=== PATIENT | female | born 1990 | race Caucasian/White ===

== ENCOUNTER 2017-07-16 18:28 | Emergency (ER) | payer MEDICAID, SELFPAY ==
[2017-07-16 18:29] VITALS: BP 131/109; PULSE 114; RESP 16; TEMP 36.4; O2SAT 100; BMI 24.5
[2017-07-16 18:30] VITALS: BP 131/109; PULSE 108; RESP 16; TEMP 37.1; O2SAT 100; BMI 24.5
--- NOTE | 2017-07-16 18:48 | ED.VISSUMM ---
- ER Visit Summary Date of Service: 07/16/17 Chief Complaint: Left flank pain History of Present Illness: The patient is a 26 F history of kidney stone presents with 2 days of intermittent left flank pain. She states it feels similar to stones she has had in the past. It waxes and wanes. She has noted some hematuria. She is also had some urinary frequency. She has been mildly nauseated without vomiting. She has never required lithotripsy or stenting. She denies any fevers or chills. She denies any other systemic symptoms. The patient has had multiple CTs this year demonstrating stones, and is hoping to avoid them. Physical Examination: Vital signs reviewed General: Well-nourished, well-developed Head: Normocephalic, atraumatic Eyes: Pupils equal and reactive, extraocular muscles intact Neck, supple, no lymphadenopathy Heart: Regular rate and rhythm Respiratory: No distress, clear bilaterally Abdomen: Soft, nontender, nondistended, no peritoneal signs Back: Mild left CVA tenderness Extremities: Nontender, no edema, no cords Skin: Normal color no rash Neuro: Alert and oriented, no focal or lateralizing deficits Test Results: Urine does show hematuria, but no infection. Screening labs are unremarkable. Emergency Department Course and Treatment: The patient has signs and symptoms consistent with kidney stone. I did review her most recent CT. She did have a few small stones, but nothing larger than 2 mm. Her pain was addressed with mild improvement. She was redosed with analgesics and was more comfortable. Her urine does not show evidence of infection. She has a benign abdomen. At this time, I do feel that she is safe for outpatient therapy. I will prescribe the patient short course of analgesics and antiemetics. She will be discharged home and will follow up with her urologist in [place]. Treatment Plan: [] Disposition: Discharge Impression:. Urolithiasis This note was generated with [employer] dictation software. It may contain incorrect words, spelling, and punctuation that were not noted in review of the chart prior to signing ED Disposition - Plan for ED Patient: Chief Complaint: Flank Pain Instructions: ED Stone Renal W Colic Prescriptions: Oxycodone HCl/Acetaminophen [Percocet 5/325] 1 tab PO Q6H PRN PRN 3 Days #12 tab PRN Reason: Pain Ondansetron [Zofran Odt] 4 mg PO Q8H PRN PRN #10 tab PRN Reason: Nausea Referrals: Jaydon Decker DO [Primary Care Provider] -
[2017-07-16 18:59] LABS: Bacteria 0 SEEN /hpf (None Seen); Mucous, Urine 0 SEEN /hpf (<or=2+)
[2017-07-16 19:02] LABS: Color, Urine Yellow (Yellow); Glucose, Dipstick Normal (Normal); Ketone-Dipstick Negative (Negative); Leukocyte Esterase-Dipstick 100 /ul (Negative); Nitrite-Dipstick Negative (Negative); Occult Blood-Urine 250 /ul (Negative); Protein-Dipstick Negative (Negative); Urine Bilirubin Dipstick Negative (Negative); Urine Clarity Sl. Cloudy (Clear); Urine Urobilinogen Normal (Normal)
[2017-07-16] MEDS: Morphine 4 MG/ML Syringe IV (19:05)
[2017-07-16] MEDS: Ketorolac 30 MG/ML Syringe IV (19:05)
[2017-07-16] MEDS: 0.9% Normal Saline 1,000 ML 250 ML IV (19:05)
[2017-07-16] MEDS: Ondansetron 4 MG/2 ML Vial IV (19:06)
[2017-07-16 19:07] LABS: Absolute Neutrophil Count 2.6 X10^3/uL (2.0-7.7); Basophil# 0.02 X10^3/uL; Basophil% 0.4 % (0-1); Eosinophil# 0.06 X10^3/uL; Eosinophils% 1.1 % (0-5); Hemoglobin 12.5 g/dl (12.0-15.0); Lymphocyte % 44.8 % (19-41); Mean Corp Hgb Conc 32.9 g/gl (32-36); Mean Corpuscular Volume 97.2 fL (81-99); Mean Platelet Vol. 9.4 fl (6.2-12.0); Monocyte# 0.44 X10^3/uL; Monocyte% 7.9 % (0-10); Neutrophil # 2.56 X10^3/uL (2.7-7.7); Neutrophil % 45.8 % (47-70); POSITIVE COUNT NO; POSITIVE DIFFERENTIAL NO; POSITIVE MORPHOLOGY NO; Platelet Count 295 K/mm3 (150-450); RBC Distribution Width SD 41.9 fl (35.1-43.9); Red Blood Count 3.91 M/mm3 (4.2-5.4); White Blood Count 5.6 K/mm3 (4.4-11.0)
[2017-07-16 19:09] LABS: Red Blood Cells-Urine 50-100 SEEN /hpf (0-5); Squamous Epithelial Cells - UA 0-5 SEEN /hpf (5-10); White Blood Cells 5-10 SEEN /hpf (0-5)
[2017-07-16 19:10] LABS: Amorphous Sediment 1+ PHOS
[2017-07-16 19:18] LABS: Anion Gap 9 (5-15); BUN 15 mg/dL (7-18); Calcium,Total 8.7 mg/dL (8.5-10.1); Chloride 109 mmol/L (98-107); Creatinine, Serum 0.79 mg/dL (0.55-1.02); EST Glomerular Filtration Rate 93 mL/min (>60); Est Glom Filt Rate - Afr Amer 113 mL/min (>60); Estimated Creatinine Clearance 81.43 ml/min; Glucose 86 mg/dL (74-106); Potassium 3.3 mmol/L (3.5-5.1); Sodium Level 143 mmol/L (136-145)
[2017-07-16 19:24] LABS: Pregnancy, Serum, hCG Quali. NEGATIVE Negative (0-9 Nonpreg)
[2017-07-16] MEDS: HYDROmorphone 1 MG/ML Syringe 0.5 MG IV (19:43)
[2017-07-16] MEDS: Calcium Carbonate 500 MG Tablet PO (19:50)
[2017-07-16 20:01] VITALS: BP 125/80; PULSE 95; RESP 14; O2SAT 99
== END 2017-07-16 20:01 | disposition home or self-care (01) ==
LOC: ED 19:26
PROVIDERS: Emergency Provider Emergency Medicine; Family Provider Student in an Organized Health Care Education/Training Program; PCP Student in an Organized Health Care Education/Training Program
DX: N20.9 Urinary calculus, unspecified (principal); R31.9 Hematuria, unspecified; Z79.899 Other long term (current) drug therapy; Z87.442 Personal history of urinary calculi
CPT/HCPCS: 80048; 81001; 84703; 85025; 96361; 96374; 96375; 99285; J7030; A4216; J2405

== ENCOUNTER 2017-08-05 19:44 | Emergency (ER) | payer MEDICAID, SELFPAY ==
[2017-08-05 19:45] VITALS: BP 124/77; PULSE 101; RESP 18; TEMP 36.7; O2SAT 100; BMI 25.4
[2017-08-05 20:19] LABS: Mucous, Urine 0 SEEN /hpf (<or=2+)
[2017-08-05 20:38] LABS: Color, Urine Yellow (Yellow); Glucose, Dipstick Normal (Normal); Ketone-Dipstick Negative (Negative); Leukocyte Esterase-Dipstick 100 /ul (Negative); Nitrite-Dipstick Negative (Negative); Occult Blood-Urine 250 /ul (Negative); Protein-Dipstick 30 mg/dl (Negative); Specific Gravity, Urine 1.015 (1.002-1.030); Urine Bilirubin Dipstick Negative (Negative); Urine Clarity Sl. Cloudy (Clear); Urine Urobilinogen Normal (Normal)
[2017-08-05 20:51] LABS: Bacteria 1+ /hpf (None Seen); Red Blood Cells-Urine > 100 SEEN /hpf (0-5); Squamous Epithelial Cells - UA 5-10 SEEN /hpf (5-10); White Blood Cells 0-5 SEEN /hpf (0-5)
--- NOTE | 2017-08-05 21:10 | ED.VISSUMM ---
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 She reports she has right flank pain began yesterday. The stabbing pain Zeta 10 worst and 6 out of 10 currently. Is worsened by nothing. It is unrelieved by Celebrex and Norflex. She reports she has had nausea without vomiting. Her last bowel was today. She has had no diarrhea, melena, or hematochezia. Reports she has hematuria that began yesterday and frequent urination today. States this is similar to when she has had kidney stones in the past. Physical Examination: Vitals: Stable. Afebrile. General: Well-nourished and well-developed. Head: Normocephalic atraumatic. Neck: Supple, no lymphadenopathy. No JVD. Nontender. Cardiovascular: Regular rate and rhythm. No murmurs. Respiratory: No respiratory distress. Clear to auscultation bilaterally. Abdominal: Soft, nontender, nondistended, normal bowel sounds. No guarding, rebound, or peritoneal signs. Back: Mild right CVA tenderness. Extremities: Nontender, no edema. Skin: Normal color, no rash. Neurologic: Alert and oriented ?3. Cranial nerves II through XII are intact. Normal strength and sensation. Psych: Normal affect. Test Results: UA has greater than 100 red blood cells and no white cells. Emergency Department Course and Treatment: Reviewed the patient's recent visits the emergency department. She had a CT flank in April that showed a 2 mm stone in her right kidney. I do not think it is in her best interest to repeat this scan. Is given dose of Dilaudid and Zofran IV here. Treatment Plan: Patient will be discharged prescription for Zofran, Percocet, and Flomax. Instructed to follow-up with urologist in 1 week if not improving. Return to the emergency department for any worsening symptoms. Disposition: To home in improved and stable condition. Impression: 1. Right flank pain, acute. 2. Hematuria. 3. History of kidney stones. This note was generated with [employer] dictation software. It may contain incorrect words, spelling, and punctuation that were not noted in review of the chart prior to signing ED Disposition - Plan for ED Patient: Disposition: Home or Assisted Living Chief Complaint: Flank Pain Instructions: ED Stone Renal W Colic Prescriptions: Oxycodone HCl/Acetaminophen [Percocet 5/325] 1 tablet PO Q6H PRN PRN 3 Days #12 tablet PRN Reason: Pain Ondansetron [Zofran Odt] 4 mg PO Q8H PRN PRN #10 tablet PRN Reason: Nausea Tamsulosin HCl [Flomax] 0.4 mg PO DAILY 14 Days capsule Additional Instructions: Follow-up with your urologist in 1 week if not improving.
[2017-08-05] MEDS: Ondansetron 4 MG/2 ML Vial IV (21:17)
[2017-08-05] MEDS: HYDROmorphone 1 MG/ML Syringe IV (21:17)
[2017-08-05 21:48] VITALS: BP 122/87; PULSE 86; RESP 16; O2SAT 98
== END 2017-08-05 21:49 | disposition home or self-care (01) ==
LOC: ED 21:45
PROVIDERS: Emergency Provider Emergency Medicine; Family Provider Student in an Organized Health Care Education/Training Program; PCP Student in an Organized Health Care Education/Training Program
DX: R10.9 Unspecified abdominal pain (principal); R31.9 Hematuria, unspecified; R35.0 Frequency of micturition; R11.0 Nausea; Z79.899 Other long term (current) drug therapy; Z87.442 Personal history of urinary calculi
CPT/HCPCS: 81001; 96374; 96375; 99283; A4216; J2405

== ENCOUNTER 2017-08-18 18:55 | Emergency (ER) | payer MEDICAID, SELFPAY ==
[2017-08-18 18:58] VITALS: BP 115/77; PULSE 110; PULSE 111; RESP 18; RESP 20; TEMP 37.1; O2SAT 100; O2SAT 98; BMI 25.8
--- NOTE | 2017-08-18 19:22 | RAD_ITS ---
STUDY: X-RAY CHEST REASON FOR EXAM: Female, 26 years old. Pleurisy TECHNIQUE: Single frontal view COMPARISON: March 27, 2016 FINDINGS: The lungs are clear and expanded. There is no demonstrated pleural abnormality. Normal size heart. Normal mediastinum and zuleima. Normal visualized pulmonary arteries. Normal visualized aortic arch and descending thoracic aorta. Normal visualized thoracic spine. Normal visualized ribs, clavicles, and shoulders. There is no demonstrated abnormality of the visualized soft tissue structures of the upper abdomen. RAD/Chest 1 View (Portable) IMPRESSION: Normal x-ray examination of the chest. Electronically Signed: Skyler Sidhu DO at 19:53 EDT Tel [phone], Service support ,
--- NOTE | 2017-08-18 19:23 | EKG12_ITS ---
Test Reason : Blood Pressure : / mmHG Vent. Rate : 090 BPM Atrial Rate : 090 BPM P-R Int : 118 ms QRS Dur : 074 ms QT Int : 340 ms P-R-T Axes : 005 023 021 degrees QTc Int : 415 ms Normal sinus rhythm Normal ECG Confirmed by ЕЛЕНА SEGURA MD ([id number]), editorial specialist CHINA GIORDANO ([id number]) on 08/21/2017 12:52:35 PM Referred By: ARACELI Confirmed By:ЕЛЕНА SEGURA MD
[2017-08-18] MEDS: Ondansetron ODT 4 MG Tablet PO (19:44)
[2017-08-18] MEDS: HYDROmorphone 1 MG/ML Syringe 0.5 MG IV ×2 (19:44→21:28)
[2017-08-18 19:55] LABS: Absolute Lymphocyte Count 2.76 X10^3/ul (0.83-4.51); Absolute Neutrophil Count 3.4 X10^3/uL (2.0-7.7); Basophil# 0.03 X10^3/uL; Basophil% 0.4 % (0-1); Eosinophil# 0.07 X10^3/uL; Hematocrit 38.9 % (37-47); Hemoglobin 12.6 g/dl (12.0-15.0); Lymphocyte # 2.76 X10^3/ul (4.0); Mean Corp Hgb Conc 32.4 g/gl (32-36); Mean Corpuscular Hgb 31.1 pg (27.0-32.0); Mean Platelet Vol. 9.2 fl (6.2-12.0); Monocyte# 0.43 X10^3/uL; Monocyte% 6.4 % (0-10); Neutrophil # 3.43 X10^3/uL (2.7-7.7); Neutrophil % 51.1 % (47-70); POSITIVE COUNT NO; POSITIVE DIFFERENTIAL NO; POSITIVE MORPHOLOGY NO; Platelet Count 295 K/mm3 (150-450); RBC Distribution Width CV 11.8 % (11.6-14.6); RBC Distribution Width SD 41.4 fl (35.1-43.9); Red Blood Count 4.05 M/mm3 (4.2-5.4); White Blood Count 6.7 K/mm3 (4.4-11.0)
[2017-08-18 20:01] LABS: D-Dimer Quantitative (DVT/PE) 0.28 FEU/ug/m (0.27-0.49)
[2017-08-18 20:03] LABS: Erythrocyte Sedimentation Rate 14 mm/hr (0-20)
[2017-08-18] MEDS: MethylPREDNISolone 125 MG/2 ML Vial IV (20:08)
[2017-08-18 20:55] LABS: Pregnancy, Serum, hCG Quali. NEGATIVE Negative (0-9 Nonpreg)
[2017-08-18 20:56] LABS: Anion Gap 8 (5-15); BUN 10 mg/dL (7-18); BUN/Creat Ratio 12.9 RATIO (10-20); CRP < 2.90 mg/L (0.0-3.0); Calcium,Total 8.9 mg/dL (8.5-10.1); Chloride 108 mmol/L (98-107); Creatinine, Serum 0.78 mg/dL (0.55-1.02); EST Glomerular Filtration Rate 95 mL/min (>60); Est Glom Filt Rate - Afr Amer 115 mL/min (>60); Estimated Creatinine Clearance 82.48 ml/min; Glucose 81 mg/dL (74-106); Potassium 3.6 mmol/L (3.5-5.1); Sodium Level 140 mmol/L (136-145)
[2017-08-18 21:08] VITALS: PULSE 101; RESP 18
--- NOTE | 2017-08-18 21:22 | ED.DCSUM_ITS ---
- ER Visit Summary Date of Service: 08/18/17 Chief Complaint: Pleurisy History of Present Illness: The patient is a 26 F with sudden onset of left upper chest pain at work this morning. [facility] was [facility] and workup was reportedly negative. She was told she had pleurisy and discharged with Ultram. Patient reports her pain is not controlled. She denies recent URI or cough. She denies DVT risk factors. Past history significant for ADHD and anxiety. She has had pancreatitis, kidney stones, fibromyalgia, pericarditis, myocarditis, chronic migraines. Patient does have an allergy to NSAIDs stating it causes GI bleeding. Physical Examination: Vital signs are significant for heart rate of 110, otherwise unremarkable. Head neck examination is normal. Heart is slightly tachycardic and regular. Lung sounds are clear. She does have left anterior upper chest wall tenderness. There is no crepitus. Abdomen is soft nontender. Lower extremity examination was no calf tenderness or edema. Test Results: EKG is sinus at 90 with no sign of acute ischemia. Portable chest x-ray is unremarkable. CBC and chemistry studies are unremarkable. Troponin is less than 0.02. D-dimer is 0.28. CRP is less than 2.9. Sed rate is 14. Emergency Department Course and Treatment: Patient received a small dose of Dilaudid, Zofran, and Solu-Medrol. On repeat evaluation she is resting more comfortably. Heart rate remains elevated at 109. Oxygen saturations have maintained at 100% throughout her stay. She received 1 additional dose of pain medication and then discharged with a course of prednisone. She will continue her Ultram at home. Treatment Plan: [] Disposition: Discharge Impression: Atypical chest pain This note was generated with [employer] dictation software. It may contain incorrect words, spelling, and punctuation that were not noted in review of the chart prior to signing ED Disposition - Plan for ED Patient: Chief Complaint: Chest Other Referrals: Jaydon Decker DO [Primary Care Provider] -
--- NOTE | 2017-08-18 21:22 | ED.DEP ---
ED Disposition - Plan for ED Patient: Disposition: Home or Assisted Living Chief Complaint: Chest Other Instructions: ED Chest Pain Atypical Unkn Cause Prescriptions: Prednisone 10 mg PO UD #33 tablet Referrals: Jaydon Decker DO [Primary Care Provider] - 1 Week
[2017-08-18 21:34] VITALS: BP 103/67; PULSE 101; RESP 16; O2SAT 99
== END 2017-08-18 21:35 | disposition home or self-care (01) ==
PROVIDERS: Emergency Provider Emergency Medicine; Family Provider Student in an Organized Health Care Education/Training Program; PCP Student in an Organized Health Care Education/Training Program
DX: R07.89 Other chest pain (principal); M79.7 Fibromyalgia; F41.9 Anxiety disorder, unspecified; Z87.442 Personal history of urinary calculi; Z87.19 Personal history of other diseases of the digestive system; Z79.899 Other long term (current) drug therapy
CPT/HCPCS: 71045; 80048; 84484; 84703; 85025; 85379; 85652; 86140; 93005; 96374; 96375; 96376; 99284; A4216

== ENCOUNTER 2017-08-21 11:10 | Emergency (ER) | payer MEDICAID, SELFPAY ==
[2017-08-21 11:10] VITALS: BP 128/82; PULSE 109; RESP 12; TEMP 36.7; O2SAT 100; BMI 25.0
--- NOTE | 2017-08-21 11:54 | ED.VISSUMM ---
- ER Visit Summary Date of Service: 08/21/17 Chief Complaint: [Chest pain] History of Present Illness: The patient is a 26 F [presents to the emergency department with chest pain that started 3 days ago. Patient apparently was taken to [facility] 3 days ago where she had a significant workup at that time which did not yield anything significant and patient was diagnosed with pleurisy. Patient apparently developed more pain the following day and was seen in our emergency department 2 days ago where she had repeat workup once again including EKG as well as labs including d-dimer and troponin all of which were unremarkable. Patient currently taking tramadol for pain. Patient continues to have pain today. Patient states that she took tramadol which she has at home for headaches, that did not help her pain.] Patient has history of prior pericarditis, myocarditis, migraines, kidney stones, and cholecystectomy. Physical Examination: [HEENT-PERRLA, EOMI. Cranial nerves II through XII grossly intact. TMs clear. Mucous membranes moist. No adenopathy. Cardiovascular-regular rate and rhythm without murmur or ectopy Lungs-clear to auscultation, chest wall stable without crepitus or subcu emphysema Abdomen-normoactive bowel sounds, soft, nontender, no rebound or rigidity, no peritoneal signs. Extremities-intact ?4, normal range of motion, normal pulses, atraumatic] Test Results: [None indicated] Emergency Department Course and Treatment: [I did perform an oars report on the patient which did show a concerning amount of narcotic prescriptions over the last year. Patient has had prescriptions from multiple physicians. Patient states that these are typically for her kidney stones. At this point she has had significant workups ?2 this week to evaluate her chest pain. I do not feel any further workup is indicated. Patient understands I will not be prescribing any narcotic pain medication for unverifiable pain. I did give patient 1 dose of Dilaudid and Zofran in the emergency department and advised that she follow-up with her primary care physician within next 3-5 days.] Treatment Plan: [Patient to follow-up with her primary care physician to continue with her tramadol.] Disposition: [Discharged home in stable condition] Impression: [Chest pain-etiology uncertain] This note was generated with [employer] software. It may contain incorrect words, spelling, and punctuation that were not noted in review of the chart prior to signing ED Disposition - Plan for ED Patient: Chief Complaint: Chest Other Referrals: Jaydon Decker DO [Primary Care Provider] -
--- NOTE | 2017-08-21 11:57 | ED.DCSUM_ITS ---
- ER Visit Summary Date of Service: 08/21/17 Chief Complaint: [Chest pain] History of Present Illness: The patient is a 26 F [presents to the emergency department with chest pain that started 3 days ago. Patient apparently was taken to [facility] 3 days ago where she had a significant workup at that time which did not yield anything significant and patient was diagnosed with pleurisy. Patient apparently developed more pain the following day and was seen in our emergency department 2 days ago where she had repeat workup once again including EKG as well as labs including d-dimer and troponin all of which were unremarkable. Patient currently taking tramadol for pain. Patient continues to have pain today. Patient states that she took tramadol which she has at home for headaches, that did not help her pain.] Patient has history of prior pericarditis, myocarditis, migraines, kidney stones, and cholecystectomy. Physical Examination: [HEENT-PERRLA, EOMI. Cranial nerves II through XII grossly intact. TMs clear. Mucous membranes moist. No adenopathy. Cardiovascular-regular rate and rhythm without murmur or ectopy Lungs-clear to auscultation, chest wall stable without crepitus or subcu emphysema Abdomen-normoactive bowel sounds, soft, nontender, no rebound or rigidity, no peritoneal signs. Extremities-intact ?4, normal range of motion, normal pulses, atraumatic] Test Results: [None indicated] Emergency Department Course and Treatment: [I did perform an oars report on the patient which did show a concerning amount of narcotic prescriptions over the last year. Patient has had prescriptions from multiple physicians. Patient states that these are typically for her kidney stones. At this point she has had significant workups ?2 this week to evaluate her chest pain. I do not feel any further workup is indicated. Patient understands I will not be prescribing any narcotic pain medication for unverifiable pain. I did give patient 1 dose of Dilaudid and Zofran in the emergency department and advised that she follow- up with her primary care physician within next 3-5 days.] Treatment Plan: [Patient to follow-up with her primary care physician to continue with her tramadol.] Disposition: [Discharged home in stable condition] Impression: [Chest pain-etiology uncertain] This note was generated with [employer] software. It may contain incorrect words, spelling, and punctuation that were not noted in review of the chart prior to signing ED Disposition - Plan for ED Patient: Chief Complaint: Chest Other Referrals: Jaydon Decker DO [Primary Care Provider] -
--- NOTE | 2017-08-21 11:57 | ED.DEP ---
ED Disposition - Plan for ED Patient: Chief Complaint: Chest Other Instructions: ED Chest Pain Atypical Unkn Cause Referrals: Jaydon Decker DO [Primary Care Provider] - 3-5 Days
[2017-08-21] MEDS: HYDROmorphone 1 MG/ML Syringe IM (12:16)
[2017-08-21] MEDS: Ondansetron 4 MG/2 ML Vial IM (12:16)
[2017-08-21 12:37] VITALS: BP 105/67; PULSE 70; RESP 16; O2SAT 98
== END 2017-08-21 12:38 | disposition home or self-care (01) ==
LOC: ED 12:00
PROVIDERS: Emergency Provider Emergency Medicine; Family Provider Student in an Organized Health Care Education/Training Program; PCP Student in an Organized Health Care Education/Training Program
DX: R07.9 Chest pain, unspecified (principal); Z79.899 Other long term (current) drug therapy; Z87.442 Personal history of urinary calculi; Z90.49 Acquired absence of other specified parts of digestive tract
CPT/HCPCS: 96372; 99282

== ENCOUNTER 2017-08-31 14:55 | Emergency (ER) | payer MEDICAID, SELFPAY ==
[2017-08-31 14:56] VITALS: BP 123/86; PULSE 128; RESP 16; TEMP 37.2; O2SAT 98; BMI 25.4
--- NOTE | 2017-08-31 15:11 | CT_ITS ---
STUDY: CT ABDOMEN AND PELVIS WITHOUT CONTRAST REASON FOR EXAM: Female, 26 years old. Bilateral flank pain RADIATION DOSAGE (If Supplied By Facility): CTDIvol = ( 7.11 ) mGy, DLP = ( 328.52 ) mGycm TECHNIQUE: Transaxial images were obtained from the dome of the diaphragm to the symphysis pubis without oral contrast, and without intravenous contrast. Sagittal and coronal images were reconstructed. Individualized dose optimization techniques were used for this CT. COMPARISON: May 20, 2017 FINDINGS: The visualized lung bases are unremarkable. The visualized portions of the heart are within normal limits. Normal liver. Gallbladder not visualized consistent with cholecystectomy. Normal spleen. Normal pancreas. Normal bilateral adrenal glands. There are 2 tiny nonobstructing calculi in the right kidney.. There is no evidence for hydronephrosis or hydroureter. There are 2 tiny nonobstructing calculi in left kidney. No evidence for renal obstruction or ureteral calculus. No renal mass given limited unenhanced nature of the study. Normal visualized stomach. Normal small intestine. Normal colon. There is a tiny calcification in the right lower quadrant which appears to be within the appendiceal lumen however there is no evidence for acute appendicitis. Normal abdominal aorta. Normal inferior vena cava. Normal retroperitoneum. Incompletely distended diffusely thick-walled bladder likely of no significance. Normal abdominal wall. Normal osseous structures. CT/Abdomen/Pelvis without Cont IMPRESSION: Bilateral nephrolithiasis. No evidence for hydronephrosis or ureteral calculus at this time Status post cholecystectomy. Electronically Signed: Todd Olmstead MD at 17:14 EDT , Service support ,
--- NOTE | 2017-08-31 15:14 | ED.DCSUM_ITS ---
- ER Visit Summary Date of Service: 08/31/17 Chief Complaint: Left flank pain History of Present Illness: The patient is a 26 F who states that last night in the evening she developed pain in the flank. She states that she is seeing some pink tinge in the urine. States she has a history of kidney stones. Today at work she had to leave because the pain was so intense. She states that she has painful urination meaning that it hurts her kidney to urinate. Patient states she wants a CAT scan this time in the emergency department. She has had evaluation several times for this complaint. Physical Examination: Afebrile vital signs are stable Gen: Well-nourished well-developed Head: Normocephalic atraumatic Eyes: Perrl EOMI ENT: TMs clear no rhinorrhea moist mucous membranes Neck: Supple no lymphadenopathy no JVD nontender CVS: Heart rate is 93 on my examination regular rate rhythm no murmurs normal S1 -S2 Respiratory: No distress clear to auscultation bilaterally chest nontender Abdomen: Soft nontender nondistended normal bowel sounds no masses Back: Nontender Extremity: Left CVA tenderness no rash Skin: Normal color no rash Neuro: alert orientated ?3 CN II-XII normal gait Test Results: Analysis negative nitrates. 0-5 white cells 0-5 red cells 10-25 epithelial cells 3+ bacteria. Exit test was negative. CT of the abdomen pelvis demonstrated nephrolithiasis but no obvious ureterolithiasis or inflammatory changes around the kidneys or the ureter. Emergency Department Course and Treatment: She received a Cofield and Zofran. Urinalysis is contaminated. I do not see evidence of overt infection. Patient will be discharged home to follow-up with her doctors. Impression: 1. Left flank pain 2. Nephrolithiasis This note was generated with [employer] dictation software. It may contain incorrect words, spelling, and punctuation that were not noted in review of the chart prior to signing ED Disposition - Plan for ED Patient: Disposition: Home or Assisted Living Chief Complaint: Flank Pain Instructions: ED Flank Pain Uncertain Cause Referrals: Jaydon Decker DO [Primary Care Provider] - 3-5 Days if not improving
[2017-08-31 15:41] LABS: Mucous, Urine 0 SEEN /hpf (<or=2+)
[2017-08-31] MEDS: HYDROcodone Bitartrate/Apap 5/325 Tablet PO (15:42)
[2017-08-31] MEDS: Ondansetron ODT 4 MG Tablet PO (15:42)
[2017-08-31 15:45] LABS: Color, Urine Yellow (Yellow); Glucose, Dipstick Normal (Normal); Ketone-Dipstick Negative (Negative); Leukocyte Esterase-Dipstick 25 /ul (Negative); Nitrite-Dipstick Negative (Negative); Occult Blood-Urine 25 /ul (Negative); Protein-Dipstick Negative (Negative); Urine Bilirubin Dipstick Negative (Negative); Urine Clarity Sl. Cloudy (Clear); Urine Urobilinogen Normal (Normal); Urine pH 6.5 (5.0 - 8.0)
[2017-08-31 16:05] LABS: Internal QC Validated? YES +Cl - CLEAR BKGD; Pregnancy, Urine Negative Negative
[2017-08-31 16:07] LABS: Bacteria 3+ /hpf (None Seen); Red Blood Cells-Urine 0-5 SEEN /hpf (0-5); Squamous Epithelial Cells - UA 10-25 SEEN /hpf (5-10); Transitional Epithelial - Ur 0-5 SEEN /hpf (0-5); White Blood Cells 0-5 SEEN /hpf (0-5)
[2017-08-31 17:44] VITALS: BP 118/72; PULSE 68; RESP 16; O2SAT 98
== END 2017-08-31 17:46 | disposition home or self-care (01) ==
PROVIDERS: Emergency Provider Emergency Medicine; Family Provider Student in an Organized Health Care Education/Training Program; PCP Student in an Organized Health Care Education/Training Program
DX: R10.9 Unspecified abdominal pain (principal); N20.0 Calculus of kidney; R31.9 Hematuria, unspecified; R30.0 Dysuria; Z79.899 Other long term (current) drug therapy; Z87.442 Personal history of urinary calculi
CPT/HCPCS: 74176; 81001; 81025; 99283

== ENCOUNTER 2017-10-03 16:24 | Emergency (ER) | payer MEDICAID, SELFPAY ==
--- NOTE | 2017-10-03 16:24 | DT_ITS ---
This patient was seen during an EMR downtime September 28, 2017 - October 05, 2017. This patient may have a combination of paper and electronic documentation or all paper documentation. All documentation is viewable within the e-chart portion of [facility] for each patient visit.
[2017-10-06 06:38] LABS: Bacteria 0 SEEN /hpf (None Seen); Mucous, Urine 0 SEEN /hpf (<or=2+)
[2017-10-06 07:00] LABS: Color, Urine Yellow (Yellow); Glucose, Dipstick NEGATIVE (Normal); Ketone-Dipstick Negative (Negative); Urine Bilirubin Dipstick Negative (Negative); Urine Clarity Clear (Clear)
[2017-10-06 07:01] LABS: Leukocyte Esterase-Dipstick Negative /ul (Negative); Nitrite-Dipstick Negative (Negative); Occult Blood-Urine 150 /ul (Negative); Protein-Dipstick Negative (Negative); Red Blood Cells-Urine 10-25 SEEN /hpf (0-5); Squamous Epithelial Cells - UA 0-5 SEEN /hpf (5-10); Urine Urobilinogen Normal (Normal); White Blood Cells 0-5 SEEN /hpf (0-5)
[2017-10-06 20:34] LABS: AST(SGOT) 14 U/L (15-37); Alanine Aminotransfer ALT/SGPT 27 U/L (13-56); Albumin, Serum 4.3 g/dL (3.2-5.0); Alkaline Phosphatase 66 U/L (45-117); BUN 9 mg/dL (7-18); BUN/Creat Ratio 9.4 RATIO (10-20); Creatinine, Serum 0.96 mg/dL (0.55-1.02); EST Glomerular Filtration Rate 74 mL/min (>60); Est Glom Filt Rate - Afr Amer 90 mL/min (>60); Globulin 4.5 g/dL (2.2-4.2); Glucose 95 mg/dL (74-106); Lipase 254 U/L (73-393); Protein, Total 8.8 g/dL (6.4-8.2)
[2017-10-06 20:35] LABS: Anion Gap 9 (5-15); Bilirubin, Direct 0.06 mg/dL (0.00-0.30); Chloride 109 mmol/L (98-107); Potassium 3.6 mmol/L (3.5-5.1); Sodium Level 142 mmol/L (136-145)
[2017-10-06 20:36] LABS: Pregnancy, Serum, hCG Quali. NEGATIVE Negative (0-9 Nonpreg)
[2017-10-06 21:01] LABS: Hemoglobin 13.7 g/dl (12.0-15.0); Red Blood Count 4.28 M/mm3 (4.2-5.4); White Blood Count 9.7 K/mm3 (4.4-11.0)
[2017-10-06 21:02] LABS: Basophil% 0.2 % (0-1); Eosinophils% 0.2 % (0-5); Hematocrit 41.2 % (37-47); Lymphocyte % 21.4 % (19-41); Mean Corp Hgb Conc 33.3 g/gl (32-36); Mean Corpuscular Volume 96.3 fL (81-99); Mean Platelet Vol. 10.1 fl (6.2-12.0); Monocyte% 7.2 % (0-10); Neutrophil % 70.9 % (47-70); POSITIVE COUNT NO; POSITIVE DIFFERENTIAL NO; POSITIVE MORPHOLOGY NO; Platelet Count 329 K/mm3 (150-450); RBC Distribution Width CV 12.3 % (11.6-14.6); RBC Distribution Width SD 42.2 fl (35.1-43.9)
[2017-10-06 21:03] LABS: Absolute Lymphocyte Count 2.08 X10^3/ul (0.83-4.51); Absolute Neutrophil Count 6.9 X10^3/uL (2.0-7.7); Basophil# 0.02 X10^3/uL; Eosinophil# 0.02 X10^3/uL; Lymphocyte # 2.08 X10^3/ul (4.0); Neutrophil # 6.88 X10^3/uL (2.7-7.7)
== END 2017-10-03 19:15 | disposition home or self-care (01) ==
LOC: ED 10-04 14:28
PROVIDERS: Emergency Provider Emergency Medicine; Family Provider Student in an Organized Health Care Education/Training Program; PCP Student in an Organized Health Care Education/Training Program
DX: R10.13 Epigastric pain (principal); G89.29 Other chronic pain; M79.7 Fibromyalgia; Z87.442 Personal history of urinary calculi; Z79.899 Other long term (current) drug therapy
CPT/HCPCS: 80048; 80076; 81001; 83690; 84703; 85025; 96361; 96374; 96375; 99284; A4216; J2405

== ENCOUNTER 2017-10-11 09:34 | Emergency (ER) | payer MEDICAID, SELFPAY ==
[2017-10-11 09:35] VITALS: BP 109/60; PULSE 121; RESP 15; TEMP 36.6; O2SAT 100; BMI 26.0
--- NOTE | 2017-10-11 09:51 | US_ITS ---
STUDY: RENAL ULTRASOUND - COMPLETE REASON FOR EXAM: Female, 27 years old. Flank pain TECHNIQUE: Ultrasound evaluation of the kidneys was performed with real-time and static draper-scale imaging. COMPARISON: August 31, 2017 CT scan abdomen and pelvis FINDINGS: RIGHT KIDNEY: Normal location of the right kidney, which is normal in size. The right kidney measures 10.1 x 4.6 x 3.8 cm. There is a normal cortex of the right kidney. The renal cortex measures 1.3 cm. There is no right renal mass or cyst. There punctate echogenicities in the right kidney image #7 suggesting tiny renal stones. There is no visualized hydronephrosis. There is no right hydronephrosis. DISTAL RIGHT URETER: There is non-visualization of the distal right ureter. There is no demonstrated right ureterovesical junction calculus. There is a visualized right ureteral jet. LEFT KIDNEY: Normal location of the left kidney, which is normal in size. The left kidney measures 10.8 x 4.6 x 5.5 cm. There is a normal cortex of the left kidney. The renal cortex measures 1.5 cm. There is no left renal mass or cyst. There punctate echogenicities within the left kidney suggesting punctate stones. There is trace left pelviectasis image #61. There is no left hydronephrosis. DISTAL LEFT URETER: There is non-visualization of the distal left ureter. There is no demonstrated left ureterovesical junction calculus. There is a visualized left ureteral jet. BLADDER: The prevoid urinary bladder has a volume of 31.9 ml. There is a normal wall thickness of the distended urinary bladder. There is no demonstrated mass within the urinary bladder. There are no demonstrated bladder calculi. US/Kidney and Bladder IMPRESSION: Bilateral punctate renal stones similar to prior study. Mild left pelviectasis. Electronically Signed: Ruth Israel MD at 11:29 EDT Tel , Service support ,
[2017-10-11] MEDS: fentaNYL 100 MCG/2 ML Ampul 50 MCG IV (10:08)
--- NOTE | 2017-10-11 10:13 | ED.DCSUM_ITS ---
- ER Visit Summary Date of Service: 10/11/17 Chief Complaint: Flank pain History of Present Illness: The patient is a 27 F who continues to have right flank pain. She has had this for which she says is 3 days. However, she has been seen many times for this. She was at [facility] on and diagnosed with a kidney infection. She was started on Keflex. She has a history of kidney stones. She had a CAT scan less than a month ago which showed renal stones but none in the ureter. She was given Percocet at [facility] but has since ran out. She tried Tylenol without any relief. She denies fevers. She is slightly nauseous. Physical Examination: Vital signs reviewed. HEENT exam unremarkable. Heart is cardiac in regular rhythm without murmurs. Lungs are clear to auscultation. Abdomen is soft and nontender. Does have right CVA tenderness to palpation. Extremities reveal no edema. Skin exam normal. Neurologic exam normal. Test Results: Urinalysis reveals blood. Renal ultrasound reveals renal stones with mild left pelviectasis Emergency Department Course and Treatment: She was given fentanyl. She continued to have pain so I did give her 1 dose of Dilaudid. I reviewed her [facility] report. It does show many prescriptions from a lot of different providers. However, she states that she is allergic to NSAIDs. I will give her 4 Percocet tablets that she can take at home. She does have urology follow- up scheduled. I do not feel she requires a different antibiotic as there are no white blood cells in her urine. She needs to keep this appointment Treatment Plan: [] Disposition: Discharge Impression: Hematuria, renal stones, flank pain This note was generated with [employer] dictation software. It may contain incorrect words, spelling, and punctuation that were not noted in review of the chart prior to signing ED Disposition - Plan for ED Patient: Chief Complaint: Complaint Referrals: Jaydon Decker DO [Primary Care Provider] -
[2017-10-11 10:14] LABS: Bacteria 0 SEEN /hpf (None Seen); Mucous, Urine 0 SEEN /hpf (<or=2+); White Blood Cells 0 SEEN /hpf (0-5)
[2017-10-11 10:16] LABS: Color, Urine Yellow (Yellow); Glucose, Dipstick Normal (Normal); Ketone-Dipstick Negative (Negative); Leukocyte Esterase-Dipstick 100 /ul (Negative); Nitrite-Dipstick Negative (Negative); Occult Blood-Urine 250 /ul (Negative); Protein-Dipstick 15 mg/dl (Negative); Urine Bilirubin Dipstick Negative (Negative); Urine Clarity Sl. Cloudy (Clear); Urine Urobilinogen Normal (Normal)
[2017-10-11 10:22] LABS: Red Blood Cells-Urine > 100 SEEN /hpf (0-5); Squamous Epithelial Cells - UA 5-10 SEEN /hpf (5-10)
--- NOTE | 2017-10-11 11:35 | ED.DEP ---
ED Disposition - Plan for ED Patient: Disposition: Home or Assisted Living Chief Complaint: Complaint Instructions: ED Flank Pain Uncertain Cause Prescriptions: Oxycodone HCl/Acetaminophen [Percocet 5/325] 1 tab PO Q6H PRN PRN 2 Days #4 tab PRN Reason: Pain Referrals: Jaydon Decker DO [Primary Care Provider] -
[2017-10-11] MEDS: HYDROmorphone 1 MG/ML Syringe IV (12:03)
[2017-10-11 12:06] VITALS: BP 105/72; PULSE 94; RESP 16; TEMP 36.3; O2SAT 98
== END 2017-10-11 12:08 | disposition home or self-care (01) ==
PROVIDERS: Emergency Provider Emergency Medicine; Family Provider Student in an Organized Health Care Education/Training Program; PCP Student in an Organized Health Care Education/Training Program
DX: R31.9 Hematuria, unspecified (principal); R10.9 Unspecified abdominal pain; N20.0 Calculus of kidney; M79.7 Fibromyalgia; Z88.6 Allergy status to analgesic agent; Z87.442 Personal history of urinary calculi
CPT/HCPCS: 76770; 81001; 96374; 96375; 99283; A4216

== ENCOUNTER 2017-10-14 18:29 | Emergency (ER) | payer MEDICAID, SELFPAY ==
[2017-10-14 18:30] VITALS: BP 119/74; PULSE 116; RESP 16; TEMP 36.6; O2SAT 98; BMI 26.9
--- NOTE | 2017-10-14 18:54 | EKG12_ITS ---
Test Reason : Blood Pressure : / mmHG Vent. Rate : 092 BPM Atrial Rate : 092 BPM P-R Int : 138 ms QRS Dur : 076 ms QT Int : 336 ms P-R-T Axes : 039 038 030 degrees QTc Int : 415 ms Normal sinus rhythm Normal ECG Confirmed by MAXWELL STEPHENSON ([id number]), pictures editor MAX BLEDSOE ([id number]) on 10/19/2017 10:13:24 AM Referred By: Todd Zuleta Confirmed By:MAXWELL STEPHENSON
--- NOTE | 2017-10-14 18:54 | RAD_ITS ---
STUDY: X-RAY CHEST REASON FOR EXAM: Female, 27 years old. Chest pain TECHNIQUE: Frontal and lateral views of the chest. COMPARISON: 08/18/2017. FINDINGS: The lungs are clear and expanded. There is no demonstrated pleural abnormality. Normal size heart. Normal mediastinum and zuleima. Normal visualized pulmonary arteries. Normal visualized aortic arch and descending thoracic aorta. Normal visualized thoracic spine. Normal visualized ribs, clavicles, and shoulders. There is no demonstrated abnormality of the visualized soft tissue structures of the upper abdomen. RAD/Chest PA and Lateral IMPRESSION: No acute cardiopulmonary disease. Electronically Signed: Keny Velásquez DO at 19:44 EDT , Service support ,
--- NOTE | 2017-10-14 18:56 | ED.VISSUMM ---
- ER Visit Summary Date of Service: 10/14/17 Chief Complaint: Chest pain History of Present Illness: The patient is a 27 F recently diagnosed with jokw-hmih-yir-mouth disease. Complaining of chest discomfort. Has never had a DVT or PE. No recent travel, surgery, mobilization. No hemoptysis. No leg pain or swelling. Says it hurts to move. Denies any fever. States she has had prior pericarditis. Also has a history of fibromyalgia. She reportedly is allergic to NSAIDs and currently on Percocet and Magic mouthwash for tpfa-wihu-txv-mouth pain. She denies any shortness of breath. Physical Examination: Well-appearing young female. Vital signs are stable and afebrile. Her pulse ox 90% on room air no signs of hypoxia. H EENT exam lesions of her mouth consistent with aiob-crcp-ggr-mouth. Moist wheeze membranes. Posterior pharynx unremarkable. Neck nontender no lymphadenopathy. Lungs clear to auscultation bilaterally. Heart regular rhythm rate about 95 no murmur. Chest wall is reproducibly tender. Over the anterior chest. There is no ecchymosis or bruising. No subcu air or crepitance. Abdomen is soft and nontender. Normal bowel sounds no peritoneal signs. She is moving all 4 extremities. Calves are nontender without edema or cords. Normal range of motion all 4 extremities. Back exam nontender. Neurologically she is awake alert with no focal motor deficits. Test Results: Sinus rhythm rate 92 normality. No ischemia in absolutely no signs of pericarditis. Chest x-ray normal cardiac silhouette and mediastinum also appears normal read both by myself the radiologist. Emergency Department Course and Treatment: Patient's exam is consistent with chest wall pain. I am obtain EKG and chest x-ray. Requested something for pain and reportedly is allergic to NSAIDs should be given 1 Percocet. She did not want to use her own pain meds while here. Treatment Plan: Weekly, historically and exam this is consistent with chest wall pain. She has pain medications at home which she can use. Disposition: Discharge Impression: Acute chest wall pain This note was generated with THYME dictation software. It may contain incorrect words, spelling, and punctuation that were not noted in review of the chart prior to signing ED Disposition - Plan for ED Patient: Chief Complaint: Chest Other Referrals: Jaydon Decker DO [NON CLINICAL AFFILIATE] -
--- NOTE | 2017-10-14 18:59 | ED.DCSUM_ITS ---
- ER Visit Summary Date of Service: 10/14/17 Chief Complaint: Chest pain History of Present Illness: The patient is a 27 F recently diagnosed with hand- jufs-nxa-npfta disease. Complaining of chest discomfort. Has never had a DVT or PE. No recent travel, surgery, mobilization. No hemoptysis. No leg pain or swelling. Says it hurts to move. Denies any fever. States she has had prior pericarditis. Also has a history of fibromyalgia. She reportedly is allergic to NSAIDs and currently on Percocet and Magic mouthwash for hand-foot- and-mouth pain. She denies any shortness of breath. Physical Examination: Well-appearing young female. Vital signs are stable and afebrile. Her pulse ox 90% on room air no signs of hypoxia. H EENT exam lesions of her mouth consistent with qcma-bwlx-bbv-mouth. Moist wheeze membranes. Posterior pharynx unremarkable. Neck nontender no lymphadenopathy. Lungs clear to auscultation bilaterally. Heart regular rhythm rate about 95 no murmur. Chest wall is reproducibly tender. Over the anterior chest. There is no ecchymosis or bruising. No subcu air or crepitance. Abdomen is soft and nontender. Normal bowel sounds no peritoneal signs. She is moving all 4 extremities. Calves are nontender without edema or cords. Normal range of motion all 4 extremities. Back exam nontender. Neurologically she is awake alert with no focal motor deficits. Test Results: Sinus rhythm rate 92 normality. No ischemia in absolutely no signs of pericarditis. Chest x-ray normal cardiac silhouette and mediastinum also appears normal read both by myself the radiologist. Emergency Department Course and Treatment: Patient's exam is consistent with chest wall pain. I am obtain EKG and chest x-ray. Requested something for pain and reportedly is allergic to NSAIDs should be given 1 Percocet. She did not want to use her own pain meds while here. Treatment Plan: Weekly, historically and exam this is consistent with chest wall pain. She has pain medications at home which she can use. Disposition: Discharge Impression: Acute chest wall pain This note was generated with [employer] dictation software. It may contain incorrect words, spelling, and punctuation that were not noted in review of the chart prior to signing ED Disposition - Plan for ED Patient: Chief Complaint: Chest Other Referrals: Jaydon Decker DO [NON CLINICAL AFFILIATE] -
[2017-10-14] MEDS: oxyCODONE 5 MG Tablet 10 MG PO (19:33)
[2017-10-14 19:34] VITALS: BP 118/84; PULSE 107; RESP 18; O2SAT 98
--- NOTE | 2017-10-14 20:15 | ED.DEP ---
ED Disposition - Plan for ED Patient: Disposition: Home or Assisted Living Chief Complaint: Chest Other Instructions: ED Chest Pain Costochondritis Additional Instructions: Usual pain meds at home for the chest wall pain. Your chest x-ray and EKG were both unremarkable. Follow-up your primary care physician if not improving.
[2017-10-14 20:26] VITALS: BP 122/58; PULSE 94; RESP 18; O2SAT 97
== END 2017-10-14 20:27 | disposition home or self-care (01) ==
PROVIDERS: Emergency Provider Emergency Medicine
DX: R07.89 Other chest pain (principal); M79.7 Fibromyalgia; Z88.6 Allergy status to analgesic agent; Z79.899 Other long term (current) drug therapy; Z87.442 Personal history of urinary calculi
CPT/HCPCS: 71046; 93005; 99283

== ENCOUNTER 2017-10-29 18:45 | Emergency (ER) | payer MEDICAID, SELFPAY ==
[2017-10-29 18:46] VITALS: BP 103/66; PULSE 102; PULSE 116; RESP 14; RESP 18; TEMP 36.1; TEMP 36.4; O2SAT 100; BMI 25.7
[2017-10-29 19:10] LABS: Mucous, Urine 0 SEEN /hpf (<or=2+); White Blood Cells 0 SEEN /hpf (0-5)
[2017-10-29 19:14] LABS: Color, Urine Yellow (Yellow); Glucose, Dipstick Normal (Normal); Ketone-Dipstick Negative (Negative); Leukocyte Esterase-Dipstick 25 /ul (Negative); Nitrite-Dipstick Negative (Negative); Occult Blood-Urine 250 /ul (Negative); Protein-Dipstick 15 mg/dl (Negative); Specific Gravity, Urine 1.015 (1.002-1.030); Urine Bilirubin Dipstick Negative (Negative); Urine Clarity Cloudy (Clear); Urine Urobilinogen Normal (Normal); Urine pH 6.5 (5.0 - 8.0)
[2017-10-29 19:48] LABS: Bacteria RARE /hpf (None Seen); Red Blood Cells-Urine > 100 SEEN /hpf (0-5); Squamous Epithelial Cells - UA 0-5 SEEN /hpf (5-10)
--- NOTE | 2017-10-29 20:02 | CT_ITS ---
STUDY: CT ABDOMEN AND PELVIS WITHOUT CONTRAST REASON FOR EXAM: Female, 27 years old. Right lower quadrant pain RADIATION DOSAGE (If Supplied By Facility): CTDIvol = ( 9.93 ) mGy, DLP = ( 476.45 ) mGycm TECHNIQUE: Transaxial images were obtained from the dome of the diaphragm to the symphysis pubis without oral contrast, and without intravenous contrast. Sagittal and coronal images were reconstructed. Individualized dose optimization techniques were used for this CT. COMPARISON: August 31, 2017 FINDINGS: The visualized lung bases are unremarkable. The visualized portions of the heart are within normal limits. Normal liver. Status postcholecystectomy.. Normal spleen. Normal pancreas. Normal bilateral adrenal glands. Tiny nonobstructing right renal calculus. Tiny nonobstructing left renal calculus No evidence for hydronephrosis or ureteral calculus. No renal mass.. Normal visualized stomach. Normal small intestine. Nonspecific diffuse fecal retention within the colon. No evidence for acute appendicitis Normal abdominal aorta. Normal inferior vena cava. Normal retroperitoneum. Normal urinary bladder. Normal abdominal wall. Normal osseous structures. CT/Abdomen/Pelvis without Cont IMPRESSION: Bilateral nephrolithiasis. No evidence for hydronephrosis or ureteral calculus No evidence for acute appendicitis Status postcholecystectomy Electronically Signed: Todd Olmstead MD at 21:53 EDT , Service support ,
[2017-10-29 20:39] LABS: Absolute Lymphocyte Count 2.12 X10^3/ul (0.83-4.51); Absolute Neutrophil Count 3.7 X10^3/uL (2.0-7.7); Basophil# 0.02 X10^3/uL; Basophil% 0.3 % (0-1); Eosinophil# 0.07 X10^3/uL; Eosinophils% 1.1 % (0-5); Hematocrit 36.8 % (37-47); Hemoglobin 11.8 g/dl (12.0-15.0); Lymphocyte # 2.12 X10^3/ul (4.0); Lymphocyte % 33.2 % (19-41); Mean Corp Hgb Conc 32.1 g/gl (32-36); Mean Corpuscular Hgb 30.7 pg (27.0-32.0); Mean Corpuscular Volume 95.8 fL (81-99); Mean Platelet Vol. 9.3 fl (6.2-12.0); Monocyte# 0.51 X10^3/uL; Neutrophil # 3.66 X10^3/uL (2.7-7.7); Neutrophil % 57.4 % (47-70); Platelet Count 334 K/mm3 (150-450); RBC Distribution Width CV 12.5 % (11.6-14.6); RBC Distribution Width SD 43.6 fl (35.1-43.9); Red Blood Count 3.84 M/mm3 (4.2-5.4); White Blood Count 6.4 K/mm3 (4.4-11.0)
[2017-10-29] MEDS: 0.9% Normal Saline 1,000 ML 1000 ML IV (20:39)
[2017-10-29] MEDS: Ondansetron 4 MG/2 ML Vial IV (20:39)
[2017-10-29] MEDS: HYDROmorphone 1 MG/ML Syringe IV (20:39)
[2017-10-29 20:47] LABS: POSITIVE COUNT NO; POSITIVE DIFFERENTIAL NO; POSITIVE MORPHOLOGY NO
[2017-10-29 20:51] LABS: Anion Gap 8 (5-15); BUN 7 mg/dL (7-18); BUN/Creat Ratio 9.1 RATIO (10-20); Calcium,Total 8.6 mg/dL (8.5-10.1); Chloride 109 mmol/L (98-107); Creatinine, Serum 0.77 mg/dL (0.55-1.02); EST Glomerular Filtration Rate 95 mL/min (>60); Est Glom Filt Rate - Afr Amer 115 mL/min (>60); Estimated Creatinine Clearance 82.81 ml/min; Glucose 93 mg/dL (74-106); Potassium 4.3 mmol/L (3.5-5.1); Sodium Level 140 mmol/L (136-145)
[2017-10-29 21:25] LABS: Pregnancy, Serum, hCG Quali. NEGATIVE Negative (0-9 Nonpreg)
--- NOTE | 2017-10-29 22:12 | ED.VISSUMM ---
- ER Visit Summary Date of Service: 10/29/17 Chief Complaint: Abdominal pain History of Present Illness: The patient is a [address] Acuña, Dr. Hutson, and Dr. marte. She reports that she has lower right abdominal pain began 3 days ago. Is gradually gotten worse. It is a constant aching pain with stabbing episodes. She reports Zeta 10 hours and 5-10 currently. Is worsened by walking or urinating. She is taken Bentyl and Tylenol without relief. She has had nausea without vomiting. She reports that she has chronic diarrhea twice a day usually and has had this 4 times a day. No blood in her stools or black tarry stools. No dysuria or frequency. Physical Examination: Vitals: Stable. Afebrile. General: Well-nourished and well-developed. Head: Normocephalic atraumatic. Neck: Supple, no lymphadenopathy. No JVD. Nontender. Cardiovascular: Regular rate and rhythm. No murmurs. Respiratory: No respiratory distress. Clear to auscultation bilaterally. Abdominal: Soft, moderate right lower quadrant tenderness to palpation, nondistended, normal bowel sounds. No guarding, rebound, or peritoneal signs. Back: Nontender. Extremities: Nontender, no edema. Skin: Normal color, no rash. Neurologic: Alert and oriented ?3. Cranial nerves II through XII are intact. Normal strength and sensation. Psych: Normal affect. Test Results: CBC is remarkable for an H&H 11 point and 36.8. Chem-7 is more for chloride 109. UA is marked for greater than 100 red blood cells and rare bacteria. test is negative. CT flank shows bilateral nephrolithiasis without any ureterolithiasis. No evidence for acute appendicitis. No hydronephrosis or hydroureter. Emergency Department Course and Treatment: Patient was treated the dose of Dilaudid and Zofran IV. She is resting comfortably. Treatment Plan: This is the patient's 12th visit to the emergency department in 2018. I do not think that giving her further opiate medications is in her best interest. She will be discharged with symptomatic care. Use Tylenol for pain. Follow-up with her primary care physician 1-2 days if not improving. Disposition: To home in improved and stable condition. Impression: 1. Abdominal pain, uncertain cause. This note was generated with [employer] Internationalation software. It may contain incorrect words, spelling, and punctuation that were not noted in review of the chart prior to signing ED Disposition - Plan for ED Patient: Disposition: Home or Assisted Living Chief Complaint: Abd Pain Instructions: ED Abdominal Pain Unkn Cause Referrals: Doctor,Your [STAFF PHYSICIAN] - 1-2 Days if not improving
[2017-10-29 23:05] VITALS: BP 110/73; PULSE 73; RESP 18; O2SAT 100
== END 2017-10-29 23:05 | disposition home or self-care (01) ==
LOC: ED 20:41
PROVIDERS: Emergency Provider Emergency Medicine
DX: R10.9 Unspecified abdominal pain (principal); K52.9 Noninfective gastroenteritis and colitis, unspecified; N20.0 Calculus of kidney; R31.9 Hematuria, unspecified; R51 Headache; M79.7 Fibromyalgia; Z79.899 Other long term (current) drug therapy; Z87.442 Personal history of urinary calculi
CPT/HCPCS: 74176; 80048; 81001; 84703; 85025; 96361; 96374; 96375; 99284; J7030; A4216; J2405

== ENCOUNTER 2017-11-11 13:45 | Emergency (ER) | payer MEDICAID, SELFPAY ==
[2017-11-11 13:46] VITALS: BP 111/83; PULSE 114; RESP 12; TEMP 36.8; O2SAT 99; BMI 25.5
[2017-11-11 14:03] LABS: Color, Urine Yellow (Yellow); Glucose, Dipstick Normal (Normal); Ketone-Dipstick Negative (Negative); Urine Bilirubin Dipstick Negative (Negative); Urine Clarity Sl. Cloudy (Clear)
[2017-11-11 14:04] LABS: Leukocyte Esterase-Dipstick 500 /ul (Negative); Nitrite-Dipstick Negative (Negative); Occult Blood-Urine 250 /ul (Negative); Protein-Dipstick 30 mg/dl (Negative); Urine Urobilinogen Normal (Normal)
[2017-11-11 14:10] LABS: Red Blood Cells-Urine 25-50 SEEN /hpf (0-5); White Blood Cells >100 SEEN /hpf (0-5)
[2017-11-11 14:11] LABS: Bacteria RARE /hpf (None Seen); Mucous, Urine 1+ /hpf (<or=2+); Squamous Epithelial Cells - UA 5-10 SEEN /hpf (5-10)
--- NOTE | 2017-11-11 14:48 | ED.VISSUMM ---
- ER Visit Summary Date of Service: 11/11/17 Chief Complaint: Left flank pain History of Present Illness: The patient is a 27 F states that yesterday she began to have some blood in her urine. She states she developed urinary frequency pressure in her bladder and pain in the left flank. States she has a history of kidney stones. She states that she has not yet established with a new urologist yet but called their office open to get in with the recommended she come to the emergency room. The patient states she normally gets an antibiotic and Flomax. I seen the patient several times before. She has had approximately 8 CTs at this institution alone in the past 5 years of the abdomen and renal area. The patient has also been known to be seen in other emergency rooms where she has had several similar workups (i.e. CAT scans urinalysis). The patient informs me she likes to come here because she gets better service. Physical Examination: Afebrile vital signs are stable Patient is sitting comfortably in the bed. She is not writhing. Reports left CVA tenderness. No pain upon palpation of the bladder left lower quadrant. Test Results: Urinalysis demonstrates greater than 100 white blood cells, 25-50 red blood cells rare bacteria. Emergency Department Course and Treatment: Out of the patient's interest for increasing amounts of radiation I do not feel strongly she needs a CT scan today. To my knowledge have not found a CT scan that demonstrates a ureteral stone resulting in hydronephroureter. I will asked for urine culture. I will put her on Flomax at her request and give her an antibiotic. The patient asked to speak with me because she was not getting any narcotics. The patient states that she has bottles of Flomax at home and antibiotics. The patient has several red flags that do not allow me to feel comfortable writing her narcotics here today. She is allergic to all anti-inflammatories. She has been taking Tylenol since last night. She has had 8 prior visits at this institution with no obstructing ureterolithiasis. She has been to numerous other facilities including [facility] and [facility]. The red flag of complementing the practitioner at the start of the visit. The patient's oars report was reviewed and she has had numerous opioid prescriptions from numerous prescribers this year alone. Combining these red flags with specifically being upset that she is not getting the narcotic certainly will result in me not prescribing any narcotics for the patient. Impression: 1. UTI This note was generated with [employer] dictation software. It may contain incorrect words, spelling, and punctuation that were not noted in review of the chart prior to signing <Augustine Leyva - Last Filed: 11/11/17 15:32> - ER Visit Summary Date of Service: 11/11/17 The patient was seen by Dr. Leyva. This note was generated with [employer] dictation software. It may contain incorrect words, spelling, and punctuation that were not noted in review of the chart prior to signing <Justice Gonzalez - Last Filed: 11/12/17 16:26> ED Disposition <Augustine Leyva - Last Filed: 11/11/17 15:32> <Justice Gonzalez - Last Filed: 11/12/17 16:26> - Plan for ED Patient: Disposition: Home or Assisted Living Chief Complaint: Flank Pain Instructions: ED UTI Cystitis Female Prescriptions: Tamsulosin HCl [Flomax] 0.4 mg PO DAILY #5 cap Cephalexin [Keflex] 500 mg PO BID #14 cap Referrals: [facility] Doctor,Out of [NON-STAFF] - Additional Instructions: Follow-up with your doctors
--- NOTE | 2017-11-11 15:50 | ED.RN ---
UPON ARRIVAL TO THE ROOM TO D/C THE PATIENT HOME SHE ASKED ABOUT PAIN MEDICATION. AFTER BEING TO THAT THERE WERE NO HOME PAIN MEDICATIONS PERSCRIBED SHE ASKED TO SPEAK WITH THE DR. PHYSICIAN WAS NOTIFIED AND SPOKE WITH THAT HER. SHE THEN LEFT THE DEPARTMENT WITH OUT HER D/C INSTRUCTIONS AND ANTIBIOTIC SCRIPTS. Hemanth ÁLVAREZ RN
== END 2017-11-11 15:53 | disposition home or self-care (01) ==
LOC: ED 15:22
PROVIDERS: Emergency Provider Emergency Medicine
DX: N39.0 Urinary tract infection, site not specified (principal); R31.9 Hematuria, unspecified; Z87.442 Personal history of urinary calculi; Z90.49 Acquired absence of other specified parts of digestive tract; Z79.899 Other long term (current) drug therapy
CPT/HCPCS: 81001; 99282

== ENCOUNTER 2017-12-12 18:42 | Emergency (ER) | payer MEDICAID, SELFPAY ==
[2017-12-12 18:44] VITALS: BP 117/75; PULSE 140; RESP 18; TEMP 37.1; O2SAT 99; BMI 26.6
--- NOTE | 2017-12-12 20:14 | ED.VISSUMM ---
- ER Visit Summary Date of Service: 12/12/17 Chief Complaint: Chest pain and sore throat History of Present Illness: The patient is a 27 F presenting with chest pain. She reports a history of chronic recurrent chest pain and follows with a speech pathology assistant. She states that at one point several years ago she was diagnosed with myocarditis and it resolved with a prolonged treatment of anti-inflammatories. She now states that she can no longer take anti-inflammatories because they make her stomach bleed. She was seen at [facility] earlier today and her workup was unremarkable. She was treated with Nubain and told to follow-up with her speech pathology assistant on Thursday for an outpatient echocardiogram. The case was discussed with her speech pathology assistant at that time. Her pain improved transiently but has recurred. It is not exertional nor is it pleuritic. She denies recent travel or mobilization. Denies history of DVT or PE. Denies family history of pulmonary embolism. This feels similar to her chronic recurrent pain. She also has a slight sore throat but can still swallow without difficulty. No fever or chills. Physical Examination: Vitals are within normal limits except for mild tachycardia. Blood pressure is normal. No fever. Neck is supple. Heart tones are regular and without murmur. Lungs are clear bilaterally. There is no chest wall tenderness. Throat looks normal. Tonsils not enlarged. No exudates. Voice is normal. Submandibular and anterior neck structures are soft. She has no tenderness along the lower extremity venous system, palpable cords, or other evidence of DVT. Strong pulses in all extremities. Mental status exam is normal. Test Results: Her EKG here is unremarkable. She has no clinical evidence of DVT. Emergency Department Course and Treatment: EKG unremarkable here. No evidence of DVT. With her permission, I did review her chart from [facility] and she also showed me her results using her phone and the my chart. I reviewed the note from the emergency physician at [facility]. She discussed the case with her speech pathology assistant and they recommended treatment with colchicine and follow-up on Thursday. Her sed rate was 35 there but all of her other labs were normal including normal cardiac enzymes and she has had symptoms for several days. No evidence to suggest acute coronary syndrome. Her sed rate is apparently chronically elevated between 15 and 35 so difficult how to interpret this. She has no evidence of DVT in her pain is not pleuritic. She is slightly tachycardic but there is no recent travel or other risk factors and she tells me that she is tachycardic quite often and it is usually from pain. She states that she is essentially here for pain control because they would not give her prescriptions at [facility]. I also reviewed a note from their facility and it appears that she drove herself home there after telling staff that her boyfriend was picking her up and receiving opiate pain medication. I asked her about this and she states that it is not true and that her boyfriend drove her home. She also told me that her boyfriend will drive her home from here tonight. She states that morphine makes her sick and that the only medication that works for her is Dilaudid. She also told me that she has been texting with her friend who is a physician and that physician recommends Dilaudid be given. I talked with her about the new [facility] opiate regulations and that I would have to review her opiate prescription report. 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 I asked her when the last time she received an opiate prescription was and she told me that it has been 2-3 months. I reviewed her report and her overdose risk score is 550 and she did receive a prescription almost exactly 1 month ago. I discussed this with her and told her that I feel it is in her best interest and for her own safety that she receive all of her opiates from a single provider and that I feel it could be dangerous for her if I prescribe her an opiate. She states that she is able to take the colchicine which I do feel would be an appropriate treatment if she does have pericarditis. I will treat her with 1 dose of oral Percocet here and she will keep her appointment on Thursday. She will return to emergency department if she is worse. She promised me that her boyfriend will be picking her up tonight. Treatment Plan: Pain control Disposition: Home in stable condition Impression: Neck and emergency department encounter for chest pain of uncertain etiology This note was generated with Nexio dictation software. It may contain incorrect words, spelling, and punctuation that were not noted in review of the chart prior to signing ED Disposition - Plan for ED Patient: Chief Complaint: Chest Pain Instructions: ED Chest Pain Noncardiac Ch Referrals: [facility] Doctor,Out of [Primary Care Provider] - Additional Instructions: See your speech pathology assistant on Thursday
[2017-12-12] MEDS: oxyCODONE 5 MG Tablet PO ×2 (20:46→20:47)
[2017-12-12] MEDS: proMETHazine 25 MG Tablet PO (20:47)
[2017-12-12 20:48] VITALS: PULSE 99; RESP 15; TEMP 37.2
--- NOTE | 2017-12-12 20:53 | ED.RN ---
PT VERY RUDE TO DR BARBER AND NURSING. DEMANDING AND STATED SHE WOULD NOT LEAVE UNTIL SHE GOT DILAUDID FOR HER CHEST DISCOMFORT. DR BARBER DENIED DILAUDID AND DID GIVE OXYIR 10 MG. PT REQUESTED TO SPEAK WITH DR BARBER [address] BARBER OBLIGED AND SPOKE WITH PATIENT EACH TIME. PT HAD BEEN SEEN EARLIER AT [facility] TODAY WHERE A FULL WORK UP HAD BEEN DONE.
== END 2017-12-12 20:59 | disposition home or self-care (01) ==
PROVIDERS: Emergency Provider Emergency Medicine
DX: R07.9 Chest pain, unspecified (principal); M54.2 Cervicalgia; G89.29 Other chronic pain; J02.9 Acute pharyngitis, unspecified; R06.00 Dyspnea, unspecified; Z79.899 Other long term (current) drug therapy
CPT/HCPCS: 93005; 99282

== ENCOUNTER 2018-04-08 21:19 | Emergency (ER) | payer MEDICAID, SELFPAY ==
[2018-04-08 21:20] VITALS: BP 121/73; PULSE 106; RESP 18; TEMP 36.6; O2SAT 100; BMI 26.3
--- NOTE | 2018-04-08 21:41 | CT_ITS ---
STUDY: CT ABDOMEN AND PELVIS WITHOUT CONTRAST REASON FOR EXAM: Female, 27 years old. Right flank pain. RADIATION DOSAGE (If Supplied By Facility): CTDIvol = ( 6.64 ) mGy, DLP = ( 303.78 ) mGycm TECHNIQUE: Transaxial images were obtained from the dome of the diaphragm to the symphysis pubis without oral contrast, and without intravenous contrast. Sagittal and coronal images were reconstructed. Individualized dose optimization techniques were used for this CT. COMPARISON: None. FINDINGS: The visualized lung bases are unremarkable. The visualized portions of the heart are within normal limits. Normal liver. Normal gallbladder and extrahepatic biliary system. Normal spleen. Normal pancreas. Normal bilateral adrenal glands. Bilateral punctate nephroliths with no evidence of hydronephrosis or present. No evidence of distal ureteral stone or dependent layering bladder stone. Normal left kidney. Normal visualized stomach. Normal small intestine. Normal colon. There is non-visualization of the appendix. Normal abdominal aorta. Normal inferior vena cava. Normal retroperitoneum. Normal urinary bladder. Normal abdominal wall. Normal osseous structures. CT/Abdomen/Pelvis without Cont IMPRESSION: The lower nonobstructive punctate nephroliths with no evidence of hydronephrosis or definitive ureteral stone. Electronically Signed: Rashel Mahmood DO at 22:29 EST , Service support ,
[2018-04-08] MEDS: Ondansetron 4 MG/2 ML Vial IV (21:57)
[2018-04-08] MEDS: 0.9% Normal Saline 1,000 ML 125 ML IV (21:57)
[2018-04-08] MEDS: Morphine 4 MG/ML Syringe IV (21:57)
[2018-04-08 21:58] VITALS: BP 107/73; PULSE 99; RESP 16; TEMP 36.6; O2SAT 99
[2018-04-08 22:12] LABS: Mucous, Urine 0 SEEN /hpf (<or=2+)
[2018-04-08 22:19] LABS: Absolute Lymphocyte Count 1.95 X10^3/ul (0.83-4.51); Absolute Neutrophil Count 2.8 X10^3/uL (2.0-7.7); Basophil# 0.03 X10^3/uL; Basophil% 0.5 % (0-1); Color, Urine Yellow (Yellow); Eosinophils% 1.8 % (0-5); Glucose, Dipstick Normal (Normal); Hematocrit 37.9 % (37-47); Hemoglobin 12.1 g/dl (12.0-15.0); Ketone-Dipstick Negative (Negative); Leukocyte Esterase-Dipstick 500 /ul (Negative); Lymphocyte # 1.95 X10^3/ul (4.0); Lymphocyte % 35.6 % (19-41); Mean Corp Hgb Conc 31.9 g/gl (32-36); Mean Corpuscular Hgb 30.8 pg (27.0-32.0); Mean Corpuscular Volume 96.4 fL (81-99); Mean Platelet Vol. 9.4 fl (6.2-12.0); Monocyte# 0.57 X10^3/uL; Monocyte% 10.4 % (0-10); Neutrophil # 2.83 X10^3/uL (2.7-7.7); Neutrophil % 51.7 % (47-70); Nitrite-Dipstick Negative (Negative); Occult Blood-Urine 250 /ul (Negative); Platelet Count 303 K/mm3 (150-450); Protein-Dipstick Negative (Negative); RBC Distribution Width CV 13.1 % (11.6-14.6); RBC Distribution Width SD 46.1 fl (35.1-43.9); Red Blood Count 3.93 M/mm3 (4.2-5.4); Specific Gravity, Urine 1.015 (1.002-1.030); Urine Bilirubin Dipstick Negative (Negative); Urine Clarity Cloudy (Clear); Urine Urobilinogen Normal (Normal); White Blood Count 5.5 K/mm3 (4.4-11.0)
[2018-04-08 22:21] LABS: POSITIVE COUNT NO; POSITIVE DIFFERENTIAL NO; POSITIVE MORPHOLOGY NO
[2018-04-08 22:30] LABS: Red Blood Cells-Urine 50-100 SEEN /hpf (0-5); White Blood Cells 10-25 SEEN /hpf (0-5)
[2018-04-08 22:31] LABS: Anion Gap 8 (5-15); BUN 10 mg/dL (7-18); BUN/Creat Ratio 12.9 RATIO (10-20); Bacteria RARE /hpf (None Seen); Calcium,Total 8.5 mg/dL (8.5-10.1); Chloride 108 mmol/L (98-107); Creatinine, Serum 0.77 mg/dL (0.55-1.02); EST Glomerular Filtration Rate 95 mL/min (>60); Est Glom Filt Rate - Afr Amer 115 mL/min (>60); Estimated Creatinine Clearance 82.81 ml/min; Glucose 79 mg/dL (74-106); Potassium 3.9 mmol/L (3.5-5.1); Sodium Level 142 mmol/L (136-145); Squamous Epithelial Cells - UA 10-25 SEEN /hpf (5-10)
[2018-04-08] MEDS: Mag Hydrox/Al Hydrox/Simeth 30 ML UDC PO (23:06)
[2018-04-08 23:07] VITALS: BP 109/63; PULSE 95; RESP 16; TEMP 36.6
--- NOTE | 2018-04-08 23:12 | ED.VISSUMM ---
- ER Visit Summary Date of Service: 04/08/18 Chief Complaint: [Right flank pain] History of Present Illness: The patient is a 27 F [presents the emergency department complaint of pain in the right flank that started earlier today. Patient rates her pain as a 7 out of 10. Patient states that she has had prior kidney stones and it feels like that. Patient also describes some hematuria today and some dysuria as well. Patient states that she had some lesions removed from her cervix by her [employer] yesterday but she has had no vaginal bleeding. Patient denies any fevers. She denies any nausea or vomiting.] Physical Examination: [HEENT-PERRLA, EOMI. Cranial nerves II through XII grossly intact. TMs clear. Mucous membranes moist. No adenopathy. Cardiovascular-regular rate and rhythm without murmur or ectopy Lungs-clear to auscultation, chest wall stable without crepitus or subcu emphysema Abdomen-normoactive bowel sounds, soft. Patient does have some tenderness over right lower quadrant. There is no rebound, rigidity, or perineal signs. 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 Extremities-intact ?4, normal range of motion, normal pulses, atraumatic] Test Results: [CBC with differential shows a white count of 5.5, hemoglobin 12, hematocrit 38, platelets 303. Chemistries unremarkable. Urinalysis was positive for 500 leukocyte esterase, 10-25 WBCs, 50-[address] scan of the abdomen pelvis without contrast obtained showed bilateral punctate nephrolithiasis but no ureteral stones.] Emergency Department Course and Treatment: [Patient was medicated with morphine and Zofran on presentation. Patient received Bactrim and Pyridium.] Treatment Plan: [Patient will be given a prescription for Bactrim and Pyridium.] Disposition: [Discharged home in stable condition. Patient advised to return if worsening pain, fever, vomiting, or condition should worsen anyway] Impression: [UTI] This note was generated with [employer] dictation software. It may contain incorrect words, spelling, and punctuation that were not noted in review of the chart prior to signing ED Disposition - Plan for ED Patient: Chief Complaint: Flank Pain Referrals: [facility] Doctor,Out of [Primary Care Provider] -
--- NOTE | 2018-04-08 23:15 | ED.DCSUM_ITS ---
- ER Visit Summary Date of Service: 04/08/18 Chief Complaint: [Right flank pain] History of Present Illness: The patient is a 27 F [presents the emergency department complaint of pain in the right flank that started earlier today. Patient rates her pain as a 7 out of 10. Patient states that she has had prior kidney stones and it feels like that. Patient also describes some hematuria today and some dysuria as well. Patient states that she had some lesions removed from her cervix by her [employer] yesterday but she has had no vaginal bleeding. Patient denies any fevers. She denies any nausea or vomiting.] Physical Examination: [HEENT-PERRLA, EOMI. Cranial nerves II through XII grossly intact. TMs clear. Mucous membranes moist. No adenopathy. Cardiovascular-regular rate and rhythm without murmur or ectopy Lungs-clear to auscultation, chest wall stable without crepitus or subcu emphysema Abdomen-normoactive bowel sounds, soft. Patient does have some tenderness over right lower quadrant. There is no rebound, rigidity, or perineal signs. 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 Extremities-intact ?4, normal range of motion, normal pulses, atraumatic] Test Results: [CBC with differential shows a white count of 5.5, hemoglobin 12, hematocrit 38, platelets 303. Chemistries unremarkable. Urinalysis was positive for 500 leukocyte esterase, 10-25 WBCs, 50-[address] scan of the abdomen pelvis without contrast obtained showed bilateral punctate nephrolithiasis but no ureteral stones.] Emergency Department Course and Treatment: [Patient was medicated with morphine and Zofran on presentation. Patient received Bactrim and Pyridium.] Treatment Plan: [Patient will be given a prescription for Bactrim and Pyridium.] Disposition: [Discharged home in stable condition. Patient advised to return if worsening pain, fever, vomiting, or condition should worsen anyway] Impression: [UTI] This note was generated with [employer] dictation software. It may contain incorrect words, spelling, and punctuation that were not noted in review of the chart prior to signing ED Disposition - Plan for ED Patient: Chief Complaint: Flank Pain Referrals: [facility] Doctor,Out of [Primary Care Provider] -
--- NOTE | 2018-04-08 23:15 | ED.DEP ---
ED Disposition - Plan for ED Patient: Chief Complaint: Flank Pain Instructions: ED Kidney Infec Female Prescriptions: Smz/Tmp Ds [Bactrim Ds] 1 tab PO BID #14 tab Phenazopyridine [Pyridium] 200 mg PO TID #9 tab Referrals: [facility] Doctor,Out of [Primary Care Provider] - 3-5 Days
[2018-04-08] MEDS: Smz/Tmp Ds Tablet 1 TABLET PO (23:36)
[2018-04-08] MEDS: Phenazopyridine 95 MG Tablet 190 MG PO (23:36)
[2018-04-08] MEDS: HYDROcodone Bitartrate/Apap 5/325 Tablet PO (23:37)
[2018-04-08 23:38] VITALS: BP 110/80; PULSE 92; RESP 16; O2SAT 95
--- OUTSIDE RECORDS SUMMARY | 2018-05-25 15:44 | XMS RPT_ITS ---
:1990 Author Organization OHIP Support Name Relationship Address Phone MIKI GUADALUPE Unavailable [address] + [place] [address] [employer] Unavailable [facility]/ [place] [address] Brown, Guadalupe Unavailable Unavailable + Brown, Guadalupe Unavailable Unavailable + Brown, Guadalupe Unavailable Unavailable + BROWN, GUADALUPE Unavailable [address] + [place] [address] [employer] Unavailable [facility]/ [place] [address] Brown, Ugadalupe Unavailable Unavailable + Brown, Guadalupe Unavailable Unavailable + BROWN, GUADALUPE Unavailable [address] + [place] [address] [employer] Unavailable [facility]/ [place] [address] BROWN, GUADALUPE Unavailable [address] + [place] [address] [employer] Unavailable [facility]/ [place] [address] MIKI, GUADALUPE Unavailable [address] + [place] [address] [facility] Unavailable [address] + [place] [address] BROWN, GUADALUPE Unavailable [address] + [place] [address] [facility] Unavailable [address] + [place] [address] BROWN, GUADALUPE Unavailable Unavailable + BROWN, GUADALUPE Unavailable Unavailable + BROWN, GUADALUPE Unavailable Unavailable + Brown, Guadalupe Unavailable Unavailable + BROWN, GUADALUPE Unavailable [address] + [place] [address] [facility] Unavailable [address] + [place] [address] BROWN, GUADALUPE Unavailable Unavailable + BROWN, GUADALUPE Unavailable Unavailable + BROWN, GUADALUPE Unavailable Unavailable + BROWN, GUADALUPE Unavailable Unavailable + BROWN, GUADALUPE Unavailable Unavailable + BROWN, GUADALUPE Unavailable Unavailable + BROWN, GUADALUPE Unavailable Unavailable + BROWN, GUADALUPE Unavailable Unavailable + BROWN, GUADALUPE Unavailable Unavailable + BROWN, GUADALUPE Unavailable [address] + [place] [address] [facility] Unavailable [address] + [place] [address] BROWN, GUADALUPE Unavailable [address] + [place] [address] [facility] Unavailable [address] + [place] [address] BROWN, GUADALUPE Unavailable [address] + [place] [address] [facility] Unavailable [address] +/ [place] [address] Brown, Guadalupe Unavailable Unavailable + BROWN, GUADALUPE Unavailable [address] + [place] [address] [facility] Unavailable [address] +/ [place] [address] Brown, Guadalupe Unavailable Unavailable + BROWN, GUADALUPE Unavailable [address] + [place] [address] [facility] Unavailable [address] +/ [place] [address] BROWN, GUADALUPE Unavailable Unavailable + BROWN, GUADALUPE Unavailable Unavailable + BROWN, GUADALUPE Unavailable Unavailable + BROWN, GUADALUPE Unavailable [address] + [place] [address] S Unavailable Unavailable Unavailable BROWN, GUADALUPE Unavailable [address] + [place] [address] S Unavailable Unavailable Unavailable Brown, Guadaulpe Unavailable Unavailable + Care Team Providers Name Role Phone Decker, Jaydon Primary Care Unavailable Ungur, Remus Attending Unavailable Decker, Jaydon Primary Care Unavailable Lisa, Justice Attending Unavailable Decker, Jaydon Primary Care Unavailable Boris Akins Attending Unavailable Decker, Jaydon Primary Care Unavailable LisaJustice Attending Unavailable Decker, Jaydon Primary Care Unavailable Shanita Baez Attending Unavailable Decker, Jaydon Primary Care Unavailable Ungur, Lashayus Attending Unavailable Decker, Jaydon Primary Care Unavailable Augustine Leyva Attending Unavailable LisaJustice Attending Unavailable Decker, Jaydon Primary Care Unavailable Decker, Jaydon Primary Care Unavailable Jerrell Trevizo Attending Unavailable Todd Zuleta Attending Unavailable Todd Zuleta Referring Unavailable RONY ESTRELLA Primary Care Unavailable RONY ESTRELLA Primary Care Unavailable Justice Gonzalez Attending Unavailable Augustine Leyva Attending Unavailable Primay Care Physicia, No Primary Care Unavailable Primay Care Physicia, No Primary Care Unavailable GenseCharles mann Attending Unavailable Gensejohnathan Christopher Referring Unavailable Primay Care Physicia, No Primary Care Unavailable IleneurLashayus Attending Unavailable TORI ZIMMERMAN MD Attending Unavailable DECKER DO, JAYDON Primary Care Unavailable Leisa Sy MD Attending Unavailable DECKER DO, JAYDON Primary Care Unavailable HARISH WHEATLEY DO Attending Unavailable DECKER DO, JAYDON Primary Care Unavailable DR. PEDRO LINDSEY DO Attending Unavailable DECKER DO, JAYDON Primary Care Unavailable JANNET HYDE DO Attending Unavailable DECKER DO, JAYDON Primary Care Unavailable PROVIDER, UNKNOWN Referring Unavailable PROVIDER, UNKNOWN Primary Care Unavailable PROVIDER, UNKNOWN Attending Unavailable PROVIDER, UNKNOWN Referring Unavailable PROVIDER, UNKNOWN Primary Care Unavailable UNKNOWN, PROVIDER Attending Unavailable PROVIDER, UNKNOWN Attending Unavailable PROVIDER, UNKNOWN Referring Unavailable Decker, Jaydon Primary Care Unavailable PROVIDER, UNKNOWN Referring Unavailable PROVIDER, UNKNOWN Primary Care Unavailable Glen Dixon Attending Unavailable Braxton Holt Referring Unavailable Braxton Holt Primary Care Unavailable Glen Escalante Attending Unavailable Diane Hussein Attending Unavailable Braxton Holt Referring Unavailable Braxton Holt Primary Care Unavailable PROVIDER, UNKNOWN Attending Unavailable Yanet, Braxton Referring Unavailable Yanet, Braxton Primary Care Unavailable Yanet, Braxton Referring Unavailable Yanet, Braxton Primary Care Unavailable TRELL WILDER Attending Unavailable Braxton Holt Referring Unavailable Braxton Holt Primary Care Unavailable PROVIDER, UNKNOWN Attending Unavailable LULU ZAMORANO Attending Unavailable YEMI CROSS Attending Unavailable JAYDON DECKER Referring Unavailable YEMI CROSS Admitting Unavailable DESTINY, YEMI Goetz Attending Unavailable JAYDON DECKER Referring Unavailable JAUN, LULU Attending Unavailable JAUN, LULU Attending Unavailable JAUN, LULU Referring Unavailable CORWIN, SARA Bartlett Attending Unavailable CORWIN, SARA Bartlett Attending Unavailable EUNICEK, SARA Bartlett Attending Unavailable JAUN, LULU Attending Unavailable LULU ZAMORANO Referring Unavailable JAYDON DECKER Primary Care Unavailable RAISSA NARANJO Attending Unavailable BRAXTON HOLT Primary Care Unavailable AMADEO RATLIFF Attending Unavailable JAZZ SHANNON Attending Unavailable BRAXTON HOLT Primary Care Unavailable RAISSA NARANJO Attending Unavailable AMADEO RATLIFF Attending Unavailable JOSEF PRO Attending Unavailable PROBLEMS PROBLEMS DATE TYPE CONDITION / CODE ATTENDING STATUS SOURCE 01/11/2018 Admitting Fibromyalgia / Unknown Active [facility] Diagnosis M79.7(ICD-10) System Repository 01/11/2018 Admitting Unspecified Unknown Active [facility] Diagnosis osteoarthritis, System unspecified site / Repository M19.90(ICD-10) 01/11/2018 Admitting Allergy status to Unknown Active [facility] Diagnosis oth drug/meds/biol System subst status / Repository Z88.8(ICD-10) 01/11/2018 Admitting Acquired absence of Unknown Active [facility] Diagnosis other specified System parts of digestive Repository tract / Z90.49(ICD-10) 01/11/2018 Admitting Chest pain, Unknown Active [facility] Diagnosis unspecified / System R07.9(ICD-10) Repository 01/11/2018 Admitting Anxiety disorder, Unknown Active [facility] Diagnosis unspecified / System F41.9(ICD-10) Repository 01/11/2018 Admitting Major depressive Unknown Active [facility] Diagnosis disorder, single System episode, Repository unspecified / F32.9(ICD-10) 01/11/2018 Admitting Interstitial Unknown Active [facility] Diagnosis emphysema / System J98.2(ICD-10) Repository 01/11/2018 Admitting Shortness of breath Unknown Active [facility] Diagnosis / R06.02(ICD-10) System Repository 01/11/2018 Admitting Carpal tunnel Unknown Active [facility] Diagnosis syndrome, System unspecified upper Repository limb / G56.00(ICD-10) 01/11/2018 Active Unknown / NA Active [facility](Unknown[facility] Clinic Other [facility] Repository 01/05/2018 Admitting Migraine, unsp, not GEUBE, Active [facility] Diagnosis intractable, TRELL System without status Repository migrainosus / G43.909(ICD-10) 01/05/2018 Admitting Traumatic GEUBE, Active [facility] Diagnosis subcutaneous TRELL System emphysema, initial Repository encounter / T79.7XXA(ICD-10) 01/05/2018 Admitting Poisoning by oth GEUBE, Active [facility] Diagnosis synthetic TRELL System narcotics, Repository accidental, init / T40.4X1A(ICD-10) 01/05/2018 Admitting Traumatic GEUBE, Active [facility] Diagnosis pneumothorax, TRELL System initial encounter / Repository S27.0XXA(ICD-10) 01/05/2018 Admitting Gastro-esophageal GEUBE, Active [facility] Diagnosis reflux disease TRE[facility] System without esophagitis Repository / K21.9(ICD-10) 01/05/2018 Admitting Polyneuropathy, GEUBE, Active [facility] Diagnosis unspecified / TRELL System G62.9(ICD-10) Repository 01/05/2018 Admitting Cannabis abuse, GEUBE, Active [facility] Diagnosis uncomplicated / TRELL System F12.10(ICD-10) Repository 01/05/2018 Admitting Calculus of kidney GEUBE, Active [facility] Diagnosis / N20.0(ICD-10) TRELL System Repository 01/05/2018 Admitting Elevated white GEUBE, Active [facility] Diagnosis blood cell count, TRE[facility] System unspecified / Repository D72.829(ICD-10) 01/05/2018 Admitting Coma scale, eyes GEUBE, Active [facility] Diagnosis open, spontaneous, TRELL System at hospital Repository admission / R40.2143(ICD-10) 01/05/2018 Admitting Coma scale, best GEUBE, Active [facility] Diagnosis verbal response, TRELL System oriented, admit / Repository R40.2253(ICD-10) 01/05/2018 Admitting Coma scale, best GEUBE, Active [facility] Diagnosis motor response, TRELL System obeys commands, Repository admit / R40.2363(ICD-10) 01/05/2018 Admitting Unspecified fall, GEUBE, Active [facility] Diagnosis initial encounter / TRELL System W19.XXXA(ICD-10) Repository 12/12/2017 Admitting Personal history of Diane Hussein Active [facility] Diagnosis urinary calculi / System Z87.442(ICD-10) Repository 12/12/2017 Admitting Acute pharyngitis, Diane Hussein Active [facility] Diagnosis unspecified / System J02.9(ICD-10) Repository 11/11/2017 Admitting Unspecified Glen Escalante Active [facility] Diagnosis abdominal pain / System R10.9(ICD-10) Repository 11/01/2017 Active Right lower JOSEF PRO Active [facility] / [facility] Clinic Other R10.31(ICD-10) [facility] Repository 11/01/2017 Active Vomiting, JOSEF PRO Active [facility] unspecified / S Clinic Other R11.10(ICD-10) [facility] Repository 11/01/2017 Active Diarrhea, JOSEF PRO Active [facility] unspecified / S Clinic Other R19.7(ICD-10) [facility] Repository 10/08/2017 Active Unspecified GAUDENCIOGERMAINAMADEO Active [facility] abdominal pain / Clinic Other R10.9(ICD-10) [facility] Repository 10/08/2017 Active Hematuria, GAUDENCIO, AMADEO Active [facility] unspecified / Clinic Other R31.9(ICD-10) [facility] Repository 10/05/2017 Admitting Epigastric pain / Glen Dixon Active [facility] Diagnosis R10.13(ICD-10) System Repository 10/05/2017 Admitting Nausea with Glen Dixon Active [facility] Diagnosis vomiting, System unspecified / Repository R11.2(ICD-10) 10/05/2017 Admitting Diarrhea, Glen Dixon Active [facility] Diagnosis unspecified / System R19.7(ICD-10) Repository 10/23/2017 Unknown R10.9 - Unspecified Justice Gonzalez Active [facility] abdominal pain / Community R10.9(ICD-10) Hospital Repository 09/25/2017 Active Epigastric pain / DESTINY, Active [facility] R10.13(ICD-10) [facility] Repository 08/20/2017 Active Urinary tract NARANJO, Active [facility] infection, site not [facility] Other specified / [facility] N39.0(ICD-10) Repository 08/20/2017 Active Hypokalemia / NARANJO, Active [facility] E87.6(ICD-10) [facility] Other [facility] Repository 08/20/2017 Admitting Unknown / NARANJO, Active [facility] diagnosis UNK(Unknown) [facility] Repository 08/18/2017 Admitting Pleurisy / Unknown Active [facility] Diagnosis R09.1(ICD-10) System Repository 08/18/2017 Admitting Palpitations / Unknown Active [facility] Diagnosis R00.2(ICD-10) System Repository 08/18/2017 Admitting Obesity, Unknown Active [facility] Diagnosis unspecified / System E66.9(ICD-10) Repository 08/06/2017 Unknown N20.0 - Calculus of Justice Gonzalez Active [facility] / Community N20.0(ICD-10) Hospital Repository 08/01/2017 Admitting Strain of muscle, Unknown Active [facility] Diagnosis fascia and tendon System of lower back, init Repository / S39.012A(ICD-10) 08/01/2017 Admitting Malingerer Unknown Active [facility] Diagnosis [conscious System simulation] / Repository Z76.5(ICD-10) 08/01/2017 Admitting Overexertion from Unknown Active [facility] Diagnosis strenuous movement System or load, init / Repository X50.0XXA(ICD-10) 08/01/2017 Admitting Low back pain / Unknown Active [facility] Diagnosis M54.5(ICD-10) System Repository 05/20/2017 Unknown N12 - Ungur, Remus Active [facility] Tubulo-inter[facility] Community nephritis, not Hospital specified as acute Repository or chronic / N12(ICD-10) 05/19/2017 Admitting Acute cystitis Unknown Active [facility] Diagnosis without hematuria / System N30.00(ICD-10) Repository 05/19/2017 Admitting Dysuria / Unknown Active [facility] Diagnosis R30.0(ICD-10) System Repository PROCEDURES PROCEDURES No Procedure Records FoundRESULTS RESULTS PROGRESS Observed: 05/12/2018 Status: COMPLETED Source: [place] 10:25 AM [facility] REPOSITORY HNO ID: [id number] Author: Lulu Zamorano Service: (none) Author Type: Physician Type: Progress Notes Filed: 05/12/2018 11:33 AM Note Text: Neurology Follow-up Visit ASSESSMENT: 27 year old female with history significant for depression, anxiety, with chronic intractable migraine. Migraines are under great control. Prior to starting Botox she was having daily migraines with daily Excedrin use. This has all essentially resolved since starting Botox and is still effective with minimal to no migraines. Repeat Botox today. Continue gabapentin for migraines and fibromyalgia. ? Acute therapy for her migraines has been problematic. She has not tolerated multiple triptans including Amerge. Now cannot take NSAIDs due to gastritis and ulcer. Continue Tylenol. Rare tramadol. ? Continue Cymbalta for anxiety and migraines. Very occasional Xanax for breakthrough anxiety. Discussed is not a long-term solution and have recommended she see psychiatry multiple times. Again encouraged her to see psychiatry at [facility] for the first time soon. ? PLAN: --->?Botox today. Rare tramadol. ? --->?gabapentin ? --->?Continue Cymbalta. ?? ? --->?Follow-up: 3 months Interval Hx: Headache today. Before the past couple of days her migraines have been well controlled. Takes tramadol for migraines which is effective with no side effects. Still with anxiety. Has not seen psychiatry yet. She does not take Xanax routinely and feels no side effects off it. Current Outpatient Prescriptions: terconazole (TERAZOL 7) 0.4 % vaginal cream Use 1 Applicator vaginally daily at bedtime for 7 days. estradiol (ESTRACE) 0.01 % (0.1 mg/gram) vaginal cream Use 0.5 g vaginally twice daily. [START ON 05/25/2018] gabapentin (NEURONTIN) 300 mg capsule Take 4 capsules by mouth daily at bedtime for 180 days. medroxyPROGESTERone (DEPO-PROVERA) 150 mg/mL syrg Inject 1 mL intramuscularly every 12 weeks. promethazine (PHENERGAN) 25 mg tablet take 1 tablet by mouth every 6 hours if needed Omeprazole (PRILOSEC) 40 mg capsule Take 1 capsule by mouth twice daily. acetaminophen (TYLENOL) 500 mg tablet Take 500 mg by mouth every 8 hours as needed. DULoxetine (CYMBALTA) 60 mg capsule Take 1 capsule by mouth once daily. dicyclomine (BENTYL) 20 mg tablet Take 1 tablet by mouth every 6 hours. acidophilus-pectin, citrus (ACIDOPHILUS PROBIOTIC) 100 million- 10 cell-mg cap Take by mouth. ondansetron orally disintegrating (ZOFRAN ODT) 4 mg disintegrating tablet Take 1 tablet by mouth every 6 hours as needed. (Patient not taking: Reported on 05/12/2018 ) Current Facility-Administered Medications: onabotulinum toxin type A 200 Units injection (BOTOX) 200 Units INTRAMUSCULAR q 3 MONTHS Exam: BP 107/71 (BP Site: Left Arm, BP Position: Sitting, BP Cuff Size: Regular Adult) Pulse 107 Ht 154.9 cm (5' 1) Wt 68.5 kg (151 lb) SpO2 97% BMI 28.53 kg/m? GEN: Alert. NAD. Normal affect. Cooperative. HEENT: No rhinorrhea, lacrimation or conjunctival injection. Normal mucosa. NECK/BACK: Supple EXT: No cyanosis. No edema. No erythema. ?? NEUROLOGICAL: MENTAL STATUS: A+O x 3. Attentive. Thought process and content unremarkable. Follows commands appropriately. Speech fluent. ?? CN: II: Pupils equal III, IV, : EOMI. No ptosis present. VII: Face symmetric. VIII: No nystagmus. XI: Symmetric shoulder shrug. ? CEREBELLAR: No ataxia or nystagmus. ?? GAIT: Stable primary gait. [facility] Disorders Neurotoxin Visit Date: May 12, 2018 Name: Lakesha Del Cid Historical/ Initial Dose ? Diagnosis: chronic intractable migraine Date of Diagnosis:09/29/2011 Date of 1st Treatment: 01/05/2013 Type of Neurotoxin: Botox: J0585 Total amount injected: 155?units What other treatments have been tried and failed: Medications Effexor, Neurontin, amitriptyline. Currently taking Cymbalta. Cannot take Topamax due to nephrolithiasis. Estimated Duration of treatment: Will reassess after 1year Frequency of treatment: 90days ? Last Injection Notes Date of last Injection:02/04/2018 Type of Neurotoxin: Botox: J0585 Total amount injected: 155 units Dilution: NS 2:1 Administered with EMG guidance: No ? ? Assessment Special features: previous chronic migraine with 15 or more KRUEGER days per month Functional limitations (current): 1(mild) Pain (current): No Effectiveness of last injection:99% Latency: Wearing off since last treatment: few days Side effects related to last injection: None Time Out: INFORMED CONSENT Lakesha Del Cid Medical Record: [id number] Procedure: Botulinum toxin injection The risks, benefits and anticipated outcomes of the procedure, the risks and benefits of the alternatives to the procedure and the roles and tasks of the personnel to be involved were discussed with the patient and the patient consents to the procedure and agrees to proceed. I verify that I personally obtained Lakesha Del Cid's consent. Lulu Zamorano MD May 12, 2018 10:25 AM Dept of NEUROLOGY UNIVERSAL PROTOCOL / SAFETY CHECKLIST Sign in Communication: Completed Time Out: Team Confirms the Correct Patient, Correct Procedure, Correct Site and Site Marking, Correct Position (if applicable), Prep and Dry Time (if applicable). Time: 1040 Affirmation of Time Out: YES Sign Out Discussion: Completed Lulu Zamorano MD Current Injection Note Type of Neurotoxin: Botox: J0585 Total Amount drawn up: 200 units Total amount injected: 155 units Total amount wasted: 45 units Dilution: NS 2:1 Administered with EMG guidance: No Injection Site: Muscle Right Left # of Injection Sites Per Side Total Units Chief Accountant 5 5 1 10 Procerus ? 1 midline (5u) 5 Frontalis 10 10 2 20 Temporalis 20 20 4 40 Occipitalis/Sub 15 15 3 30 Cervical PSPs 10 10 2 20 Trapezius 15 15 3 30 Lot#: [id number] Exp Date10/15 Future plan of care: Follow up: 3 months Neurotoxin Change: No Dose Change: No Lulu Zamorano M.D. [facility] [place] Department of [facility] cc: Lulu Zamorano MD [address] [address] Braxton Holt MD [address] [address] CNOV Observed: 05/12/2018 Status: COMPLETED Source: [place] 10:00 AM [facility] REPOSITORY Office Visit (NEURMM) LAKESHA DEL CID ([id number]) 1990 F DAVE Date Time Provider Department 05/12/18 10:00 AM LULU ZAMROANO During your visit today, we recorded the following information about you: Pulse Blood pressure Weight Height 107/minute 107/71 68.5 kg 1.549 m Lulu Zamorano MD 05/12/2018 11:33 AM Signed Neurology Follow-up Visit ASSESSMENT: 27 year old female with history significant for depression, anxiety, with chronic intractable migraine. Migraines are under great control. Prior to starting Botox she was having daily migraines with daily Excedrin use. This has all essentially resolved since starting Botox and is still effective with minimal to no migraines. Repeat Botox today. Continue gabapentin for migraines and fibromyalgia. ? Acute therapy for her migraines has been problematic. She has not tolerated multiple triptans including Amerge. Now cannot take NSAIDs due to gastritis and ulcer. Continue Tylenol. Rare tramadol. ? Continue Cymbalta for anxiety and migraines. Very occasional Xanax for breakthrough anxiety. Discussed is not a long-term solution and have recommended she see psychiatry multiple times. Again encouraged her to see psychiatry at [facility] for the first time soon. ? PLAN: --->?Botox today. Rare tramadol. ? --->?gabapentin ? --->?Continue Cymbalta. ?? ? --->?Follow-up: 3 months Interval Hx: Headache today. Before the past couple of days her migraines have been well controlled. Takes tramadol for migraines which is effective with no side effects. Still with anxiety. Has not seen psychiatry yet. She does not take Xanax routinely and feels no side effects off it. Current Outpatient Prescriptions: terconazole (TERAZOL 7) 0.4 % vaginal cream Use 1 Applicator vaginally daily at bedtime for 7 days. estradiol (ESTRACE) 0.01 % (0.1 mg/gram) vaginal cream Use 0.5 g vaginally twice daily. [START ON 05/25/2018] gabapentin (NEURONTIN) 300 mg capsule Take 4 capsules by mouth daily at bedtime for 180 days. medroxyPROGESTERone (DEPO-PROVERA) 150 mg/mL syrg Inject 1 mL intramuscularly every 12 weeks. promethazine (PHENERGAN) 25 mg tablet take 1 tablet by mouth every 6 hours if needed Omeprazole (PRILOSEC) 40 mg capsule Take 1 capsule by mouth twice daily. acetaminophen (TYLENOL) 500 mg tablet Take 500 mg by mouth every 8 hours as needed. DULoxetine (CYMBALTA) 60 mg capsule Take 1 capsule by mouth once daily. dicyclomine (BENTYL) 20 mg tablet Take 1 tablet by mouth every 6 hours. acidophilus-pectin, citrus (ACIDOPHILUS PROBIOTIC) 100 million- 10 cell-mg cap Take by mouth. ondansetron orally disintegrating (ZOFRAN ODT) 4 mg disintegrating tablet Take 1 tablet by mouth every 6 hours as needed. (Patient not taking: Reported on 05/12/2018 ) Current Facility-Administered Medications: onabotulinum toxin type A 200 Units injection (BOTOX) 200 Units INTRAMUSCULAR q 3 MONTHS Exam: BP 107/71 (BP Site: Left Arm, BP Position: Sitting, BP Cuff Size: Regular Adult) Pulse 107 Ht 154.9 cm (5' 1) Wt 68.5 kg (151 lb) SpO2 97% BMI 28.53 kg/m? GEN: Alert. NAD. Normal affect. Cooperative. HEENT: No rhinorrhea, lacrimation or conjunctival injection. Normal mucosa. NECK/BACK: Supple EXT: No cyanosis. No edema. No erythema. ?? NEUROLOGICAL: MENTAL STATUS: A+O x 3. Attentive. Thought process and content unremarkable. Follows commands appropriately. Speech fluent. ?? CN: II: Pupils equal III, IV, : EOMI. No ptosis present. VII: Face symmetric. VIII: No nystagmus. XI: Symmetric shoulder shrug. ? CEREBELLAR: No ataxia or nystagmus. ?? GAIT: Stable primary gait. [facility] Disorders Neurotoxin Visit Date: May 12, 2018 Name: Lakesha Del Cid Historical/ Initial Dose ? Diagnosis: chronic intractable migraine Date of Diagnosis:09/29/2011 Date of 1st Treatment: 01/05/2013 Type of Neurotoxin: Botox: J0585 Total amount injected: 155?units What other treatments have been tried and failed: Medications Effexor, Neurontin, amitriptyline. Currently taking Cymbalta. Cannot take Topamax due to nephrolithiasis. Estimated Duration of treatment: Will reassess after 1year Frequency of treatment: 90days ? Last Injection Notes Date of last Injection:02/04/2018 Type of Neurotoxin: Botox: J0585 Total amount injected: 155 units Dilution: NS 2:1 Administered with EMG guidance: No ? ? Assessment Special features: previous chronic migraine with 15 or more KRUEGER days per month Functional limitations (current): 1(mild) Pain (current): No Effectiveness of last injection:99% Latency: Wearing off since last treatment: few days Side effects related to last injection: None Time Out: INFORMED CONSENT Lakesha Del Cid Medical Record: [id number] Procedure: Botulinum toxin injection The risks, benefits and anticipated outcomes of the procedure, the risks and benefits of the alternatives to the procedure and the roles and tasks of the personnel to be involved were discussed with the patient and the patient consents to the procedure and agrees to proceed. I verify that I personally obtained Lakesha Del Cid's consent. Lulu Zamorano MD May 12, 2018 10:25 AM Dept of NEUROLOGY UNIVERSAL PROTOCOL / SAFETY CHECKLIST Sign in Communication: Completed Time Out: Team Confirms the Correct Patient, Correct Procedure, Correct Site and Site Marking, Correct Position (if applicable), Prep and Dry Time (if applicable). Time: 1040 Affirmation of Time Out: YES Sign Out Discussion: Completed Lulu Zamorano MD Current Injection Note Type of Neurotoxin: Botox: J0585 Total Amount drawn up: 200 units Total amount injected: 155 units Total amount wasted: 45 units Dilution: NS 2:1 Administered with EMG guidance: No Injection Site: Muscle Right Left # of Injection Sites Per Side Total Units Chief Accountant 5 5 1 10 Procerus ? 1 midline (5u) 5 Frontalis 10 10 2 20 Temporalis 20 20 4 40 Occipitalis/Sub 15 15 3 30 Cervical PSPs 10 10 2 20 Trapezius 15 15 3 30 Lot#: [id number] Exp Date10/15 Future plan of care: Follow up: 3 months Neurotoxin Change: No Dose Change: No Lulu Zamorano M.D. [facility] [place] Department of Neu[facility] cc: Lulu Zamorano MD [address] [address] Braxton Holt MD [address] [address] Referring Provider: LULU ZAMORANO [[id number]] Allergies As of Date: 05/12/2018 Noted Allergy Reaction BENADRYL (DIPHENHYDRAMINE HCL) 01/15/2015 14 - Other: See Comments KIWI 11/30/2006 METHOCARBAMOL 09/05/2016 14 - Other: See Comments Comments: Causes blisters in the mouth NORCO (HYDROCODONE-ACETAMINOPHEN) 01/20/2017 5 - Intolerance Comments: Worsens migraines NSAIDS (NON-STEROIDAL ANTI-INFLAM*09/24/2017 14 - Other: See Comments Comments: GI bleed/ stomach pain rat [Other] 08/20/2009 REGLAN (METOCLOPRAMIDE HCL) 01/09/2017 1 - Mental Status Change Comments: climbing the morocho SULFAMETHOXAZOLE-TRIMETHOPRIM 04/30/2018 16 - Unknown Comments: Blisters in mouth Date Reviewed: 05/12/2018 Reviewed by: Lulu Zamorano - Fully Assessed Reason for Visit: Follow Up [171] Cmt: BOTOX Primary Visit Diagnosis:Intractable chronic migraine without aura and without status migrainosus [G43.719] Other Visit Diagnosis:Anxiety [F41.9] Order(s):traMADol (ULTRAM) 50 mg tabletTake 1 tablet by mouth every 8 hours as needed for Pain (short term treatment for pain) for up to 3 days.Disp: 10 tabletRfl: 0 Prescriptions as of 05/12/2018 Sig: TERCONAZOLE 0.4 % VAGINAL CRE* Use 1 Applicator vaginally da* ESTRADIOL 0.01% (0.1 MG/GRAM)* Use 0.5 g vaginally twice darcy* GABAPENTIN 300 MG CAPSULE Take 4 capsules by mouth jesu* MEDROXYPROGESTERONE 150 MG/ML* Inject 1 mL intramuscularly e* PROMETHAZINE 25 MG TABLET take 1 tablet by mouth every * OMEPRAZOLE 40 MG CAPSULE,MATEO* Take 1 capsule by mouth twice* ACETAMINOPHEN 500 MG TABLET Take 500 mg by mouth every 8 * DULOXETINE 60 MG CAPSULE,MATEO* Take 1 capsule by mouth once * DICYCLOMINE 20 MG TABLET Take 1 tablet by mouth every * ACIDOPHILUS 100 MILLION CELL-* Take by mouth. TRAMADOL 50 MG TABLET Take 1 tablet by mouth every * Problem List As Of Date 05/12/2018 Noted Resolved Attention deficit disorder [F98.8] INVALID FOR* Foreign body (FB) in soft tissue [M79.5] INVALID FOR*01/09/2017 Viral pericarditis [B33.23] INVALID FOR*01/09/2017 Other chest pain [R07.89] INVALID FOR* Controlled substance agreement signed [Z79.899] INVALID FOR* Fibromyalgia [M79.7] Intractable chronic migraine without aura and w*INVALID FOR* Anxiety [F41.9] INVALID FOR* Right sided abdominal pain [R10.9] INVALID FOR*08/21/2017 Elevated amylase and lipase [R74.8] INVALID FOR* Nephrolithiasis [N20.0] INVALID FOR*08/21/2017 Vaginal spotting [N93.9] INVALID FOR*08/21/2017 Altered bowel habits [R19.4] INVALID FOR*08/21/2017 More... Right upper quadrant pain [R10.11] INVALID FOR*08/21/2017 More... Drug-seeking behavior [Z76.5] INVALID FOR* Pap smear abnormality of cervix with LGSIL [R87*INVALID FOR* Prescriptions ordered this encounter Disp Refills Start End TRAMADOL 50 MG TABLET 10 t* 0 05/12/2018 05/15/2018 Class: Print RX Route: ORAL Sig: Take 1 tablet by mouth every 8 hours as needed for Pain (short term treatment for pain) for up to 3 days. Medications Discontinued During This Encounter Amoxicillin 500 mg tablet 21 t* 0 05/05/2018 05/12/2018 Route: ORAL Sig: Take 1 tablet by mouth three times daily. Patient not taking: Reported on 05/12/2018 Disc: Course of therapy completed colchicine 0.6 mg tablet 14 t* 0 12/12/2017 05/12/2018 Class: Print RX Route: ORAL Sig: Take 1 tablet by mouth twice daily. Patient not taking: Reported on 05/12/2018 Disc: Reason for discontinue is not on file. ondansetron orally disintegrating (Z* 10 t* 0 10/30/2017 05/12/2018 Class: Print RX Route: ORAL Sig: Take 1 tablet by mouth every 6 hours as needed. Patient not taking: Reported on 05/12/2018 Disc: Reason for discontinue is not on file. traMADol (ULTRAM) 50 mg tablet 10 t* 0 04/13/2018 05/12/2018 Class: Call Rx Route: ORAL Sig: Take 1 tablet by mouth every 8 hours as needed for Pain (short term treatment for pain secondary to colposcopy) for up to 3 days. Disc: Reason for discontinue is not on file. Disposition: Return in about 3 months (around 08/10/2018). Follow-up and Disposition History Recorded Encounter Status:Closed by LULU ZAMORANO MD on 05/12/18 OBSOLETE Observed: 05/11/2018 Status: COMPLETED Source: [place] 12:00 AM [facility] REPOSITORY Refill (OBEM) LAKESHA DEL CID ([id number]) 1990 F [place] Date Time Provider Department 05/11/18 SARA FIELDS During your visit today, we recorded the following information about you: Allergies As of Date: 05/11/2018 Noted Allergy Reaction BENADRYL (DIPHENHYDRAMINE HCL) 01/15/2015 14 - Other: See Comments KIWI 11/30/2006 METHOCARBAMOL 09/05/2016 14 - Other: See Comments Comments: Causes blisters in the mouth NORCO (HYDROCODONE-ACETAMINOPHEN) 01/20/2017 5 - Intolerance Comments: Worsens migraines NSAIDS (NON-STEROIDAL ANTI-INFLAM*09/24/2017 14 - Other: See Comments Comments: GI bleed/ stomach pain rat [Other] 08/20/2009 REGLAN (METOCLOPRAMIDE HCL) 01/09/2017 1 - Mental Status Change Comments: climbing the morocho SULFAMETHOXAZOLE-TRIMETHOPRIM 04/30/2018 16 - Unknown Comments: Blisters in mouth Date Reviewed: 04/22/2018 Reviewed by: Austyn Griffiths ([facility]) Pako - Fully Assessed Order(s):terconazole (TERAZOL 7) 0.4 % vaginal creamUse 1 Applicator vaginally daily at bedtime for 7 days.Disp: 45 gRfl: 0 Prescriptions as of 05/11/2018 Sig: TERCONAZOLE 0.4 % VAGINAL CRE* Use 1 Applicator vaginally da* AMOXICILLIN 500 MG TABLET Take 1 tablet by mouth three * ESTRADIOL 0.01% (0.1 MG/GRAM)* Use 0.5 g vaginally twice darcy* GABAPENTIN 300 MG CAPSULE Take 4 capsules by mouth jesu* MEDROXYPROGESTERONE 150 MG/ML* Inject 1 mL intramuscularly e* COLCHICINE 0.6 MG TABLET Take 1 tablet by mouth twice * Patient not taking: Reported on 03/17/2018 ONDANSETRON 4 MG DISINTEGRATI* Take 1 tablet by mouth every * PROMETHAZINE 25 MG TABLET take 1 tablet by mouth every * OMEPRAZOLE 40 MG CAPSULE,MATEO* Take 1 capsule by mouth twice* ACETAMINOPHEN 500 MG TABLET Take 500 mg by mouth every 8 * DULOXETINE 60 MG CAPSULE,MATEO* Take 1 capsule by mouth once * DICYCLOMINE 20 MG TABLET Take 1 tablet by mouth every * ACIDOPHILUS 100 MILLION CELL-* Take by mouth. Medication notes this encounter TERCONAZOLE 0.8 % VAGINAL CREAM >> Carmela Doe, RN, RN 05/11/2018 2:23 PM Wrong dosage ordered, Pharmacy called, correct to 0.4% Problem List As Of Date 05/11/2018 Noted Resolved Attention deficit disorder [F98.8] INVALID FOR* Foreign body (FB) in soft tissue [M79.5] INVALID FOR*01/09/2017 Viral pericarditis [B33.23] INVALID FOR*01/09/2017 Other chest pain [R07.89] INVALID FOR* Controlled substance agreement signed [Z79.899] INVALID FOR* Fibromyalgia [M79.7] Intractable chronic migraine without aura and w*INVALID FOR* Anxiety [F41.9] INVALID FOR* Right sided abdominal pain [R10.9] INVALID FOR*08/21/2017 Elevated amylase and lipase [R74.8] INVALID FOR* Nephrolithiasis [N20.0] INVALID FOR*08/21/2017 Vaginal spotting [N93.9] INVALID FOR*08/21/2017 Altered bowel habits [R19.4] INVALID FOR*08/21/2017 More... Right upper quadrant pain [R10.11] INVALID FOR*08/21/2017 More... Drug-seeking behavior [Z76.5] INVALID FOR* Pap smear abnormality of cervix with LGSIL [R87*INVALID FOR* Prescriptions ordered this encounter Disp Refills Start End TERCONAZOLE 0.4 % VAGINAL CREAM 45 g 0 05/11/2018 05/18/2018 Class: Call Rx Route: VAGINAL Sig: Use 1 Applicator vaginally daily at bedtime for 7 days. Medications Discontinued During This Encounter terconazole vaginal cream (TERAZOL) * 20 g 0 05/11/2018 05/11/2018 Class: Call Rx Cmt: Please include applicator for use. Sig: Use one applicator full once daily at Bedtime for 7 days Disc: Other Encounter Status:Closed by SARA FIELDS MD on 05/11/18 HSV1,2/VZV AMPLIF Collected: 04/30/2018 Status: F Source: [place] 1:53 PM [facility] RE[facility] TYPE CODE TESTS RESULT OUT OF REFERENCE UNITS RANGE [facility] Result Comment: [facility] HRPSV1 HSV Negative for Type 1, HDA Herpes Simplex virus Type 1 by Molecular Detection. LAB HRPSV2 HSV Negative for Type 2, HDA Herpes Simplex virus Type 2 by Molecular Detection. LAB VZOSV V Negative for Zoster Virus, Varicella Zoster HDA virus by Molecular Detection. Performed By: #### HSVVZV #### [facility] [employer] [address], [place] [address] WOUND Observed: 04/30/2018 Status: F Source: [place] CULTURE/STAIN 1:52 PM [facility] REPOSITORY Sp. Request/Comment: - Swab Smear Result - BACTERIAL VAGINOSIS RESULT: Stain results consistent with normal vaginal justo. Corrected report: --> ABNORMAL ALERT Rare --> ABNORMAL ALERT Yeast --> ABNORMAL ALERT Previous rep ort: No Yeast observed (NOTE) Corrected Gram stain result called to Laurie Doe at Dr. Fields's office 05/03/18 1420, AClarita Cancholaa Culture Result - Rare Streptococcus pyogenes (Group A streptococcus) --> ABNORMAL ALERT Susceptibility testing not performed on beta hemolytic streptococci due to predictable susceptibility to penici llin and other beta lactams. For testing, call Microbiology within 72 hours. --> ABNORMAL ALERT Rare --> ABNORMAL ALERT Streptococcus agalactiae (Group B streptococcus) --> ABNORMAL ALERT Susce ptibility testing not performed on beta hemolytic streptococci due to predictable susceptibility to penicillin and other beta lactams. For testing, call Microbiology within 72 hours. --> ABNORMAL JOSE RT Few --> ABNORMAL ALERT Yeast --> ABNORMAL ALERT No further workup --> ABNORMAL ALERT Moderate Normal urogenital justo No Staphylococcus aureus isolated. No Neisseria gonorrhoeae isolated. Fo r optimal sensitivity, testing for Neisseria gonorrhoeae should be performed by molecular methods. Performed By: #### WCUL #### [facility] [employer] [address], [place] [address] PROGRESS Observed: 04/30/2018 Status: COMPLETED Source: [place] 10:19 AM [facility] REPOSITORY HNO ID: [id number] Author: Sara Fields Service: (none) Author Type: Physician Type: Progress Notes Filed: 04/30/2018 10:22 AM Note Text: 27 year old White female presents today with a complaint of vaginal pain and a possible vaginal lump. She states that this has been present for 3 or 4 days and may have slightly increased in size. She states that this is tender to the touch. EGBUS: There are noted to be 2 pustule-type lesions near the right posterior fourchette. There is also noted to be swollen hymenal tissue on the patient's right lower side. Just anterior to the swollen hymenal tissue is a rent in the mucosa in a triangular fashion. HSV and vaginal cultures obtained. Impression: Acute vaginitis. Plan: The patient is given a prescription for Estrace vaginal cream to aid with healing of the area. Await culture results. Follow- up as needed. Sara Fields MD CNOV Observed: 04/30/2018 Status: COMPLETED Source: [place] 10:00 AM [facility] REPOSITORY Office Visit (OBGMEM) LAKESHA DEL CID ([id number]) 1990 [facility] Date Time Provider Department 04/30/18 10:00 AM SARA FIELDS During your visit today, we recorded the following information about you: Blood pressure Weight 110/64 65.8 kg Sara Fields MD 04/30/2018 10:22 AM Signed 27 year old White female presents today with a complaint of vaginal pain and a possible vaginal lump. She states that this has been present for 3 or 4 days and may have slightly increased in size. She states that this is tender to the touch. EGBUS: There are noted to be 2 pustule-type lesions near the right posterior fourchette. There is also noted to be swollen hymenal tissue on the patient's right lower side. Just anterior to the swollen hymenal tissue is a rent in the mucosa in a triangular fashion. HSV and vaginal cultures obtained. Impression: Acute vaginitis. Plan: The patient is given a prescription for Estrace vaginal cream to aid with healing of the area. Await culture results. Follow-up as needed. Sara Fields MD Referring Provider: SELF [[id number]] Allergies As of Date: 04/30/2018 Noted Allergy Reaction BENADRYL (DIPHENHYDRAMINE HCL) 01/15/2015 14 - Other: See Comments NICOLASA 11/30/2006 METHOCARBAMOL 09/05/2016 14 - Other: See Comments Comments: Causes blisters in the mouth NORCO (HYDROCODONE-ACETAMINOPHEN) 01/20/2017 5 - Intolerance Comments: Worsens migraines NSAIDS (NON-STEROIDAL ANTI-INFLAM*09/24/2017 14 - Other: See Comments Comments: GI bleed/ stomach pain rat [Other] 08/20/2009 REGLAN (METOCLOPRAMIDE HCL) 01/09/2017 1 - Mental Status Change Comments: climbing the morocho SULFAMETHOXAZOLE-TRIMETHOPRIM 04/30/2018 16 - Unknown Comments: Blisters in mouth Date Reviewed: 04/22/2018 Reviewed by: Austyn Griffiths ([facility]) Pako - Fully Assessed Reason for Visit: Follow Up [171] Cmt: Vaginal pain possinle cyst Primary Visit Diagnosis:Acute vaginitis [N76.0] Order(s):estradiol (ESTRACE) 0.01 % (0.1 mg/gram) vaginal creamUse 0.5 g vaginally twice daily.Disp: 1 TubeRfl: 0 WOUND CULTURE AND GRAM STAIN [SQWCUL] Order #: [id number] HSV 1,2/VZV AMP MOLECULAR DETECT [SQHSVVZV] Order #: [id number] FUTURE Prescriptions as of 04/30/2018 Sig: GABAPENTIN 300 MG CAPSULE Take 4 capsules by mouth jesu* ALPRAZOLAM 0.5 MG TABLET take 1/2 to 1 tablet by mouth* MEDROXYPROGESTERONE 150 MG/ML* Inject 1 mL intramuscularly e* ONDANSETRON 4 MG DISINTEGRATI* Take 1 tablet by mouth every * PROMETHAZINE 25 MG TABLET take 1 tablet by mouth every * ACETAMINOPHEN 500 MG TABLET Take 500 mg by mouth every 8 * DULOXETINE 60 MG CAPSULE,MATEO* Take 1 capsule by mouth once * DICYCLOMINE 20 MG TABLET Take 1 tablet by mouth every * ACIDOPHILUS 100 MILLION CELL-* Take by mouth. ESTRADIOL 0.01% (0.1 MG/GRAM)* Use 0.5 g vaginally twice darcy* COLCHICINE 0.6 MG TABLET Take 1 tablet by mouth twice * Patient not taking: Reported on 03/17/2018 OMEPRAZOLE 40 MG CAPSULE,MATEO* Take 1 capsule by mouth twice* Problem List As Of Date 04/30/2018 Noted Resolved Attention deficit disorder [F98.8] INVALID FOR* Foreign body (FB) in soft tissue [M79.5] INVALID FOR*01/09/2017 Viral pericarditis [B33.23] INVALID FOR*01/09/2017 Other chest pain [R07.89] INVALID FOR* Controlled substance agreement signed [Z79.899] INVALID FOR* Fibromyalgia [M79.7] Intractable chronic migraine without aura and w*INVALID FOR* Anxiety [F41.9] INVALID FOR* Right sided abdominal pain [R10.9] INVALID FOR*08/21/2017 Elevated amylase and lipase [R74.8] INVALID FOR* Nephrolithiasis [N20.0] INVALID FOR*08/21/2017 Vaginal spotting [N93.9] INVALID FOR*08/21/2017 Altered bowel habits [R19.4] INVALID FOR*08/21/2017 More... Right upper quadrant pain [R10.11] INVALID FOR*08/21/2017 More... Drug-seeking behavior [Z76.5] INVALID FOR* Pap smear abnormality of cervix with LGSIL [R87*INVALID FOR* Prescriptions ordered this encounter Disp Refills Start End ESTRADIOL 0.01% (0.1 MG/GRAM) VAGINA* 1 Tu* 0 04/30/2018 Route: VAGINAL Sig: Use 0.5 g vaginally twice daily. Annotated image of GENITALIA, EXTERNAL FEMALE last updated by Sara Fields on 04/30/2018 10:19 AM Encounter Status:Closed by SARA FIELDS MD on 04/30/18 CNCO Observed: 04/25/2018 Status: COMPLETED Source: [place] 12:00 AM [facility] REPOSITORY Letter Text Baylee Valentine PA-C [address], [place] [address] Lakesha Del Cid April 25, 2018 RE: Matthewblair Clau As we were unable to reach you by phone, we are sending you this letter to notify you of your lab results from your recent visit to the [facility]. Please be aware that your labs did NOT show a UTI. As a result you do not need antibiotics for a UTI. Also, please be aware that the swab of your mouth sores did not show herpes. As a result, please follow up with your primary care physician for any persisting, new, or worsening symptoms. Sincerely, Baylee Valentine PA-C (Electronically signed to expedite processing) PROGRESS Observed: 04/22/2018 Status: COMPLETED Source: [place] 12:45 PM [facility] REPOSITORY HNO ID: [id number] Author: Austyn Griffiths (Concession Worker) Goucher Service: (none) Author Type: Nurse Practitioner Type: Progress Notes Filed: 04/22/2018 1:02 PM Note Text: Subjective HPI HPI Lakesha Del Cid is a 27 year old female who presents today for CC of sores in her mouth that are painful This started 3-4 days ago. She is also felling run down. She reports that she has tried swishing with peroxide and salt water. She states she has never had a cold sore. She also reports that she is currently taking Bactrim for a UTI. She went to [facility] and they did not send out urine for culture. She still reports painful urination. ACTIVE PROBLEM LIST Attention Deficit Disorder Other Chest Pain Controlled Substance Agreement Signed Fibromyalgia Intractable Chronic Migraine Without Aura and Without Status Migrainosus Anxiety Elevated Amylase and Lipase Drug-Seeking Behavior Pap Smear Abnormality of Cervix With Lgsil BP 125/96 Pulse (!) 124 Temp 37.4 ?C (99.3 ?F) (Oral) Wt 65.3 kg (144 lb) SpO2 100% BMI 27.21 kg/m? ALLERGIES Allergen Reactions - Benadryl [Diphenhyd* Other: See Comments - [place]wi - Methocarbamol Other: See Comments Causes blisters in the mouth - [place] [Hydrocodone-* Intolerance Worsens migraines - Nsaids (Non-Steroid* Other: See Comments GI bleed/ stomach pain - Rat [Other] - Reglan [Metoclopram* Mental Status Change climbing the morocho Current Outpatient Prescriptions: acetaminophen (TYLENOL) 500 mg tablet Take 500 mg by mouth every 8 hours as needed. Disp: Rfl: acidophilus-pectin, citrus (ACIDOPHILUS PROBIOTIC) 100 million- 10 cell-mg cap Take by mouth. Disp: Rfl: 0 ALPRAZolam (XANAX) 0.5 mg tablet take 1/2 to 1 tablet by mouth three times a day if needed anxiety Disp: 30 tablet Rfl: 0 dicyclomine (BENTYL) 20 mg tablet Take 1 tablet by mouth every 6 hours. Disp: 20 tablet Rfl: 0 DULoxetine (CYMBALTA) 60 mg capsule Take 1 capsule by mouth once daily. Disp: 90 capsule Rfl: 3 gabapentin (NEURONTIN) 300 mg capsule Take 4 capsules by mouth daily at bedtime for 180 days. Disp: 120 capsule Rfl: 5 medroxyPROGESTERone (DEPO-PROVERA) 150 mg/mL syrg Inject 1 mL intramuscularly every 12 weeks. Disp: 1 Syringe Rfl: 4 Omeprazole (PRILOSEC) 40 mg capsule Take 1 capsule by mouth twice daily. Disp: 60 capsule Rfl: 3 ondansetron orally disintegrating (ZOFRAN ODT) 4 mg disintegrating tablet Take 1 tablet by mouth every 6 hours as needed. Disp: 10 tablet Rfl: 0 promethazine (PHENERGAN) 25 mg tablet take 1 tablet by mouth every 6 hours if needed Disp: 30 tablet Rfl: 11 colchicine 0.6 mg tablet Take 1 tablet by mouth twice daily. (Patient not taking: Reported on 03/17/2018 ) Disp: 14 tablet Rfl: 0 qtarfhjfwiGGQUX-ztvrna-hhwkphbqy (BMX 1:1:1) 1:1:1 liqd Take 5 mL by mouth every 4 hours as needed for up to 5 days. Disp: 180 mL Rfl: 0 Current Facility-Administered Medications: onabotulinum toxin type A 200 Units injection (BOTOX) 200 Units INTRAMUSCULAR q 3 MONTHS Lulu Zamorano 155 Units at 02/04/18 0942 Review of Systems Constitutional: Positive for malaise/fatigue. Negative for chills, fever and weight loss. HENT: Negative for sore throat. Gastrointestinal: Negative for abdominal pain. Genitourinary: Positive for dysuria. Negative for frequency, hematuria and urgency. Skin: Negative for itching and rash. Neurological: Negative for headaches. Objective Physical Exam Constitutional: She is oriented to person, place, and time and well-developed, well-nourished, and in no distress. HENT: Head: Normocephalic and atraumatic. Mouth/Throat: Uvula is midline. Several oral lesion noted, appears like a burn, two in the upper palate, one on the inside of the lower lip. Eyes: Pupils are equal, round, and reactive to light. Conjunctivae and EOM are normal. Neck: Normal range of motion. Neck supple. Cardiovascular: Normal rate, regular rhythm and normal heart sounds. Pulmonary/Chest: Effort normal and breath sounds normal. No respiratory distress. Abdominal: Soft. Normal appearance and bowel sounds are normal. There is no CVA tenderness. Neurological: She is alert and oriented to person, place, and time. Gait normal. Skin: Skin is warm and dry. Psychiatric: Affect normal. Nursing note and vitals reviewed. ASSESSMENT/PLAN: 1. Mouth lesion - ICD9: 528.9, ICD10: K13.70 (primary diagnosis) - HSV 1,2/VZV AMP MOLECULAR DETECT - HIENMJAHODSVXHH-[id number]-BLVGFZWEY ([facility]) - stop bactrim, possibly having allergic reaction 2. Painful urination - ICD9: 788.1, ICD10: R30.9 - URINE CULTURE, we will call you with results and if we need to start another antibiotic JACLYN Brambila Observed: 04/22/2018 Status: COMPLETED Source: [place] 12:30 PM [facility] REPOSITORY Office Visit (WALKWA) MATTHEW DEL CIDBLAIR ([id number]) 1990 [facility] Date Time Provider Department 04/22/18 12:30 PM AUSTYN MIN) WALKLEISA During your visit today, we recorded the following information about you: Temperature Pulse Blood pressure Weight 99.3 degrees 124/minute 125/96 65.3 kg Austyn Min APRN.CNP 04/22/2018 1:02 PM Signed Subjective HPI HPI Lakesha Del Cid is a 27 year old female who presents today for CC of sores in her mouth that are painful This started 3-4 days ago. She is also felling run down. She reports that she has tried swishing with peroxide and salt water. She states she has never had a cold sore. She also reports that she is currently taking Bactrim for a UTI. She went to [facility] and they did not send out urine for culture. She still reports painful urination. ACTIVE PROBLEM LIST Attention Deficit Disorder Other Chest Pain Controlled Substance Agreement Signed Fibromyalgia Intractable Chronic Migraine Without Aura and Without Status Migrainosus Anxiety Elevated Amylase and Lipase Drug-Seeking Behavior Pap Smear Abnormality of Cervix With Lgsil BP 125/96 Pulse (!) 124 Temp 37.4 ?C (99.3 ?F) (Oral) Wt 65.3 kg (144 lb) SpO2 100% BMI 27.21 kg/m? ALLERGIES Allergen Reactions - Benadryl [Diphenhyd* Other: See Comments - Kiwi - Methocarbamol Other: See Comments Causes blisters in the mouth - [place] [Hydrocodone-* Intolerance Worsens migraines - Nsaids (Non-Steroid* Other: See Comments GI bleed/ stomach pain - Rat [Other] - Reglan [Metoclopram* Mental Status Change climbing the morocho Current Outpatient Prescriptions: acetaminophen (TYLENOL) 500 mg tablet Take 500 mg by mouth every 8 hours as needed. Disp: Rfl: acidophilus-pectin, citrus (ACIDOPHILUS PROBIOTIC) 100 million- 10 cell-mg cap Take by mouth. Disp: Rfl: 0 ALPRAZolam (XANAX) 0.5 mg tablet take 1/2 to 1 tablet by mouth three times a day if needed anxiety Disp: 30 tablet Rfl: 0 dicyclomine (BENTYL) 20 mg tablet Take 1 tablet by mouth every 6 hours. Disp: 20 tablet Rfl: 0 DULoxetine (CYMBALTA) 60 mg capsule Take 1 capsule by mouth once daily. Disp: 90 capsule Rfl: 3 gabapentin (NEURONTIN) 300 mg capsule Take 4 capsules by mouth daily at bedtime for 180 days. Disp: 120 capsule Rfl: 5 medroxyPROGESTERone (DEPO-PROVERA) 150 mg/mL syrg Inject 1 mL intramuscularly every 12 weeks. Disp: 1 Syringe Rfl: 4 Omeprazole (PRILOSEC) 40 mg capsule Take 1 capsule by mouth twice daily. Disp: 60 capsule Rfl: 3 ondansetron orally disintegrating (ZOFRAN ODT) 4 mg disintegrating tablet Take 1 tablet by mouth every 6 hours as needed. Disp: 10 tablet Rfl: 0 promethazine (PHENERGAN) 25 mg tablet take 1 tablet by mouth every 6 hours if needed Disp: 30 tablet Rfl: 11 colchicine 0.6 mg tablet Take 1 tablet by mouth twice daily. (Patient not taking: Reported on 03/17/2018 ) Disp: 14 tablet Rfl: 0 xuwvfzsdioWYBYK-plphmv-yhfjtmghr (BMX 1:1:1) 1:1:1 liqd Take 5 mL by mouth every 4 hours as needed for up to 5 days. Disp: 180 mL Rfl: 0 Current Facility-Administered Medications: onabotulinum toxin type A 200 Units injection (BOTOX) 200 Units INTRAMUSCULAR q 3 MONTHS Lulu Zamorano 155 Units at 02/04/18 0942 Review of Systems Constitutional: Positive for malaise/fatigue. Negative for chills, fever and weight loss. HENT: Negative for sore throat. Gastrointestinal: Negative for abdominal pain. Genitourinary: Positive for dysuria. Negative for frequency, hematuria and urgency. Skin: Negative for itching and rash. Neurological: Negative for headaches. Objective Physical Exam Constitutional: She is oriented to person, place, and time and well-developed, well-nourished, and in no distress. HENT: Head: Normocephalic and atraumatic. Mouth/Throat: Uvula is midline. Several oral lesion noted, appears like a burn, two in the upper palate, one on the inside of the lower lip. Eyes: Pupils are equal, round, and reactive to light. Conjunctivae and EOM are normal. Neck: Normal range of motion. Neck supple. Cardiovascular: Normal rate, regular rhythm and normal heart sounds. Pulmonary/Chest: Effort normal and breath sounds normal. No respiratory distress. Abdominal: Soft. Normal appearance and bowel sounds are normal. There is no CVA tenderness. Neurological: She is alert and oriented to person, place, and time. Gait normal. Skin: Skin is warm and dry. Psychiatric: Affect normal. Nursing note and vitals reviewed. ASSESSMENT/PLAN: 1. Mouth lesion - ICD9: 528.9, ICD10: K13.70 (primary diagnosis) - HSV 1,2/VZV AMP MOLECULAR DETECT - TMNDHAXGFPHONPL-MTQIUXV-RPXBCFEVK ([facility]) - stop bactrim, possibly having allergic reaction 2. Painful urination - ICD9: 788.1, ICD10: R30.9 - URINE CULTURE, we will call you with results and if we need to start another antibiotic JACLYN Brambila APRN.CNP 04/22/2018 12:47 PM Signed ASSESSMENT/PLAN: 1. Mouth lesion - ICD9: 528.9, ICD10: K13.70 (primary diagnosis) - HSV 1,2/VZV AMP MOLECULAR DETECT - SRYCWMTTNQZQMIW-QPVTNLQ-RATCEZNHO ([facility]) - stop bactrim, possibly having allergic reaction 2. Painful urination - ICD9: 788.1, ICD10: R30.9 - URINE CULTURE, we will call you with results and if we need to start another antibiotic Referring Provider: SELF [200] Allergies As of Date: 04/22/2018 Noted Allergy Reaction BENADRYL (DIPHENHYDRAMINE HCL) 01/15/2015 14 - Other: See Comments KIWI 11/30/2006 METHOCARBAMOL 09/05/2016 14 - Other: See Comments Comments: Causes blisters in the mouth NORCO (HYDROCODONE-ACETAMINOPHEN) 01/20/2017 5 - Intolerance Comments: Worsens migraines NSAIDS (NON-STEROIDAL ANTI-INFLAM*09/24/2017 14 - Other: See Comments Comments: GI bleed/ stomach pain rat [Other] 08/20/2009 REGLAN (METOCLOPRAMIDE HCL) 01/09/2017 1 - Mental Status Change Comments: climbing the morocho Date Reviewed: 04/22/2018 Reviewed by: Austyn Griffiths ([facility]) Pako - Fully Assessed Reason for Visit: Mouth Sores [839] Cmt: 1 years Primary Visit Diagnosis:Mouth lesion [K13.70] Other Visit Diagnosis:Painful urination [R30.9] Order(s):URINE CULTURE [SQURCUL] Order #: [id number] HSV 1,2/VZV AMP MOLECULAR DETECT [SQHSVVZV] Order #: [id number] FUTURE cxnuxwswcyXWIGT-fjgddq-ebbmtpmdk (BMX 1:1:1) 1:1:1 liqdTake 5 mL by mouth every 4 hours as needed for up to 5 days.Disp: 180 mLRfl: 0 Prescriptions as of 04/22/2018 Sig: ACETAMINOPHEN 500 MG TABLET Take 500 mg by mouth every 8 * ACIDOPHILUS 100 MILLION CELL-* Take by mouth. ALPRAZOLAM 0.5 MG TABLET take 1/2 to 1 tablet by mouth* DICYCLOMINE 20 MG TABLET Take 1 tablet by mouth every * DULOXETINE 60 MG CAPSULE,MATEO* Take 1 capsule by mouth once * GABAPENTIN 300 MG CAPSULE Take 4 capsules by mouth jesu* MEDROXYPROGESTERONE 150 MG/ML* Inject 1 mL intramuscularly e* OMEPRAZOLE 40 MG CAPSULE,MATEO* Take 1 capsule by mouth twice* ONDANSETRON 4 MG DISINTEGRATI* Take 1 tablet by mouth every * PROMETHAZINE 25 MG TABLET take 1 tablet by mouth every * COLCHICINE 0.6 MG TABLET Take 1 tablet by mouth twice * Patient not taking: Reported on 03/17/2018 LKTWPDMEGCSVICJ-NILYEGK-GHFDZ* Take 5 mL by mouth every 4 ho* Problem List As Of Date 04/22/2018 Noted Resolved Attention deficit disorder [F98.8] INVALID FOR* Foreign body (FB) in soft tissue [M79.5] INVALID FOR*01/09/2017 Viral pericarditis [B33.23] INVALID FOR*01/09/2017 Other chest pain [R07.89] INVALID FOR* Controlled substance agreement signed [Z79.899] INVALID FOR* Fibromyalgia [M79.7] Intractable chronic migraine without aura and w*INVALID FOR* Anxiety [F41.9] INVALID FOR* Right sided abdominal pain [R10.9] INVALID FOR*08/21/2017 Elevated amylase and lipase [R74.8] INVALID FOR* Nephrolithiasis [N20.0] INVALID FOR*08/21/2017 Vaginal spotting [N93.9] INVALID FOR*08/21/2017 Altered bowel habits [R19.4] INVALID FOR*08/21/2017 More... Right upper quadrant pain [R10.11] INVALID FOR*08/21/2017 More... Drug-seeking behavior [Z76.5] INVALID FOR* Pap smear abnormality of cervix with LGSIL [R87*INVALID FOR* Other instructions from your clinician: ASSESSMENT/PLAN: 1. Mouth lesion - ICD9: 528.9, ICD10: K13.70 (primary diagnosis) - HSV 1,2/VZV AMP MOLECULAR DETECT - UHZMZOMOISXWWJX-OFKISQI-NZOPJEFFI ([facility]) - stop bactrim, possibly having allergic reaction 2. Painful urination - ICD9: 788.1, ICD10: R30.9 - URINE CULTURE, we will call you with results and if we need to start another antibiotic Prescriptions ordered this encounter Disp Refills Start End ZWQUCZLTDFNVTNM-IJCIDCC-VUHIDDEZD (C* 180 * 0 04/22/2018 04/27/2018 Route: ORAL Sig: Take 5 mL by mouth every 4 hours as needed for up to 5 days. Encounter Status:Closed by AUSTYN MIN on 04/22/18 Observed: 04/22/2018 Status: F Source: [place] URINE CULTURE 2:43 AM [facility] REPOSITORY Sp. Request/Comment: - Specimen received in preservative Culture Result - 50,000 - <100,000 CFU/ml Normal urogenital justo Performed By: #### URCUL #### [facility] [employer] [address] [id number] HSV1,2/VZV AMPLIF Collected: 04/22/2018 Status: F Source: [place] 12:38 AM [facility] REPOSITORY TYPE CODE TESTS RESULT OUT OF REFERENCE UNITS RANGE LAB HVZSRC Specimen Lesion Source LAB HRPSV1 HSV Type 1, Negative for HDA Herpes Simplex virus Type 1 by [facility]. LAB HRPSV2 HSV Type 2, Negative for HDA Herpes Simplex virus Type 2 by [facility]. LAB VZOSV V Zoster Virus, Negative for HDA Varicella Zoster virus by [facility]. Performed By: #### HSVVZV #### [facility] [employer] [address] [place], [place] [address] DISCHARGE INSTRUCTION Observed: 04/08/2018 Status: F Source: [place] 11:16 PM [facility] REPOSITORY [facility] Medical Records Department [address] [place] [address] Discharge Instruction 04/08/18 2315 MR#: [id number] Acct: [id number] Name: MATTHEW DEL CIDBLAIR Hope Rep #: [id number] : 1990 27 From: Cass Mcclure DO PCP: OUT OF TOWN DOCTOR Status: REG ER ED Disposition - Plan for ED Patient: Chief Complaint: Flank Pain Instructions: ED Kidney Infec Female Prescriptions: Smz/Tmp Ds [Bactrim Ds] 1 tab PO BID #14 tab Phenazopyridine [Pyridium] 200 mg PO TID #9 tab Referrals: [facility] Doctor,Out of [Primary Care Provider] - 3-5 Days What to do if you have Problems For any increased pain, shortness of breath, bleeding, nausea or vomiting, chest pain, or any unexpected problems, contact your Primary Care Provider. Call [facility] ([phone]) or report to the closest Emergency Room. Call 911 if necessary. 04/08/18 2316 <Electronically signed by Cass Mcclure DO> Date Cass Mcclure DO Cosigner Signature (If Indicated): Date CC: OUT OF TOWN DOCTOR EMERGENCY DEPARTMENT Observed: 04/08/2018 Status: F Source: [place] SUMMARY 11:15 PM [facility] REPOSITORY [facility] Medical Records Department [address] [address] Emergency Department Summary 04/08/18 2312 MR#: [id number] Acct: [id number] Name: LAKESHA DEL CID Rep #: [id number] : 1990 27 From: Cass Mcclure DO PCP: OUT OF TOWN DOCTOR Status: REG ER - ER Visit Summary Date of Service: 04/08/18 Chief Complaint: [Right flank pain] History of Present Illness: The patient is a 27 F [presents the emergency department complaint of pain in the right flank that started earlier today. Patient rates her pain as a 7 out of 10. Patient states that she has had prior kidney stones and it feels like that. Patient also describes some hematuria today and some dysuria as well. Patient states that she had some lesions removed from her cervix by her INDUSTRIAL SERVICE TECHNICIAN yesterday but she has had no vaginal bleeding. Patient denies any fevers. She denies any nausea or vomiting.] Physical Examination: [HEENT-PERRLA, EOMI. Cranial nerves II through XII grossly intact. TMs clear. Mucous membranes moist. No adenopathy. Cardiovascular-regular rate and rhythm without murmur or ectopy Lungs-clear to auscultation, chest wall stable without crepitus or subcu emphysema Abdomen-normoactive bowel sounds, soft. Patient does have some tenderness over right lower quadrant. There is no rebound, rigidity, or perineal signs. 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 Extremities-intact 4, normal range of motion, normal pulses, atraumatic] Test Results: [CBC with differential shows a white count of 5.5, hemoglobin 12, hematocrit 38, platelets 303. Chemistries unremarkable. Urinalysis was positive for 500 leukocyte esterase, 10-25 WBCs, 50-[address] scan of the abdomen pelvis without contrast obtained showed bilateral punctate nephrolithiasis but no ureteral stones.] Emergency Department Course and Treatment: [Patient was medicated with morphine and Zofran on presentation. Patient received Bactrim and Pyridium.] Treatment Plan: [Patient will be given a prescription for Bactrim and Pyridium.] Disposition: [Discharged home in stable condition. Patient advised to return if worsening pain, fever, vomiting, or condition should worsen anyway] Impression: [UTI] This note was generated with Vidaao dictation software. It may contain incorrect words, spelling, and punctuation that were not noted in review of the chart prior to signing ED Disposition - Plan for ED Patient: Chief Complaint: Flank Pain Referrals: [facility] Doctor,Out of [Primary Care Provider] - What to do if you have Problems For any increased pain, shortness of breath, bleeding, nausea or vomiting, chest pain, or any unexpected problems, contact your Primary Care Provider. Call [facility] ([phone]) or report to the closest Emergency Room. Call 911 if necessary. 04/08/18 9639 <Electronically signed by Cass Mcclure DO> Date Cass Mcclure DO Cosigner Signature (If Indicated): Date CC: OUT OF TOWN DOCTOR CBC W/DIFF, AUTOMATED Collected: 04/08/2018 Status: F Source: [place] 10:00 PM [facility] REPOSITORY TYPE CODE TESTS RESULT OUT OF RANGE REFERENCE UNITS LAB L100.1000 4.4-11.0 K/mm3 Normal WBC 5.5 LAB L100.1200 4.2-5.4 M/mm3 Low RBC 3.93 LAB L100.1300 12.0-15.0 g/dl Normal HGB 12.1 LAB L100.1400 37-47 % Normal HCT 37.9 LAB L100.1500 81-99 fL Normal MCV 96.4 LAB L100.1600 27.0-32.0 pg Normal MCH 30.8 LAB L100.1700 32-36 g/gl Low MCHC 31.9 LAB L100.1810 11.6-14.6 % Normal RDW CV 13.1 LAB L100.1820 35.1-43.9 fl High RDW SD 46.1 LAB L100.1900 150-450 K/mm3 Normal PLT 303 LAB L100.2000 6.2-12.0 fl Normal MPV 9.4 LAB L100.2100 47-70 % Normal NEUT% 51.7 LAB L100.2200 19-41 % Normal LY% 35.6 LAB L100.2300 0-10 % High MONO% 10.4 LAB L100.2400 0-5 % Normal EO% 1.8 LAB L100.2500 0-1 % Normal BASO% 0.5 LAB L100.2550 0.0-0.9 % Normal IM GRAN % 0.000 Result Comment: IG% - Immature Granulocytes (promyelocytes, myelocytes and metamyelocytes) > 1% indicates that a LEFT SHIFT is Present. LAB L100.2620 2.0-7.7 X10 3/uL Normal Absolute Neut 2.8 LAB L100.2720 0.83-4.51 X10 3/ul Normal Absolute Lymph 1.95 Performed By: #### L100.0100 #### [facility] [place], [address] URINALYSIS, COMPLETE Collected: 04/08/2018 Status: F Source: [place] 10:00 PM [facility] REPOSITORY Order Comment: Order Date: 04/08/18 How was Urine Obtained? CLEAN CATCH TYPE CODE TESTS RESULT OUT OF RANGE REFERENCE UNITS LAB L400.3000 Yellow COLOR Normal Yellow LAB L400.3050 Clear Normal CLARITY Cloudy LAB L400.3200 Normal mg/dl Normal GLUCOSE, UR Normal LAB L400.3300 Negative mg/dL Normal BILIRUBIN URINE Negative LAB L400.3400 Negative mg/dl Normal KETONE UR Negative LAB L400.3465 1.002-1.030 Normal SP.GR. DIPSTX 1.015 LAB L400.3550 5.0 - 8.0 pH UR Normal 6.0 LAB L400.3600 Negative mg/dl PROT Normal DIPSTX Negative LAB L400.3700 Normal mg/dl Normal UROBILI Normal LAB L400.3750 Negative Normal NITRITE UR Negative LAB L400.3780 Negative /ul High OCCULT BLOOD-UR 250 LAB L400.3800 Negative /ul High LEUK ESTERASE 500 LAB L400.4050 0-5 /hpf WBC Normal 10-25 SEEN LAB L400.4100 0-5 /hpf Normal RBC-UA 50-100 SEEN LAB L400.4150 5-10 /hpf SQUAM Normal EPI 10-25 SEEN LAB L400.4300 None Seen /hpf Normal BACTERIA RARE LAB L400.4350 <or=2+ /hpf 0 Normal MUCUS, URINE SEEN Performed By: #### L400.0001 #### [facility] [address] [place], [place], [address] BASIC METABOLIC Collected: 04/08/2018 Status: F Source: [place] PROFILE (BMP) 10:00 PM [facility] REPOSITORY TYPE CODE TESTS RESULT OUT OF RANGE REFERENCE UNITS LAB L501.0100 74-106 mg/dL Normal GLU 79 Result Comment: Please note revised GLUCOSE reference range effective 2017. LAB L501.1000 7-18 mg/dL Normal BUN 10 LAB L501.1100 0.55-1.02 mg/dL Normal CREAT,SERUM 0.77 Result Comment: The validity of the calculated GFR AND GFRAA in patients over 70 years has not been determined. Clinical correlation is essential. LAB L501.1110 >60 mL/min Normal EST GFR 95 Result Comment: Non- GFR Calc LAB L501.1115 >60 mL/min Normal EST GFR - AA 115 Result Comment: GFR Calc LAB L501.1255 ml/min Normal Estimated CRCL 82.81 LAB L501.1300 10-20 RATIO Normal BUN/CRE 12.9 LAB L501.2200 8.5-10 mg/dL Normal .1 CA 8.5 LAB L501.5300 136-14 mmol/L Normal 5 NA 142 LAB L501.5600 3.5-5. mmol/L Normal 1 K 3.9 LAB L501.5900 98-107 mmol/L High CL 108 LAB L501.6100 21.0-3 mmol/L Normal 2.0 CO2 26.0 LAB L501.6200 5-15 Normal GAP 8 Performed By: #### L500.2500 #### [facility] [address] [facility] [place], [address] ABDOMEN/PELVIS WITHOUT Observed: 04/08/2018 Status: F Source: [place] CONT 9:42 PM [facility] REPOSITORY [facility] Imaging Services [address] [place] [address] Abdomen/Pelvis without Cont MR#: [id number] Acct: [id number] Name: LAKESHA DEL CID Rep #: [id number] : 1990 F 27 From: Rashel Mahmood DO PCP: Care Physician, No Primary Status: REG ER Study: Abdomen/Pelvis without Cont Date of Exam: 04/08/18 Exam# [id number] Ordering Dr: Cass Mcclure DO STUDY: CT ABDOMEN AND PELVIS WITHOUT CONTRAST REASON FOR EXAM: Female, 27 years old. Right flank pain. RADIATION DOSAGE (If Supplied By Facility): CTDIvol = ( 6.64 ) mGy, DLP = ( 303.78 ) mGycm TECHNIQUE: Transaxial images were obtained from the dome of the diaphragm to the symphysis pubis without oral contrast, and without intravenous contrast. Sagittal and coronal images were reconstructed. Individualized dose optimization techniques were used for this CT. COMPARISON: None. FINDINGS: The visualized lung bases are unremarkable. The visualized portions of the heart are within normal limits. Normal liver. Normal gallbladder and extrahepatic biliary system. Normal spleen. Normal pancreas. Normal bilateral adrenal glands. Bilateral punctate nephroliths with no evidence of hydronephrosis or present. No evidence of distal ureteral stone or dependent layering bladder stone. Normal left kidney. Normal visualized stomach. Normal small intestine. Normal colon. There is non-visualization of the appendix. Normal abdominal aorta. Normal inferior vena cava. Normal retroperitoneum. Normal urinary bladder. Normal abdominal wall. Normal osseous structures. CT/Abdomen/Pelvis without Cont IMPRESSION: The lower nonobstructive punctate nephroliths with no evidence of hydronephrosis or definitive ureteral stone. Electronically Signed: Rashel Mahmood DO at 22:29 EST , Service support , CC: No Primary Care Physician; Cass Mcclure DO Auger Supervisor: Signed CYTOLOGY Observed: 04/07/2018 Status: F Source: [place] 10:26 AM [facility] REPOSITORY Specimen originated from [facility] Specimen #: [id number] Submitting Physician: SARA FIELDS MD SPECIMEN SUBMITTED A: ENDOCERVIX, BRUSHING (THINPREP AND CELL BLOCK) FINAL DIAGNOSIS A. ENDOCERVIX, BRUSHING (THINPREP AND CELL BLOCK) Negative for intraepithelial lesion or malignancy. Jane Dwyer MD (Electronic Signature) CLINICAL DATA LGSIL GROSS DESCRIPTION 20cc clear, colorless PreservCyt with scant particles STAINS A: ENDOCERVIX, BRUSHING (THINPREP AND CELL BLOCK) THIN PREP Non-Secretary Office Clerk, CELL BLOCK, H&E, Initial Date of Report: 04/08/2018 Date of Procedure: 04/07/2018 Date of Receipt: 04/07/2018 Submitted by: SARA FIELDS MD Location: [facility] Diagnostic interpretation performed at [facility], [address] [place] [id number]. PROCEDURE Observed: 04/07/2018 Status: COMPLETED Source: [place] 10:21 AM [facility] REPOSITORY HNO ID: [id number] Author: Sara Fields Service: (none) Author Type: Physician Type: Procedures Filed: 04/07/2018 10:27 AM Note Text: COLPOSCOPY PROCEDURE Date/Time: 04/07/2018 10:22 AM Performed by: SARA FIELDS Authorized by: SARA FIELDS Informed Consent / [place] Protocol: Written Consent Obtained: yes Sign In Communication: completed Indication: LSIL Diagnosis: (R87.612) Pap smear abnormality of cervix with LGSIL (primary encounter diagnosis)(Z32.00) Unconfirmed No LMP recorded (lmp unknown). Patient has had an injection. Procedure Details: Procedure: Colposcopy of Cervix including upper/adjacent vagina with biopsy of cervix and ECC Strum speculum was placed in the vagina. Acetic acid placed on cervix. Under colposcopic examination the transition zone was seen in entirety. Biopsy done. Location: 12 o'clock Specimen sent to pathology. Post-Procedure Details: Impression: Low grade cervical dysplasia Patient tolerated the procedure well with no immediate complications. Comments: Endocervical brushing performed. Patient is asked to follow-up in 3 months for repeat Pap. Sara Fields MD CNOV Observed: 04/07/2018 Status: COMPLETED Source: [place] 10:00 AM [facility] REPOSITORY Office Visit (OBGMEM) LAKESHA DEL CID ([id number]) 1990 F DAVE Date Time Provider Department 04/07/18 10:00 AM SARA FIELDS OBGMEM During your visit today, we recorded the following information about you: Blood pressure Weight 96/62 62.5 kg Sara Fields MD 04/07/2018 10:21 AM Signed YOUR RECOVERY It may take a few weeks for your cervix to heal. While your cervix heals, you may have: - Vaginal bleeding (less than a normal menstrual period) - Mild cramping - A brown-black vaginal discharge (similar to coffee grounds) which is a result of the paste used to help stop bleeding from the procedure Do NOT put anything in the vagina for 1 week after your colposcopy if your doctor does a biopsy of your cervix. This includes sex, tampons, and douches. If you have any discomfort, you may take an over the counter pain medication (motrin, advil, ibuprofen, tylenol, etc). If this does not relieve your discomfort, contact your doctor's office for a prescription strength pain medication. It is okay to wear a sanitary pad until the discharge and spotting stops. RISKS Although problems seldom occur with colposcopy, there can be some complications. You may feel faint during and shortly after the procedure as well as have some bleeding and vaginal discharge after the procedure. There is also a risk of infection after the procedure. These complications are rare and can be easily treated. You should contact you doctor is you have any of the following: - Heavy bleeding (more than your normal period) - Bleeding with clots - Severe abdominal pain - Fever (more than 100.4F) - Foul smelling vaginal discharge RESULTS If a biopsy was taken, we will have the results of your biopsy in 1-2 weeks. If you do not hear the results of your biopsy after 2 weeks, please contact your physicians office for the results. Depending on the biopsy results, your doctor will determine your follow up plan which may include further testing or treatments. STAYING HEALTHY After the procedure, you will need to see your doctor for follow up visits during the year. At these visits your doctor will check the health of your cervix with a pap smear. After three normal pap smears, your doctor will allow you to return to having exams once a year. If you have another abnormal pap smear, you may need closer follow up for longer or you may need additional treatment. By making a few lifestyle changes after the procedure, you can help protect the health of your cervix: - Have regular pelvic exams and pap smears as ordered by your doctor. - Stop smoking as smoking increases your risk of developing a cancer of the cervix - If you have more than one sexual partner, limit your number of partners and use condoms to reduce your risks of STDs. If you have any additional questions, please contact your doctor's office. Sara Fields MD 04/07/2018 10:27 AM Signed COLPOSCOPY PROCEDURE Date/Time: 04/07/2018 10:22 AM Performed by: SARA FIELDS Authorized by: SARA FIELDS Informed Consent / [place] Protocol: Written Consent Obtained: yes Sign In Communication: completed Indication: LSIL Diagnosis: (R87.612) Pap smear abnormality of cervix with LGSIL (primary encounter diagnosis)(Z32.00) Unconfirmed No LMP recorded (lmp unknown). Patient has had an injection. Procedure Details: Procedure: Colposcopy of Cervix including upper/adjacent vagina with biopsy of cervix and ECC Strum speculum was placed in the vagina. Acetic acid placed on cervix. Under colposcopic examination the transition zone was seen in entirety. Biopsy done. Location: 12 o'clock Specimen sent to pathology. Post-Procedure Details: Impression: Low grade cervical dysplasia Patient tolerated the procedure well with no immediate complications. Comments: Endocervical brushing performed. Patient is asked to follow-up in 3 months for repeat Pap. Sara Fields MD Referring Provider: SELF [200] Allergies As of Date: 04/07/2018 Noted Allergy Reaction BENADRYL (DIPHENHYDRAMINE HCL) 01/15/2015 14 - Other: See Comments KIWI 11/30/2006 METHOCARBAMOL 09/05/2016 14 - Other: See Comments Comments: Causes blisters in the mouth NORCO (HYDROCODONE-ACETAMINOPHEN) 01/20/2017 5 - Intolerance Comments: Worsens migraines NSAIDS (NON-STEROIDAL ANTI-INFLAM*09/24/2017 14 - Other: See Comments Comments: GI bleed/ stomach pain rat [Other] 08/20/2009 REGLAN (METOCLOPRAMIDE HCL) 01/09/2017 1 - Mental Status Change Comments: climbing the morocho Date Reviewed: 04/07/2018 Reviewed by: Rashmi Allan Ma - Fully Assessed Reason for Visit: Established Patient [175] Cmt: Colposcopy Primary Visit Diagnosis:Pap smear abnormality of cervix with LGSIL [R87.612] Other Visit Diagnosis:Unconfirmed [Z32.00] Order(s):HCG QUAL UR B/O [[id number]] Order #: [id number] COLPOSCOPY PROCEDURE (W NOTE) [PRO96] Order #: [id number] SURGICAL PATHOLOGY [[id number]] Order #: [id number] ENDOCERVICAL BRUSHING [7786974] Order #: [id number] Prescriptions as of 04/07/2018 Sig: ACETAMINOPHEN 500 MG TABLET Take 500 mg by mouth every 8 * ACIDOPHILUS 100 MILLION CELL-* Take by mouth. DICYCLOMINE 20 MG TABLET Take 1 tablet by mouth every * DULOXETINE 60 MG CAPSULE,MATEO* Take 1 capsule by mouth once * GABAPENTIN 300 MG CAPSULE Take 4 capsules by mouth jesu* MEDROXYPROGESTERONE 150 MG/ML* Inject 1 mL intramuscularly e* OMEPRAZOLE 40 MG CAPSULE,MATEO* Take 1 capsule by mouth twice* ONDANSETRON 4 MG DISINTEGRATI* Take 1 tablet by mouth every * PROMETHAZINE 25 MG TABLET take 1 tablet by mouth every * COLCHICINE 0.6 MG TABLET Take 1 tablet by mouth twice * Patient not taking: Reported on 03/17/2018 Problem List As Of Date 04/07/2018 Noted Resolved Attention deficit disorder [F98.8] INVALID FOR* Foreign body (FB) in soft tissue [M79.5] INVALID FOR*01/09/2017 Viral pericarditis [B33.23] INVALID FOR*01/09/2017 Other chest pain [R07.89] INVALID FOR* Controlled substance agreement signed [Z79.899] INVALID FOR* Fibromyalgia [M79.7] Intractable chronic migraine without aura and w*INVALID FOR* Anxiety [F41.9] INVALID FOR* Right sided abdominal pain [R10.9] INVALID FOR*08/21/2017 Elevated amylase and lipase [R74.8] INVALID FOR* Nephrolithiasis [N20.0] INVALID FOR*08/21/2017 Vaginal spotting [N93.9] INVALID FOR*08/21/2017 Altered bowel habits [R19.4] INVALID FOR*08/21/2017 More... Right upper quadrant pain [R10.11] INVALID FOR*08/21/2017 More...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 tachycardic with a rate of 110 but no acute distress. Other vital signs within normal limits. Physical exam unremarkable. Workup obtained. No leukocytosis. No anemia. BMP shows chloride 108 and CO2 21 otherwise unremarkable. Troponin within normal limits. D-dimer also obtained which was within normal limits. HCG negative. Lakesha and myself have engaged in Shared Decision Making to ensure adequate and appropriate information was provided to Lakesha to assist them in choosing a course of treatment based on their own preferences and concerns. Urinalysis shows trace of leukocytes, negative nitrites, negative occult blood, 6-10 white blood cells, 11-25 epithelial cells and loaded bacteria. This is likely contaminated. Patient is not having any urinary symptoms at this time. Chest x-ray shows small amount of pneumomediastinum. This is resolving compared to a computed tomography scan result on 01/05/2018. Electrocardiogram shows sinus rhythm with a rate of [address] segment elevations or depressions. On reevaluation, she was resting in the bed in no acute distress. Vital signs have normalized. She is in no pain at this time. Patient also evaluated by my attending physician, Dr. Nina. At this time, patient will be discharged from the ER. She is in no acute distress this time. Vital signs unremarkable. Workup obtained today was unremarkable. Patient was encouraged to follow up with her primary care physician in the couple days. She was encouraged to return back to emergency department for evaluation. Patient was agreeable to this plan. I estimate there is LOW risk for (including but not limited to) ACUTE CORONARY SYNDROME, PULMONARY EMBOLISM, PNEUMOTHORAX, RUPTURED ESOPHAGUS OR THORACIC AORTIC DISSECTION, thus I consider the discharge disposition reasonable. Lakesha Del Cid (or their surrogate) and I have discussed the diagnosis and risks, and we agree with discharging home with close follow- up. We also discussed returning to the Emergency Department immediately if new or worsening symptoms occur. We have discussed the symptoms which are most concerning that necessitate immediate return. ED Medication Orders None Final Impression 1. Pneumomediastinum (HCC) DISPOSITION Decision To Discharge 01/11/2018 09:18:28 PM (Please note that portions of this note may have been completed with a voice recognition program. Efforts were made to edit the dictations but occasionally words aremis-transcribed.) Hermann Solis PA-C [facility] Hermann Solis PA-C 03/13/18 0842 EKG (AK,AV,EU,FV,HL,TANYA,MM,SP) Observed: Status: F Source: [place] 01/11/2018 4:29 PM [facility] OTHER [facility] REPOSITORY NAME : LAKESHA DEL CID PID : [id number] : 1990 Gender : Female Race : ORD : [id number] Procedure Date : Jan 11 2018 16:29 Edit Date : Jan 12 2018 18:32 Diagnosis:SINUS TACHYCARDIA OTHERWISE NORMAL ECG WHEN COMPARED WITH ECG OF 12-DEC-2017 11:42, NO SIGNIFICANT CHANGE WAS FOUND Confirmed by Preston Liu ([id number]) on 01/12/2018 6:32:43 PM Ventricular Rate : 102 BPM Atrial Rate : 102 BPM P-R Interval : 122 ms QRS Duration : 76 ms Q-T Interval : 322 ms QTC Calculation(Bezet) : 419 ms P [place] : 31 degrees R [place] : 31 degrees T [place] : 33 degrees Test Reason : Chest Pain Location : 4 : AKED JAYLAN Overread By : Preston Liu Editted By : Preston Liu Referred By : GISSELLE RODRÍGUEZ Acquired by : Elisa Glover ED TRIAGE NOTE Observed: 01/11/2018 Status: COMPLETED Source: [place] 4:25 PM CLINIC OTHER CAMPUS REPOSITORY HNO ID: [id number] Author: Gisselle Horowitz) LAURIE Rodríguez Service: (none) Author Type: Physician Sports Physiologist Type: ED Triage Notes Filed: 01/11/2018 4:29 PM Note Text: ED INTAKE NOTE Patient Name: Lakesha Del Cid Service Date: 9/17/18 BRIEF HPI: 27-year-old female with past medical history of viral pericarditis, drug-seeking behavior, fibromyalgia, migraines, and nephrolithiasis presents to the ED with chief complaint of chest pain and shortness of breath. Patient was recently admitted to [facility] from 01/05-01/07. Patient initially was found down status post accidental fentanyl overdose on 01/05. Pneumomediastinum was found on imaging. She was ultimately admitted to the ICU after complaining of chest pain within an elevated troponin and atrial fibrillation. Patient reports return of chest pain yesterday, initially intermittent and now constant in nature. Pain is localized to the left chest, radiating up the left side of the neck. Pain is described as a dull stabbing pain. Reports associated shortness of breath, nausea, and lightheadedness. BRIEF EXAM: Awake and Alert RRR CTAB Abd soft/NT/ND; no rebound/guarding CHRIS INTAKE WORKUP: Bloodwork: CBC CMP Mag Troponin EKG Imaging: XR: CXR SIGNATURE: JOE Barr Observed: 01/11/2018 Status: COMPLETED Source: [place] 12:00 AM [facility] REPOSITORY Telephone (CARDBD) LAKESHA DEL CID ([id number]) 1990 [facility] Date Time Provider Department 01/11/18 JERAMY NORRIS CARDDAVID During your visit today, we recorded the following information about you: Gayle Rodriguez Psr 01/11/2018 1:45 PM Signed Patient was seen and admitted at [facility]/[place] on 01/05. She was discharged on 01/07. She was told to follow up with Dr. Norris. She was last seen by him in 2015 and is scheduled to see him next Thursday on 01/18/2018. Patient states that she is experiencing chest pain. She states that it comes and goes. Its worse when she lays on her left side. She also states that it hurts to breath. Advised her that she should go back to the ER but wanted to know what Dr Norris wants her to do. Please advise Patient can be reached at [phone] Cayla Molina, RN, RN 01/11/2018 2:12 PM Signed Attempted to contact patient. No answer. Message left for patient to call the office back when available. Will route message to Dr. Norris as well. JORY Nieto RN, RN 01/11/2018 3:16 PM Addendum Patient returned call, she states she was in the hospital. She had several EKG's and chest x-ray, barium swallow, CT scan, and MRI. States that the CP has started again yesterday intermittently but occurring more frequently. Laying is worse on the left side is the worse, but comes and goes. Does notice it with exertion. She states that she only gets the SOB with the chest pain. It huts to breath so she takes only small breaths. She states they jazmyn at the hospital told her that her heart is off beat. Request records from [facility]. Will forward message to Dr. Norris for review. Explained to patient that if her CP changes, gets worse or does not go away she needs to go back to the hospital. If her SOB gets to the point where she feels she cannot get enough breath, then she needs to go to the hospital. Patient states understanding and would like Dr. Norris's opinion. JORY Nieto Psr 01/11/2018 4:06 PM Signed Request for records Faxed to [phone] Jeramy Norris MD 01/11/2018 4:37 PM Signed I reviewed some of her hospital records (care everywhere) - she was admitted after fentanyl overdose and had pneumomediastinum and afib with RVR, which converted to NSR prior to discharge Her chest pain was reportedly controlled at the time of discharge. If her chest pain is worsening she should go back to the ER. Otherwise I can see her as scheduled next week on Thursday Can we have her do an echo when she comes to see me as well - order filed thanks MYA Norris MD 01/11/2018 4:37 PM Signed Addended by: JERAMY NORRIS MD on: 01/11/2018 04:37 PM Modules accepted: Orders Cayla Molina RN, RN 01/12/2018 9:12 AM Signed No echo appointment available for Thursday. Left message with below information. Left office number to call with further questions. Patient can be seen prior and scheduled for echo follow up. Cayla Molina RN Allergies As of Date: 01/11/2018 Noted Allergy Reaction BENADRYL (DIPHENHYDRAMINE HCL) 01/15/2015 14 - Other: See Comments KIWI 11/30/2006 METHOCARBAMOL 09/05/2016 14 - Other: See Comments Comments: Causes blisters in the mouth NORCO (HYDROCODONE-ACETAMINOPHEN) 01/20/2017 5 - Intolerance Comments: Worsens migraines NSAIDS (NON-STEROIDAL ANTI-INFLAM*09/24/2017 14 - Other: See Comments Comments: GI bleed/ stomach pain rat [Other] 08/20/2009 REGLAN (METOCLOPRAMIDE HCL) 01/09/2017 1 - Mental Status Change Comments: climbing the morocho Date Reviewed: 01/11/2018 Reviewed by: Elisa CabaRn) JORY Glover - Fully Assessed Reason for Visit: Patient Update [1234] Primary Visit Diagnosis:Other chest pain [R07.89] Order(s):ECHO [362320] Order #: [id number]: 1 FUTURE Prescriptions as of 01/11/2018 Sig: ALPRAZOLAM 0.5 MG TABLET take 1/2 to 1 tablet by mouth* GABAPENTIN 300 MG CAPSULE Take 4 capsules by mouth jesu* COLCHICINE 0.6 MG TABLET Take 1 tablet by mouth twice * ONDANSETRON 4 MG DISINTEGRATI* Take 1 tablet by mouth every * PROMETHAZINE 25 MG TABLET take 1 tablet by mouth every * OMEPRAZOLE 40 MG CAPSULE,MATEO* Take 1 capsule by mouth twice* ACETAMINOPHEN 500 MG TABLET Take 500 mg by mouth every 8 * DULOXETINE 60 MG CAPSULE,MATEO* Take 1 capsule by mouth once * MEDROXYPROGESTERONE 150 MG/ML* Inject 1 mL intramuscularly e* DICYCLOMINE 20 MG TABLET Take 1 tablet by mouth every * ACIDOPHILUS 100 MILLION CELL-* Take by mouth. Problem List As Of Date 01/11/2018 Noted Resolved Attention deficit disorder [F98.8] INVALID FOR* Foreign body (FB) in soft tissue [M79.5] INVALID FOR*01/09/2017 Viral pericarditis [B33.23] INVALID FOR*01/09/2017 Other chest pain [R07.89] INVALID FOR* Controlled substance agreement signed [Z79.899] INVALID FOR* Fibromyalgia [M79.7] Priority: E Intractable chronic migraine without aura and w*INVALID FOR* Anxiety [F41.9] INVALID FOR* Priority: D Right sided abdominal pain [R10.9] INVALID FOR*08/21/2017 Priority: A Elevated amylase and lipase [R74.8] INVALID FOR* Priority: B Nephrolithiasis [N20.0] INVALID FOR*08/21/2017 Priority: C Vaginal spotting [N93.9] INVALID FOR*08/21/2017 Altered bowel habits [R19.4] INVALID FOR*08/21/2017 More... Right upper quadrant pain [R10.11] INVALID FOR*08/21/2017 More... Drug-seeking behavior [Z76.5] INVALID FOR* Encounter Status:Closed by CAYLA MOLINA RN on 01/11/18 CNCO Observed: 01/11/2018 Status: COMPLETED Source: [place] 12:00 AM [facility] REPOSITORY Letter Text Lakesha Del Cid Authorization for the Release of Medical Information From Other Healthcare Facilities Patient's Name: Lakesha Del Cid #: [id number] [facility] #: [id number] Date of : 1990 (home) Current Address of Physician: Name: [facility] Street: City: State: Zip: Physician's Telephone #:___[phone]__Mct- [phone] Reason for Disclosure: CONTINUED CARE (Reason for disclosure must be completed prior to processing) Past Dates of Treatment: __01/05/2018- 01/07/2018 Release Medical Information to: SEND TO: [place] [address] I hereby authorize ___[facility]____to release the health information indicated below that is contained in my patient records to [facility]. I understand and acknowledge that this may include treatment for physical and mental illness, alcohol/drug abuse, and/or HIV/AIDS test results or diagnoses. This authorization does not include permission to release outpatient Psychotherapy Notes (*) as defined below. The release of Psychotherapy Notes requires a separate authorization. *Psychotherapy Notes are defined as notes that document private, joint, group, or family counseling sessions that are from the rest of a patient?s medical record. __X__Emergency Department Reports Pathology Reports __X__Discharge Summary __X__Laboratory Reports History AND Physical EMG Reports __X__EKGs Operative Reports Physical/Occupations Therapy Report __X__Other (Specify) (all Cardiology) This consent is subject to revocation at any time except to the extent the action has been taken thereon. This authorization and consent will one year from the date of authorization written below. I understand that the Recipient of my health information may be charged for the service of releasing medical information. Your health care (or payment for care) will not be affected by whether or not you sign this authorization. Once your health care information is released, re-disclosure of your health care information by the Recipient may no longer be protected by law. Signature of Patient/Legal Guardian:___Olga Del Cid__(Verbal authorization Provided) Printed Name: Olga Del Cid Date:__01/11/2018 Relationship if other than Patient: *If other than patient's signature, a copy of legal papers (i.e.. Power of Hard Candy Spinner or Certificate) MUST accompany the authorization when presented. Exception: patient is under age 18. HEMOGRAM W/ AUTODIFF Collected: 01/07/2018 Status: F Source: [employer] 12:26 AM SYSTEM REPOSITORY TYPE CODE TESTS RESULT OUT OF REFERENCE UNITS RANGE LAB IWBC 3.6-10.7 10*3/uL WBC Normal 6.2 LAB RBC 3.80-5.20 10*6/uL Low RBC 3.37 LAB HGB 11.7-16.0 g/dL Low Hemoglobin 10.9 LAB HCT 35.0-47.0 % Low Hematocrit 31.9 LAB MCV 79.0-98.0 fL MCV Normal 94.7 LAB MCH 26.0-34.0 pg MCH Normal 32.4 LAB MCHC 32.0-36.0 % MCHC Normal 34.2 LAB RDW 11.5-14.5 % RDW Normal 12.6 LAB PLT 140-440 10*3/uL Platelet Normal 217 LAB MPV 7.4-10.4 fL MPV Normal 8.5 LAB GRAN% 40.0-80.0 % Granulocytes Normal 57.8 LAB LYMP% 20.0-40.0 % Lymphocytes Normal 33.4 LAB MONO% 2.0-10.0 % Monocytes Normal 6.5 LAB EOS% 1.0-6.0 % Eosinophils Normal 1.7 LAB BAS% 0.0-2.0 % Basophils Normal 0.6 LAB ANC 1.8-7.0 10*3/uL Abs Normal Neutrophile Cnt 3.6 LAB ALC 1.0-4.3 10*3/uL Abs Lymph Cnt Normal 2.1 LAB AMC 0.0-0.8 10*3/uL Abs Monocyte Normal Cnt 0.4 LAB AEC 0.0-0.5 10*3/uL Abs Eosin Cnt Normal 0.1 LAB ABC 0.0-0.2 10*3/uL Abs Baso Cnt Normal 0.0 Performed By: #### KARINA, BMP3 #### [facility] [address] [address] [place] [address] BASIC METABOLIC PANEL Collected: 01/07/2018 Status: F Source: [employer] 12:26 AM SYSTEM REPOSITORY TYPE CODE TESTS RESULT OUT OF RANGE REFERENCE UNITS LAB NA3 137-145 mmol/L Sodium Normal 138 LAB K3 3.5-5.1 mmol/L Low Potassium 3.4 LAB CL3 98-107 mmol/L High Chloride 111 LAB CO23 22-30 mmol/L Carbon Normal Dioxide 22 LAB ANIN3 NA Anion Gap 5 LAB GLUC3 70-100 mg/dL Glucose Normal 100 LAB BUN3 7-20 mg/dL Urea Normal Nitrogen 7 LAB CRET3 0.52-1.25 mg/dL Normal Creatinine 0.59 LAB GF3BR >60 mL/min eGFR > 60.0 LAB GF3WR >60 mL/min eGFR OTHER > 60.0 Result Comment: Source- MDRD equation with creatinine calibration to IDMS(NKDEP) eGFR not recommended for drug dose adjustment LAB CA3 8.4-10.4 mg/dL Normal Calcium 8.6 Performed By: #### KARINA BMP3 #### [facility] [address] [place] [address] CR CHEST 1 VIEW Observed: 01/06/2018 Status: F Source: [employer] [facility] 4:10 AM SYSTEM REPOSITORY Patient Name: LAKESHA DEL CID Diagnostic Radiology Exam Date/Time 01/06/2018 04:05:34 EDT Exam CR Chest 1 View Frontal Ordering Physician MD PARMAR NICHOLAS Accession Number [id number] CPT4 Codes 50876 () Reason For Exam ptx f/u Report PORTABLE CHEST CLINICAL INDICATION: Follow-up for pneumothorax TECHNIQUE: Portable AP COMPARISON: CT from 10 hours ago FINDINGS: Exam quality: EKG leads overlie the chest obscuring small portions of the lungs. Heart is normal size. There is extensive pneumomediastinum. No pneumothorax is noted. The lungs are clear. The costophrenic angles are sharp. The osseous structures are unremarkable. Subcutaneous emphysema is noted. IMPRESSION: Pneumomediastinum again noted. There is no identifiable pneumothorax Report Dictated on Workstation: [id number] Final Dictated: 01/06/2018 4:10 am Dictating Physician: MD VELEZ JEFFREY Signed Date and Time: 01/06/2018 4:12 am Signed by: MD VELEZ JEFFREY Transcribed Date and Time: 01/06/2018 4:10 HEMOGRAM W/ AUTODIFF Collected: 01/06/2018 Status: F Source: [employer] 3:07 AM SYSTEM REPOSITORY TYPE CODE TESTS RESULT OUT OF REFERENCE UNITS RANGE LAB IWBC 3.6-10.7 10*3/uL WBC Normal 8.8 LAB RBC 3.80-5.20 10*6/uL Low RBC 3.44 LAB HGB 11.7-16.0 g/dL Low Hemoglobin 10.8 LAB HCT 35.0-47.0 % Low Hematocrit 32.5 LAB MCV 79.0-98.0 fL MCV Normal 94.7 LAB MCH 26.0-34.0 pg MCH Normal 31.6 LAB MCHC 32.0-36.0 % MCHC Normal 33.3 LAB RDW 11.5-14.5 % RDW Normal 12.8 LAB PLT 140-440 10*3/uL Platelet Normal 221 LAB MPV 7.4-10.4 fL MPV Normal 8.4 LAB GRAN% 40.0-80.0 % Granulocytes Normal 73.2 LAB LYMP% 20.0-40.0 % Low Lymphocytes 18.5 LAB MONO% 2.0-10.0 % Monocytes Normal 7.7 LAB EOS% 1.0-6.0 % Low Eosinophils 0.4 LAB BAS% 0.0-2.0 % Basophils Normal 0.2 LAB ANC 1.8-7.0 10*3/uL Abs Normal Neutrophile Cnt 6.5 LAB ALC 1.0-4.3 10*3/uL Abs Lymph Cnt Normal 1.6 LAB AMC 0.0-0.8 10*3/uL Abs Monocyte Normal Cnt 0.7 LAB AEC 0.0-0.5 10*3/uL Abs Eosin Cnt Normal 0.0 LAB ABC 0.0-0.2 10*3/uL Abs Baso Cnt Normal 0.0 Performed By: #### HEMDF, BMP3, MG3, PHOS3, TROPN #### [facility] [address] [place] [id number] BASIC METABOLIC PANEL Collected: 01/06/2018 Status: F Source: [employer] 3:07 AM SYSTEM REPOSITORY TYPE CODE TESTS RESULT OUT OF RANGE REFERENCE UNITS LAB NA3 137-145 mmol/L Sodium Normal 142 LAB K3 3.5-5.1 mmol/L Normal Potassium 3.6 LAB CL3 98-107 mmol/L High Chloride 113 LAB CO23 22-30 mmol/L Carbon Normal Dioxide 23 LAB ANIN3 NA Anion Gap 6 LAB GLUC3 70-100 mg/dL Glucose Normal 91 LAB BUN3 7-20 mg/dL Low Urea Nitrogen 6 LAB CRET3 0.52-1.25 mg/dL Normal Creatinine 0.57 LAB GF3BR >60 mL/min eGFR > 60.0 LAB GF3WR >60 mL/min eGFR OTHER > 60.0 Result Comment: Source- MDRD equation with creatinine calibration to IDMS(NKDEP) eGFR not recommended for drug dose adjustment LAB CA3 8.4-10.4 mg/dL Normal Calcium 8.4 Performed By: #### HEMDF, BMP3, MG3, PHOS3, TROPN #### [facility] [address] [place] [phone] MAGNESIUM Collected: 01/06/2018 Status: F Source: [employer] 3:07 AM SYSTEM REPOSITORY TYPE CODE TESTS RESULT OUT OF RANGE REFERENCE UNITS LAB MG3 1.6-2.3 mg/dL Normal Magnesium 1.8 Performed By: #### HEMDF, BMP3, MG3, PHOS3, TROPN #### [email or web address] [facility] [address] [place] [phone] PHOSPHORUS Collected: 01/06/2018 Status: F Source: [employer] 3:07 AM SYSTEM REPOSITORY TYPE CODE TESTS RESULT OUT OF RANGE REFERENCE UNITS LAB PHOS3 2.5-4.5 mg/dL Normal Phosphorus 3.3 Performed By: #### HEMDF, BMP3, MG3, PHOS3, TROPN #### [facility] [address] [place] [address] TROPONIN I Collected: 01/06/2018 Status: F Source: [employer] 3:07 AM SYSTEM REPOSITORY TYPE CODE TESTS RESULT OUT OF REFERENCE UNITS RANGE LAB TROP4 0.000-0.034 ng/mL High Troponin I 0.119 Result Comment: 0.046 - 0.400 = Indeterminate > 0.400 = Consider Myocardial Injury Performed By: #### HEMDF, BMP3, MG3, PHOS3, TROPN #### [address] [address] URINALYSIS,MACRO Collected: 01/05/2018 Status: F Source: [employer] 11:11 PM SYSTEM REPOSITORY TYPE CODE TESTS RESULT OUT OF REFERENCE UNITS RANGE LAB APPUR Clear NA Appearance Sl. Cloudy LAB COLUR Lt. Yellow NA Color Yellow LAB USG 1.005-1.030 NA Specific Normal [place],Urine 1.010 LAB UPH 5.0-8.0 NA pH,Urine Normal 5.0 LAB ULUK Negative NA Leukocytes 1 + LAB UNIT Negative NA Nitrites NEG LAB UPRO Negative mg/dL Total Protein,Urine NEG LAB UGLU Negative mg/dL Glucose,Urine NORM LAB UKET Negative mg/dL Ketone,Urine 1 + LAB UURO 0-1 mg/dL Urobilinogen NORM LAB UBIL Negative NA Bilirubin,Ur NEG LAB UBLD Negative {RBC}/uL Occult Blood,Ur 25 Performed By: #### HEMOG, PT/AP, BMP3, ETOH4, TROPN, UAMAC, DRGA4, UAMIC #### [address] [phone] DRUGS OF ABUSE Collected: 01/05/2018 Status: F Source: [employer] 11:11 PM SYSTEM REPOSITORY TYPE CODE TESTS RESULT OUT OF REFERENCE UNITS RANGE LAB AMP3 NA Amphetamines, Ur Negative LAB BARB3 NA Barbiturates, Ur Negative LAB BENZ3 NA Benzodiazepines, Negative Ur LAB COC3 NA Cocaine, Ur Negative LAB METH3 NA Methadone, Ur Negative LAB OPI3 NA Opiates, Ur Positive LAB OXY3 NA Oxycodone/Oxymorph Positive ine,Ur LAB PCP3 NA Phencyclidine (PCP), Ur Negative Result Comment: The expected value for all of the drugs listed above is Negative. The following drugs or drug groups have been screened for by Immunoassay at the following thresholds: Amphetamine class (1000 ng/mL), Barbiturates (200 ng/mL), Benzodiazepines (200 ng/mL), Cocaine (300 ng/mL), Methadone (300 ng/mL), Opiates (300 ng/mL), Oxycodone (100 ng/mL), and PCP (25 ng/mL). NOTE: These results are for medical treatment only. Analysis performed using non-forensic procedures. Performed By: #### HEMOG, PT/AP, BMP3, ETOH4, TROPN, UAMAC, DRGA4, UAMIC #### [facility] [employer] [address] [address] URINALYSIS,MICROSCOPIC Collected: Status: F Source: [facility] 01/05/2018 11:11 PM HEALTH SYSTEM REPOSITORY TYPE CODE TESTS RESULT OUT OF REFERENCE UNITS RANGE LAB WBCU 0-5 /[HPF] 6 WBC,Urine - 10 LAB RBCU 0-2 /[HPF] 0 RBC,Urine - 2 LAB EPIU 3-5 /[HPF] 11 Epithelial Cells - 25 LAB JINA Negative NA Bacteria Moderate (6-50) Performed By: #### HEMOG, PT/AP, BMP3, ETOH4, TROPN, UAMAC, DRGA4, UAMIC #### [facility] [employer] [address] [address] TROPONIN I Collected: 01/05/2018 Status: F Source: [facility] 10:54 PM SYSTEM REPOSITORY TYPE CODE TESTS RESULT OUT OF REFERENCE UNITS RANGE LAB TROP4 0.000-0.034 ng/mL High Troponin I 0.193 Result Comment: 0.046 - 0.400 = Indeterminate > 0.400 = Consider Myocardial Injury Performed By: #### TROPN #### [address] [address] RF ESOPHAGUS Observed: 01/05/2018 Status: F Source: [facility] 8:29 PM SYSTEM REPOSITORY Patient Name: LAKESHA DEL CID Fluoroscopy Exam Date/Time 01/05/2018 20:47:50 EDT Exam RF Esophagus Ordering Physician Gabriel VÁSQUEZ SARAH Accession Number [id number] CTP4 Codes 71295 () Reason For Exam Pneumomediastinum Report ESOPHAGOGRAM SINGLE CONTRAST (GASTROGRAFIN): INDICATION: Pneumomediastinum COMPARISON: None FLUOROSCOPY TIME: Less than two minutes. 66 images number 8 cine runs. Several fluoroscopic needle bar molder images were obtained prior to the administration of contrast. FINDINGS: The swallowing mechanism is grossly unremarkable. There is no Zenker's diverticulum The esophagus exhibits a normal calibre and contour. No ulcer, stricture or neoplastic lesion is seen. There is no hiatal hernia. No gastroesophageal reflux occurred during the performance of the examination. There is no evidence of extravasation of contrast into the mediastinal soft tissues. IMPRESSION: Unremarkable Gastrografin esophagus. No extravasation of contrast is identified. Report Dictated on Final Dictated: 01/05/2018 8:29 pm Dictating Physician: DO CALVERT ALFRED Signed Date and Time: 01/05/2018 8:32 pm Signed by: DO CALVERT ALFRED Transcribed Date and Time: 01/05/2018 8:29 CR CHEST 1 VIEW Observed: 01/05/2018 Status: F Source: [facility] 6:37 PM SYSTEM REPOSITORY Patient Name: LAKESHA DEL CID Diagnostic Radiology Exam Date/Time 01/05/2018 17:39:13 EDT Exam CR Chest 1 View Frontal Ordering Physician MD ROCKY, LINUS Hope. Accession Number [id number] CPT4 Codes 31063 () Reason For Exam surgical team Report PORTABLE CHEST: INDICATION: Shortness of breath, trauma COMPARISON: No previous studies are available for comparison. Obtained at 1709 hours. A single portable AP radiograph of the chest was obtained. The heart is normal in size. The mediastinal silhouette is normal. Extensive subcutaneous emphysema is noted as well as mediastinal and pericardial air and air tracking within the retroperitoneal soft tissues of the visualized upper abdomen. There are no effusions or infiltrates. There is no pleural thickening. The osseous structures are unremarkable. IMPRESSION: Extensive subcutaneous, mediastinal and retroperitoneal air is present. No infiltrates are seen. Report Dictated on Final Dictated: 01/05/2018 6:37 pm Dictating Physician: DO CALVERT ALFRED Signed Date and Time: 01/05/2018 6:38 pm Signed by: DO CALVERT ALFRED Transcribed Date and Time: 01/05/2018 6:37 CT CHEST/ABDOMEN/PELVIS (IV Observed: 01/05/2018 Status: F Source: [facility] ONLY) 6:31 PM HEALTH SYSTEM REPOSITORY Patient Name: LAKESHA DEL CID CT Exam Date/Time 01/05/2018 17:43:[address] Chest/Abdomen/Pelvis (IV Only) Ordering Physician MD ROCKY, LINUS Herrera Accession Number [id number] CPT4 Codes 45270 (CT Chest/Abdomen/Pelvis (IV Only)), 98481 (CT Chest w/ Contrast), Q9967 () Reason For Exam ABD TRAUMA BLUNT, PATIENT IS STABLE Report CT CHEST WITH CONTRAST: INDICATION: Blunt abdominal trauma. COMPARISON: None. CONTRAST: 75 cc of Isovue-370. TECHNIQUE: Transaxial sequence through the chest from lung apices through the bases with 1 mm reconstruction during dynamic infusion of intravenous contrast. The images are reviewed in the axial, sagittal and coronal planes. The thyroid is normal in appearance. The thoracic soft tissues demonstrate extensive sigmoid hands emphysema as well as air tracking down the mediastinum into the pericardial space and the retroperitoneum of the upper abdomen.. There is no axillary lymphadenopathy. The right and left lungs are clear, with no infiltrates or nodular densities. Small biapical pneumothoraces are noted The heart size is normal, and there are no pericardial effusions nor pericardial thickening. There are no congestive changes in the pulmonary vasculature. Evaluation of the mediastinum demonstrates no mass nor adenopathy. Mediastinal air is noted as mentioned above The pulmonary zuleima are unremarkable. CT ABDOMEN AND PELVIS WITH CONTRAST: TECHNIQUE: Transaxial sequence through the abdomen and pelvis dynamic intravenous infusion of contrast media (with a single injection for the chest, abdomen and pelvis) at 3 mm reconstruction interval. The images are reviewed in the axial, sagittal and coronal planes. Oral contrast was utilized for the examination. The liver is normal in size, shape and attenuation. There are no focal liver masses. The gallbladder is not visualized and is presumed surgically absent. The biliary tree is decompressed. The pancreas is unremarkable. The spleen is unremarkable. Evaluation of the upper GI tract demonstrates the stomach to be unremarkable. The duodenum is satisfactory in appearance. The small bowel is unremarkable. There is no mucosal thickening. No zone of transition is appreciated. There is a small sliver of air seen anterior to the left hepatic lobe and the stomach. The exact location of this air is uncertain and is felt to be extraperitoneal. Should the patient, however, begin to exhibit peritoneal signs a repeat CT may may be warranted to rule out pneumoperitoneum. Evaluation of the colon demonstrate no evidence of obstruction or mass lesion. No mucosal thickening of the colon is appreciated. The appendix is not clearly visualized. The right adrenal gland is normal. The left adrenal gland is normal. The right kidney is unremarkable. The left kidney is unremarkable. There are no mass lesions nor evidence of obstruction. No calculi are seen. Scans through the pelvis demonstrate the rectosigmoid to be unremarkable. The bladder is unremarkable. The remainder of the pelvic contents are unremarkable. There is no mass or adenopathy. There is a small amount of dependent free fluid. The osseous structures are intact. The retroperitoneum is unremarkable. There is no mass or adenopathy. The aorta, inferior vena cava and iliac vessels are satisfactory. IMPRESSION: There are small biapical pneumothoraces. Extensive air is noted within the lower cervical and thoracic soft tissues as well has the mediastinum and pericardium extending into the retroperitoneal soft tissues of the abdomen without an identifiable etiology. A small sliver of air is seen anterior to the left hepatic lobe and stomach, believed to be extraperitoneal. Should the patient exhibited peritoneal signs with repeat CT imaging of the abdomen and pelvis with the recommended to reevaluate for possible pneumoperitoneum Report Dictated on Final Dictated: 01/05/2018 6:31 pm Dictating Physician: DO CALVERT ALFRED Signed Date and Time: 01/05/2018 6:37 pm Signed by: DO CALVERT ALFRED Transcribed Date and Time: 01/05/2018 6:31 CT HEAD OR BRAIN W/O Observed: 01/05/2018 Status: F Source: [facility] CONTRAST 6:29 PM SYSTEM REPOSITORY Patient Name: LAKESHA DEL CID CT Exam Date/Time 01/05/2018 17:39:[address] Head or Brain w/o Contrast Ordering Physician MD ROCKY, LINUS Hope. Accession Number [id number] CPT4 Codes 56038 () Reason For Exam HEAD TRAUMA, CLOSED, MOD-SEVERE Report CT HEAD WITHOUT CONTRAST: INDICATION: Headache, trauma COMPARISON: None. Unenhanced CT images of the head from skull base to vertex were obtained. The images are reviewed in the axial, sagittal and coronal planes. The ventricles and sulci are within normal limits for the patient's age. There is no evidence of hemorrhage, mass or large acute infarct. There is no mass or significant shift of the midline structures. There are no extraaxial or posterior fossa masses or fluid collections. The hypothalamic and parasellar regions are unremarkable. The paranasal sinuses are clear. Extensive subcutaneous air is present. IMPRESSION: Negative CT examination of the brain. Report Dictated on Final Dictated: 01/05/2018 6:29 pm Dictating Physician: DO CALVERT ALFRED Signed Date and Time: 01/05/2018 6:30 pm Signed by: DO CALVERT ALFRED Transcribed Date and Time: 01/05/2018 6:29 CT SPINE CERVICAL W/O Observed: 01/05/2018 Status: F Source: [facility] CONTRAST 6:28 PM SYSTEM REPOSITORY Patient Name: LAKESHA DEL CID CT Exam Date/Time 01/05/2018 17:42:[address] Spine Cervical w/o Contrast Ordering Physician MD CARTER TRAVIS C. Accession Number [id number] CPT4 Codes 59247 () Reason For Exam C-SPINE TRAUMA, NEXUS/CCR NEGATIVE, LOW RISK Report CT CERVICAL SPINE WITHOUT CONTRAST: INDICATION: Neck pain after trauma COMPARISON: None. Axial scans of the cervical spine performed from the skull base to the thoracic inlet, with sagittal and coronal reconstructions. On the sagittal reconstruction images, the anatomic alignment of the vertebral bodies is normal. There is no evidence of fracture or subluxation in the cervical spine. Evaluation of the prevertebral soft tissues demonstrates extensive signal changes of emphysema. Small biapical pneumothoraces are present. The craniocervical junction and C1-2 junction appear normal. The odontoid is intact. IMPRESSION: No evidence of cervical spine fracture or dislocation. Extensive subcutaneous emphysema with small biapical pneumothoraces. Report Dictated on Final Dictated: 01/05/2018 6:28 pm Dictating Physician: DO CALVERT ALFRED Signed Date and Time: 01/05/2018 6:29 pm Signed by: DO CALVERT ALFRED Transcribed Date and Time: 01/05/2018 6:28 CR PELVIS 1 OR 2 Observed: 01/05/2018 Status: F Source: [employer] 6:27 PM SYSTEM REPOSITORY Patient Name: LAKESHA DEL CID Diagnostic Radiology Exam Date/Time 01/05/2018 17:39:13 EDT Exam CR Pelvis 1 or 2 Views Ordering Physician MD ROCKY, LINUS Hope. Accession Number [id number] CPT4 Codes 92434 () Reason For Exam surgical team Report PELVIS, PORTABLE: INDICATION: Surgical team, overdose, unresponsive COMPARISON: No previous studies are available for comparison. A portable frontal view of the pelvis was obtained in the emergency room at 1710 hours. The bone density appears normal. There are no fractures or dislocations. The joint spaces are within normal limits. There are no significant soft tissue abnormalities. IMPRESSION: Negative portable examination of the pelvis. Report Dictated on Final Dictated: 01/05/2018 6:27 pm Dictating Physician: DO CALVERT ALFRED Signed Date and Time: 01/05/2018 6:28 pm Signed by: DO CALVERT ALFRED Transcribed Date and Time: 01/05/2018 6:27 Observed: 01/05/2018 Status: F Source: [facility] TS GEL 5:18 PM SYSTEM REPOSITORY ABO Group: O Rh, Gel: POS Antibody Screen Gel: NEG Performed By: #### TSGL #### [facility] [employer] [address] [place] [address] HEMOGRAM Collected: 01/05/2018 Status: F Source: [facility] 5:15 PM SYSTEM REPOSITORY TYPE CODE TESTS RESULT OUT OF RANGE REFERENCE UNITS LAB IWBC 3.6-10.7 10*3/uL High WBC 12.6 LAB RBC 3.80-5.20 10*6/uL RBC Normal 3.93 LAB HGB 11.7-16.0 g/dL Normal Hemoglobin 12.5 LAB HCT 35.0-47.0 % Normal Hematocrit 37.1 LAB MCV 79.0-98.0 fL MCV Normal 94.4 LAB MCH 26.0-34.0 pg MCH Normal 31.7 LAB MCHC 32.0-36.0 % MCHC Normal 33.6 LAB RDW 11.5-14.5 % RDW Normal 12.9 LAB PLT 140-440 10*3/uL Platelet Normal 242 LAB MPV 7.4-10.4 fL MPV Normal 8.3 Performed By: #### HEMOG, PT/AP, BMP3, ETOH4, TROPN, UAMAC, DRGA4, UAMIC #### [facility] [address] [place] [address] PROTIME AND APTT Collected: 01/05/2018 Status: F Source: [facility] 5:15 PM SYSTEM REPOSITORY TYPE CODE TESTS RESULT OUT OF REFERENCE UNITS RANGE LAB PROTM 9.0-12.0 s Prothrombin Normal Time 10.8 Result Comment: . LAB INR 0.9-1.1 NA Normal INR 1.0 Result Comment: Recommended Anticoagulant Therapy: SEE BELOW ----- INR of 2.0 - 3.0 : - Prophylaxis of Venous Thrombosis (high-risk surgery) - Treatment of Venous Thrombosis - Treatment of Pulmonary Embolism (Includes tissue heart valves, Acute Myocardial Infarction to prevent systemic embolism, Valvular Heart Disease, and Atrial Fibrillation) ----- INR of 2.5 - 3.5 : - Mechanical Prosthetic Valves (high risk) - If oral anticoagulant therapy is used to prevent Myocardial Infarction LAB PTTA 20.0-30.5 s Normal APTT 27.0 Result Comment: NOTE: The therapeutic time for Heparin anticoagulation, based on Xa activity inhibition, is an APTT of 46-80 seconds. Performed By: #### HEMOG, PT/AP, BMP3, ETOH4, TROPN, UAMAC, DRGA4, UAMIC #### [facility] [address] [place] [address] BASIC METABOLIC PANEL Collected: 01/05/2018 Status: F Source: [facility] 5:15 PM SYSTEM REPOSITORY TYPE CODE TESTS RESULT OUT OF RANGE REFERENCE UNITS LAB NA3 137-145 mmol/L Sodium Normal 144 LAB K3 3.5-5.1 mmol/L Normal Potassium 3.8 LAB CL3 98-107 mmol/L High Chloride 114 LAB CO23 22-30 mmol/L Low Carbon Dioxide 21 LAB ANIN3 NA Anion Gap 8 LAB GLUC3 70-100 mg/dL Glucose Normal 98 LAB BUN3 7-20 mg/dL Urea Normal Nitrogen 9 LAB CRET3 0.52-1.25 mg/dL Normal Creatinine 0.68 LAB GF3BR >60 mL/min eGFR > 60.0 LAB GF3WR >60 mL/min eGFR OTHER > 60.0 Result Comment: Source- MDRD equation with creatinine calibration to IDMS(NKDEP) eGFR not recommended for drug dose adjustment LAB CA3 8.4-10.4 mg/dL Normal Calcium 8.5 Performed By: #### HEMOG, PT/AP, BMP3, ETOH4, TROPN, UAMAC, DRGA4, UAMIC #### [facility] [employer] [address] [place] [address] ETHANOL SERUM/PLASMA Collected: 01/05/2018 Status: F Source: [facility] 5:15 PM SYSTEM REPOSITORY TYPE CODE TESTS RESULT OUT OF RANGE REFERENCE UNITS LAB ETOH3 0.000-0.010 g/dL Normal < 0.010 Ethanol-Seru m/Plasma Result Comment: NOTE: This result is for medical treatment only. Analysis performed using non-forensic procedures. Performed By: #### HEMOG, PT/AP, BMP3, ETOH4, TROPN, UAMAC, DRGA4, UAMIC #### [email or web address] [address] [address] TROPONIN I Collected: 01/05/2018 Status: F Source: [facility] 5:15 PM SYSTEM REPOSITORY TYPE CODE TESTS RESULT OUT OF REFERENCE UNITS RANGE LAB TROP4 0.000-0.034 ng/mL High Troponin I 0.154 Result Comment: 0.046 - 0.400 = Indeterminate > 0.400 = Consider Myocardial Injury Performed By: #### HEMOG, PT/AP, BMP3, ETOH4, TROPN, UAMAC, DRGA4, UAMIC #### [facility] [employer] [address] [place] [phone] HEMOGRAM W/ AUTODIFF Collected: 01/05/2018 Status: F Source: [facility] 3:52 PM SYSTEM REPOSITORY TYPE CODE TESTS RESULT OUT OF REFERENCE UNITS RANGE LAB IWBC 3.6-10.7 10*3/uL WBC Normal 7.8 LAB RBC 3.80-5.20 10*6/uL Low RBC 3.68 LAB HGB 11.7-16.0 g/dL Low Hemoglobin 11.4 LAB HCT 35.0-47.0 % Hematocrit Normal 35.3 LAB MCV 79.0-98.0 fL MCV Normal 96.1 LAB MCH 26.0-34.0 pg MCH Normal 31.0 LAB MCHC 32.0-36.0 % MCHC Normal 32.2 LAB RDW 11.5-14.5 % RDW Normal 12.8 LAB PLT 140-440 10*3/uL Platelet Normal 237 LAB MPV 7.4-10.4 fL MPV Normal 8.2 LAB GRAN% 40.0-80.0 % Granulocytes Normal 58.5 LAB LYMP% 20.0-40.0 % Lymphocytes Normal 32.7 LAB MONO% 2.0-10.0 % Monocytes Normal 7.5 LAB EOS% 1.0-6.0 % Low Eosinophils 0.8 LAB BAS% 0.0-2.0 % Basophils Normal 0.5 LAB ANC 1.8-7.0 10*3/uL Abs Normal Neutrophile Cnt 4.6 LAB ALC 1.0-4.3 10*3/uL Abs Lymph Cnt Normal 2.6 LAB AMC 0.0-0.8 10*3/uL Abs Monocyte Normal Cnt 0.6 LAB AEC 0.0-0.5 10*3/uL Abs Eosin Cnt Normal 0.1 LAB ABC 0.0-0.2 10*3/uL Abs Baso Cnt Normal 0.0 Performed By: #### HEMDF, BMP3, QWAL #### [facility] [employer] [facility] [address] [place] [address] BASIC METABOLIC PANEL Collected: 01/05/2018 Status: F Source: [facility] 3:52 PM SYSTEM REPOSITORY TYPE CODE TESTS RESULT OUT OF RANGE REFERENCE UNITS LAB NA3 137-145 mmol/L Sodium Normal 143 LAB K3 3.5-5.1 mmol/L Normal Potassium 3.5 LAB CL3 98-107 mmol/L High Chloride 113 LAB CO23 22-30 mmol/L Low Carbon Dioxide 20 LAB ANIN3 NA Anion Gap 10 LAB GLUC3 70-100 mg/dL High Glucose 118 LAB BUN3 7-20 mg/dL Urea Normal Nitrogen 10 LAB CRET3 0.52-1.25 mg/dL Normal Creatinine 0.69 LAB GF3BR >60 mL/min eGFR > 60.0 LAB GF3WR >60 mL/min eGFR OTHER > 60.0 Result Comment: Source- MDRD equation with creatinine calibration to IDMS(NKDEP) eGFR not recommended for drug dose adjustment LAB CA3 8.4-10.4 mg/dL Low Calcium 8.1 Performed By: #### HEMDF BMP3, QWAL #### [facility] [address] [place] [place] [address] HCG QUAL PREG Collected: 01/05/2018 Status: F Source: [facility] 3:52 PM SYSTEM REPOSITORY TYPE CODE TESTS RESULT OUT OF RANGE REFERENCE UNITS LAB QWLC m[IU]/mL Normal hCG NEGATIVE Qual Preg Result Comment: REF RANGE: Negative .... < 3 Questionable Rpt 48-72 Hr Positive ..... > 10 Performed By: #### HEMCHAY, BMP3, QKENNETH #### [facility] [address] [place] [address] CR CHEST PORTABLE Observed: 01/05/2018 Status: F Source: [facility] [facility] 3:41 PM SYSTEM REPOSITORY Patient Name: LAKESHA DEL CID Diagnostic Radiology Exam Date/Time 01/05/2018 15:36:18 EDT Exam CR Chest Portable Ordering Physician MD ROCKY, LINUS Hope. Accession Number [id number] CPT4 Codes 58565 () Reason For Exam chest pain Report Examination: AP portable chest Clinical Indication: chest pain Comparison: 08/18/2017 Findings: There is a significant amount of subcutaneous emphysema seen along the neck. A small amount of pneumomediastinum is also suspected. There is no pneumothorax. Heart size is normal in appearance. No gross evidence of rib fracture or displacement. There is no focal consolidation or effusion. No osseous abnormality is seen. Impression: 1. Subcutaneous emphysema along the neck along with suggestion of pneumomediastinum. Findings concerning for tracheal or viscus perforation. Consider further evaluation with CT chest. 2. No acute cardiopulmonary process. Findings represent a critical test report and discussed with Dr. Linus Carter at 1540. Report Dictated on Final Dictating Physician: MD MACKENZIE ANTHONY J Signed Date and Time: 01/05/2018 3:43 pm Signed by: MD MACKENZIE ANTHONY J Transcribed Date and Time: 01/05/2018 3:44 12 LEAD ELECTROCARDIOGRAM Observed: 12/15/2017 Status: F Source: [facility] 2:54 PM [facility] REPOSITORY [facility] Cardiovascular Services [address] [place] [address] 12 Lead EKG 12/12/17 1849 MR#: [id number] Acct: [id number] Name: MATTHEW DEL CIDBLAIR Hope Rep #: [id number] : 1990 From: Kevin Ramírez MD Attending Dr: Status: DEP ER Ordering Dr: Scott Barron MD Date: 12/12/17 Location: ED Sex: F C Admitted: Test Reason : CP Blood Pressure : / mmHG Vent. Rate : 125 BPM Atrial Rate : 125 BPM P-R Int : 122 ms QRS Dur : 074 ms QT Int : 300 ms P-R-T Axes : 036 029 038 degrees QTc Int : 433 ms Sinus tachycardia Otherwise normal ECG Confirmed by KEVIN RAMÍREZ MD ([id number]), desk editor CHINA HYDE ([id number]) on 12/15/2017 2:53:38 PM Referred By: Nolan Perez Confirmed By:KEVIN RAMÍREZ MD 12/15/17 1453 Date Kevin Ramírez MD CC: No Primary Care Physician; Charles Perez MD; OUT OF TOWN DOCTOR; Scott Barron MD Signed EMERGENCY DEPARTMENT Observed: 12/12/2017 Status: F Source: [facility] SUMMARY 8:24 PM [facility] REPOSITORY [facility] Medical Records Department [address] [place] [address] Emergency Department Summary 12/12/172013 MR#: [id number] Acct: [id number] Name: LAKESHA DEL CID Rep #: [id number] : 1990 From: Allen Perez MD PCP: OUT OF TOWN DOCTOR Status: REG ER - ER Visit Summary Date of Service: 12/12/17 Chief Complaint: Chest pain and sore throat History of Present Illness: The patient is a 27 F presenting with chest pain. She reports a history of chronic recurrent chest pain and follows with a software release manager. She states that at one point several years ago she was diagnosed with myocarditis and it resolved with a prolonged treatment of anti-inflammatories. She now states that she can no longer take anti-inflammatories because they make her stomach bleed. She was seen at [facility] earlier today and her workup was unremarkable. She was treated with Nubain and told to follow-up with her software release manager on Thursday for an outpatient echocardiogram. The case was discussed with her software release manager at that time. Her pain improved transiently but has recurred. It is not exertional nor is it pleuritic. She denies recent travel or mobilization. Denies history of DVT or PE. Denies family history of pulmonary embolism. This feels similar to her chronic recurrent pain. She also has a slight sore throat but can still swallow without difficulty. No fever or chills. Physical Examination: Vitals are within normal limits except for mild tachycardia. Blood pressure is normal. No fever. Neck is supple. Heart tones are regular and without murmur. Lungs are clear bilaterally. There is no chest wall tenderness. Throat looks normal. Tonsils not enlarged. No exudates. Voice is normal. Submandibular and anterior neck structures are soft. She has no tenderness along the lower extremity venous system, palpable cords, or other evidence of DVT. Strong pulses in all extremities. Mental status exam is normal. Test Results: Her EKG here is unremarkable. She has no clinical evidence of DVT. Emergency Department Course and Treatment: EKG unremarkable here. No evidence of DVT. With her permission, I did review her chart from [facility] and she also showed me her results using her phone and the my chart. I reviewed the note from the emergency physician at [facility]. She discussed the case with her software release manager and they recommended treatment with colchicine and follow-up on Thursday. Her sed rate was 35 there but all of her other labs were normal including normal cardiac enzymes and she has had symptoms for several days. No evidence to suggest acute coronary syndrome. Her sed rate is apparently chronically elevated between 15 and 35 so difficult how to interpret this. She has no evidence of DVT in her pain is not pleuritic. She is slightly tachycardic but there is no recent travel or other risk factors and she tells me that she is tachycardic quite often and it is usually from pain. She states that she is essentially here for pain control because they would not give her prescriptions at [facility]. I also reviewed a note from their facility and it appears that she drove herself home there after telling staff that her boyfriend was picking her up and receiving opiate pain medication. I asked her about this and she states that it is not true and that her boyfriend drove her home. She also told me that her boyfriend will drive her home from here tonight. She states that morphine makes her sick and that the only medication that works for her is Dilaudid. She also told me that she has been texting with her friend who is a physician and that physician recommends Dilaudid be given. I talked with her about the new [facility] opiate regulations and that I would have to review her opiate prescription report. 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 I asked her when the last time she received an opiate prescription was and she told me that it has been 2- 3 months. I reviewed her report and her overdose risk score is 550 and she did receive a prescription almost exactly 1 month ago. I discussed this with her and told her that I feel it is in her best interest and for her own safety that she receive all of her opiates from a single provider and that I feel it could be dangerous for her if I prescribe her an opiate. She states that she is able to take the colchicine which I do feel would be an appropriate treatment if she does have pericarditis. I will treat her with 1 dose of oral Percocet here and she will keep her appointment on Thursday. She will return to emergency department if she is worse. She promised me that her boyfriend will be picking her up tonight. Treatment Plan: Pain control Disposition: Home in stable condition Impression: Neck and emergency department encounter for chest pain of uncertain etiology This note was generated with Vidaao dictation software. It may contain incorrect words, spelling, and punctuation that were not noted in review of the chart prior to signing ED Disposition - Plan for ED Patient: Chief Complaint: Chest Pain Instructions: ED Chest Pain Noncardiac Ch Referrals: [facility] Doctor,Out of [Primary Care Provider] - Additional Instructions: See your software release manager on Thursday What to do if you have Problems For any increased pain, shortness of breath, bleeding, nausea or vomiting, chest pain, or any unexpected problems, contact your Primary Care Provider. Call [facility] ([phone]) or report to the closest Emergency Room. Call 911 if necessary. 12/12/172023 <Electronically signed by Allen Perez MD> Date Allen Perez MD Cosigner Signature (If Indicated): Date CC: No Primary Care Physician; OUT OF [facility] DOCTOR ED NOTE Observed: 12/12/2017 Status: COMPLETED Source: [place] 2:23 PM [facility] REPOSITORY HNO ID: [id number] Author: Lulu CabaRn) Janice RN Service: Emergency Medicine Author Type: Registered Nurse Type: ED Notes Filed: 12/12/2017 2:24 PM Note Text: It was noted on video camera that although pt was told not to drive home after being medicated and her boyfriend arriving to drive her home, pt was seen driving out of the parking lot. ED NOTE Observed: 12/12/2017 Status: COMPLETED Source: [place] 2:15 PM [facility] REPOSITORY HNO ID: [id number] Author: Lulu Díaz) Janice RN Service: Emergency Medicine Author Type: Registered Nurse Type: ED Notes Filed: 12/12/2017 2:16 PM Note Text: Pt given discharge instructions, pt questions answered and pt denies any further questions at time of discharge. Pt ambulates out of dept with a steady gait. Pt given 1 rx and work note, pt's boyfriend arrives to van driver helper her home ED NOTE Observed: 12/12/2017 Status: COMPLETED Source: [place] 1:57 PM [facility] REPOSITORY HNO ID: [id number] Author: Lulu CabaRnStar Camacho RN Service: Emergency Medicine Author Type: Registered Nurse Type: ED Notes Filed: 12/12/2017 1:59 PM Note Text: Dr Garza speaking with pt regarding the conversation she had with the software release manager and the plan of care ED NOTE Observed: 12/12/2017 Status: COMPLETED Source: [place] 1:48 PM [facility] REPOSITORY HNO ID: [id number] Author: Lulu CabaRn) JORY Camacho Service: Emergency Medicine Author Type: Registered Nurse Type: ED Notes Filed: 12/12/2017 1:49 PM Note Text: Pt puts regional operations director light - no improvement with pain after Nubain. ED NOTE Observed: 12/12/2017 Status: COMPLETED Source: [place] 1:48 PM [facility] REPOSITORY HNO ID: [id number] Author: Lulu Camacho RN Service: Emergency Medicine Author Type: Registered Nurse Type: ED Notes Filed: 12/12/2017 1:48 PM Note Text: Dr Garza speaking with regional operations director physician ED NOTE Observed: 12/12/2017 Status: COMPLETED Source: [place] 1:41 PM [facility] REPOSITORY HNO ID: [id number] Author: Lulu Camacho RN Service: Emergency Medicine Author Type: Registered Nurse Type: ED Notes Filed: 12/12/2017 1:42 PM Note Text: manager lean physician from [facility] paged for consult ED NOTE Observed: 12/12/2017 Status: COMPLETED Source: [place] 1:30 PM [facility] REPOSITORY HNO ID: [id number] Author: Lulu CabaRn) JORY Camacho Service: Emergency Medicine Author Type: Registered Nurse Type: ED Notes Filed: 12/12/2017 1:30 PM Note Text: Dr Garza at bedside speaking with pt regarding last test result ED NOTE Observed: 12/12/2017 Status: COMPLETED Source: [place] 1:28 PM [facility] REPOSITORY HNO ID: [id number] Author: Lulu CabaRnStar Camacho RN Service: Emergency Medicine Author Type: Registered Nurse Type: ED Notes Filed: 12/12/2017 1:29 PM Note Text: Patient informed: the name of medication, why we are giving it, possible side effects, what they may expect to feel, and was offered a chance to ask questions, prior to the administration of zofran, nubain, potassium choloride. ED NOTE Observed: 12/12/2017 Status: COMPLETED Source: [place] 1:25 PM [facility] REPOSITORY HNO ID: [id number] Author: Lulu CabaRnStar Camacho RN Service: Emergency Medicine Author Type: Registered Nurse Type: ED Notes Filed: 12/12/2017 1:30 PM Note Text: Pt on the telephone speaking with her boyfriend to come and pick her up d/t medication being given ED NOTE Observed: 12/12/2017 Status: COMPLETED Source: [place] 1:25 PM [facility] REPOSITORY HNO ID: [id number] Author: Lulu CabaRn) JORY Camacho Service: Emergency Medicine Author Type: Registered Nurse Type: ED Notes Filed: 12/12/2017 1:32 PM Note Text: Pt questioning why we are giving her Nubain instead of just giving her dilaudid, explained to pt the reasoning for why we are giving her nubain. ED NOTE Observed: 12/12/2017 Status: COMPLETED Source: [place] 1:04 PM [facility] REPOSITORY HNO ID: [id number] Author: Lulu Díaz) JORY Camacho Service: Emergency Medicine Author Type: Registered Nurse Type: ED Notes Filed: 12/12/2017 1:05 PM Note Text: Dr Garza remains at bedside talking extensively with pt ED NOTE Observed: 12/12/2017 Status: COMPLETED Source: [place] 12:54 PM [facility] REPOSITORY HNO ID: [id number] Author: Lulu CabaRn) JORY Camacho Service: Emergency Medicine Author Type: Registered Nurse Type: ED Notes Filed: 12/12/2017 12:58 PM Note Text: Dr Garza at bedside explaining results of testing that have been resulted so far. Explaining again plan of care. ED NOTE Observed: 12/12/2017 Status: COMPLETED Source: [place] 12:52 PM [facility] REPOSITORY HNO ID: [id number] Author: Lulu CabaRnStar Camacho RN Service: Emergency Medicine Author Type: Registered Nurse Type: ED Notes Filed: 12/12/2017 12:53 PM Note Text: Pt calls and asking for results of testing, advised pt we are waiting on one test to result and the physician will be in to speak with her shortly. ED PROV NOTE Observed: 12/12/2017 Status: COMPLETED Source: [place] 12:35 PM [facility] O ID: [id number] Author: Giesla Garza MD Service: Emergency Medicine Author Type: Physician Type: ED Provider Notes Filed: 12/12/2017 2:48 PM Note Text: ED Provider Note Patient Name: Lakesha Del Cid SERVICE DATE: 12/12/17 History Patient presents with: Sore Throat Palpitations Patient presents with chief complaint of palpitations, sore throat and chest pain. States it feels like my perimyocaditis Which she has had in the past. Started with sore throat. No drooling or choking. Complains of chest pain when she inhales.Denies excessive use of caffeine or any stimulant use. Denies any history of thyroid disease. Denies rigors. States she is on depo and denies any possibility of . No shortness of breath, no hemoptysis, no pleuritic pain. Her pain with inspiration is described as burning. Drove herself to the ED. PAST MEDICAL HISTORY Diagnosis Date - Altered bowel habits 12/22/2016 Added automatically from request for surgery [id number] - Attention deficit disorder without mention of hyperactivity - Chest pain of pericarditis 10/19/2013 - Controlled substance agreement signed 03/08/2014 - Depression and anxiety - Drug-seeking behavior - Elevated amylase and lipase 06/03/2016 - Fibromyalgia - Intractable chronic migraine without aura and without status migrainosus 08/10/2015 - Kidney stones 16 renal stones - monitoring, Dr. Stoner - Migraines Dr. 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 - Right sided abdominal pain 06/01/2016 - Right sided abdominal pain 06/01/2016 - Right upper quadrant pain 01/20/2017 Added automatically from request for surgery [id number] - Vaginal spotting 06/04/2016 - Vaginal spotting 06/04/2016 - Viral pericarditis 10/19/2013 PAST SURGICAL HISTORY Procedure Laterality Date - BOTOX 07/08/2013 - CHOLECYSTECTOMY HX - COLONOSCOP W/ OR W/O BRSH SPEC 01/14/2017 Colonoscopy - LAPAROSCOPIC CHOLEYCYSTECTOMY 01/26/2017 Cholecystectomy, lap - ORAL SURGERY PROCEDURE 01/25/2010 [place] Teeth Extraction - PAST SURGICAL HISTORY OF 2012 piercings removed from abdomen - REMOVAL OF TONSILS,<12 Y/O 6yo Tonsillectomy FAMILY HISTORY Problem Relation Age of Onset - Hypertension Father - other (migraine [Other]) Father - other (kidney stones [Other]) Father - COPD Maternal Grandmother - other (kidney cancer [Other]) Paternal Grandfather Social History Social History Main Topics - Smoking status: Never Smoker - Smokeless tobacco: Never Used - Alcohol use Yes Comment: 2 drinks per week - Drug use: No - Sexual activity: Yes Partners: Male control/ protection: Injection Comment: Depo Provera ALLERGIES Allergen Reactions - Benadryl [Diphenhyd* Other: See Comments - [place]wi - Methocarbamol Other: See Comments Causes blisters in the mouth - [place] [Hydrocodone-* Intolerance Worsens migraines - Nsaids (Non-Steroid* Other: See Comments GI bleed/ stomach pain - Rat [Other] - Reglan [Metoclopram* Mental Status Change climbing the morocho Review of Systems Constitutional: Negative for activity change, appetite change, chills, diaphoresis, fatigue, fever and unexpected weight change. HENT: Positive for sore throat. Negative for congestion, dental problem, drooling, ear discharge, ear pain, facial swelling, hearing loss, mouth sores, nosebleeds, postnasal drip, rhinorrhea, sinus pain, sinus pressure, sneezing, tinnitus, trouble swallowing and voice change. Eyes: Negative. Respiratory: Negative for apnea, cough, choking, chest tightness, shortness of breath, wheezing and stridor. Cardiovascular: Positive for chest pain and palpitations. Negative for leg swelling. Gastrointestinal: Negative. Endocrine: Negative. Genitourinary: Negative. Musculoskeletal: Negative. Skin: Negative. Neurological: Negative for dizziness, tremors, seizures, syncope, weakness and light-headedness. Hematological: Negative for adenopathy. Does not bruise/bleed easily. All other systems reviewed and are negative. Physical Exam BP 128/58 Pulse 120 Temp (Src) 98 (Oral) Resp 18 Ht 5' 1 (1.55m) Wt 138 lb (62.6kg) SpO2 99% BMI 26.09 kg/(m2). Physical Exam Constitutional: She is oriented to person, place, and time. She appears well-developed and well-nourished. No distress. HENT: Head: Normocephalic and atraumatic. Nose: Nose normal. Mouth/Throat: No oropharyngeal exudate. Mild uvular erythema. No swelling noted.No petechiae on soft palate Eyes: Pupils are equal, round, and reactive to light. Conjunctivae and EOM are normal. Neck: Normal range of motion. Neck supple. No JVD present. No tracheal deviation present. No thyromegaly present. Cardiovascular: Regular rhythm, normal heart sounds and intact distal pulses. Exam reveals no gallop and no friction rub. No murmur heard. HR 128 on monitor Pulmonary/Chest: No stridor. Abdominal: Soft. Bowel sounds are normal. Musculoskeletal: Normal range of motion. She exhibits no edema. Lymphadenopathy: She has no cervical adenopathy. Neurological: She is alert and oriented to person, place, and time. Skin: Skin is warm and dry. Capillary refill takes less than 2 seconds. Nursing note and vitals reviewed. Diagnostic Testing ED Labs Ordered and Reviewed BASIC METABOLIC PANEL (AK,AV,EU,FV,HL,TANYA,MM,SP) TROPONIN I (AK) CBC + AUTO DIFF (AK,AV,EU,FV,HL,TANYA,MM,SP) HCG QUALITATIVE URINE (AK,AV,EU,FV,HL,TANYA,MM,SP) RAPID GRP A STREP RFLX CUL(AK,AV,EU,FV,HL,TANYA,MM,MS,SP) SED RATE ERYTHROCYTE (AK,AV,EU,FV,HL,TANYA,MM,SP) TSH BLOOD (AK,AV,EU,FV,HL,TANYA,MM,SP) MDRD GFR Procedures ED Course / Clinical Impression Clinical Impressions as of Dec 12 1408 Chest pain, unspecified type ESR raised MDM / Disposition / Plan Patient presents with sore throat, chest pain and positional chest pain which she states feels like her prior cruzito/myocarditis. EKG did not show any signs of pericarditis or STEMI. She had sinus tachycardia in the 120's-130's occasionally down below 110 after IVF. Patient requested pain medication for her chest pain. I offered her tylenol but she states she took tylenol 0900. I offered her IV toradol since her intolerance was GI distress but she declined. She states the dilaudid works the best-morphine and fentanyl make me feel funny per our discussion. Work up revealed mildly decreased TSH and K 3.2. Troponin was neg and CBC unremarkable. HCG neg. ESR was elevated at 33. Strep screen neg. Chart review from 2013-since shows ESR ranges from high 30's to 18. I could not obtain a stat CRP on this campus. I reviewed Dr Norris's notes from 2016 as well and compared her EKG's. To address the patient's discomfort for positional chest pain we maintained the patient in upright position and discussed Nubain as an option. Patient denied chronic opioid use to me and was warned about withdrawal symptoms with use of nubain if she was a chronic opioid user. She was given 2.5 and then 5mg IV with no ill effect and then a repeat 5mg as she said it did help. With her persistent tachycardia PE is on the differential but her [place] is 1.5 (HR only) which is very low score and d-dimer not indicated as I believe another diagnosis is more likely than PE. She does have chest wall p.o.p but with the positional pain, elevated ESR and her validation that his feels like prior pericarditis it may be pericarditis even without EKG findings. I spoke with Dr Norris's fellow for a consult weigh in on inpatient vs outpatient management of suspected pericarditis clinically. She requested an echo prior to discharge but we do not have that capability on this campus. She then recommended discharge if I felt the patient was responsible (I do) and would seek medical attention if sx worsened. Otherwise begin colchicine and call Dr Norris on Thursday for close outpatient follow-up. The plan was discussed with the patient and she requested narcotic pain meds for home. I declined. Initially she told me she had percocet for her kidney stones and then told me she was out. I recommended the colchicine would be helpful for pain if it was pericarditis, she should take scheduled tylenol, and if her pain was increasing she should be re-evaluated to be sure her troponin was not increasing. Patient called her boyfriend to drive her home and he came into the ED. Nurses then saw them driving two cars out of the parking lot although the patient had been instructed not to drive after the nubain. The patient was DISCHARGED: Counseled patient regarding lab results AND radiology results AND suspected diagnosis AND need for follow- up. Discharged home with verbal and written instructions. They were instructed to return as needed for persistent or worsening symptoms or any new concerns. Condition at time of disposition: stable SIGNATURE: MD Gisela Pollock MD 12/12/17 1448 ED NOTE Observed: 12/12/2017 Status: COMPLETED Source: [place] 12:13 PM [facility] REPOSITORY HNO ID: [id number] Author: Lulu CabaRn) JORY Camacho Service: Emergency Medicine Author Type: Registered Nurse Type: ED Notes Filed: 12/12/2017 12:16 PM Note Text: Pt asking to speak with the physician regarding pain medication, pt specifically asking for dilaudid for her chest pain. Dr Garza speaks with pt regarding medicating pt with tylenol and iv toradol, pt declines both medications and becomes argumentative with Dr Garza. Dr Garza explains her reasoning for pt's plan of care. ED NOTE Observed: 12/12/2017 Status: COMPLETED Source: [place] 12:05 PM [facility] REPOSITORY HNO ID: [id number] Author: Lulu Díaz) JORY Camacho Service: Emergency Medicine Author Type: Registered Nurse Type: ED Notes Filed: 12/12/2017 12:05 PM Note Text: Clean catch urine specimen obtained and sent. CHEST 1 VIEW Observed: 12/12/2017 Status: F Source: [facility] 12:04 PM HEALTH SYSTEM REPOSITORY Performed at [facility] APPROVED BY: Orville Child MD EXAM TITLE: CHEST 1 VIEW DATE: 12/12/2017 12:00 COMPARISON: 10/16/2015 CLINICAL INDICATION/HISTORY: Tachycardia, chest pain, sore throat TECHNIQUE: Upright frontal chest FINDINGS: The lungs are clear. Normal cardiac size. No acute bony abnormality. IMPRESSION: No acute process. ED NOTE Observed: 12/12/2017 Status: COMPLETED Source: [place] 12:01 PM [facility] REPOSITORY HNO ID: [id number] Author: Lulu Díaz) JORY Camacho Service: Emergency Medicine Author Type: Registered Nurse Type: ED Notes Filed: 12/12/2017 12:01 PM Note Text: Portable cxr completed ED NOTE Observed: 12/12/2017 Status: COMPLETED Source: [place] 11:55 AM [facility] REPOSITORY O ID: [id number] Author: Lulu (Rn) JORY Camacho Service: Emergency Medicine Author Type: Registered Nurse Type: ED Notes Filed: 12/12/2017 12:19 PM Note Text: At time of exam pt asking Dr Garza for pain medication-specifically dilaudid, Dr Garza explaining plan of care for pt and reasons why she is not ordering narcotic pain medication at this time. TROPONIN I Collected: 12/12/2017 Status: F Source: [facility] 11:55 HEALTH SYSTEM REPOSITORY TYPE CODE TESTS RESULT OUT OF REFERENCE UNITS RANGE LAB LTRP(LOINC) <=0.07 ng/mL Troponin I <0.03 Performed By: #### LTRP #### [place] [address] BASIC PANEL Collected: 12/12/2017 Status: F Source: [facility] 11:55 AM HEALTH SYSTEM REPOSITORY TYPE CODE TESTS RESULT OUT OF REFERENCE UNITS RANGE LAB LEAD BURNER APPRENTICE(LOINC) 136-145 mEq/L Sodium Blood 137 LAB LK(LOINC) 3.5-5.1 mEq/L Low Potassium Blood 3.2 LAB LCL(LOINC) 98-107 mEq/L Chloride Blood 105 LAB LCO2(LOINC 21-32 mEq/L ) CO2 Blood 21 LAB LGLU(LOINC 70-99 mg/dL ) Glucose High Blood 136 LAB LBUN(LOINC 7-25 mg/dL ) Low BUN Blood 6 LAB LCREA(LOIN 0.51-0.95 mg/dL C) Creatinine Blood 0.75 LAB LCA(LOINC) 8.5-10.1 mg/dL Calcium Blood 9.1 LAB LANGP(LOIN 8-20 C) Anion Gap 15 LAB LBNCR(LOIN 10-20 C) Low BUN/Creatinine 8 Ratio Performed By: #### LP8 #### [place] [address] TSH Collected: 12/12/2017 Status: F Source: [facility] 11:55 HEALTH SYSTEM REPOSITORY TYPE CODE TESTS RESULT OUT OF RANGE REFERENCE UNITS LAB LTSH(LOINC) 0.34-4.82 uIU/mL Low TSH 0.29 Performed By: #### LTSH #### [facility] [address] [place], [place] [address] MDRD EGFR Collected: 12/12/2017 Status: F Source: [facility] 11:[address] [place] [address] SYSTEM REPOSITORY TYPE CODE TESTS RESULT OUT OF RANGE REFERENCE UNITS LAB LGFRF(LOINC >60mL/min/1.73m ) 2 eGFR >60 Result Comment: If the patient is , multiply the result by 1.210. Performed By: #### LGFR #### [facility] [address] [place], [place] [address] HEMOGRAM/MANUAL DIFF Collected: 12/12/2017 Status: F Source: [facility] 11:55 [facility] REPOSITORY TYPE CODE TESTS RESULT OUT OF REFERENCE UNITS RANGE LAB LWBC(LOINC 4.8-10.8 thou/cmm ) WBC 10.5 LAB LRBC(LOINC 4.20-5.40 mil/cmm ) RBC 4.21 LAB LHGB(LOINC 12.0-16.0 g/dL ) Hgb 13.1 LAB LHCT(LOINC 37.0-47.0 % ) Hct 40.5 LAB LMCV(LOINC 81.0-99.0 fl ) MCV 96.2 LAB LMCH(LOINC 27.0-31.0 pg ) MCH High 31.1 LAB LMCHC(LOIN 32.0-36.0 % C) MCHC 32.3 LAB LRDW(LOINC 11.5-15.9 % ) RDW 11.7 LAB LPLT(LOINC 150-400 thou/cmm ) Platelet 309 LAB LMPV(LOINC 7.1-10.5 fl ) MPV 9.8 LAB LSEGT(LOIN % C) Seg Neutrophil 84.0 LAB LLYMP(LOIN % C) Lymphocyte 5.0 LAB LMNO(LOINC % ) Monocyte 1.0 LAB JAJA(LOINC % ) Eosinophil 0.0 LAB LBASO(LOIN % C) Basophil 0.0 LAB LSEGN(LOIN 3.00-5.67 thou/cmm C) Abs. High Neut (ANC) 9.86 LAB LLYMN(LOIN 1.50-3.65 thou/cmm C) Low Abs. Lymph 0.53 LAB LMONN(LOIN 0.20-1.00 thou/cmm C) Low Abs. Hardy 0.11 LAB LEOSN(LOIN 0.00-0.41 thou/cmm C) Abs. Eosin 0.00 LAB LBASN(LOIN 0.00-0.08 thou/cmm C) Abs. Baso 0.00 LAB LPLES(LOIN C) Platelet Estimate Normal LAB LRBCM(LOIN C) RBC Morphology Normal LAB LDTYP(LOIN C) Diff Type Manual Diff Performed By: #### LMCBD #### [place] [address] SED RATE Collected: 12/12/2017 Status: F Source: [facility] 11:55 AM HEALTH SYSTEM REPOSITORY TYPE CODE TESTS RESULT OUT OF RANGE REFERENCE UNITS LAB LESR(LOINC) 0-20 mm/hr High Sed Rate 33 Performed By: #### LESR #### [place] [address] URINE HCG, QUAL. Collected: 12/12/2017 Status: F Source: [facility] 11:45 AM HEALTH SYSTEM REPOSITORY TYPE CODE TESTS RESULT OUT OF REFERENCE UNITS RANGE LAB LUHCG(LOIN Negative C) HCG, Qual. Negative Urine LAB LSPGR(LOIN 1.005-1.030 C) Specific 1.010 [place], Ur Performed By: #### LHCG2 #### [place] [address] THROAT RAPID GRP A Collected: 12/12/2017 Status: F Source: [facility] STREP 11:45 AM HEALTH SYSTEM REPOSITORY TYPE CODE TESTS RESULT OUT OF REFERENCE UNITS RANGE LAB LRAPS(LOINC Negative ) Throat Rapid see below Grp A Strep Result Comment: Negative for group A Streptococcus antigen. Performed By: #### LRAPS #### [place] [address] Observed: 12/12/2017 Status: F Source: [facility] THROAT CULTURE 11:45 AM HEALTH SYSTEM REPOSITORY Test performed at [facility] No group A beta streptococci cultured. Performed By: #### CTHRT #### [place] [address] ED NOTE Observed: 12/12/2017 Status: COMPLETED Source: [place] 11:27 AM [facility] REPOSITORY O ID: [id number] Author: Clarence (Rn) JORY Connor Service: Emergency Medicine Author Type: Registered Nurse Type: ED Notes Filed: 12/12/2017 11:29 AM Note Text: C/o sore throat since yesterday. Also states she has pain when breathing, but denies any SOB. Pt states she felt her heart was racing, HR in 130's during triage. HX of pericarditis with similar sx. EMERGENCY DEPARTMENT Observed: 11/12/2017 Status: F Source: [place] SUMMARY 4:27 PM [facility] REPOSITORY [facility] Medical Records Department [address] [place] [address] Emergency Department Summary 11/11/17 1448 MR#: [id number] Acct: [id number] Name: LAKESHA DEL CID Rep #: [id number] : 1990 27 From: Augustine Leyva DO PCP: Care Physician, No Primary Status: DEP ER - ER Visit Summary Date of Service: 11/11/17 Chief Complaint: Left flank pain History of Present Illness: The patient is a 27 F states that yesterday she began to have some blood in her urine. She states she developed urinary frequency pressure in her bladder and pain in the left flank. States she has a history of kidney stones. She states that she has not yet established with a new urologist yet but called their office open to get in with the recommended she come to the emergency room. The patient states she normally gets an antibiotic and Flomax. I seen the patient several times before. She has had approximately 8 CTs at this institution alone in the past 5 years of the abdomen and renal area. The patient has also been known to be seen in other emergency rooms where she has had several similar workups (i.e. CAT scans urinalysis). The patient informs me she likes to come here because she gets better service. Physical Examination: Afebrile vital signs are stable Patient is sitting comfortably in the bed. She is not writhing. Reports left CVA tenderness. No pain upon palpation of the bladder left lower quadrant. Test Results: Urinalysis demonstrates greater than 100 white blood cells, 25-50 red blood cells rare bacteria. Emergency Department Course and Treatment: Out of the patient's interest for increasing amounts of radiation I do not feel strongly she needs a CT scan today. To my knowledge have not found a CT scan that demonstrates a ureteral stone resulting in hydronephroureter. I will asked for urine culture. I will put her on Flomax at her request and give her an antibiotic. The patient asked to speak with me because she was not getting any narcotics. The patient states that she has bottles of Flomax at home and antibiotics. The patient has several red flags that do not allow me to feel comfortable writing her narcotics here today. She is allergic to all anti-inflammatories. She has been taking Tylenol since last night. She has had 8 prior visits at this institution with no obstructing ureterolithiasis. She has been to numerous other facilities including [facility] and [facility]. The red flag of complementing the practitioner at the start of the visit. The patient's oars report was reviewed and she has had numerous opioid prescriptions from numerous prescribers this year alone. Combining these red flags with specifically being upset that she is not getting the narcotic certainly will result in me not prescribing any narcotics for the patient. Impression: 1. UTI This note was generated with Vidaao dictation software. It may contain incorrect words, spelling, and punctuation that were not noted in review of the chart prior to signing <Augustine Leyva - Last Filed: 11/11/17 15:32> - ER Visit Summary Date of Service: 11/11/17 The patient was seen by Dr. Leyva. This note was generated with Vidaao dictation software. It may contain incorrect words, spelling, and punctuation that were not noted in review of the chart prior to signing <Justice Gonzalez - Last Filed: 11/12/17 16:26> ED Disposition <Augustine Leyva - Last Filed: 11/11/17 15:32> <Justice Gonzalez - Last Filed: 11/12/17 16:26> - Plan for ED Patient: Disposition: Home or Assisted Living Chief Complaint: Flank Pain Instructions: ED UTI Cystitis Female Prescriptions: Tamsulosin HCl [Flomax] 0.4 mg PO DAILY #5 cap Cephalexin [Keflex] 500 mg PO BID #14 cap Referrals: [facility] Doctor,Out of [NON-STAFF] - Additional Instructions: Follow-up with your doctors What to do if you have Problems For any increased pain, shortness of breath, bleeding, nausea or vomiting, chest pain, or any unexpected problems, contact your Primary Care Provider. Call [facility] ([phone]) or report to the closest Emergency Room. Call 911 if necessary. 11/11/17 1655 <Electronically signed by Augustine Leyva DO> Date Augustine Leyva DO 11/12/17 1627<Electronically signed by Justice Gonzalez MD> Cosigner Signature (If Indicated): Date Justice Gonzalez MD CC: No Primary Care Physician HEMOGRAM W/ AUTODIFF Collected: 11/11/2017 Status: F Source: [employer] 7:19 PM SYSTEM REPOSITORY TYPE CODE TESTS RESULT OUT OF REFERENCE UNITS RANGE LAB IWBC 3.6-10.7 10*3/uL WBC Normal 7.2 LAB RBC 3.80-5.20 10*6/uL RBC Normal 3.93 LAB HGB 11.7-16.0 g/dL Hemoglobin Normal 12.4 LAB HCT 35.0-47.0 % Hematocrit Normal 36.7 LAB MCV 79.0-98.0 fL MCV Normal 93.4 LAB MCH 26.0-34.0 pg MCH Normal 31.5 LAB MCHC 32.0-36.0 % MCHC Normal 33.7 LAB RDW 11.5-14.5 % RDW Normal 12.5 LAB PLT 140-440 10*3/uL Platelet Normal 289 LAB MPV 7.4-10.4 fL MPV Normal 7.9 LAB GRAN% 40.0-80.0 % Granulocytes Normal 64.7 LAB LYMP% 20.0-40.0 % Lymphocytes Normal 25.6 LAB MONO% 2.0-10.0 % Monocytes Normal 8.1 LAB EOS% 1.0-6.0 % Eosinophils Normal 1.2 LAB BAS% 0.0-2.0 % Basophils Normal 0.4 LAB ANC 1.8-7.0 10*3/uL Abs Normal Neutrophile Cnt 4.6 LAB ALC 1.0-4.3 10*3/uL Abs Lymph Cnt Normal 1.8 LAB AMC 0.0-0.8 10*3/uL Abs Monocyte Normal Cnt 0.6 LAB AEC 0.0-0.5 10*3/uL Abs Eosin Cnt Normal 0.1 LAB ABC 0.0-0.2 10*3/uL Abs Baso Cnt Normal 0.0 Performed By: #### HEMDF, CMP3, LIPA4 #### [facility] [address] [place] [address] COMP METABOLIC PANEL Collected: 11/11/2017 Status: F Source: [employer] 7:19 PM SYSTEM REPOSITORY TYPE CODE TESTS RESULT OUT OF RANGE REFERENCE UNITS LAB NA3 137-145 mmol/L Sodium Normal 142 LAB K3 3.5-5.1 mmol/L Low Potassium 3.3 LAB CL3 98-107 mmol/L High Chloride 108 LAB CO23 22-30 mmol/L Carbon Normal Dioxide 23 LAB ANIN3 NA Anion Gap 11 LAB GLUC3 70-100 mg/dL Glucose Normal 91 LAB BUN3 7-20 mg/dL Urea Normal Nitrogen 9 LAB CRET3 0.52-1.25 mg/dL Normal Creatinine 0.88 LAB GF3BR >60 mL/min eGFR > 60.0 LAB GF3WR >60 mL/min eGFR OTHER > 60.0 Result Comment: Source- MDRD equation with creatinine calibration to IDMS(NKDEP) eGFR not recommended for drug dose adjustment LAB CA3 8.4-10.4 mg/dL Calcium Normal 8.9 LAB ALB3 3.5-5.0 g/dL Albumin, Serum Normal 4.2 LAB TP3 6.3-8.2 g/dL Total Protein Normal 7.6 LAB BILT3 0.2-1.3 mg/dL Normal Bilirubin,Total 0.2 LAB ALKP3 38-126 U/L Alkaline Normal Phosphatase 64 LAB ALT3 13-69 U/L ALT (SGPT) Normal 42 LAB AST3 15-46 U/L High AST (SGOT) 81 Performed By: #### HEMDF, CMP3, LIPA4 #### [facility] [address] [place] [address] LIPASE Collected: 11/11/2017 Status: F Source: [facility] 7:19 PM SYSTEM REPOSITORY TYPE CODE TESTS RESULT OUT OF RANGE REFERENCE UNITS LAB LIPA4 23-300 U/L Normal Lipase 121 Performed By: #### HEMDF, CMP3, LIPA4 #### [facility] [address] [place] [address] URINALYSIS,MACRO Collected: 11/11/2017 Status: F Source: [facility] 6:42 PM SYSTEM REPOSITORY TYPE CODE TESTS RESULT OUT OF RANGE REFERENCE UNITS LAB APPUR Clear NA Appearance CLEAR LAB COLUR Lt. Yellow NA Color YELLOW LAB USG 1.005-1.030 NA Specific Abnormal [place],Urine >= 1.030 Alert LAB UPH 5.0-8.0 NA Normal pH,Urine 5.5 LAB ULUK Negative NA Leukocytes TRACE LAB UNIT Negative NA Nitrites NEGATIVE LAB UPRO Negative mg/dL Total Protein,Urine TRACE LAB UGLU Negative mg/dL Glucose,Urine NEGATIVE LAB UKET Negative mg/dL Ketone,Urine TRACE LAB UURO 0-1 mg/dL Urobilinogen 0.2 LAB UBIL Negative NA Bilirubin,Ur 1 + LAB UBLD Negative {RBC}/uL Occult Blood,Ur 3 + Performed By: #### UAMAC, HCGUR, UAMIC #### [facility] [address] [place] [address] HCG,URINE QUAL Collected: 11/11/2017 Status: F Source: [facility] 6:42 PM SYSTEM REPOSITORY TYPE CODE TESTS RESULT OUT OF REFERENCE UNITS RANGE LAB HCGUR Negative NA Negative HCG,Urine Qual Result Comment: is the most common reason for HCG in urine, although choriocarcinoma, hydatidiform mole, and certain nontropho- blastic malignancies also result in detectable urinary HCG levels. Sensitivity = 20mIU/mL. Performed By: #### UAMAC, HCGUR, UAMIC #### [facility] [address] [place] [address] URINALYSIS,MICROSCOPIC Collected: Status: F Source: [facility] 11/11/2017 6:42 PM HEALTH SYSTEM REPOSITORY TYPE CODE TESTS RESULT OUT OF REFERENCE UNITS RANGE LAB VOLUR NA 12 Volume,Urine ml LAB WBCU 0-5 /[HPF] 11 WBC,Urine - 25 LAB RBCU 0-2 /[HPF] 51 RBC,Urine - 100 LAB EPIU 3-5 /[HPF] 51 Epithelial Cells - 100 LAB JINA Negative NA Bacteria Moderate (6-50) LAB MUC Negative NA Mucous Threads Moderate Performed By: #### UAMAC, HCGUR, UAMIC #### [facility] [employer] [facility] [address] [place] [address] Observed: 11/11/2017 Status: F Source: [facility] CULTURE URINE 6:42 PM SYSTEM REPOSITORY Order Comment: Specimen Source Comment:Urine, clean catch CULTURE URINE --> Status: F Normal urogenital justo present. 1 Organism Streptococcus agalactiae (Group B) 50,000-90,000 CFU/ml Susceptibility testing not routinely performed. Group B streptococcus is universally susceptible to beta-lactam antibiotics and vancomycin. If patient is beta-lactam allergic, please call [facility] Microbiology lab ([phone]) within 2 days to request susceptibility testing. If isolated from urine, Group B strep may indicate colonization or infection. Performed By: #### C/UR #### [facility] [employer] [facility] [address] [place] [address] URINALYSIS, COMPLETE Collected: 11/11/2017 Status: F Source: [facility] 1:57 PM [facility] REPOSITORY Order Comment: Order Date: 11/11/17 Has pt arrived? Y How was Urine Obtained? PET CARE ATTENDANT TO SPECIFY TYPE CODE TESTS RESULT OUT OF RANGE REFERENCE UNITS LAB L400.3000 Yellow COLOR Normal Yellow LAB L400.3050 Clear Normal CLARITY Sl. Cloudy LAB L400.3200 Normal mg/dl Normal GLUCOSE, UR Normal LAB L400.3300 Negative mg/dL Normal BILIRUBIN URINE Negative LAB L400.3400 Negative mg/dl Normal KETONE UR Negative LAB L400.3465 1.002-1.030 Normal SP.GR. DIPSTX 1.020 LAB L400.3550 5.0 - 8.0 pH UR Normal 6.0 LAB L400.3600 Negative mg/dl High PROT 30 DIPSTX LAB L400.3700 Normal mg/dl Normal UROBILI Normal LAB L400.3750 Negative Normal NITRITE UR Negative LAB L400.3780 Negative /ul High OCCULT BLOOD-UR 250 LAB L400.3800 Negative /ul High LEUK ESTERASE 500 LAB L400.4050 0-5 /hpf WBC Normal >100 SEEN LAB L400.4100 0-5 /hpf Normal RBC-UA 25-50 SEEN LAB L400.4150 5-10 /hpf SQUAM Normal EPI 5-10 SEEN LAB L400.4300 None Seen /hpf Normal BACTERIA RARE LAB L400.4350 <or=2+ /hpf 1+ Normal MUCUS, URINE Performed By: #### L400.0001 #### [facility] [address] [place], [address] PROGRESS Observed: 11/05/2017 Status: COMPLETED Source: [place] 1:09 PM [facility] REPOSITORY HNO ID: [id number] Author: Lulu Zamorano Service: (none) Author Type: Physician Type: Progress Notes Filed: 11/06/2017 4:12 PM Note Text: Neurology Follow-up Visit ASSESSMENT: 27 year old female with history significant for depression, anxiety, with chronic intractable migraine. Migraines are under great control. Prior to starting Botox she was having daily migraines with daily Excedrin use. This has all essentially resolved since starting Botox and is still effective with minimal to no migraines. Repeat Botox today. Acute therapy for her migraines has been problematic. She has not tolerated multiple triptans including Amerge. Now cannot take NSAIDs due to gastritis and ulcer. Continue Tylenol. Continue Cymbalta for anxiety and migraines. Very occasional Xanax for breakthrough anxiety. Discussed is not a long-term solution and have recommended she see psychiatry in the past. Advised Xanax is not to be used for insomnia. Gave 30 tablets and no more for 3 months. Did not tolerate trazodone for insomnia, melatonin not effective. On gabapentin in the past for migraines and made her tired. Will restart for migraines, fibromyalgia, and insomnia. Start 300 mg QHS and increase as needed and tolerated to max 900 mg QHS. Discussed improving her diet, cutting out the Monster drinks, living healthier lifestyle. Discussed how caffeine exacerbates her migraines and insomnia. Also episodic hematuria. Has punctate kidney stones chronically. Needs follow-up with urology, not seen since Dr. Johnson left. Advised the Monster drinks likely exacerbate this problem too. ?? PLAN: ---> Botox today ---> start gabapentin ---> minimal Xanax. Continue Cymbalta. ?? ? --->?Follow-up: 3 months Total time in minutes spent with patient: 25 (not including procedure) with more than 50% of the time spent in patient education/counselling/coordinating care with the patient and /or family. Labs: Component Latest Ref Rng AND Units 11/01/2017 WBC 3.70 - 11.00 k/uL 8.15 RBC 3.90 - 5.20 m/uL 4.19 Hemoglobin 11.5 - 15.5 g/dL 13.3 Hematocrit 36.0 - 46.0 % 40.1 MCV 80.0 - 100.0 fL 95.7 MCH 26.0 - 34.0 pG 31.7 MCHC 30.5 - 36.0 g/dL 33.2 RDW-CV 11.5 - 15.0 % 12.2 Platelet Count 150 - 400 k/uL 343 MPV 9.0 - 12.7 fL 9.9 Neut% % 57.6 Abs Neut (ANC) 1.45 - 7.50 k/uL 4.70 Lymph% % 33.3 Abs Lymph 1.00 - 4.00 k/uL 2.71 Hardy% % 7.1 Abs Hardy <0.87 k/uL 0.58 Eosin% % 1.6 Abs Eosin <0.46 k/uL 0.13 Baso% % 0.4 Abs Baso <0.11 k/uL 0.03 Protein, Total 6.3 - 8.0 g/dL 7.5 Albumin 3.9 - 4.9 g/dL 4.3 Calcium 8.5 - 10.2 mg/dL 9.3 Bilirubin, Total 0.2 - 1.3 mg/dL 0.1 (L) Alkaline Phosphatase 32 - 117 U/L 75 AST 13 - 35 U/L 19 Glucose 74 - 99 mg/dL 71 (L) BUN 7 - 21 mg/dL 8 Creatinine 0.58 - 0.96 mg/dL 0.84 Sodium 136 - 144 mmol/L 141 Potassium 3.7 - 5.1 mmol/L 3.7 Chloride 97 - 105 mmol/L 102 CO2 22 - 30 mmol/L 27 Anion Gap 9 - 18 mmol/L 12 ALT 7 - 38 U/L 17 eGFR- >60 eGFR-All Other Races . >60 Color Yellow Yellow Appearance (U) Clear Hazy (A) Glucose, Urine Negative mg/dL Negative Bilirubin, Urine Negative Negative Ketones, Urine Negative Negative Specific [place], Ur 1.001 - 1.029 1.015 Hemoglobin/Blood,Ur Negative Large (A) pH, Urine 5.0 - 8.0 7.0 Protein, Urine Negative mg/dL Negative Urobilinogen 0.2 - 1.0 0.2 Nitrites Negative Negative Leukest Negative Negative WBC, Urine 0 - 5 /HPF 0-5 RBC, Urine 0 - 3 /HPF 10-30 (A) Cast 0 /LPF SEE COMMENT Bacteria 0 /HPF Few (A) Epithelial Cells /HPF SEE COMMENT Lipase 16 - 61 U/L 37 Beta HCG, Quantitative For ED Use <5.0 mU/mL 0.1 Interval Hx: Botox delayed by work schedule. New job now. More headaches because she is late. Mild headaches daily. No bad migraines lately. Not sleeping well lately due to stress. Drinking multiple Monster drinks per day. Still getting anxiety. Not sleeping well. Tried taking trazodone prescribed years ago again and doesn't like it. Took gabapentin years ago for migraine prevention. Was stopped abruptly when she changed PCP. We didn't restart it because it made her tired. Reports diffuse aching pain worse after work. Has prior diagnosis of fibromyalgia. Abdominal pain last weekend. Seen in ED x2. Will see Dr. Holt later this month. Cannot take NSAIDs, EGD showed gastritis, ulcer. Taking only Tylenol. Still episodes of hematuria. No urologist since Dr. Johnson left. Current Outpatient Prescriptions: ondansetron orally disintegrating (ZOFRAN ODT) 4 mg disintegrating tablet Take 1 tablet by mouth every 6 hours as needed. ALPRAZolam (XANAX) 0.5 mg tablet take 1/2 to 1 tablet by mouth three times a day if needed anxiety promethazine (PHENERGAN) 25 mg tablet take 1 tablet by mouth every 6 hours if needed acetaminophen (TYLENOL) 500 mg tablet Take 500 mg by mouth every 8 hours as needed. DULoxetine (CYMBALTA) 60 mg capsule Take 1 capsule by mouth once daily. medroxyPROGESTERone (DEPO-PROVERA) 150 mg/mL syrg Inject 1 mL intramuscularly every 12 weeks. dicyclomine (BENTYL) 20 mg tablet Take 1 tablet by mouth every 6 hours. acidophilus-pectin, citrus (ACIDOPHILUS PROBIOTIC) 100 million- 10 cell-mg cap Take by mouth. Omeprazole (PRILOSEC) 40 mg capsule Take 1 capsule by mouth twice daily. Current Facility-Administered Medications: onabotulinum toxin type A 200 Units injection (BOTOX) 200 Units INTRAMUSCULAR q 3 MONTHS Exam: BP 112/98 (BP Site: Left Arm, BP Position: Sitting, BP Cuff Size: Regular Adult) Pulse 88 Resp 16 Ht 154.9 cm (5' 1) Wt 61.2 kg (135 lb) SpO2 100% BMI 25.51 kg/m? GEN: Alert. NAD. Normal affect. Cooperative. HEENT: No rhinorrhea, lacrimation or conjunctival injection. Normal mucosa. NECK/BACK: Supple EXT: No cyanosis. No edema. No erythema. ?? NEUROLOGICAL: MENTAL STATUS: A+O x 3. Attentive. Thought process and content unremarkable. Follows commands appropriately. Speech fluent. ?? CN: II: Pupils equal III, IV, : EOMI. No ptosis present. VII: Face symmetric. VIII: No nystagmus. XI: Symmetric shoulder shrug. ? CEREBELLAR: No ataxia or nystagmus. ?? GAIT: Stable primary gait. [facility] Neurotoxin Visit Date: November 05, 2017 Name: Lakesha Del Cid Historical/ Initial Dose agnosis: chronic intractable migraine Date of Diagnosis:09/29/2011 Date of 1st Treatment: 01/05/2013 Type of Neurotoxin: Botox: J0585 Total amount injected: 155?units What other treatments have been tried and failed: Medications Effexor, Neurontin, amitriptyline. Currently taking Cymbalta. Cannot take Topamax due to nephrolithiasis. Estimated Duration of treatment: Will reassess after 1year Frequency of treatment: 90days Last Injection Notes Date of last Injection:05/25/2017 Type of Neurotoxin: Botox: J0585 Total amount injected: 155 units Dilution: NS 2:1 Administered with EMG guidance: No Assessment Special features: previous chronic migraine with 15 or more KRUEGER days per month Functional limitations (current): 1(mild) Pain (current): No Effectiveness of last injection:99% Latency: Wearing off since last treatment: no Side effects related to last injection: None Time Out: INFORMED CONSENT Lakesha Del Cid Medical Record: [id number] Procedure: Botulinum toxin injection The risks, benefits and anticipated outcomes of the procedure, the risks and benefits of the alternatives to the procedure and the roles and tasks of the personnel to be involved were discussed with the patient and the patient consents to the procedure and agrees to proceed. I verify that I personally obtained Lakesha Del Cid's consent. Lulu Zamorano MD November 05, 2017 1:09 PM Dept of NEUROLOGY UNIVERSAL PROTOCOL / SAFETY CHECKLIST Sign in Communication: Completed Time Out: Team Confirms the Correct Patient, Correct Procedure, Correct Site and Site Marking, Correct Position (if applicable), Prep and Dry Time (if applicable). Time: 0710 Affirmation of Time Out: YES Sign Out Discussion: Completed Lulu Zamorano MD Current Injection Note Type of Neurotoxin: Botox: J0585 Total Amount drawn up: 200 units Total amount injected: 155 units Total amount wasted: 45 units Dilution: NS 2:1 Administered with EMG guidance: No Injection Site: Muscle Right Left # of Injection Sites Per Side Total Units Chief Accountant 5 5 1 10 Procerus ? 1 midline (5u) 5 Frontalis 10 10 2 20 Temporalis 20 20 4 40 Occipitalis/Sub 15 15 3 30 Cervical PSPs 10 10 2 20 Trapezius 15 15 3 30 Lot#: [id number] Exp Date02/2020 Lot#: [id number] Exp Date04/2020 Future plan of care: Follow up: 3 months Neurotoxin Change: No Dose Change: No Lulu Zamorano M.D. [facility] [place] Department [facility] cc: SELF Braxton Holt MD [address] [place] [address] CNOV Observed: 11/05/2017 Status: COMPLETED Source: [place] 12:40 PM [facility] REPOSITORY Office Visit (NEURMM) LAKESHA DEL CID ([id number]) 1990 DAVE Date Time Provider Department 11/05/17 12:40 PM LULU ZAMORANO During your visit today, we recorded the following information about you: Pulse Respiration Blood pressure Weight 88/minute 16/minute 112/98 61.2 kg Height 1.549 m Lulu Zamorano MD 11/06/2017 4:12 PM Signed Neurology Follow-up Visit ASSESSMENT: 27 year old female with history significant for depression, anxiety, with chronic intractable migraine. Migraines are under great control. Prior to starting Botox she was having daily migraines with daily Excedrin use. This has all essentially resolved since starting Botox and is still effective with minimal to no migraines. Repeat Botox today. Acute therapy for her migraines has been problematic. She has not tolerated multiple triptans including Amerge. Now cannot take NSAIDs due to gastritis and ulcer. Continue Tylenol. Continue Cymbalta for anxiety and migraines. Very occasional Xanax for breakthrough anxiety. Discussed is not a long-term solution and have recommended she see psychiatry in the past. Advised Xanax is not to be used for insomnia. Gave 30 tablets and no more for 3 months. Did not tolerate trazodone for insomnia, melatonin not effective. On gabapentin in the past for migraines and made her tired. Will restart for migraines, fibromyalgia, and insomnia. Start 300 mg QHS and increase as needed and tolerated to max 900 mg QHS. Discussed improving her diet, cutting out the Monster drinks, living healthier lifestyle. Discussed how caffeine exacerbates her migraines and insomnia. Also episodic hematuria. Has punctate kidney stones chronically. Needs follow-up with urology, not seen since Dr. Johnson left. Advised the Monster drinks likely exacerbate this problem too. ?? PLAN: ---> Botox today ---> start gabapentin ---> minimal Xanax. Continue Cymbalta. ?? ? --->?Follow-up: 3 months Total time in minutes spent with patient: 25 (not including procedure) with more than 50% of the time spent in patient education/counselling/coordinating care with the patient and /or family. Labs: Component Latest Ref Rng AND Units 11/01/2017 WBC 3.70 - 11.00 k/uL 8.15 RBC 3.90 - 5.20 m/uL 4.19 Hemoglobin 11.5 - 15.5 g/dL 13.3 Hematocrit 36.0 - 46.0 % 40.1 MCV 80.0 - 100.0 fL 95.7 MCH 26.0 - 34.0 pG 31.7 MCHC 30.5 - 36.0 g/dL 33.2 RDW-CV 11.5 - 15.0 % 12.2 Platelet Count 150 - 400 k/uL 343 MPV 9.0 - 12.7 fL 9.9 Neut% % 57.6 Abs Neut (ANC) 1.45 - 7.50 k/uL 4.70 Lymph% % 33.3 Abs Lymph 1.00 - 4.00 k/uL 2.71 Hardy% % 7.1 Abs Hardy <0.87 k/uL 0.58 Eosin% % 1.6 Abs Eosin <0.46 k/uL 0.13 Baso% % 0.4 Abs Baso <0.11 k/uL 0.03 Protein, Total 6.3 - 8.0 g/dL 7.5 Albumin 3.9 - 4.9 g/dL 4.3 Calcium 8.5 - 10.2 mg/dL 9.3 Bilirubin, Total 0.2 - 1.3 mg/dL 0.1 (L) Alkaline Phosphatase 32 - 117 U/L 75 AST 13 - 35 U/L 19 Glucose 74 - 99 mg/dL 71 (L) BUN 7 - 21 mg/dL 8 Creatinine 0.58 - 0.96 mg/dL 0.84 Sodium 136 - 144 mmol/L 141 Potassium 3.7 - 5.1 mmol/L 3.7 Chloride 97 - 105 mmol/L 102 CO2 22 - 30 mmol/L 27 Anion Gap 9 - 18 mmol/L 12 ALT 7 - 38 U/L 17 eGFR- >60 eGFR-All Other Races . >60 Color Yellow Yellow Appearance (U) Clear Hazy (A) Glucose, Urine Negative mg/dL Negative Bilirubin, Urine Negative Negative Ketones, Urine Negative Negative Specific [place], Ur 1.001 - 1.029 1.015 Hemoglobin/Blood,Ur Negative Large (A) pH, Urine 5.0 - 8.0 7.0 Protein, Urine Negative mg/dL Negative Urobilinogen 0.2 - 1.0 0.2 Nitrites Negative Negative Leukest Negative Negative WBC, Urine 0 - 5 /HPF 0-5 RBC, Urine 0 - 3 /HPF 10-30 (A) Cast 0 /LPF SEE COMMENT Bacteria 0 /HPF Few (A) Epithelial Cells /HPF SEE COMMENT Lipase 16 - 61 U/L 37 Beta HCG, Quantitative For ED Use <5.0 mU/mL 0.1 Interval Hx: Botox delayed by work schedule. New job now. More headaches because she is late. Mild headaches daily. No bad migraines lately. Not sleeping well lately due to stress. Drinking multiple Monster drinks per day. Still getting anxiety. Not sleeping well. Tried taking trazodone prescribed years ago again and doesn't like it. Took gabapentin years ago for migraine prevention. Was stopped abruptly when she changed PCP. We didn't restart it because it made her tired. Reports diffuse aching pain worse after work. Has prior diagnosis of fibromyalgia. Abdominal pain last weekend. Seen in ED x2. Will see Dr. Holt later this month. Cannot take NSAIDs, EGD showed gastritis, ulcer. Taking only Tylenol. Still episodes of hematuria. No urologist since Dr. Johnson left. Current Outpatient Prescriptions: ondansetron orally disintegrating (ZOFRAN ODT) 4 mg disintegrating tablet Take 1 tablet by mouth every 6 hours as needed. ALPRAZolam (XANAX) 0.5 mg tablet take 1/2 to 1 tablet by mouth three times a day if needed anxiety promethazine (PHENERGAN) 25 mg tablet take 1 tablet by mouth every 6 hours if needed acetaminophen (TYLENOL) 500 mg tablet Take 500 mg by mouth every 8 hours as needed. DULoxetine (CYMBALTA) 60 mg capsule Take 1 capsule by mouth once daily. medroxyPROGESTERone (DEPO-PROVERA) 150 mg/mL syrg Inject 1 mL intramuscularly every 12 weeks. dicyclomine (BENTYL) 20 mg tablet Take 1 tablet by mouth every 6 hours. acidophilus-pectin, citrus (ACIDOPHILUS PROBIOTIC) 100 million- 10 cell-mg cap Take by mouth. Omeprazole (PRILOSEC) 40 mg capsule Take 1 capsule by mouth twice daily. Current Facility-Administered Medications: onabotulinum toxin type A 200 Units injection (BOTOX) 200 Units INTRAMUSCULAR q 3 MONTHS Exam: BP 112/98 (BP Site: Left Arm, BP Position: Sitting, BP Cuff Size: Regular Adult) Pulse 88 Resp 16 Ht 154.9 cm (5' 1) Wt 61.2 kg (135 lb) SpO2 100% BMI 25.51 kg/m? GEN: Alert. NAD. Normal affect. Cooperative. HEENT: No rhinorrhea, lacrimation or conjunctival injection. Normal mucosa. NECK/BACK: Supple EXT: No cyanosis. No edema. No erythema. ?? NEUROLOGICAL: MENTAL STATUS: A+O x 3. Attentive. Thought process and content unremarkable. Follows commands appropriately. Speech fluent. ?? CN: II: Pupils equal III, IV, : EOMI. No ptosis present. VII: Face symmetric. VIII: No nystagmus. XI: Symmetric shoulder shrug. ? CEREBELLAR: No ataxia or nystagmus. ?? GAIT: Stable primary gait. [place] Disorders Neurotoxin Visit Date: November 05, 2017 Name: Lakesha Del Cid Historical/ Initial Dose agnosis: chronic intractable migraine Date of Diagnosis:09/29/2011 Date of 1st Treatment: 01/05/2013 Type of Neurotoxin: Botox: J0585 Total amount injected: 155?units What other treatments have been tried and failed: Medications Effexor, Neurontin, amitriptyline. Currently taking Cymbalta. Cannot take Topamax due to nephrolithiasis. Estimated Duration of treatment: Will reassess after 1year Frequency of treatment: 90days Last Injection Notes Date of last Injection:05/25/2017 Type of Neurotoxin: Botox: J0585 Total amount injected: 155 units Dilution: NS 2:1 Administered with EMG guidance: No Assessment Special features: previous chronic migraine with 15 or more KRUEGER days per month Functional limitations (current): 1(mild) Pain (current): No Effectiveness of last injection:99% Latency: Wearing off since last treatment: no Side effects related to last injection: None Time Out: INFORMED CONSENT Lakesha Del Cid Medical Record: [id number] Procedure: Botulinum toxin injection The risks, benefits and anticipated outcomes of the procedure, the risks and benefits of the alternatives to the procedure and the roles and tasks of the personnel to be involved were discussed with the patient and the patient consents to the procedure and agrees to proceed. I verify that I personally obtained Lakesha Del Cid's consent. Lulu Zamorano MD November 05, 2017 1:09 PM Dept of NEUROLOGY UNIVERSAL PROTOCOL / SAFETY CHECKLIST Sign in Communication: Completed Time Out: Team Confirms the Correct Patient, Correct Procedure, Correct Site and Site Marking, Correct Position (if applicable), Prep and Dry Time (if applicable). Time: 1545 Affirmation of Time Out: YES Sign Out Discussion: Completed Lulu Zamorano MD Current Injection Note Type of Neurotoxin: Botox: J0585 Total Amount drawn up: 200 units Total amount injected: 155 units Total amount wasted: 45 units Dilution: NS 2:1 Administered with EMG guidance: No Injection Site: Muscle Right Left # of Injection Sites Per Side Total Units Chief Accountant 5 5 1 10 Procerus ? 1 midline (5u) 5 Frontalis 10 10 2 20 Temporalis 20 20 4 40 Occipitalis/Sub 15 15 3 30 Cervical PSPs 10 10 2 20 Trapezius 15 15 3 30 Lot#: [id number] Exp Date02/2020 Lot#: [id number] Exp Date04/2020 Future plan of care: Follow up: 3 months Neurotoxin Change: No Dose Change: No Lulu Zamorano M.D. [facility] [place] Department of [facility] cc: SELF Braxton Holt MD [facility] [place] [address] Referring Provider: SELF [200] Allergies As of Date: 11/05/2017 Noted Allergy Reaction BENADRYL (DIPHENHYDRAMINE HCL) 01/15/2015 14 - Other: See Comments KIWI 11/30/2006 METHOCARBAMOL 09/05/2016 14 - Other: See Comments Comments: Causes blisters in the mouth NORCO (HYDROCODONE-ACETAMINOPHEN) 01/20/2017 5 - Intolerance Comments: Worsens migraines NSAIDS (NON-STEROIDAL ANTI-INFLAM*09/24/2017 14 - Other: See Comments Comments: GI bleed/ stomach pain rat [Other] 08/20/2009 REGLAN (METOCLOPRAMIDE HCL) 01/09/2017 1 - Mental Status Change Comments: climbing the morocho Date Reviewed: 11/05/2017 Reviewed by: Yaz García MA - Fully Assessed Reason for Visit: Established Patient [175] Botox Injection [373] Primary Visit Diagnosis:Intractable chronic migraine without aura and without status migrainosus [G43.719] Other Visit Diagnoses:Anxiety [F41.9] Fibromyalgia [M79.7] Psychophysiologic insomnia [F51.04] Kidney stone [N20.0] Order(s):onabotulinum toxin type A 200 Units injection (BOTOX)Disp: Rfl: gabapentin (NEURONTIN) 300 mg capsuleStart 300 mg QHS x5 days then increase to 600 mg QHS x5 days, then 900 mg QHS.Disp: 90 capsuleRfl: 5 ALPRAZolam (XANAX) 0.5 mg tablettake 1/2 to 1 tablet by mouth three times a day if needed anxietyDisp: 30 tabletRfl: 0 Prescriptions as of 11/05/2017 Sig: ALPRAZOLAM 0.5 MG TABLET take 1/2 to 1 tablet by mouth* ONDANSETRON 4 MG DISINTEGRATI* Take 1 tablet by mouth every * PROMETHAZINE 25 MG TABLET take 1 tablet by mouth every * ACETAMINOPHEN 500 MG TABLET Take 500 mg by mouth every 8 * DULOXETINE 60 MG CAPSULE,MATEO* Take 1 capsule by mouth once * MEDROXYPROGESTERONE 150 MG/ML* Inject 1 mL intramuscularly e* DICYCLOMINE 20 MG TABLET Take 1 tablet by mouth every * ACIDOPHILUS 100 MILLION CELL-* Take by mouth. GABAPENTIN 300 MG CAPSULE Start 300 mg QHS x5 days then* OMEPRAZOLE 40 MG CAPSULE,MATEO* Take 1 capsule by mouth twice* Problem List As Of Date 11/05/2017 Noted Resolved Attention deficit disorder [F98.8] INVALID FOR* Foreign body (FB) in soft tissue [M79.5] INVALID FOR*01/09/2017 Viral pericarditis [B33.23] INVALID FOR*01/09/2017 Chest pain of pericarditis [I31.9] INVALID FOR*06/17/2016 Controlled substance agreement signed [Z79.899] INVALID FOR* Fibromyalgia [M79.7] Priority: E Intractable chronic migraine without aura and w*INVALID FOR* Anxiety [F41.9] INVALID FOR* Priority: D Right sided abdominal pain [R10.9] INVALID FOR*08/21/2017 Priority: A Elevated amylase and lipase [R74.8] INVALID FOR* Priority: B Nephrolithiasis [N20.0] INVALID FOR*08/21/2017 Priority: C Vaginal spotting [N93.9] INVALID FOR*08/21/2017 Altered bowel habits [R19.4] INVALID FOR*08/21/2017 More... Right upper quadrant pain [R10.11] INVALID FOR*08/21/2017 More... Drug-seeking behavior [Z76.5] INVALID FOR* Prescriptions ordered this encounter Disp Refills Start End ONABOTULINUMTOXINA 100 UNIT SOLUTION* 11/05/2017 Route: INTRAMUSCULA GABAPENTIN 300 MG CAPSULE 90 c* 5 11/05/2017 02/05/2018 Sig: Start 300 mg QHS x5 days then increase to 600 mg QHS x5 days, then 900 mg QHS. ALPRAZOLAM 0.5 MG TABLET 30 t* 0 11/05/2017 12/06/2017 Class: Print RX Sig: take 1/2 to 1 tablet by mouth three times a day if needed anxiety Medications Discontinued During This Encounter famotidine (PEPCID) 20 mg tablet 20 t* 0 01/31/2017 11/05/2017 Class: Print RX Route: ORAL Sig: Take 1 tablet by mouth twice daily. Patient not taking: Reported on 10/30/2017 Disc: Reason for discontinue is not on file. ibuprofen (MOTRIN) 600 mg tablet 30 t* 1 01/14/2017 11/05/2017 Class: Print RX Route: ORAL Sig: Take 1 tablet by mouth every 6 hours as needed for Pain or Fever. Disc: Reason for discontinue is not on file. ONABOTULINUMTOXINA (BOTOX INJECTION) 11/05/2017 Class: Historical Med Route: INJECTION(UNSPECIFIED PARENTERAL ROUTES) Sig: by INJECTION(UNSPECIFIED PARENTERAL ROUTES) route. Disc: Reason for discontinue is not on file. promethazine (PHENERGAN) 25 mg tablet 15 t* 0 01/31/2017 11/05/2017 Class: Print RX Route: ORAL Sig: Take 1 tablet by mouth every 6 hours as needed. Disc: Reason for discontinue is not on file. ALPRAZolam (XANAX) 0.5 mg tablet 30 t* 0 10/06/2017 11/05/2017 Class: Call Rx Sig: take 1/2 to 1 tablet by mouth three times a day if needed anxiety Disc: Reason for discontinue is not on file. Disposition: Return in about 3 months (around 02/05/2018) for Botox . 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 TECHNIQUE: Sonography of the pelvis was performed by transvaginal and transabdominal (limited) techniques. Images were obtained and stored in a permanent archive. MQ: UFP_1 COMPARISON: 02/25/2016 RESULT: Uterus size: 6.6 x 2.2 x 3.5 cm -Orientation: Anteverted -Myometrium: Normal sonographic appearance. -Endometrial echo complex: 0.3 cm -Cervix: normal Right ovary: 3.6 x 2.0 x 2.0 cm Normal sonographic appearance. Left ovary: 3.2 x 2.1 x 1.6 cm Normal sonographic appearance. Pelvis free fluid: Small amount of free fluid in the posterior cul-de-sac is likely physiologic. Sonographic evidence for ovarian torsion. IMPRESSION: No acute findings. Unremarkable examination. No sonographic evidence for ovarian torsion. Small amount of free fluid in the posterior cul-de-sac is likely physiologic. 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 TECHNIQUE: Sonography of the pelvis was performed by transvaginal and transabdominal (limited) techniques. Images were obtained and stored in a permanent archive. MQ: UFP_1 COMPARISON: 02/25/2016 RESULT: Uterus size: 6.6 x 2.2 x 3.5 cm -Orientation: Anteverted -Myometrium: Normal sonographic appearance. -Endometrial echo complex: 0.3 cm -Cervix: normal Right ovary: 3.6 x 2.0 x 2.0 cm Normal sonographic appearance. Left ovary: 3.2 x 2.1 x 1.6 cm Normal sonographic appearance. Pelvis free fluid: Small amount of free fluid in the posterior cul-de-sac is likely physiologic. Sonographic evidence for ovarian torsion. IMPRESSION: No acute findings. Unremarkable examination. No sonographic evidence for ovarian torsion. Small amount of free fluid in the posterior cul-de-sac is likely physiologic. Auger Supervisor: [facility]Hung Transcribe Date/Time: Nov 01 2017 7:58A Dictated by : MIGUEL ROQUE MD This examination was interpreted and the report reviewed and electronically signed by: MIGUEL ROQUE MD on Nov 01 2017 8:00AM EST [id number] ED PROV NOTE Observed: 11/01/2017 Status: COMPLETED Source: [place] 7:35 AM [facility] OTHER CAMPUS REPOSITORY HNO ID: [id number] Author: Josef Pro MD Service: (none) Author Type: Physician Type: ED Provider Notes Filed: 11/01/2017 8:22 AM Note Text: ED Attending Continuation of Care Note November 01, 2017 7:35 AM Lakesha Del Cid was endorsed to me by Dr. Diony Pro. The patient initially presented to the ED for: RLQ abd pain x 5 d, vomiting/diarrhea; Ms. Del Cid unfortunately suffers from ongoing/chronic (mostly upper) abd pain, which she thinks is different, and has a care plan. She has had similar (to last 5 d) pain previously and it was ovarian cyst, but this is more intense than that. She is getting referred to chronic abd pain clinic (she states via Dr. Holt) and she has seen Dr. Fields for hr payroll coordinator pathology. Signout note reviewed Diagnostics were reviewed. Orellana findings: borderline tachycardia at times, HR 80s at times, BP and temp and O2sat and RR reassuring. La blood urine but no obstructing, some punctate K stone. No UTI. CMP reassuring. Lipase reassuring. WBC and ANC normal. H/H and Plt normal. Negative hcg. CT nothing acute, just the punctate nephrolithiasis. Mild CBD prominence on CT is typical after cholecystectomy and bili 0.1, not c/w choledocholithiasis (sx's aren't either). Awaiting US on sign out. New Physical Exam findings: no distress Clinical Course: awaiting US, will reassess and likely re- refer to abd pain clinic. Plan: US negative. Discussed w/ her at great length. Hopefully, she will f/u w/ abd pain clinic. MD Josef Marroquin MD 11/01/[address] ABD/PEL WO IVCON Observed: 11/01/2017 Status: F Source: [place] 4:21 AM CLINIC OTHER CAMPUS REPOSITORY * * *Final Report* * * DATE OF EXAM: Nov 01 2017 4:21AM [facility] - CT ABD/PEL WO IVCON / PROCEDURE REASON: Kidney stone * * * * Physician Interpretation * * * * EXAMINATION: CT ABDOMEN AND PELVIS WITHOUT IV CONTRAST CLINICAL HISTORY: Right lower quadrant pain. TECHNIQUE: Non-IV contrast imaging of the abdomen and pelvis was performed using standard technique, scanning from just above the dome of the diaphragm to the symphysis pubis. Unenhanced imaging is limited for the evaluation of some intra-abdominal and pelvic pathology. MQ: CTAPWO_3 Contrast: IV: None : ml of CT Radiation dose: Integrated Dose-length product (DLP) for this visit = 385.15 mGy*cm. CT Dose Reduction Employed: Automated exposure control(AEC) and iterative recon COMPARISON: Enhanced abdominopelvic CT, 12/26/2016. FINDINGS: Lower thorax: Unremarkable. Bones: No acute osseous abnormality identified. Body wall/soft tissues: No acute abnormality. Focal gas within the right gluteal subcutaneous tissues likely relates to recent medication injection. Liver: No focal hepatic lesions are identified. Spleen: No significant abnormality. Pancreas: No significant abnormality. Gallbladder: Surgically absent. Somewhat tubular or linear opacity is seen within the proximal gallbladder fossa which presumably relates to postsurgical change. This finding is adjacent to, but not within, the CBD. CBD is mildly prominent, measuring probably 7.5 mm on coronal image 34, typical for status post cholecystectomy, without visualized radiopaque choledocholithiasis or obstructing mass and no appreciable intrahepatic biliary ductal dilatation as imaged. Adrenal Glands: No significant abnormality. Kidneys: No obstructive uropathy or nonobstructing ureteral calculi. There is at least one punctate nonobstructing nephrolith within each kidney, probably several as seen on coronal imaging. Gastrointestinal: No acute specific small bowel abnormality. No acute specific colonic abnormality. The appendix is not unequivocally visualized, however, if present, there is no evidence of appendicitis. Retroperitoneum: No aortic aneurysm or acute retroperitoneal process. Peritoneal cavity: No free intraperitoneal air. Bladder: No significant abnormality. Reproductive: No significant abnormality. Lymphatic: No yeimy abdominopelvic lymphadenopathy. IMPRESSION: No acute specific abdominopelvic process is identified. No obstructive uropathy. Punctate nephrolithiasis bilaterally. Interval cholecystectomy with mild CBD prominence, as discussed. Auger Supervisor: COMPA Transcribe Date/Time: Nov 01 2017 4:52A Dictated by : CRISTY GARNER MD This examination was interpreted and the report reviewed and electronically signed by: CRISTY GARNER MD on Nov 01 2017 5:06AM EST [id number] ED PROV NOTE Observed: 11/01/2017 Status: COMPLETED Source: [place] 4:18 AM CLINIC OTHER CAMPUS REPOSITORY O ID: [id number] Author: Josef Pro MD Service: (none) Author Type: Physician Type: ED Provider Notes Filed: 11/01/2017 6:07 AM Note Text: ED Provider Note Patient Name: Lakesha Del Cid SERVICE DATE: 11/01/17 History Patient presents with: Abdominal Pain: RLQ Nausea AND Vomiting: for 5 days Patient complains of right flank pain, radiating into right lower quadrant for five days now, accompanied by nausea, vomiting, and diarrhea. She was seen at [facility] and had a urinalysis that showed RBCs in her urine and had a plain film that showed no calcifications. It was recommended at that time she have an US to rule out a torsion, but she had to go to work so she left without getting it. She states her pain is sharp and colicky in nature, starts in right flank and radiates to RLQ. She has a care plan and has a history of drug seeking behavior. Patient is on Depo and has not had a period in two years. PAST MEDICAL HISTORY Diagnosis Date - Altered bowel habits 12/22/2016 Added automatically from request for surgery [id number] - Attention deficit disorder without mention of hyperactivity - Chest pain of pericarditis 10/19/2013 - Controlled substance agreement signed 03/08/2014 - Depression and anxiety - Drug-seeking behavior - Elevated amylase and lipase 06/03/2016 - Fibromyalgia - Intractable chronic migraine without aura and without status migrainosus 08/10/2015 - Kidney stones 16 renal stones - monitoring, Dr. Stoner - Migraines Dr. 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 - Right sided abdominal pain 06/01/2016 - Right sided abdominal pain 06/01/2016 - Right upper quadrant pain 01/20/2017 Added automatically from request for surgery [id number] - Vaginal spotting 06/04/2016 - Vaginal spotting 06/04/2016 - Viral pericarditis 10/19/2013 PAST SURGICAL HISTORY Procedure Laterality Date - BOTOX 07/08/2013 - COLONOSCOP W/ OR W/O BRSH SPEC 01/14/2017 Colonoscopy - LAPAROSCOPIC CHOLEYCYSTECTOMY 01/26/2017 Cholecystectomy, lap - ORAL SURGERY PROCEDURE 01/25/2010 [place] Teeth Extraction - PAST SURGICAL HISTORY OF 2012 piercings removed from abdomen - REMOVAL OF TONSILS,<12 Y/O 6yo Tonsillectomy FAMILY HISTORY Problem Relation Age of Onset - Hypertension Father - migraine [Other] [OTHER] Father - kidney stones [Other] [OTHER] Father - COPD Maternal Grandmother - kidney cancer [Other] [OTHER] Paternal Grandfather Social History Social History Main Topics - Smoking status: Never Smoker - Smokeless tobacco: Never Used - Alcohol use Yes Comment: 2 drinks per week - Drug use: No - Sexual activity: Yes Partners: Male control/ protection: Injection Comment: Depo Provera ALLERGIES Allergen Reactions - Benadryl [Diphenhyd* Other: See Comments - [place] - Methocarbamol Other: See Comments Causes blisters in the mouth - [place] [Hydrocodone-* Intolerance Worsens migraines - Nsaids (Non-Steroid* Other: See Comments GI bleed/ stomach pain - Rat [Other] - Reglan [Metoclopram* Mental Status Change climbing the morocho Review of Systems Constitutional: Positive for appetite change. HENT: Negative. Eyes: Negative. Respiratory: Negative. Cardiovascular: Negative. Gastrointestinal: Positive for abdominal pain, diarrhea, nausea and vomiting. Endocrine: Negative. Genitourinary: Positive for flank pain. Skin: Negative. Allergic/Immunologic: Negative. Neurological: Negative. Hematological: Negative. Psychiatric/Behavioral: Negative. Physical Exam BP 109/68 Pulse 86 Temp (Src) 98 (Oral) Resp 16 Ht 5' 1 (1.55m) Wt 136 lb (61.7kg) SpO2 99% BMI 25.71 kg/(m2). Physical Exam Constitutional: She is oriented to person, place, and time. She appears well-developed and well-nourished. HENT: Head: Normocephalic and atraumatic. Right Ear: External ear normal. Left Ear: External ear normal. Nose: Nose normal. Mouth/Throat: Oropharynx is clear and moist. Eyes: Conjunctivae and EOM are normal. Neck: Normal range of motion. Neck supple. Cardiovascular: Normal rate, regular rhythm, normal heart sounds and intact distal pulses. Pulmonary/Chest: Effort normal and breath sounds normal. Abdominal: Soft. She exhibits no distension and no mass. There is tenderness. There is no guarding. Some mild RLQ tenderness Musculoskeletal: Normal range of motion. Neurological: She is alert and oriented to person, place, and time. Skin: Skin is warm and dry. Capillary refill takes less than 2 seconds. Psychiatric: She has a normal mood and affect. Her behavior is normal. Judgment and thought content normal. Nursing note and vitals reviewed. Diagnostic Testing ED Labs Ordered and Reviewed COMP METABOLIC PANEL - Abnormal; Notable for the following: Result Value Ref Range Bilirubin, Total 0.1 (*) 0.2 - 1.3 mg/dL Glucose 71 (*) 74 - 99 mg/dL All other components within normal limits URINALYSIS - Abnormal; Notable for the following: Appearance (U) Hazy (*) Clear Hemoglobin/Blood,Ur Large (*) Negative All other components within normal limits URINE MICROSCOPIC - Abnormal; Notable for the following: RBC, Urine 10-30 (*) 0 - 3 /HPF Bacteria Few (*) 0 /HPF All other components within normal limits LIPASE BLD CBC + DIFF BETA HCG, QUANTITATIVE FOR ED Procedures Medical Decision Making Urinalysis shows 10-30 RBCs, few bacteria,0-5 WBCs, doubt UTI;CT shows No acute specific abdominopelvic process is identified. No obstructive uropathy. Punctate nephrolithiasis bilaterally. Interval cholecystectomy with mild CBD prominence, as discussed. MDM patient reports colicky pain similar to stones she has had in past. She has no hydroureteronephrosis, so doubt pain is coming from this; she also has no evidence of appendicitis, doubt UTI also. Suspect this may be irritable bowel vs ovarian origin; will get US to rule out torsion as recommended by [facility] ED yesterday. If this is negative, would discharge home on Bentyl. ..ED Attending Signout Note Endorsed to Dr. Josef Pro The patient initially presented to the ED for: RLQ pain Pending items Imaging:Ultrasound ovaries to rule out torsion Plan and orellana issues: get US Current clinical impression includes: RLQ pain Josef Pro MD ED Course / Clinical Impression Clinical Impressions as of Nov 01 606 RLQ abdominal pain Plan SIGNATURE: MD Josef Trevino MD 11/01/17 0549 Josef Pro MD 11/01/17 0606 Josef Pro MD 11/01/17 0607 URINALYSIS Collected: 11/01/2017 Status: F Source: [place] 3:35 AM CLINIC OTHER CAMPUS REPOSITORY TYPE CODE TESTS RESULT OUT OF RANGE REFERENCE UNITS LAB UCOL Yellow Color Yellow LAB [facility] Clear Clarity Abnormal Hazy Alert LAB UGLUC Negative mg/dL Glucose, Urine Negative LAB UBIL Negative Bilirubin, Urine Negative LAB UKET Negative Ketones, Urine Negative LAB USPG 1.001-1.029 Specific [place], Ur 1.015 LAB UHGB Negative Abnormal Hemoglobin/Blood, Large Alert Ur LAB UPH 5.0-8.0 pH 7.0 LAB UPROT Negative mg/dL Protein, Urine Negative LAB UUROB 0.2-1.0 Urobilinogen 0.2 LAB UNITR Negative Nitrites Negative LAB ULKEST Negative Leukest Negative Performed By: #### UA, UAMIC #### [facility] [address] [place] [address] URINE MICROSCOPIC Collected: 11/01/2017 Status: F Source: [place] (FOR LAB USE ONLY) 3:35 AM CLINIC OTHER CAMPUS REPOSITORY TYPE CODE TESTS RESULT OUT OF RANGE REFERENCE UNITS LAB UWBC 0-5 /HPF WBC 0-5 LAB URBC 0-3 /HPF Abnormal Alert RBC 10-30 LAB UCAST 0 /LPF Cast SEE COMMENT Result Comment: 0 LAB UBACT 0 /HPF Abnormal Bacteria Alert Few LAB UEPI /HPF Epithelial Cells SEE COMMENT Result Comment: 0-5 Squamous Epithelial Cells Performed By: #### UA, UAMIC #### [facility] [address] [place] [address] CBC AND DIFFERENTIAL Collected: 11/01/2017 Status: F Source: [place] 3:01 AM CLINIC OTHER CAMPUS REPOSITORY TYPE CODE TESTS RESULT OUT OF REFERENCE UNITS RANGE LAB WBC 3.70-11.00 k/uL WBC 8.15 LAB RBC 3.90-5.20 m/uL RBC 4.19 LAB HGB 11.5-15.5 g/dL Hemoglobin 13.3 LAB HCT 36.0-46.0 % Hematocrit 40.1 LAB MCV 80.0-100.0 fL MCV 95.7 LAB MCH 26.0-34.0 pG MCH 31.7 LAB MCHC 30.5-36.0 g/dL MCHC 33.2 LAB RDWCV 11.5-15.0 % RDW-CV 12.2 LAB PLTCT 150-400 k/uL Platelet Count 343 LAB MPV 9.0-12.7 fL MPV 9.9 LAB ANEUT % Neut% 57.6 LAB AANEUT 1.45-7.50 k/uL Abs Neut 4.70 LAB ALYMP % Lymph% 33.3 LAB AALYMP 1.00-4.00 k/uL Abs Lymph 2.71 LAB AMONO % Hardy% 7.1 LAB AAMONO <0.87 k/uL Abs Hardy 0.58 LAB AEOS % Eosin% 1.6 LAB AAEOS <0.46 k/uL Abs Eosin 0.13 LAB ABASO % Baso% 0.4 LAB AABASO <0.11 k/uL Abs Baso 0.03 Performed By: #### CBCDIF, CMP, LIPA, HCGED #### [facility] [address] [facility] [phone] COMP METABOLIC PANEL Collected: 11/01/2017 Status: F Source: [place] 3:01 AM CLINIC OTHER CAMPUS REPOSITORY TYPE CODE TESTS RESULT OUT OF REFERENCE UNITS RANGE LAB TP 6.3-8.0 g/dL Protein, Total 7.5 LAB ALB 3.9-4.9 g/dL Albumin 4.3 LAB CA 8.5-10.2 mg/dL Calcium, Total 9.3 LAB TBIL 0.2-1.3 mg/dL Low Bilirubin, Total 0.1 LAB ALKP 32-117 U/L Alkaline Phosphatase 75 LAB AST 13-35 U/L AST 19 LAB GLU 74-99 mg/dL Low Glucose 71 Result Comment: The [place] [employer] (ADA) provides guidance for cutoff values for fasting glucose and random glucose. The ADA defines fasting as no caloric intake for at least 8 hours. Fas ting plasma glucose results between 100 to 125 mg/dL indicate increased risk for diabetes (prediabetes). Fasting plasma glucose results greater than or equal to 126 mg/dL meet the criteria for diagnosis of diabetes. In the absence of unequivocal hyperglycemia, results should be confirmed by repeat testing. In a patient with classic symptoms of hyperglycemia or hyperglycemic crisis, random plasma glucose results greater than or equal to 200 mg/dL meet the criteria for diagnosis of diabetes. Reference: Standards of Medical Care in Diabetes 2016, [place] [employer]. Diabetes Care. 2016.39(Suppl 1). LAB BUN 7-21 mg/dL BUN 8 LAB CRET 0.58-0.96 mg/dL Creatinine 0.84 LAB NA 136-144 mmol/L Sodium 141 LAB K 3.7-5.1 mmol/L Potassium 3.7 LAB CL 97-105 mmol/L Chloride 102 LAB CO2 22-30 mmol/L CO2 27 LAB AGAP 9-18 mmol/L Anion Gap 12 LAB ALT 7-38 U/L ALT 17 LAB GFRAA eGFR- Amer. >60 LAB GFRNAA . eGFR-All Other Races >60 Result Comment: eGFR (Estimated GFR) Units of measure: mL/min/1.73 meters squared eGFR is derived from the reexpressed MDRD Study equation using the following parameters: serum creatinine, age, gender and race. The creatinine assay has been calibrated to be traceable to IDMS. An eGFR <60 mL/min/1.73m2 for >3 months is consistent with chronic kidney disease. Refer to KDOQI guidelines for clinical interpretation. In patients with unstable renal function, e.g. those with acute kidney injury, the eGFR may not accurately reflect actual GFR. Performed By: #### CBCDIF, CMP, LIPA, HCGED #### [facility] [address] [place], [place] [id number] LIPASE Collected: 11/01/2017 Status: F Source: [place] 3:01 AM [facility] REPOSITORY TYPE CODE TESTS RESULT OUT OF REFERENCE UNITS RANGE LAB LIPA 16-61 U/L Lipase 37 Performed By: #### CBCDIF, CMP, LIPA, HCGED #### [facility] [address] [place], [place] [id number] BETA HCG QUANT, ED Collected: 11/01/2017 Status: F Source: [place] 3:01 AM [facility] [place] REPOSITORY TYPE CODE TESTS RESULT OUT OF REFERENCE UNITS RANGE LAB HCGEDR <5.0 mU/mL Beta HCG 0.1 Quant, ED Result Comment: NEGATIVE Performed By: #### CBCDIF, CMP, LIPA, HCGED #### [facility] [address] [place] [id number] ED NOTE Observed: 11/01/2017 Status: COMPLETED Source: [place] 2:40 AM [facility] OTHER CAMPUS REPOSITORY HNO ID: [id number] Author: Rafia (Rn) Shannan, JORY Service: (none) Author Type: Registered Nurse Type: ED Notes Filed: 11/01/2017 2:41 AM Note Text: Pt presents to the ED with CC of RLQ pain for the past 5 days and n/v. States she was seen at [facility] yesterday for the same thing, doctor wanted to send her here for an U/S but pt refused due to wanting to go to work,. States pain is back to being unbearable and had to return to ED ED PROV NOTE Observed: 10/30/2017 Status: COMPLETED Source: [place] 7:33 PM [facility] REPOSITORY HNO ID: [id number] Author: Sandra Ocampo DO Service: Emergency Medicine Author Type: Physician Type: ED Provider Notes Filed: 10/30/2017 11:39 PM Note Text: ED Provider Note Patient Name: Lakesha Del Cid SERVICE DATE: 10/30/17 History Patient presents with: Abdominal Pain Diarrhea Lakesha Del Cid is a 27 year old female with history of multiple chronic medical problems who presents with RLQ abdominal pain. Patient has taken OTC treatment with no relief of symptoms. - Symptom began 4 days prior to arrival. - Severity: moderate - Timing: constant - Quality: sharp - Pain is exacerbated by palpation. Pain does not radiate. - Pain is not exacerbated by eating. - Symptoms are associated with diarrhea. - Symptoms are not associated with bloody diarrhea, bloody vomiting, chills, constipation, fever, vaginal bleeding and vomiting. - Improved by nothing. - Not improved by OTC medications and time. Patient states she had gradual onset of RLQ pain 3-4 days ago. It has gradually worsened. She went to [facility] yesterday and they did labs and a CT scan and told her she was anemic and that she did not have appendicitis. She states she was going to go back there today, but she called and it was going to be a 2 hour wait, which it was yesterday, as well, so she came here. She notes she was also told she had blood in her urine yesterday. She has a history of kidney stones and states she passes them all the time. She can not tell me if this pain is similar or not, though. No vaginal bleeding or discharge. She notes she does get ovarian cysts and is wondering if that is what is causing her pain. PAST MEDICAL HISTORY Diagnosis Date - Altered bowel habits 12/22/2016 Added automatically from request for surgery [id number] - Attention deficit disorder without mention of hyperactivity - Chest pain of pericarditis 10/19/2013 - Controlled substance agreement signed 03/08/2014 - Depression and anxiety - Drug-seeking behavior - Elevated amylase and lipase 06/03/2016 - Fibromyalgia - Intractable chronic migraine without aura and without status migrainosus 08/10/2015 - Kidney stones 16 renal stones - monitoring, Dr. Stoner - Migraines Dr. 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 - Right sided abdominal pain 06/01/2016 - Right sided abdominal pain 06/01/2016 - Right upper quadrant pain 01/20/2017 Added automatically from request for surgery [id number] - Vaginal spotting 06/04/2016 - Vaginal spotting 06/04/2016 - Viral pericarditis 10/19/2013 PAST SURGICAL HISTORY Procedure Laterality Date - BOTOX 07/08/2013 - COLONOSCOP W/ OR W/O BRSH SPEC 01/14/2017 Colonoscopy - LAPAROSCOPIC CHOLEYCYSTECTOMY 01/26/2017 Cholecystectomy, lap - ORAL SURGERY PROCEDURE 01/25/2010 [place] Teeth Extraction - PAST SURGICAL HISTORY OF 2012 piercings removed from abdomen - REMOVAL OF TONSILS,<12 Y/O 6yo Tonsillectomy FAMILY HISTORY Problem Relation Age of Onset - Hypertension Father - migraine [Other] [OTHER] Father - kidney stones [Other] [OTHER] Father - COPD Maternal Grandmother - kidney cancer [Other] [OTHER] Paternal Grandfather Social History Social History Main Topics - Smoking status: Never Smoker - Smokeless tobacco: Never Used - Alcohol use Yes Comment: 2 drinks per week - Drug use: No - Sexual activity: Yes Partners: Male control/ protection: Injection Comment: Depo Provera ALLERGIES Allergen Reactions - Benadryl [Diphenhyd* Other: See Comments - Kiwi - Methocarbamol Other: See Comments Causes blisters in the mouth - [place] [Hydrocodone-* Intolerance Worsens migraines - Nsaids (Non-Steroid* Other: See Comments GI bleed/ stomach pain - Rat [Other] - Reglan [Metoclopram* Mental Status Change climbing the morocho Review of Systems Constitutional: Negative for chills and fever. HENT: Negative for sore throat and trouble swallowing. Respiratory: Negative for shortness of breath and stridor. Cardiovascular: Negative for chest pain and leg swelling. Gastrointestinal: Positive for abdominal pain and diarrhea. Negative for anal bleeding, blood in stool, constipation, nausea and vomiting. Genitourinary: Negative for dysuria, flank pain, hematuria, vaginal bleeding, vaginal discharge and vaginal pain. Musculoskeletal: Negative for arthralgias and back pain. Skin: Negative for rash and wound. Allergic/Immunologic: Negative for immunocompromised state. Neurological: Negative for weakness and numbness. Psychiatric/Behavioral: Negative for agitation and confusion. Physical Exam BP 115/74 Pulse 96 Temp (Src) 98.4 (Temporal Artery) Resp 18 Ht 5' 1 (1.55m) Wt 136 lb (61.7kg) SpO2 100% BMI 25.71 kg/(m2). Physical Exam Constitutional: She is oriented to person, place, and time. She appears well-developed and well-nourished. HENT: Head: Normocephalic and atraumatic. Eyes: Conjunctivae are normal. No scleral icterus. Neck: Normal range of motion. No JVD present. Cardiovascular: Normal rate, regular rhythm and intact distal pulses. Pulmonary/Chest: Effort normal and breath sounds normal. No stridor. No respiratory distress. Abdominal: Soft. Normal appearance and bowel sounds are normal. She exhibits no distension. There is tenderness in the right lower quadrant. There is rebound. There is no rigidity, no guarding, no CVA tenderness, no tenderness at McBurney's point and negative Rodriguez's sign. Musculoskeletal: She exhibits no edema. Neurological: She is alert and oriented to person, place, and time. Skin: Skin is warm and dry. Capillary refill takes less than 2 seconds. No rash noted. No erythema. Psychiatric: She has a normal mood and affect. Her behavior is normal. Nursing note and vitals reviewed. Diagnostic Testing ED Labs Ordered and Reviewed COMPREHENSIVE METABOLIC PANEL (AK,AV,EU,FV,HL,TANYA,MM,SP) - Abnormal; Notable for the following: Result Value Ref Range Chloride 109 (*) 98 - 107 mEq/L BUN 6 (*) 7 - 25 mg/dL AST 13 (*) 15 - 37 U/L BUN/CREATININE RATIO 7 (*) 10 - 20 All other components within normal limits CBC + AUTO DIFF (AK,AV,EU,FV,HL,TANYA,MM,SP) - Abnormal; Notable for the following: RBC 4.01 (*) 4.20 - 5.40 mil/cmm MCH 31.2 (*) 27.0 - 31.0 pg All other components within normal limits LACTIC ACID / LACTATE (AK,AV,EU,FV,HL,TANYA,MM,SP) - Abnormal; Notable for the following: Lactic Acid 2.1 (*) 0.4 - 2.0 mEq/L All other components within normal limits URINALYSIS WITH MICROSCOPIC (EU,FV,HL,TANYA,MM,SP) - Abnormal; Notable for the following: Hemoglobin, Urine 2+ (*) Negative RBC, Urine >50 (*) 0 - 3 /hpf EP Cells Urine 6-12 (*) 0 - 5 /hpf Bacteria Urine (Manual) FEW (*) None All other components within normal limits LIPASE BLOOD (AK,AV,EU,FV,HL,TANYA,MM,SP) HCG QUALITATIVE URINE (AK,AV,EU,FV,HL,TANYA,MM,SP) MDRD GFR LACTIC ACID / LACTATE (AK,AV,EU,FV,HL,TANYA,MM,SP) Procedures Medical Decision Making MDM Labs, KUB ordered. Patient medicated for pain. WBC normal, lactic mildly elevated, but normal after fluids. Her reported CT scan showed normal appendix yesterday, unable to see this as it is at a different facility, this is per patient's report. I discussed results. She is already aware of the hematuria. I discussed ruling out ovarian torsion. Pain has been constant for 3 days, she had a CT scan yesterday that showed normal appendix (per patient report) and her pain is not improving. She does have a history of ovarian cysts, as well. I discussed transferring her for an ultrasound to rule out torsion. 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 She understands she can get very sick if her ovary is torsed/necrotic. She states she will go to [facility] tomorrow to be checked. She is requesting pain medication and zofran for d/c for tonight. ED Course / Clinical Impression Clinical Impressions as of Oct 31 2327 Right lower quadrant abdominal pain Plan The patient was DISCHARGED: Counseled patient regarding lab results AND radiology results AND suspected diagnosis AND need for follow- up. Discharged home with verbal and written instructions. They were instructed to return as needed for persistent or worsening symptoms or any new concerns. Condition at time of disposition: stable SIGNATURE: Sandra Ocampo, DO Sandra Ocampo, 10/30/17 2339 LACTIC ACID Collected: 10/30/2017 Status: F Source: [facility] 7:32 PM HEALTH SYSTEM REPOSITORY TYPE CODE TESTS RESULT OUT OF REFERENCE UNITS RANGE LAB LLA(LOINC) 0.4-2.0 mEq/L Lactic acid 0.9 Performed By: #### LLA #### [facility] [address] [address] ED NOTE Observed: 10/30/2017 Status: COMPLETED Source: [place] 6:58 PM [facility] REPOSITORY HNO ID: [id number] Author: Lisa Díaz) JORY Pineda Service: Emergency Medicine Author Type: Registered Nurse Type: ED Notes Filed: 10/30/2017 7:03 PM Note Text: Patient informed: the name of medication, why we are giving it, possible side effects, what they may expect to feel, and was offered a chance to ask questions, prior to the administration of Dilaudid. ABDOMEN 1 VIEW Observed: 10/30/2017 Status: F Source: [facility] 6:37 PM HEALTH SYSTEM REPOSITORY Performed at [facility] APPROVED BY: Alfie Boateng MD EXAM TITLE: ABDOMEN 1 VIEW DATE: 10/30/2017 18:03 COMPARISON: 10/08/2017 CLINICAL INDICATION/HISTORY: Hematuria TECHNIQUE: A single view of the abdomen is presented. FINDINGS: No abnormality dilated bowel loops are noted. Large volume retained fecal material throughout the colon There is no abnormal calcifications. The bony structures appear intact. IMPRESSION: There is no evidence of stones or obstruction. ED NOTE Observed: 10/30/2017 Status: COMPLETED Source: [place] 6:28 PM [facility] REPOSITORY HNO ID: [id number] Author: Lisa Díaz) JORY Pineda Service: Emergency Medicine Author Type: Registered Nurse Type: ED Notes Filed: 10/30/2017 6:28 PM Note Text: Patient [facility] with Tech. ED NOTE Observed: 10/30/2017 Status: COMPLETED Source: [place] 6:21 PM [facility] REPOSITORY HNO ID: [id number] Author: Lisa Díaz) JORY Pineda Service: Emergency Medicine Author Type: Registered Nurse Type: ED Notes Filed: 10/30/2017 6:22 PM Note Text: Patient informed: the name of medication, why we are giving it, possible side effects, what they may expect to feel, and was offered a chance to ask questions, prior to the administration of Fentanyl, protonix, zofran. HEMOGRAM/DIFF Collected: 10/30/2017 Status: F Source: [facility] 5:59 PM HEALTH SYSTEM REPOSITORY TYPE CODE TESTS RESULT OUT OF REFERENCE UNITS RANGE LAB LWBC(LOINC 4.8-10.8 thou/cmm ) WBC 6.9 LAB LRBC(LOINC 4.20-5.40 mil/cmm ) Low RBC 4.01 LAB LHGB(LOINC 12.0-16.0 g/dL ) Hgb 12.5 LAB LHCT(LOINC 37.0-47.0 % ) Hct 38.8 LAB LMCV(LOINC 81.0-99.0 fl ) MCV 96.8 LAB LMCH(LOINC 27.0-31.0 pg ) MCH High 31.2 LAB LMCHC(LOIN 32.0-36.0 % C) MCHC 32.2 LAB LRDW(LOINC 11.5-15.9 % ) RDW 11.7 LAB LPLT(LOINC 150-400 thou/cmm ) Platelet 368 LAB LMPV(LOINC 7.1-10.5 fl ) MPV 9.9 LAB LSEGT(LOIN % C) Seg Neutrophil 55.7 LAB LLYMP(LOIN % C) Lymphocyte 35.3 LAB LMNO(LOINC % ) Monocyte 7.6 LAB JAJA(LOINC % ) Eosinophil 1.3 LAB LBASO(LOIN % C) Basophil 0.1 LAB LSEGN(LOIN 3.00-5.67 thou/cmm C) Abs. Neut (ANC) 3.84 LAB LLYMN(LOIN 1.50-3.65 thou/cmm C) Abs. Lymph 2.44 LAB LMONN(LOIN 0.20-1.00 thou/cmm C) Abs. Hardy 0.52 LAB LEOSN(LOIN 0.00-0.41 thou/cmm C) Abs. Eosin 0.09 LAB LBASN(LOIN 0.00-0.08 thou/cmm C) Abs. Baso 0.01 Performed By: #### LCBCD #### [address] [address] COMPREHENSIVE PANEL Collected: 10/30/2017 Status: F Source: [facility] 5:59 PM HEALTH SYSTEM REPOSITORY TYPE CODE TESTS RESULT OUT OF REFERENCE UNITS RANGE LAB LEAD BURNER APPRENTICE(LOINC) 136-145 mEq/L Sodium Blood 139 LAB LK(LOINC) 3.5-5.1 mEq/L Potassium Blood 3.7 LAB LCL(LOINC) 98-107 mEq/L Chloride High Blood 109 LAB LCO2(LOINC 21-32 mEq/L ) CO2 Blood 24 LAB LGLU(LOINC 70-99 mg/dL ) Glucose Blood 96 LAB LBUN(LOINC 7-25 mg/dL ) Low BUN Blood 6 LAB LCREA(LOIN 0.51-0.95 mg/dL C) Creatinine Blood 0.82 LAB LCA(LOINC) 8.5-10.1 mg/dL Calcium Blood 8.9 LAB LALB(LOINC 3.4-5.0 g/dL ) Albumin Blood 3.7 LAB LTP(LOINC) 6.4-8.2 g/dL Total Protein 7.6 LAB LAST(LOINC 15-37 U/L ) Low AST-SGOT Blood 13 LAB LALT(LOINC 14-63 U/L ) ALT-SGPT Blood 23 LAB LALKP(LOIN 46-116 U/L C) Alk Phosphatase 74 LAB LBILT(LOIN 0.2-1.0 mg/dL C) Total Bilirubin 0.2 LAB LANGP(LOIN 8-20 C) Anion Gap 10 LAB LBNCR(LOIN 10-20 C) Low BUN/Creatinine 7 Ratio Performed By: #### LP14 #### [place] [address] LIPASE BLOOD Collected: 10/30/2017 Status: F Source: [facility] 5:59 PM HEALTH SYSTEM REPOSITORY TYPE CODE TESTS RESULT OUT OF REFERENCE UNITS RANGE LAB LLIP(LOINC) 73-393 U/L Lipase Blood 229 Performed By: #### LLIP #### [address] [address] MDRD EGFR Collected: 10/30/2017 Status: F Source: [facility] 5:59 PM HEALTH SYSTEM REPOSITORY TYPE CODE TESTS RESULT OUT OF RANGE REFERENCE UNITS LAB LGFRF(LOINC >60mL/min/1.73m ) 2 eGFR >60 Result Comment: If the patient is , multiply the result by 1.210. Performed By: #### LGFR #### [facility] [address] [address] LACTIC ACID Collected: 10/30/2017 Status: F Source: [facility] 5:59 PM HEALTH SYSTEM REPOSITORY TYPE CODE TESTS RESULT OUT OF REFERENCE UNITS RANGE LAB LLA(LOINC) 0.4-2.0 mEq/L High alert Lactic acid 2.1 Performed By: #### LLA #### [place] [address] ED NOTE Observed: 10/30/2017 Status: COMPLETED Source: [place] 5:43 PM [facility] REPOSITORY HNO ID: [id number] Author: Lisa (Rn) Miriam RN Service: Emergency Medicine Author Type: Registered Nurse Type: ED Notes Filed: 10/30/2017 5:43 PM Note Text: Clean catch urine specimen obtained and sent. ED NOTE Observed: 10/30/2017 Status: COMPLETED Source: [place] 5:38 PM [facility] REPOSITORY HNO ID: [id number] Author: Lisa CabaRn) Miriam RN Service: Emergency Medicine Author Type: Registered Nurse Type: ED Notes Filed: 10/30/2017 5:41 PM Note Text: Patient states four days of RLQ abdominal pain, worse today, increases with movement. States 5 episodes of diarrhea today. States she saw blood in her urine. States one episode of vomiting today. Denies vaginal bleeding or spotting. Went to [facility] yesterday and had - CT scan for appendicitis and was discharged. URINE HCG, QUAL. Collected: 10/30/2017 Status: F Source: [facility] 5:30 PM HEALTH SYSTEM REPOSITORY TYPE CODE TESTS RESULT OUT OF REFERENCE UNITS RANGE LAB LUHCG(LOIN Negative C) HCG, Qual. Negative Urine LAB LSPGR(LOIN 1.005-1.030 C) Specific 1.020 [place], Ur Performed By: #### LHCG2 #### [place] [address] URINALYSIS ROUTINE Collected: 10/30/2017 Status: F Source: [facility] 5:30 PM HEALTH SYSTEM REPOSITORY TYPE CODE TESTS RESULT OUT OF RANGE REFERENCE UNITS LAB LCOLR(LOIN C) Urine Color YELLOW LAB LAPPU(LOIN C) Urine Appearance 2+ (SLT CLOUDY) LAB LGLUR(LOIN Negative C) Glucose Urine NEGATIVE LAB LKETO(LOIN Negative C) Ketone Urine NEGATIVE LAB LHGBU(LOIN Negative C) Abnormal Hemoglobin,Urin 2+ e LAB LPRTU(LOIN Negative C) Protein Urine NEGATIVE LAB LNITR(LOIN Negative C) Nitrites Urine NEGATIVE LAB LBILU(LOIN Negative C) Bilirubin Urine NEGATIVE LAB LSPG(LOINC 1.005-1.030 ) Specific 1.020 [place], Ur LAB LPHUR(LOIN 5.0-8.0 C) pH,Urine 6.5 LAB LUROB(LOIN 0.0-1.0 EU/dL C) Urobilinogen,Ur 0.2 LAB LLEUK(LOIN Negative C) Leukocytes NEGATIVE Esterase LAB LWBCU(LOIN 0-5 /hpf C) WBC, Urine 1-3 LAB LRBCU(LOIN 0-3 /hpf C) Abnormal RBC,Urine >50 LAB LEPIT(LOIN 0-5 /hpf C) Ep Abnormal Cells Urine 6-12 LAB LBACT(LOIN None C) Abnormal Bacteria Urine FEW Performed By: #### LURIN #### [facility] [address] [address] EMERGENCY DEPARTMENT Observed: 10/30/2017 Status: F Source: [place] SUMMARY 1:20 AM [facility] REPOSITORY [facility] Medical Records Department [address] [place] [address] Emergency Department Summary 10/29/17 2212 MR#: [id number] Acct: [id number] Name: LAKESHA DEL CID Jayy Rep #: [id number] : 1990 27 From: Justice Gonzalez MD PCP: OUT OF TOWN DOCTOR Status: DEP ER - ER Visit Summary Date of Service: 10/29/17 Chief Complaint: Abdominal pain History of Present Illness: The patient is a [address] Acuña, Dr. Hutson, and Dr. marte. She reports that she has lower right abdominal pain began 3 days ago. Is gradually gotten worse. It is a constant aching pain with stabbing episodes. She reports Zeta 10 hours and 5-10 currently. Is worsened by walking or urinating. She is taken Bentyl and Tylenol without relief. She has had nausea without vomiting. She reports that she has chronic diarrhea twice a day usually and has had this 4 times a day. No blood in her stools or black tarry stools. No dysuria or frequency. Physical Examination: Vitals: Stable. Afebrile. General: Well-nourished and well-developed. Head: Normocephalic atraumatic. Neck: Supple, no lymphadenopathy. No JVD. Nontender. Cardiovascular: Regular rate and rhythm. No murmurs. Respiratory: No respiratory distress. Clear to auscultation bilaterally. Abdominal: Soft, moderate right lower quadrant tenderness to palpation, nondistended, normal bowel sounds. No guarding, rebound, or peritoneal signs. Back: Nontender. Extremities: Nontender, no edema. Skin: Normal color, no rash. Neurologic: Alert and oriented 3. Cranial nerves II through XII are intact. Normal strength and sensation. Psych: Normal affect. Test Results: CBC is remarkable for an H AND H 11 point and 36.8. Chem-7 is more for chloride 109. UA is marked for greater than 100 red blood cells and rare bacteria. test is negative. CT flank shows bilateral nephrolithiasis without any ureterolithiasis. No evidence for acute appendicitis. No hydronephrosis or hydroureter. Emergency Department Course and Treatment: Patient was treated the dose of Dilaudid and Zofran IV. She is resting comfortably. Treatment Plan: This is the patient's 12th visit to the emergency department in 2018. I do not think that giving her further opiate medications is in her best interest. She will be discharged with symptomatic care. Use Tylenol for pain. Follow-up with her primary care physician 1-2 days if not improving. Disposition: To home in improved and stable condition. Impression: 1. Abdominal pain, uncertain cause. This note was generated with Vida[employer] dictation software. It may contain incorrect words, spelling, and punctuation that were not noted in review of the chart prior to signing ED Disposition - Plan for ED Patient: Disposition: Home or Assisted Living Chief Complaint: Abd Pain Instructions: ED Abdominal Pain Unkn Cause Referrals: Doctor,Your [STAFF PHYSICIAN] - 1-2 Days if not improving What to do if you have Problems For any increased pain, shortness of breath, bleeding, nausea or vomiting, chest pain, or any unexpected problems, contact your Primary Care Provider. Call [facility] ([phone]) or report to the closest Emergency Room. Call 911 if necessary. 10/30/17 0120 <Electronically signed by Justice Gonzalez MD> Date Justice Gonzalez MD Cosigner Signature (If Indicated): Date CC: OUT OF TOWN DOCTOR CBC W/DIFF, AUTOMATED Collected: 10/29/2017 Status: F Source: [place] 8:30 PM [facility] REPOSITORY TYPE CODE TESTS RESULT OUT OF RANGE REFERENCE UNITS LAB L100.1000 4.4-11.0 K/mm3 Normal WBC 6.4 LAB L100.1200 4.2-5.4 M/mm3 Low RBC 3.84 LAB L100.1300 12.0-15.0 g/dl Low HGB 11.8 LAB L100.1400 37-47 % Low HCT 36.8 LAB L100.1500 81-99 fL Normal MCV 95.8 LAB L100.1600 27.0-32.0 pg Normal MCH 30.7 LAB L100.1700 32-36 g/gl Normal MCHC 32.1 LAB L100.1810 11.6-14.6 % Normal RDW CV 12.5 LAB L100.1820 35.1-43.9 fl Normal RDW SD 43.6 LAB L100.1900 150-450 K/mm3 Normal PLT 334 LAB L100.2000 6.2-12.0 fl Normal MPV 9.3 LAB L100.2100 47-70 % Normal NEUT% 57.4 LAB L100.2200 19-41 % Normal LY% 33.2 LAB L100.2300 0-10 % Normal MONO% 8.0 LAB L100.2400 0-5 % Normal EO% 1.1 LAB L100.2500 0-1 % Normal BASO% 0.3 LAB L100.2550 0.0-0.9 % Normal IM GRAN % 0.000 Result Comment: IG% - Immature Granulocytes (promyelocytes, myelocytes and metamyelocytes) > 1% indicates that a LEFT SHIFT is Present. LAB L100.2620 2.0-7.7 X10 3/uL Normal Absolute Neut 3.7 LAB L100.2720 0.83-4.51 X10 3/ul Normal Absolute Lymph 2.12 Performed By: #### L100.0100 #### [facility] [address]. [place], [place], [id number] BASIC METABOLIC Collected: 10/29/2017 Status: F Source: [place] PROFILE (BMP) 8:30 PM [facility] REPOSITORY TYPE CODE TESTS RESULT OUT OF RANGE REFERENCE UNITS LAB L501.0100 74-106 mg/dL Normal GLU 93 Result Comment: Please note revised GLUCOSE reference range effective 2017. LAB L501.1000 7-18 mg/dL Normal BUN 7 LAB L501.1100 0.55-1.02 mg/dL Normal CREAT,SERUM 0.77 Result Comment: The validity of the calculated GFR AND GFRAA in patients over 70 years has not been determined. Clinical correlation is essential. LAB L501.1110 >60 mL/min Normal EST GFR 95 Result Comment: Non- GFR Calc LAB L501.1115 >60 mL/min Normal EST GFR - AA 115 Result Comment: GFR Calc LAB L501.1255 ml/min Normal Estimated CRCL 82.81 LAB L501.1300 10-20 RATIO Low BUN/CRE 9.1 LAB L501.2200 8.5-10 mg/dL Normal .1 CA 8.6 LAB L501.5300 136-14 mmol/L Normal 5 NA 140 LAB L501.5600 3.5-5. mmol/L Normal 1 K 4.3 Result Comment: Moderate Hemolysis, Result may be falsely increased. LAB L501.5900 98-107 mmol/L High CL 109 LAB L501.6100 21.0-32.0 mmol/L Normal CO2 23.0 LAB L501.6200 5-15 Normal 8 GAP Performed By: #### L500.2500 #### [facility] [address] [place], [address] ,SERUM,HCG QUALI. Collected: Status: F Source: [place] 10/29/2017 8:30 PM [facility] REPOSITORY TYPE CODE TESTS RESULT OUT OF REFERENCE UNITS RANGE LAB L700.7000 0-9 Nonpreg Negative Normal HCGSQUAL NEGATIVE LAB L700.6700 =>Qualitative mIU/mL Normal HCG Qual < 1 triggr Performed By: #### L700.6800 #### [facility] [address] [place], [address] ABDOMEN/PELVIS WITHOUT Observed: 10/29/2017 Status: F Source: [place] CONT 8:03 PM [facility] REPOSITORY [facility] Imaging Services [address] [place] [address] Abdomen/Pelvis without Cont MR#: [id number] Acct: [id number] Name: LAKESHA DEL CID Rep #: [id number] : 1990 F 27 From: Todd Olmstead MD PCP: OUT OF TOWN DOCTOR Status: REG ER Study: Abdomen/Pelvis without Cont Date of Exam: 10/29/17 Exam# [id number] Ordering Dr: Justice Gonzalez MD STUDY: CT ABDOMEN AND PELVIS WITHOUT CONTRAST REASON FOR EXAM: Female, 27 years old. Right lower quadrant pain RADIATION DOSAGE (If Supplied By Facility): CTDIvol = ( 9.93 ) mGy, DLP = ( 476.45 ) mGycm TECHNIQUE: Transaxial images were obtained from the dome of the diaphragm to the symphysis pubis without oral contrast, and without intravenous contrast. Sagittal and coronal images were reconstructed. Individualized dose optimization techniques were used for this CT. COMPARISON: August 31, 2017 FINDINGS: The visualized lung bases are unremarkable. The visualized portions of the heart are within normal limits. Normal liver. Status postcholecystectomy.. Normal spleen. Normal pancreas. Normal bilateral adrenal glands. Tiny nonobstructing right renal calculus. Tiny nonobstructing left renal calculus No evidence for hydronephrosis or ureteral calculus. No renal mass.. Normal visualized stomach. Normal small intestine. Nonspecific diffuse fecal retention within the colon. No evidence for acute appendicitis Normal abdominal aorta. Normal inferior vena cava. Normal retroperitoneum. Normal urinary bladder. Normal abdominal wall. Normal osseous structures. CT/Abdomen/Pelvis without Cont IMPRESSION: Bilateral nephrolithiasis. No evidence for hydronephrosis or ureteral calculus No evidence for acute appendicitis Status postcholecystectomy Electronically Signed: Todd Olmstead MD at 21:53 EDT , Service support , CC: OUT OF TOWN DOCTOR; Justice Gonzalez MD Auger Supervisor: Signed URINALYSIS, COMPLETE Collected: 10/29/2017 Status: F Source: [place] 7:02 PM [facility] REPOSITORY Order Comment: Order Date: 10/29/17 How was Urine Obtained? PET CARE ATTENDANT TO SPECIFY TYPE CODE TESTS RESULT OUT OF RANGE REFERENCE UNITS LAB L400.3000 Yellow COLOR Normal Yellow LAB L400.3050 Clear Normal CLARITY Cloudy LAB L400.3200 Normal mg/dl Normal GLUCOSE, UR Normal LAB L400.3300 Negative mg/dL Normal BILIRUBIN URINE Negative LAB L400.3400 Negative mg/dl Normal KETONE UR Negative LAB L400.3465 1.002-1.030 Normal SP.GR. DIPSTX 1.015 LAB L400.3550 5.0 - 8.0 pH UR Normal 6.5 LAB L400.3600 Negative mg/dl High PROT 15 DIPSTX LAB L400.3700 Normal mg/dl Normal UROBILI Normal LAB L400.3750 Negative Normal NITRITE UR Negative LAB L400.3780 Negative /ul High OCCULT BLOOD-UR 250 LAB L400.3800 Negative /ul High LEUK 25 ESTERASE LAB L400.4050 0-5 /hpf WBC 0 Normal SEEN LAB L400.4100 0-5 /hpf > Normal RBC-UA 100 SEEN LAB L400.4150 5-10 /hpf SQUAM Normal EPI 0-5 SEEN LAB L400.4300 None Seen /hpf Normal BACTERIA RARE LAB L400.4350 <or=2+ /hpf 0 Normal MUCUS, URINE SEEN Performed By: #### L400.0001 #### [facility] [address] [place], [address] 12 LEAD ELECTROCARDIOGRAM Observed: 10/19/2017 Status: F Source: [place] 10:13 AM [facility] Cardiovascular Services [address] [place] [address] 12 Lead EKG 10/14/17 1908 MR#: [id number] Acct: [id number] Name: LAKESHA DEL CID Rep #: [id number] : 1990 27 From: Augustine Stephenson MD Attending Dr: Status: DEP ER Ordering Dr: Todd Zuleta MD Date: 10/14/17 Location: ED Sex: F C Admitted: Test Reason : Blood Pressure : / mmHG Vent. Rate : 092 BPM Atrial Rate : 092 BPM P-R Int : 138 ms QRS Dur : 076 ms QT Int : 336 ms P-R-T Axes : 039 038 030 degrees QTc Int : 415 ms Normal sinus rhythm Normal ECG Confirmed by AUGUSTINE STEPHENSON ([id number]), desk editor MAX BLEDSOE ([id number]) on 10/19/2017 10:13:24 AM Referred By: Todd Zuleta Confirmed By:AUGUSTINE STEPHENSON 10/19/17 1013 Date Augustine Stephenson MD CC: Todd Zuleta MD; OUT OF TOWN DOCTOR Signed EMERGENCY DEPARTMENT Observed: 10/15/2017 Status: F Source: [place] SUMMARY 12:54 AM [facility] Medical Records Department [address] [place] [address] Emergency Department Summary 10/14/17 1856 MR#: [id number] Acct: [id number] Name: LAKESHA DEL CID Rep #: [id number] : 1990 27 From: Todd Zuleta MD PCP: OUT OF TOWN DOCTOR Status: DEP ER - ER Visit Summary Date of Service: 10/14/17 Chief Complaint: Chest pain History of Present Illness: The patient is a 27 F recently diagnosed with rrmo-waqz-nuh-mouth disease. Complaining of chest discomfort. Has never had a DVT or PE. No recent travel, surgery, mobilization. No hemoptysis. No leg pain or swelling. Says it hurts to move. Denies any fever. States she has had prior pericarditis. Also has a history of fibromyalgia. She reportedly is allergic to NSAIDs and currently on Percocet and Magic mouthwash for upml-rali-dls-mouth pain. She denies any shortness of breath. Physical Examination: Well-appearing young female. Vital signs are stable and afebrile. Her pulse ox 90% on room air no signs of hypoxia. H EENT exam lesions of her mouth consistent with ledg-yscx-hbu-mouth. Moist wheeze membranes. Posterior pharynx unremarkable. Neck nontender no lymphadenopathy. Lungs clear to auscultation bilaterally. Heart regular rhythm rate about 95 no murmur. Chest wall is reproducibly tender. Over the anterior chest. There is no ecchymosis or bruising. No subcu air or crepitance. Abdomen is soft and nontender. Normal bowel sounds no peritoneal signs. She is moving all 4 extremities. Calves are nontender without edema or cords. Normal range of motion all 4 extremities. Back exam nontender. Neurologically she is awake alert with no focal motor deficits. Test Results: Sinus rhythm rate 92 normality. No ischemia in absolutely no signs of pericarditis. Chest x-ray normal cardiac silhouette and mediastinum also appears normal read both by myself the radiologist. Emergency Department Course and Treatment: Patient's exam is consistent with chest wall pain. I am obtain EKG and chest x-ray. Requested something for pain and reportedly is allergic to NSAIDs should be given 1 Percocet. She did not want to use her own pain meds while here. Treatment Plan: Weekly, historically and exam this is consistent with chest wall pain. She has pain medications at home which she can use. Disposition: Discharge Impression: Acute chest wall pain This note was generated with Vidaao dictation software. It may contain incorrect words, spelling, and punctuation that were not noted in review of the chart prior to signing ED Disposition - Plan for ED Patient: Chief Complaint: Chest Other Referrals: Jaydon Decker, [NON CLINICAL AFFILIATE] - What to do if you have Problems For any increased pain, shortness of breath, bleeding, nausea or vomiting, chest pain, or any unexpected problems, contact your Primary Care Provider. Call [facility] ([phone]) or report to the closest Emergency Room. Call 911 if necessary. 10/15/1753 <Electronically signed by Todd Zuleta MD> Date Todd Zuleta MD Cosigner Signature (If Indicated): Date CC: OUT OF TOWN DOCTOR DISCHARGE INSTRUCTION Observed: 10/15/2017 Status: F Source: [place] 12:54 AM [facility] REPOSITORY [facility] Medical Records Department [address] [place] [address] Discharge Instruction 10/14/172014 MR#: [id number] Acct: [id number] Name: LAKESHA DEL CID Rep #: [id number] : 1990 27 From: Todd Zuleta MD PCP: OUT OF TOWN DOCTOR Status: DEP ER ED Disposition - Plan for ED Patient: Disposition: Home or Assisted Living Chief Complaint: Chest Other Instructions: ED Chest Pain Costochondritis Additional Instructions: Usual pain meds at home for the chest wall pain. Your chest x-ray and EKG were both unremarkable. Follow-up your primary care physician if not improving. What to do if you have Problems For any increased pain, shortness of breath, bleeding, nausea or vomiting, chest pain, or any unexpected problems, contact your Primary Care Provider. Call [facility] ([phone]) or report to the closest Emergency Room. Call 911 if necessary. 10/15/1753 <Electronically signed by Todd Zuleta MD> Date Todd Zuleta MD Cosigner Signature (If Indicated): Date CC: OUT OF TOWN DOCTOR CHEST PA AND LATERAL Observed: 10/14/2017 Status: F Source: [place] 6:55 PM [facility] REPOSITORY [facility] Imaging Services [address] [place] [address] Chest PA and Lateral MR#: [id number] Acct: [id number] Name: LAKESHA DEL CID Rep #: [id number] : 1990 F 27 From: Keny Velásquez PCP: OUT OF TOWN DOCTOR Status: REG ER Study: Chest PA and Lateral Date of Exam: 10/14/17 Exam# [id number] Ordering Dr: Todd Zuleta MD STUDY: X-RAY CHEST REASON FOR EXAM: Female, 27 years old. Chest pain TECHNIQUE: Frontal and lateral views of the chest. COMPARISON: 08/18/2017. FINDINGS: The lungs are clear and expanded. There is no demonstrated pleural abnormality. Normal size heart. Normal mediastinum and zuleima. Normal visualized pulmonary arteries. Normal visualized aortic arch and descending thoracic aorta. Normal visualized thoracic spine. Normal visualized ribs, clavicles, and shoulders. There is no demonstrated abnormality of the visualized soft tissue structures of the upper abdomen. RAD/Chest PA and Lateral IMPRESSION: No acute cardiopulmonary disease. Electronically Signed: Keny Velásquez DO at 19:44 EDT , Service support , CC: Todd Zuleta MD; OUT OF TOWN DOCTOR Auger Supervisor: Signed DOWNTIME REPORT Observed: 10/14/2017 Status: F Source: [place] 1:42 PM [facility] REPOSITORY [facility] Medical Records Department [address] [place] [address] Downtime Report MR#: [id number] Acct: [id number] Name: LAKESHA DEL CID Rep #: [id number] : 1990 From: John Hyde MD PCP: Jaydon Bates DO Status: [facility] ER This patient was seen during an EMR downtime September 28, 2017 - October 05, 2017. This patient may have a combination of paper and electronic documentation or all paper documentation. All documentation is viewable within the e-chart portion of cloudControl for each patient visit. DISCHARGE INSTRUCTION Observed: 10/11/2017 Status: F Source: [place] 11:36 AM [facility] REPOSITORY [facility] Medical Records Department [address] [place] [address] Discharge Instruction 10/11/17 1135 MR#: [id number] Acct: [id number] Name: LAKESHA DEL CID Rep #: [id number] : 1990 From: Jerrell Trevizo MD PCP: Jaydon Bates DO Status: REG ER ED Disposition - Plan for ED Patient: Disposition: Home or Assisted Living Chief Complaint: Complaint Instructions: ED Flank Pain Uncertain Cause Prescriptions: Oxycodone HCl/Acetaminophen [Percocet 5/325] 1 tab PO Q6H PRN PRN 2 Days #4 tab PRN Reason: Pain Referrals: Jaydon Decker DO [Primary Care Provider] - What to do if you have Problems For any increased pain, shortness of breath, bleeding, nausea or vomiting, chest pain, or any unexpected problems, contact your Primary Care Provider. Call [facility] ([phone]) or report to the closest Emergency Room. Call 911 if necessary. 10/11/17 1136 <Electronically signed by Jerrell Trevizo MD> Date Jerrell Trevizo MD Cosigner Signature (If Indicated): Date CC: Jaydon Bates DO EMERGENCY DEPARTMENT Observed: 10/11/2017 Status: F Source: [place] SUMMARY 11:35 AM [facility] REPOSITORY [facility] Medical Records Department [address] [place] [address] Emergency Department Summary 10/11/17 1012 MR#: [id number] Acct: [id number] Name: LAKESHA DEL CID Rep #: [id number] : 1990 27 From: Jerrell Trevizo MD PCP: Jaydon Bates DO Status: REG ER - ER Visit Summary Date of Service: 10/11/17 Chief Complaint: Flank pain History of Present Illness: The patient is a 27 F who continues to have right flank pain. She has had this for which she says is 3 days. However, she has been seen many times for this. She was at [facility] on and diagnosed with a kidney infection. She was started on Keflex. She has a history of kidney stones. She had a CAT scan less than a month ago which showed renal stones but none in the ureter. She was given Percocet at [facility] but has since ran out. She tried Tylenol without any relief. She denies fevers. She is slightly nauseous. Physical Examination: Vital signs reviewed. HEENT exam unremarkable. Heart is cardiac in regular rhythm without murmurs. Lungs are clear to auscultation. Abdomen is soft and nontender. Does have right CVA tenderness to palpation. Extremities reveal no edema. Skin exam normal. Neurologic exam normal. Test Results: Urinalysis reveals blood. Renal ultrasound reveals renal stones with mild left pelviectasis Emergency Department Course and Treatment: She was given fentanyl. She continued to have pain so I did give her 1 dose of Dilaudid. I reviewed her [facility] report. It does show many prescriptions from a lot of different providers. However, she states that she is allergic to NSAIDs. I will give her 4 Percocet tablets that she can take at home. She does have urology follow-up scheduled. I do not feel she requires a different antibiotic as there are no white blood cells in her urine. She needs to keep this appointment Treatment Plan: [] Disposition: Discharge Impression: Hematuria, renal stones, flank pain This note was generated with FAMOCOation software. It may contain incorrect words, spelling, and punctuation that were not noted in review of the chart prior to signing ED Disposition - Plan for ED Patient: Chief Complaint: Complaint Referrals: Jaydon Decker, [Primary Care Provider] - What to do if you have Problems For any increased pain, shortness of breath, bleeding, nausea or vomiting, chest pain, or any unexpected problems, contact your Primary Care Provider. Call [facility] ([phone]) or report to the closest Emergency Room. Call 911 if necessary. 10/11/17 1135 <Electronically signed by Jerrell Trevizo MD> Date Jerrell Trevizo MD Cosigner Signature (If Indicated): Date CC: Jaydon Bates DO URINALYSIS, COMPLETE Collected: 10/11/2017 Status: F Source: [place] 10:05 AM [facility] REPOSITORY Order Comment: Order Date: 10/11/17 How was Urine Obtained? CLEAN CATCH TYPE CODE TESTS RESULT OUT OF RANGE REFERENCE UNITS LAB L400.3000 Yellow COLOR Normal Yellow LAB L400.3050 Clear Normal CLARITY Sl. Cloudy LAB L400.3200 Normal mg/dl Normal GLUCOSE, UR Normal LAB L400.3300 Negative mg/dL Normal BILIRUBIN URINE Negative LAB L400.3400 Negative mg/dl Normal KETONE UR Negative LAB L400.3465 1.002-1.030 Normal SP.GR. DIPSTX 1.010 LAB L400.3550 5.0 - 8.0 pH UR Normal 7.0 LAB L400.3600 Negative mg/dl High PROT 15 DIPSTX LAB L400.3700 Normal mg/dl Normal UROBILI Normal LAB L400.3750 Negative Normal NITRITE UR Negative LAB L400.3780 Negative /ul High OCCULT BLOOD-UR 250 LAB L400.3800 Negative /ul High LEUK ESTERASE 100 LAB L400.4050 0-5 /hpf WBC 0 Normal SEEN LAB L400.4100 0-5 /hpf > Normal RBC-UA 100 SEEN LAB L400.4150 5-10 /hpf SQUAM Normal EPI 5-10 SEEN LAB L400.4300 None Seen /hpf 0 Normal BACTERIA SEEN LAB L400.4350 <or=2+ /hpf 0 Normal MUCUS, URINE SEEN Performed By: #### L400.0001 #### [facility] [address] [place], [address] KIDNEY AND BLADDER Observed: 10/11/2017 Status: F Source: [place] 9:52 AM [facility] REPOSITORY [facility] Imaging Services [address] [place] [address] Kidney and Bladder MR#: [id number] Acct: [id number] Name: LAKESHA DEL CID Rep #: [id number] : 1990 F 27 From: Ruth Israel MD PCP: Jaydon Bates DO Status: REG ER Study: Kidney and Bladder Date of Exam: 10/11/17 Exam# [id number] Ordering Dr: Jerrell Trevizo MD STUDY: RENAL ULTRASOUND - COMPLETE REASON FOR EXAM: Female, 27 years old. Flank pain TECHNIQUE: Ultrasound evaluation of the kidneys was performed with real-time and static draper-scale imaging. COMPARISON: August 31, 2017 CT scan abdomen and pelvis FINDINGS: RIGHT KIDNEY: Normal location of the right kidney, which is normal in size. The right kidney measures 10.1 x 4.6 x 3.8 cm. There is a normal cortex of the right kidney. The renal cortex measures 1.3 cm. There is no right renal mass or cyst. There punctate echogenicities in the right kidney image #7 suggesting tiny renal stones. There is no visualized hydronephrosis. There is no right hydronephrosis. DISTAL RIGHT URETER: There is non-visualization of the distal right ureter. There is no demonstrated right ureterovesical junction calculus. There is a visualized right ureteral jet. LEFT KIDNEY: Normal location of the left kidney, which is normal in size. The left kidney measures 10.8 x 4.6 x 5.5 cm. There is a normal cortex of the left kidney. The renal cortex measures 1.5 cm. There is no left renal mass or cyst. There punctate echogenicities within the left kidney suggesting punctate stones. There is trace left pelviectasis image #61. There is no left hydronephrosis. DISTAL LEFT URETER: There is non-visualization of the distal left ureter. There is no demonstrated left ureterovesical junction calculus. There is a visualized left ureteral jet. BLADDER: The prevoid urinary bladder has a volume of 31.9 ml. There is a normal wall thickness of the distended urinary bladder. There is no demonstrated mass within the urinary bladder. There are no demonstrated bladder calculi. US/Kidney and Bladder IMPRESSION: Bilateral punctate renal stones similar to prior study. Mild left pelviectasis. Electronically Signed: Ruth Israel MD at 11:29 EDT Tel , Service support , CC: Jaydon Bates DO; Jerrell Trevizo MD Auger Supervisor: Signed ED NOTE Observed: 10/08/2017 Status: COMPLETED Source: [place] 7:50 PM [facility] REPOSITORY HNO ID: [id number] Author: Melina CabaRn) JORY Valentin Service: Emergency Medicine Author Type: Registered Nurse Type: ED Notes Filed: 10/08/2017 7:51 PM Note Text: Pt states the maalox mix helped her heart burn. ED NOTE Observed: 10/08/2017 Status: COMPLETED Source: [place] 7:13 PM [facility] REPOSITORY HNO ID: [id number] Author: Rafia Díaz) JORY Denis Service: Emergency Medicine Author Type: Registered Nurse Type: ED Notes Filed: 10/08/2017 7:14 PM Note Text: Dr. ramirez aware pt requesting pain medication. Pt made comment of last time you guys didn't give me very much. Dr. ramirez in another room at this time . Stated will see pt shortly ED NOTE Observed: 10/08/2017 Status: COMPLETED Source: [place] 7:04 PM [facility] REPOSITORY HNO ID: [id number] Author: Rafia Díaz) JORY Denis Service: Emergency Medicine Author Type: Registered Nurse Type: ED Notes Filed: 10/08/2017 7:05 PM Note Text: Dr. ramirez stated placing orders at this time. ED NOTE Observed: 10/08/2017 Status: COMPLETED Source: [place] 6:14 PM [facility] REPOSITORY HNO ID: [id number] Author: Rafia CabaRnStar Denis RN Service: Emergency Medicine Author Type: Registered Nurse Type: ED Notes Filed: 10/08/2017 6:14 PM Note Text: Dr. ramirez aware pt requesting GI cocktail or tums for acid reflux. md in another room at this time. Stated will place orders shortly / assess pt . ABDOMEN 1 VIEW Observed: 10/08/2017 Status: F Source: [facility] 5:59 PM HEALTH SYSTEM REPOSITORY Performed at [facility] APPROVED BY: Cristy Martins MD EXAM TITLE: ABDOMEN DATE: 10/08/2017 17:54 COMPARISON: CT abdomen and pelvis 11/29/2016 CLINICAL INDICATION/HISTORY: Abdominal pain, kidney stones TECHNIQUE: Supine AP view of the abdomen and pelvis. FINDINGS: There are no dilated loops of large or small bowel. The bowel gas pattern is nonobstructive and nonspecific. No suspicious calcifications are identified to suggest renal or ureteral stones. Osseous structures are unremarkable. IMPRESSION: Nonobstructive nonspecific bowel gas pattern. No radiopaque renal or ureteral stones are identified. ED NOTE Observed: 10/08/2017 Status: COMPLETED Source: [place] 5:55 PM [facility] REPOSITORY HNO ID: [id number] Author: Melina Valentin RN Service: Emergency Medicine Author Type: Registered Nurse Type: ED Notes Filed: 10/08/2017 5:55 PM Note Text: Portable xray at BS completing KUB supine. ED NOTE Observed: 10/08/2017 Status: COMPLETED Source: [place] 5:46 PM [facility] REPOSITORY HNO ID: [id number] Author: Melina CabaRn) JORY Valentin Service: Emergency Medicine Author Type: Registered Nurse Type: ED Notes Filed: 10/08/2017 5:47 PM Note Text: Rad room called to get pt. ED PROV NOTE Observed: 10/08/2017 Status: COMPLETED Source: [place] 5:36 PM [facility] REPOSITORY HNO ID: [id number] Author: Donna William (Cindi) MD Ashley Service: Emergency Medicine Author Type: Resident Type: ED Provider Notes Filed: 10/09/2017 12:14 AM Note Text: Attestation signed by Ivelisse Mesa DO at 11/02/2017 6:50 PM Signature: Ivelisse Mesa DO Date: 11/02/2017 Time: 6:50 PM ED Provider Note Patient Name: Lakesha Del Cid SERVICE DATE: 10/08/17 History Patient presents with: Abdominal Pain Patient is a 27-year-old female with a past medical history of ADHD, nephrolithiasis, and depression, presenting with right flank pain for the past one day. Patient states that she recently presented to [facility] for the same complaint where she was given Percocet for pain control and blood work and urinalysis were relatively unremarkable. She states that she is back because the pain has increased and she was unable to schedule an appointment with her urologist. Review of systems is significant for nausea and vomiting, flank pain, hematuria, but negative for lightheadedness or dizziness, fevers or chills, chest pain, shortness of breath or dysuria. PAST MEDICAL HISTORY Diagnosis Date - Altered bowel habits 12/22/2016 Added automatically from request for surgery [id number] - Attention deficit disorder without mention of hyperactivity - Chest pain of pericarditis 10/19/2013 - Controlled substance agreement signed 03/08/2014 - Depression and anxiety - Drug-seeking behavior - Elevated amylase and lipase 06/03/2016 - Fibromyalgia - Intractable chronic migraine without aura and without status migrainosus 08/10/2015 - Kidney stones 16 renal stones - monitoring, Dr. Stoner - Migraines Dr. 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 - Right sided abdominal pain 06/01/2016 - Right sided abdominal pain 06/01/2016 - Right upper quadrant pain 01/20/2017 Added automatically from request for surgery [id number] - Vaginal spotting 06/04/2016 - Vaginal spotting 06/04/2016 - Viral pericarditis 10/19/2013 PAST SURGICAL HISTORY Procedure Laterality Date - BOTOX 07/08/2013 - COLONOSCOP W/ OR W/O BRSH SPEC 01/14/2017 Colonoscopy - LAPAROSCOPIC CHOLEYCYSTECTOMY 01/26/2017 Cholecystectomy, lap - ORAL SURGERY PROCEDURE 01/25/2010 [place] Teeth Extraction - PAST SURGICAL HISTORY OF 2012 piercings removed from abdomen - REMOVAL OF TONSILS,<12 Y/O 6yo Tonsillectomy FAMILY HISTORY Problem Relation Age of Onset - Hypertension Father - migraine [Other] [OTHER] Father - kidney stones [Other] [OTHER] Father - COPD Maternal Grandmother - kidney cancer [Other] [OTHER] Paternal Grandfather Social History Social History Main Topics - Smoking status: Never Smoker - Smokeless tobacco: Never Used - Alcohol use Yes Comment: 2 drinks per week - Drug use: No - Sexual activity: Yes Partners: Male control/ protection: Injection Comment: Depo Provera ALLERGIES Allergen Reactions - Benadryl [Diphenhyd* Other: See Comments - Kiwi - Methocarbamol Other: See Comments Causes blisters in the mouth - [place] [Hydrocodone-* Intolerance Worsens migraines - Nsaids (Non-Steroid* Other: See Comments GI bleed/ stomach pain - Rat [Other] - Reglan [Metoclopram* Mental Status Change climbing the morocho Review of Systems Physical Exam BP 116/70 Pulse 100 Temp (Src) 97 (Oral) Resp 18 Ht 5' 1 (1.55m) Wt 137 lb (62.1kg) SpO2 100% BMI 25.90 kg/(m2). Physical Exam Constitutional: She is oriented to person, place, and time. She appears well-developed and well-nourished. No distress. HENT: Head: Normocephalic and atraumatic. Eyes: Conjunctivae and EOM are normal. Right eye exhibits no discharge. Left eye exhibits no discharge. No scleral icterus. Neck: Neck supple. Cardiovascular: Normal rate, regular rhythm, normal heart sounds and intact distal pulses. Exam reveals no gallop and no friction rub. No murmur heard. Pulmonary/Chest: Effort normal and breath sounds normal. No stridor. No respiratory distress. She has no wheezes. She has no rales. Abdominal: Soft. Bowel sounds are normal. She exhibits no distension and no mass. There is no tenderness. There is CVA tenderness (mild right CVA tenderness on exam). There is no rebound and no guarding. Musculoskeletal: Normal range of motion. She exhibits no edema, tenderness or deformity. Neurological: She is alert and oriented to person, place, and time. Skin: Skin is warm and dry. No rash noted. She is not diaphoretic. No erythema. No pallor. Psychiatric: She has a normal mood and affect. Her behavior is normal. Thought content normal. Nursing note and vitals reviewed. Diagnostic Testing ED Labs Ordered and Reviewed COMPREHENSIVE METABOLIC PANEL (AK,AV,EU,FV,HL,TANYA,MM,SP) - Abnormal; Notable for the following: Result Value Ref Range Chloride 108 (*) 98 - 107 mEq/L Bilirubin, Total 0.1 (*) 0.2 - 1.0 mg/dL All other components within normal limits CBC + AUTO DIFF (AK,AV,EU,FV,HL,TANYA,MM,SP) - Abnormal; Notable for the following: RBC 3.73 (*) 3.93 - 5.22 mil/cmm All other components within normal limits URINALYSIS WITH MICROSCOPIC (AK,AV,EU,FV,HL,TANYA,MM,SP) - Abnormal; Notable for the following: Hemoglobin, Urine LARGE (*) Negative Leukocytes Esterase MODERATE (*) Negative RBC, Urine 741.6 (*) 0.0 - 5.0 /hpf WBC, Urine 27.9 (*) 0.0 - 5.0 /hpf EP Cells Urine 8.2 (*) 0.0 - 5.0 /hpf Bacteria, Urine 2+ (*) None Hyaline Cast 1.2 (*) 0.0 - 1.0 /lpf All other components within normal limits HCG QUALITATIVE URINE (AK,AV,EU,FV,HL,TANYA,MM,SP) MDRD GFR Procedures Medical Decision Making MDM This 27-year-old female presenting with right flank pain, nausea, and hematuria had labs already ordered in triage that demonstrated large hemoglobin, 741 red blood cells, and leukocyte esterase. The patient states that she usually does have UTI concurrent with her kidney stones. Patient has vitals only remarkable for being tachycardic at 110 but is afebrile. Patient could be experiencing early septic stone. She had no tenderness to palpation of her abdomen on exam and there was only mild CVA tenderness to her right flank. During initial discussion, patient states that she wants to go home and does not want any imaging and is only requesting Dilaudid. Discussion had with patient about infection and patient has agreed to receive Rocephin, fluids, and KUB. Of note, patient has a disciplinary care plan in place that states that she presents to emergency departments for abdominal pain frequently and has had several CT scans. Patient states that she had a CT scan just 1 month ago from [facility] which does demonstrate tiny punctate stones bilaterally. Will order a KUB to assess for increased size of stone and location for her upcoming urology appointment. Patient states that she has plenty of Flomax at home. Patient is likely able to be discharged home with prescription for Keflex and instructions to make a appointment with her urologist as soon as possible. ED Course / Clinical Impression ED Course as of Oct 09 0014 Donna William (Res) Ashley's Documentation Marialuisa Oct 08, 2017 193 Xray negative for kidney stone. the patient continues to become irate and request stronger pain medications and states that she looked up the half life of Dilaudid and that it coincides with the current return of her pain. IMPRESSION: ? ? Nonobstructive nonspecific bowel gas pattern. ? No radiopaque renal or ureteral stones are identified. Others' Documentation Marialuisa Oct 08, 2017 1852 Attending note: I personally saw and examined the patient. I reviewed the resident?s note. I agree with the resident?s assessment and plan unless otherwise noted. this is a 27-year-old female presents to the emergency department with complaint of abdominal pain. Patient does have a known history of kidney stones in the past and recently had a CT done at [facility] that showed bilateral punctate nephrolithiasis. Patient does present with hematuria as well as bacteriuria. KUB is pending and she just had a CT scan done a month ago. I did not want to repeat a CT scan and exposer to that radiation. She did receive Dilaudid 0.5 mg IV push for pain control. She is requesting additional Percocet for pain control. examination of her OARRS report does reveal fairly frequent Percocet prescriptions from multiple providers. abdomen is soft without peritoneal signs. Patient was seen with Dr. Ramirez, resident physician, please see her note for full history and physical exam, I agree with the above without significant change. [AB] ED Course User Index [AB] Ivelisse Mesa DO Clinical Impressions as of Oct 09 13 Right flank pain Urinary tract infection with hematuria, site unspecified Plan The patient was DISCHARGED: Counseled patient regarding lab results AND radiology results AND need for follow-up. Discharged home with verbal and written instructions. They were instructed to return as needed for persistent or worsening symptoms or any new concerns. Condition at time of disposition: stable SIGNATURE: MD Donna Taylor (Res) MD Ashley Resident 10/09/17 0014 Ivelisse Mesa DO 11/02/17 1850 ED NOTE Observed: 10/08/2017 Status: COMPLETED Source: [facility] 5:35 PM CLINIC OTHER CAMPUS REPOSITORY HNO ID: [id number] Author: Melina (Rn) JORY Valentin Service: Emergency Medicine Author Type: Registered Nurse Type: ED Notes Filed: 10/08/2017 5:35 PM Note Text: Dr. Ramirez asked if pt ok to take home phenergan. States it is ok HEMOGRAM/DIFF Collected: 10/08/2017 Status: F Source: [facility] 3:15 PM HEALTH SYSTEM REPOSITORY TYPE CODE TESTS RESULT OUT OF REFERENCE UNITS RANGE LAB WBC(LOINC) 3.98-10.04 thou/cmm WBC 6.65 LAB RBC(LOINC) 3.93-5.22 mil/cmm Low RBC 3.73 LAB HGB(LOINC) 11.2-15.7 g/dL Hgb 11.8 LAB HCT(LOINC) 34.1-44.9 % Hct 34.9 LAB MCV(LOINC) 79.4-94.8 fl MCV 93.6 LAB MCH(LOINC) 25.6-32.2 pg MCH 31.6 LAB MCHC(LOINC 31.6-34.8 % ) MCHC 33.8 LAB RDW(LOINC) 11.7-14.4 % RDW 12.3 LAB RDWSD(LOIN 36.4-46.3 fl C) RDW SD 42.7 LAB PLT(LOINC) 182-369 thou/cmm Platelet 284 LAB MPV(LOINC) 9.4-12.3 fl MPV 9.8 LAB SEG(LOINC) % Seg Neutrophil 54.5 LAB IGRE(LOINC % ) Immature Grans 0.20 LAB LYMPH(LOIN % C) Lymphocyte 35.3 LAB MNO(LOINC) % Monocyte 8.4 LAB EOSIN(LOIN % C) Eosinophil 1.1 LAB BASO(LOINC % ) Basophil 0.5 LAB SEGN(LOINC 1.56-6.13 thou/cmm ) Abs. Neut (ANC) 3.62 LAB IGAB(LOINC 0.00-0.05 thou/cmm ) Abs Immature Grans 0.01 LAB LYMN(LOINC 1.18-3.74 thou/cmm ) Abs. Lymph 2.35 LAB MONON(LOIN 0.27-0.70 thou/cmm C) Abs. Hardy 0.56 LAB EOSN(LOINC 0.00-0.31 thou/cmm ) Abs. Eosin 0.07 LAB BASON(LOIN 0.01-0.08 thou/cmm C) Abs. Baso 0.03 Performed By: #### CBCD1 #### [place] [address] COMPREHENSIVE PANEL Collected: 10/08/2017 Status: F Source: [facility] 3:15 PM HEALTH SYSTEM REPOSITORY TYPE CODE TESTS RESULT OUT OF REFERENCE UNITS RANGE LAB NA(LOINC) 136-145 mEq/L Sodium Blood 138 LAB K(LOINC) 3.5-5.1 mEq/L Potassium Blood 3.9 LAB CL(LOINC) 98-107 mEq/L Chloride High Blood 108 LAB CO2(LOINC) 21-32 mEq/L CO2 Blood 23 LAB GLU(LOINC) 70-99 mg/dL Glucose Blood 72 LAB BUN(LOINC) 7-18 mg/dL BUN Blood 9 LAB CREA(LOINC 0.51-0.95 mg/dL ) Creatinine Blood 0.87 LAB CA(LOINC) 8.5-10.1 mg/dL Calcium Blood 9.3 LAB ALB(LOINC) 3.4-5.0 g/dL Albumin Blood 3.9 LAB TP(LOINC) 6.4-8.2 g/dL Total Protein 7.8 LAB AST(LOINC) 9-37 U/L AST-SGOT Blood 12 LAB ALT(LOINC) 12-78 U/L ALT-SGPT Blood 23 LAB ALKP(LOINC 46-116 U/L ) Alk Phosphatase 68 LAB BILIT(LOIN 0.2-1.0 mg/dL C) Low Total Bilirubin 0.1 LAB ANGAP(LOIN 8-16 C) Anion Gap 11 Performed By: #### P14 #### [place] [address] MDRD GFR Collected: 10/08/2017 Status: F Source: [facility] 3:15 PM HEALTH SYSTEM REPOSITORY TYPE CODE TESTS RESULT OUT OF RANGE REFERENCE UNITS LAB GFRFN(LOINC >60mL/min/1.73m ) 2 eGFR >60 Result Comment: If the patient is , multiply the result by 1.210. Performed By: #### GFR #### [place] [address] ED TRIAGE NOTE Observed: 10/08/2017 Status: COMPLETED Source: [facility] 3:14 PM CLINIC OTHER CAMPUS REPOSITORY O ID: [id number] Author: Guadalupe Rogers Service: Emergency Medicine Author Type: Physician Sports Physiologist Type: ED Triage Notes Filed: 10/08/2017 3:17 PM Note Text: ED INTAKE NOTE Patient Name: Lakesha Del Cid Service Date: 10/08/17 BRIEF HPI: Patient is a 27 y/o F who presents to the ED for an evaluation of right sided flank pain x 1 day. Patient reports right sided flank pain began yesterday where she went to [facility] and they discharged her after urine and labwork. Patient states the pain has increased today and she states she called her PCP who sent her here for further evaluation. Patient reports she has a history of kidney stones and this feels similar. She reports having associated nausea and hematuria. BRIEF EXAM: Constitutional: Well developed, well nourished, NAD HEENT: Normocephalic, atraumatic Respiratory: No respiratory distress Cardiac:Tachycardic Abdomen: limited d/t patient sitting upright in triage chair Neuro: AANDOx3 Skin: Warm and dry INTAKE WORKUP: CBC, CMP, UA, urine SIGNATURE: Guadalupe Rogers PA-C ED NOTE Observed: 10/08/2017 Status: COMPLETED Source: [facility] 3:11 PM CLINIC OTHER CAMPUS REPOSITORY HNO ID: [id number] Author: Christie CabaRn) JORY Johnson Service: Emergency Medicine Author Type: Registered Nurse Type: ED Notes Filed: 10/08/2017 3:13 PM Note Text: Complaining of flank pain on the right side that started yesterday; Went to [facility] and had blood and urine tested and was told was probably a kidney stone; Has a history of Kidney stones and has an appointment with a new Urologist in [place] coming up; Called PCP to day because pain getting worse so told to come here; Stated did not have a CT scan done yesterday URINALYSIS ROUTINE Collected: 10/08/2017 Status: F Source: [facility] 2:18 PM HEALTH SYSTEM REPOSITORY TYPE CODE TESTS RESULT OUT OF RANGE REFERENCE UNITS LAB COLOR(LOIN C) Urine Color YELLOW LAB APPUR(LOIN C) Urine Appearance CLOUDY LAB GLUUR(LOIN Negative mg/dL C) Glucose Urine NEGATIVE LAB KETON(LOIN Negative mg/dL C) Ketone Urine NEGATIVE LAB HGBUR(LOIN Negative C) Abnormal Hemoglobin,Urin LARGE e LAB PROTU(LOIN Negative mg/dL C) Protein Urine NEGATIVE LAB NITRI(LOIN Negative C) Nitrites Urine NEGATIVE LAB BILIU(LOIN Negative C) Bilirubin Urine NEGATIVE LAB SPG(LOINC) 1.005-1.030 Specific 1.014 [place], Ur LAB PHUR(LOINC 5.0-8.0 ) pH,Urine 6.0 LAB UROBI(LOIN 0.0-1.0 EU/dL C) Urobilinogen,Ur 0.2 LAB LEUKO(LOIN Negative C) Abnormal Leukocytes MODERATE Esterase LAB RBCU1(LOIN 0.0-5.0 /hpf C) High RBC,Urine 741.6 LAB WBCU1(LOIN 0.0-5.0 /hpf C) High WBC, Urine 27.9 LAB EPIT1(LOIN 0.0-5.0 /hpf C) High Ep Cells Urine 8.2 LAB BACT1(LOIN None C) Abnormal Bacteria Urine 2+ LAB HYCA1(LOIN 0.0-1.0 /lpf C) High Hyaline Cast 1.2 Performed By: #### URIN2 #### [facility] [address] [place], [place] [address] URINE HCG, QUAL. Collected: 10/08/2017 Status: F Source: [facility] 2:18 PM HEALTH SYSTEM REPOSITORY TYPE CODE TESTS RESULT OUT OF REFERENCE UNITS RANGE LAB URHCG(LOIN Negative C) HCG, Qual. Negative Urine LAB SPGR(LOINC 1.005-1.030 ) Specific 1.014 [place], Ur Performed By: #### HCGUR #### [facility] [address] [place] [id number] CBC Collected: 10/07/2017 Status: F Source: [facility] 6:46 PM [facility] REPOSITORY TYPE CODE TESTS RESULT OUT OF REFERENCE UNITS RANGE LAB WBC(LOINC) 4.60-10.80 10 3/mcL WBC 6.90 LAB RBCCT(LOINC 4.20-5.40 10 6/mcL ) Low RBC 3.99 LAB HGB(LOINC) 12.0-16.0 G/dL Hgb 12.6 LAB HCT(LOINC) 37.0-47.0 % Hct 37.4 LAB MCV(LOINC) 80.0-94.0 fL MCV 93.5 LAB MCH(LOINC) 27.0-31.2 pg High MCH 31.5 LAB MCHC(LOINC) 33.0-37.0 G/dL MCHC 33.7 LAB RDW(LOINC) 11.5-14.5 % RDW 12.7 LAB PLT(LOINC) 130-400 10 3/mcL Platelet 299 LAB MPV(LOINC) 7.4-10.4 fL MPV 7.9 Performed By: #### CBC, ADIFF, ANEU, LIP, GFR, CMP #### [facility] [address] [address] .AUTO DIFF Collected: 10/07/2017 Status: F Source: [facility] 6:46 PM [facility] REPOSITORY TYPE CODE TESTS RESULT OUT OF REFERENCE UNITS RANGE LAB ERASMO(LOINC) 37.0-80.0 % Neutrophil % 60.9 LAB LYM(LOINC) 10.0-50.0 % Lymphocyte % 27.9 LAB MON(LOINC) 1.7-13.0 % Monocyte % 9.6 LAB EO(LOINC) 0.0-7.0 % Eosinophil % 1.1 LAB BAS(LOINC) 0.0-2.5 % Basophil % 0.5 LAB ABLYM(LOIN 0.77-3.85 10 3/mcL C) Lymphocyte, 1.90 Absolute LAB ARNULFO(LOINC 0.15-1.00 10 3/mcL ) Monocyte, 0.70 Absolute LAB AEOS(LOINC 0.00-0.40 10 3/mcL ) Eosinophil, 0.10 Absolute LAB ABAS(LOINC 0.00-0.19 10 3/mcL ) Basophil, 0.00 Absolute Performed By: #### CBC, ADIFF, ANEU, LIP, GFR, CMP #### [place] [id number] .NEUABS Collected: 10/07/2017 Status: F Source: [facility] 6:46 PM [facility] REPOSITORY TYPE CODE TESTS RESULT OUT OF REFERENCE UNITS RANGE LAB ANEU(LOINC) 2.85-6.16 10 3/mcL Neutrophil, 4.20 Absolute Performed By: #### CBC, ADIFF, ANEU, LIP, GFR, CMP #### [place] [address] LIP Collected: 10/07/2017 Status: F Source: [facility] 6:46 PM [facility] REPOSITORY TYPE CODE TESTS RESULT OUT OF REFERENCE UNITS RANGE LAB LIP(LOINC) 8-78 IU/L Lipase Level 53 Performed By: #### CBC, ADIFF, ANEU, LIP, GFR, CMP #### [place] [id number] .GFR Collected: 10/07/2017 Status: F Source: [facility] 6:46 PM [facility] REPOSITORY TYPE CODE TESTS RESULT OUT OF REFERENCE UNITS RANGE LAB GFRAA(LOINC ml/min/1.73 ) sqm GFR 120 [place] Result Comment: GFR Population mean for , Non- Americans Ages 20-29 = 116 mL/min/1.73 sq.m. Ages 30-39 = 107 mL/min/1.73 sq.m. Ages 40-49 = 99 mL/min/1.73 sq.m. Ages 50-59 = 93 mL/min/1.73 sq.m. Ages 60-69 = 85 mL/min/1.73 sq.m. Ages 70+ = 75 mL/min/1.73 sq.m. Chronic Kidney Disease: Less than 60 mL/min/1.73 square meters End Stage Renal Disease: Less than 15 mL/min/1.73 square meters LAB GFRNO(LOINC) ml/min/1.73sqm GFR Non- >60 Result Comment: GFR Population mean for , Non- Americans Ages 20-29 = 116 mL/min/1.73 sq.m. Ages 30-39 = 107 mL/min/1.73 sq.m. Ages 40-49 = 99 mL/min/1.73 sq.m. Ages 50-59 = 93 mL/min/1.73 sq.m. Ages 60-69 = 85 mL/min/1.73 sq.m. Ages 70+ = 75 mL/min/1.73 sq.m. Chronic Kidney Disease: Less than 60 mL/min/1.73 square meters End Stage Renal Disease: Less than 15 mL/min/1.73 square meters Performed By: #### CBC, ADIFF, ANEU, LIP, GFR, CMP #### [address] [address] CMP Collected: 10/07/2017 Status: F [facility] 6[facility] PM [facility] REPOSITORY TYPE CODE TESTS RESULT OUT OF REFERENCE UNITS RANGE LAB GLU(LOINC) 70-105 mg/dL Glucose Level 94 LAB NA(LOINC) 136-146 mEq/L Sodium Level 138 LAB K(LOINC) 3.5-5.1 mEq/L Potassium Level 4.3 LAB CL(LOINC) 98-107 mEq/L Chloride 106 LAB CO2(LOINC) 22-29 mEq/L CO2 25 LAB EBAL(LOINC mEq/L ) Electrolyte Balance 7.0 LAB BUN(LOINC) 7.0-18.0 mg/dL BUN 10.2 LAB CRE(LOINC) 0.6-1.2 mg/dL Creatinine Lvl (s) 0.7 LAB BC(LOINC) 7-27 ratio BUN/Creatinine 15 Ratio LAB CA(LOINC) 8.4-10.2 mg/dL Calcium Lvl 9.5 LAB PROT(LOINC 6.0-8.3 G/dL ) Total Protein 7.0 LAB ALB(LOINC) 3.5-5.0 G/dL Albumin Level 4.3 LAB GLB(LOINC) G/dL Globulin 2.7 LAB AG(LOINC) 1.1-2.5 ratio A/G Ratio 1.6 LAB BILT(LOINC 0.2-1.0 mg/dL ) Low Bili Total <0.2 LAB AP(LOINC) 40-135 IU/L Alk Phos 64 LAB AST(LOINC) 10-40 IU/L AST/SGOT 14 LAB ALT(LOINC) 10-35 IU/L ALT/SGPT 16 Performed By: #### CBC, ADIFF, ANEU, LIP, GFR, CMP #### [address] [address] UA Collected: 10/07/2017 Status: F Source: [facility] 6:39 PM [facility] REPOSITORY TYPE CODE TESTS RESULT OUT OF REFERENCE UNITS RANGE LAB SPCUA(LOIN C) UA Specimen Type Clean Catch LAB CLRUA(LOIN C) UA Color YELLOW LAB APPUA(LOIN C) UA Appear CLEAR LAB SGUA(LOINC ) UA Spec Grav 1.020 LAB GLUA(LOINC mg/dL ) UA Glucose NEGATIVE LAB BILUA(LOIN C) UA Bili NEGATIVE LAB KETUA(LOIN mg/dL C) UA Ketones NEGATIVE LAB BLDUA(LOIN C) UA Blood LARGE LAB PHUA(LOINC ) UA pH 6.5 LAB PROUA(LOIN mg/dL C) UA Protein NEGATIVE LAB UROUA(LOIN E.U./dL C) UA Urobilinogen 0.2 LAB NITUA(LOIN C) UA Nitrite NEGATIVE LAB LEUUA(LOIN C) UA Leuk Est SMALL Performed By: #### UA, PREGU, UAMICAO #### [address] [address] PREGU Collected: 10/07/2017 Status: F Source: [facility] 6:39 PM [facility] REPOSITORY TYPE CODE TESTS RESULT OUT OF RANGE REFERENCE UNITS LAB PREGU(LOIN C) Test Negative Urine LAB PRUG1(LOIN C) Unknown test HCG not (u) int detected. Performed By: #### EDWARD CRUMP UAMICAYLEEN #### [place] [id number] [place], [place] [address] .URINALYSIS MICROSCOPIC Collected: 10/07/2017 Status: F Source: [facility]) 6:39 PM [facility] REPOSITORY TYPE CODE TESTS RESULT OUT OF RANGE REFERENCE UNITS LAB WBCUA(LOIN None Seen /hpf C) Unknown UA WBC 0-5 LAB RBCUA(LOIN None Seen /hpf C) Unknown UA RBC 15-25 LAB EPIUA(LOIN None Seen /hpf C) Unknown UA Squam Epithelial 0-5 LAB BACUA(LOIN /hpf C) Unknown UA Bacteria 1+ Performed By: #### EDWARD CRUMP UAMICAYLEEN #### [place] [address] [address] Observed: 10/05/2017 Status: F Source: [employer] GASTROINTESTINAL PCR PANEL 6:20 PM SYSTEM REPOSITORY Order Comment: not formed GASTROINTESTINAL PCR PANEL --> Status: F NEGATIVE: No targets were detected by the [employer] Gastrointestinal PCR Panel. The [employer] Gastrointestinal PCR Panel detects the following targets: Campylobacter Plesiomonas shigelloides Salmonella Vibrio species Vibrio cholerae Yersinia enterocolitica Shiga-like toxin-producing E. coli (STEC), including E. coli O157 Enterotoxigenic E. coli (ETEC) lt/st Shigella/Enteroinvasive E. coli (EIEC) Clostridium difficile toxin A/B Cryptosporidium Cyclospora cayetanensis Entamoeba histolytica Giardia lamblia Adenovirus F 40/41 Astrovirus Norovirus GI/GII Rotavirus A Sapovirus Gastrointestinal PCR Panel. The [employer] Gastrointestinal PCR Panel detects the following targets: Campylobacter Plesiomonas shigelloides Salmonella Vibrio species Vibrio cholerae Yersinia enterocolitica Shiga-like toxin-producing E. coli (STEC), including E. coli O157 Enterotoxigenic E. coli (ETEC) lt/st Shigella/Enteroinvasive E. coli (EIEC) Clostridium difficile toxin A/B Cryptosporidium Cyclospora cayetanensis Entamoeba histolytica Giardia lamblia Adenovirus F 40/41 Astrovirus Norovirus GI/GII Rotavirus A Sapovirus Performed By: #### GIPCR #### [email or web address] [facility] [address] [place] [id number] HEMOGRAM W/ AUTODIFF Collected: 10/05/2017 Status: F Source: [facility] 4:05 PM SYSTEM REPOSITORY TYPE CODE TESTS RESULT OUT OF REFERENCE UNITS RANGE LAB IWBC 3.6-10.7 10*3/uL WBC Normal 7.8 LAB RBC 3.80-5.20 10*6/uL RBC Normal 3.95 LAB HGB 11.7-16.0 g/dL Hemoglobin Normal 12.8 LAB HCT 35.0-47.0 % Hematocrit Normal 37.2 LAB MCV 79.0-98.0 fL MCV Normal 94.3 LAB MCH 26.0-34.0 pg MCH Normal 32.4 LAB MCHC 32.0-36.0 % MCHC Normal 34.3 LAB RDW 11.5-14.5 % RDW Normal 12.4 LAB PLT 140-440 10*3/uL Platelet Normal 278 LAB MPV 7.4-10.4 fL MPV Normal 8.2 LAB GRAN% 40.0-80.0 % Granulocytes Normal 65.3 LAB LYMP% 20.0-40.0 % Lymphocytes Normal 25.6 LAB MONO% 2.0-10.0 % Monocytes Normal 8.1 LAB EOS% 1.0-6.0 % Low Eosinophils 0.5 LAB BAS% 0.0-2.0 % Basophils Normal 0.5 LAB ANC 1.8-7.0 10*3/uL Abs Normal Neutrophile Cnt 5.1 LAB ALC 1.0-4.3 10*3/uL Abs Lymph Cnt Normal 2.0 LAB AMC 0.0-0.8 10*3/uL Abs Monocyte Normal Cnt 0.6 LAB AEC 0.0-0.5 10*3/uL Abs Eosin Cnt Normal 0.0 LAB ABC 0.0-0.2 10*3/uL Abs Baso Cnt Normal 0.0 Performed By: #### HEMDF, LACT3, CMP3, LIPA3 #### [facility] [address] [place] [address] LACTIC ACID Collected: 10/05/2017 Status: F Source: [facility] 4:05 PM SYSTEM REPOSITORY TYPE CODE TESTS RESULT OUT OF RANGE REFERENCE UNITS LAB LACT3 0.7-2.0 mmol/L Normal Lactic Acid 0.9 Performed By: #### HEMDF, LACT3, CMP3, LIPA3 #### [facility] [address] [place] [address] COMP METABOLIC PANEL Collected: 10/05/2017 Status: F Source: [facility] [facility] 4:05 PM SYSTEM REPOSITORY TYPE CODE TESTS RESULT OUT OF RANGE REFERENCE UNITS LAB NA3 137-145 mmol/L Sodium Normal 141 LAB K3 3.5-5.1 mmol/L Normal Potassium 4.3 LAB CL3 98-107 mmol/L Chloride Normal 107 LAB CO23 22-30 mmol/L Carbon Normal Dioxide 26 LAB ANIN3 NA Anion Gap 9 LAB GLUC3 70-100 mg/dL Glucose Normal 87 LAB BUN3 7-20 mg/dL Urea Normal Nitrogen 10 LAB CRET3 0.52-1.25 mg/dL Normal Creatinine 0.72 LAB GF3BR >60 mL/min eGFR > 60.0 LAB GF3WR >60 mL/min eGFR OTHER > 60.0 Result Comment: Source- MDRD equation with creatinine calibration to IDMS(NKDEP) eGFR not recommended for drug dose adjustment LAB CA3 8.4-10.2 mg/dL Calcium Normal 9.7 LAB ALB3 3.5-5.0 g/dL Albumin, Serum Normal 4.6 LAB TP3 6.3-8.2 g/dL Total Protein Normal 7.7 LAB BILT3 0.2-1.3 mg/dL Normal Bilirubin,Total 0.3 LAB ALKP3 38-126 U/L Alkaline Normal Phosphatase 60 LAB ALT3 13-69 U/L ALT (SGPT) Normal 30 LAB AST3 15-46 U/L AST (SGOT) Normal 22 Performed By: #### HEMDF, LACT3, CMP3, LIPA3 #### [facility] [address] [place] [address] LIPASE Collected: 10/05/2017 Status: F Source: [facility] [facility] 4:05 PM SYSTEM REPOSITORY TYPE CODE TESTS RESULT OUT OF RANGE REFERENCE UNITS LAB LIPA3 23-300 [IU]/L Normal Lipase 131 Performed By: #### HEMDF, LACT3, CMP3, LIPA3 #### [facility] [address] [place] [address] URINALYSIS,MACRO Collected: 10/05/2017 Status: F Source: [facility] [facility] 4:05 PM SYSTEM REPOSITORY TYPE CODE TESTS RESULT OUT OF REFERENCE UNITS RANGE LAB APPUR Clear NA Appearance CLEAR LAB COLUR Lt. Yellow NA Color YELLOW LAB USG 1.005-1.030 NA Specific Normal [place],Urine 1.011 LAB UPH 5.0-8.0 NA pH,Urine Normal 6.5 LAB ULUK Negative NA Leukocytes 1 + LAB UNIT Negative NA Nitrites NEG LAB UPRO Negative mg/dL Total Protein,Urine NEG LAB UGLU Negative mg/dL Glucose,Urine NEG LAB UKET Negative mg/dL Ketone,Urine NEG LAB UURO 0-1 mg/dL Urobilinogen 0.2 LAB UBIL Negative NA Bilirubin,Ur NEG LAB UBLD Negative {RBC}/uL Occult Blood,Ur NEG Performed By: #### UAMAC, UAMIC #### [facility] [employer] [facility] [address] [place] [address] URINALYSIS,MICROSCOPIC Collected: Status: F Source: [facility] 10/05/2017 4:05 PM [facility]ALTH SYSTEM REPOSITORY TYPE CODE TESTS RESULT OUT OF REFERENCE UNITS RANGE LAB WBCU 0-5 /[HPF] WBC,Urine 9 LAB RBCU 0-2 /[HPF] RBC,Urine 2 LAB EPIU 3-5 /[HPF] Epithelial Cells TRACE LAB JINA Negative NA Bacteria 1 + LAB HYL 0-1 /[LPF] Cast, Hyaline 0 Performed By: #### UAMAC, UAMIC #### [facility] [address] [place] [address] URINALYSIS, COMPLETE Collected: 10/03/2017 Status: F Source: [place] 7:00 PM [facility] REPOSITORY Order Comment: RESULT(S) PREVIOUSLY REPORTED ON MANUAL REQUISITION DURING DOWNTIME. ORDERED FROM DT REQUISITION How was Urine Obtained? CLEAN CATCH TYPE CODE TESTS RESULT OUT OF RANGE REFERENCE UNITS LAB L400.3000 Yellow COLOR Normal Yellow LAB L400.3050 Clear Normal CLARITY Clear LAB L400.3200 Normal mg/dl Normal GLUCOSE, UR NEGATIVE LAB L400.3300 Negative mg/dL Normal BILIRUBIN URINE Negative LAB L400.3400 Negative mg/dl Normal KETONE UR Negative LAB L400.3465 1.002-1.030 Normal SP.GR. DIPSTX 1.010 LAB L400.3550 5.0 - 8.0 pH UR Normal 6.0 LAB L400.3600 Negative mg/dl PROT Normal DIPSTX Negative LAB L400.3700 Normal mg/dl Normal UROBILI Normal LAB L400.3750 Negative Normal NITRITE UR Negative LAB L400.3780 Negative /ul High OCCULT BLOOD-UR 150 LAB L400.3800 Negative /ul LEUK Normal ESTERASE Negative LAB L400.4050 0-5 /hpf WBC Normal 0-5 SEEN LAB L400.4100 0-5 /hpf Normal RBC-UA 10-25 SEEN LAB L400.4150 5-10 /hpf SQUAM Normal EPI 0-5 SEEN LAB L400.4300 None Seen /hpf 0 Normal BACTERIA SEEN LAB L400.4350 <or=2+ /hpf 0 Normal MUCUS, URINE SEEN Performed By: #### L400.0001 #### [facility] [address] [place], [place], [id number] BASIC METABOLIC Collected: 10/03/2017 Status: F Source: [place] PROFILE (BMP) 3:40 PM [facility] REPOSITORY Order Comment: RESULT(S) PREVIOUSLY REPORTED ON MANUAL REQUISITION DURING DOWNTIME. TYPE CODE TESTS RESULT OUT OF RANGE REFERENCE UNITS LAB L501.0100 74-106 mg/dL Normal GLU 95 Result Comment: Please note revised GLUCOSE reference range effective 2017. LAB L501.1000 7-18 mg/dL Normal BUN 9 LAB L501.1100 0.55-1.02 mg/dL Normal CREAT,SERUM 0.96 Result Comment: The validity of the calculated GFR AND GFRAA in patients over 70 years has not been determined. Clinical correlation is essential. LAB L501.1110 >60 mL/min Normal EST GFR 74 LAB L501.1115 >60 mL/min Normal EST GFR - AA 90 LAB L501.1300 10-20 RATIO Low BUN/CRE 9.4 LAB L501.2200 8.5-10.1 mg/dL Normal CA 9.0 LAB L501.5300 136-145 mmol/L Normal NA 142 LAB L501.5600 3.5-5.1 mmol/L Normal K 3.6 LAB L501.5900 98-107 mmol/L High CL 109 LAB L501.6100 21.0-32.0 mmol/L Normal CO2 24.0 LAB L501.6200 5-15 Normal GAP 9 Performed By: #### L500.2500, L500.3400, L501.2450 #### [facility] [address] [place], [address] LIVER PROFILE Collected: 10/03/2017 Status: F Source: [place] 3:40 PM [facility] REPOSITORY Order Comment: RESULT(S) PREVIOUSLY REPORTED ON MANUAL REQUISITION DURING DOWNTIME. TYPE CODE TESTS RESULT OUT OF RANGE REFERENCE UNITS LAB L501.1500 6.4-8.2 g/dL High T PROT 8.8 LAB L501.1800 3.2-5.0 g/dL Normal ALB 4.3 LAB L501.1950 2.2-4.2 g/dL High GLOB 4.5 LAB L501.4100 15-37 U/L Low AST 14 LAB L501.4305 45-117 U/L Normal ALK P 66 LAB L501.4405 13-56 U/L Normal ALT 27 LAB L501.4600 0.20-1.00 mg/dL Normal T BILI 0.20 LAB L501.4700 0.00-0.30 mg/dL Normal D BILI 0.06 Performed By: #### L500.2500, L500.3400, L501.2450 #### [facility] [address] [place], [address] LIPASE Collected: 10/03/2017 Status: F Source: [place] 3:40 PM [facility] REPOSITORY Order Comment: RESULT(S) PREVIOUSLY REPORTED ON MANUAL REQUISITION DURING DOWNTIME. TYPE CODE TESTS RESULT OUT OF RANGE REFERENCE UNITS LAB L501.2450 73-393 U/L Normal LIPASE 254 Performed By: #### L500.2500, L500.3400, L501.2450 #### [facility] [address] [place], [address] ,SERUM,HCG QUALI. Collected: Status: F Source: [place] 10/03/2017 3:40 PM [facility] REPOSITORY Order Comment: RESULT(S) PREVIOUSLY REPORTED ON MANUAL REQUISITION DURING DOWNTIME. TYPE CODE TESTS RESULT OUT OF REFERENCE UNITS RANGE LAB L700.6700 =>Qualitative mIU/mL Normal HCG Qual < 1 triggr LAB L700.7000 0-9 Nonpreg Negative Normal HCGSQUAL NEGATIVE Performed By: #### L700.6800 #### [facility] [address] [place], [address] CBC W/DIFF, AUTOMATED Collected: 10/03/2017 Status: F Source: [place] 12:00 AM [facility] REPOSITORY Order Comment: RESULT(S) PREVIOUSLY REPORTED ON MANUAL REQUISITION DURING DOWNTIME. TYPE CODE TESTS RESULT OUT OF RANGE REFERENCE UNITS LAB L100.1000 4.4-11.0 K/mm3 Normal WBC 9.7 LAB L100.1200 4.2-5.4 M/mm3 Normal RBC 4.28 LAB L100.1300 12.0-15.0 g/dl Normal HGB 13.7 LAB L100.1400 37-47 % Normal HCT 41.2 LAB L100.1500 81-99 fL Normal MCV 96.3 LAB L100.1600 27.0-32.0 pg Normal MCH 32.0 LAB L100.1700 32-36 g/gl Normal MCHC 33.3 LAB L100.1810 11.6-14.6 % Normal RDW CV 12.3 LAB L100.1820 35.1-43.9 fl Normal RDW SD 42.2 LAB L100.1900 150-450 K/mm3 Normal PLT 329 LAB L100.2000 6.2-12.0 fl Normal MPV 10.1 LAB L100.2100 47-70 % High NEUT% 70.9 LAB L100.2200 19-41 % Normal LY% 21.4 LAB L100.2300 0-10 % Normal MONO% 7.2 LAB L100.2400 0-5 % Normal EO% 0.2 LAB L100.2500 0-1 % Normal BASO% 0.2 LAB L100.2550 0.0-0.9 % Normal IM GRAN % 0.100 Result Comment: IG% - Immature Granulocytes (promyelocytes, myelocytes and metamyelocytes) > 1% indicates that a LEFT SHIFT is Present. LAB L100.2620 2.0-7.7 X10 3/uL Normal Absolute Neut 6.9 LAB L100.2720 0.83-4.51 X10 3/ul Normal Absolute Lymph 2.08 Performed By: #### L100.0100 #### [facility] [address] [place], [address] NURSING PROG Observed: 09/25/2017 Status: COMPLETED Source: [place] 3:27 PM [facility] REPOSITORY HNO ID: [id number] Author: Zuri CabaRn) JORY Malcolm Service: Nursing Author Type: Registered Nurse Type: Nursing Progress Note Filed: 09/25/2017 3:30 PM Note Text: Patient did not experience a fall prior to discharge. Patient did not experience a burn prior to discharge. Zuri Malcolm RN PT ED Observed: 09/25/2017 Status: COMPLETED Source: [place] 3:05 PM [facility] REPOSITORY HNO ID: [id number] Author: Zuri CabaRn) JORY Malcolm Service: Nursing Author Type: Registered Nurse Type: Patient Education Filed: 09/25/2017 3:06 PM Note Text: POST OP LEARNING RESPONSE INSTRUCTION PROVIDED TO: Patient and Mother METHOD OF INSTRUCTION: Written instruction - handouts Verbal instruction PATIENT / FAMILY RESPONSE: Verbalizes understanding of: INFECTION MANAGEMENT-Signs and symptoms of an infection and importance of contacting the physician PHYSICAL RESTRICTIONS-Physical restrictions and recommendations after discharge from the hospital POST-PROCEDURE INSTRUCTIONS-Correct actions to take to reduce post procedure complications PATIENT SAFETY PRINCIPLES WORSENING CONDITION-Signs and symptoms of a worsening condition that warrant a call to the physician FOLLOW-UP PLAN: Patient instructed to call with any further issues Follow up phone call. SUPPLEMENTAL MATERIAL: Procedure discharge instructions REFERRAL (RECOMMENDATION): None Electronically Signed By: Zuri Malcolm RN In Department: AMBULATORY SURGERY NURSING PROG Observed: 09/25/2017 Status: COMPLETED Source: [place] 2:46 PM [facility] REPOSITORY HNO ID: [id number] Author: Judy Goss RN Service: (none) Author Type: Registered Nurse Type: Nursing Progress Note Filed: 09/25/2017 2:46 PM Note Text: Patient did not experience a fall within the Intraoperative area. Patient did not experience a burn within the Intraoperative area. Judy Goss RN NURSING PROG Observed: 09/25/2017 Status: COMPLETED Source: [place] 2:26 PM [facility] REPOSITORY HNO ID: [id number] Author: Melony Lopez RN Service: (none) Author Type: Registered Nurse Type: Nursing Progress Note Filed: 09/25/2017 2:28 PM Note Text: [facility] PRE-OP NURSING HAND OFF NOTE SBAR Hand off given to Judy Goss RN. Hand off was communicated verbally and at the patient's bedside and all questions were answered. FALLS/ANTUNEZ Patient did not experience a fall within the Preoperative area. Patient did not experience a burn within the Preoperative area. Melony Lopez RN HISTORY PHYSICAL Observed: 09/25/2017 Status: COMPLETED Source: [place] 1:08 PM [facility] REPOSITORY O ID: [id number] Author: Yemi Cross Service: General Surgery Author Type: Physician Type: HANDP Filed: 09/25/2017 1:08 PM Note Text: HISTORY AND PHYSICAL ? Lakesha Del Cid 1990 ? REFERRING PHYSICIAN: Jaydon Decker DO ? CHIEF COMPLAINT: Established Patient (Epigastric/abd pain) ? HPI: The patient is a 27 year old female referred for endoscopy. Lakesha notes relatively severe abdominal pain in the epigastrium for the past few days. She also notes nausea and vomiting. The pain was more constant than her biliary symptoms. She was concerned however that she was diagnosed with pancreatitis earlier in the year and wondered if this was a recurring problem. She presented to [facility] emergency department on September 22. Laboratory studies were relatively unremarkable. Her lipase level was normal. She was given a GI cocktail, but this did not improve her symptoms. He was recommended she contact me as I had seen her in the past for GI complaints.. ? Lakesha is a patient I had been following for a complaint of right upper quadrant pain. ? The patient has noted recurrent episodes of right-sided abdominal pain over the last year. Pain location varies from mid abdomen to lower abdomen. She notes the pain occurs after eating and is associated with urgency to have a bowel movement and will have diarrhea. Denies changes to diet or recent travel prior to onset of symptoms. She states she is having loose stools with everything she eats at this time, and notes no alleviating factors. Has had multiple ED visits due to pain. She underwent upper endoscopy on 06/04/16 in [facility] [place] which was unremarkable. She had an ultrasound of the right upper quadrant at that time which showed no acute pathology. She has had multiple abdominal CT scans over the last year. CT scan on 11/29/16 showed submucosal fat attenuation involving the hepatic flexure of the colon, and soft tissue attenuation in the extra hepatic duct which was favored to be artifactual. She has had two HIDA scans. ? The first on 06/11/16 showed normal HIDA scan with normal gallbladder ejection fraction, evidence of duodenal gastric reflux. The second HIDA scan on 12/09/16 showed normal gallbladder response to CCK, no evidence of duodenogastric biliary reflux, and gallbladder ejection fraction. The patient states that she did however note an exact reproduction of her right-sided abdominal pain with CCK administration during these tests. ? I performed colonoscopy for the patient on 01/14/17. The entire colon as well as the examined portion of the ileum appeared normal. Multiple biopsies were taken for evaluation for microscopic colitis. Pathology demonstrated: ? FINAL DIAGNOSIS 1. Terminal ileum, biopsy (A) - Ileal mucosa with no diagnostic alteration. 2. Random colon, biopsy (B) - Colonic mucosa with no diagnostic alteration. TP/rw 01/15/2017 ? I performed a laparoscopic cholecystectomy with intraoperative choleangiogram on January 26, 2017. The patient currently notes significant pain which she describes more as incisional pain but also her right upper quadrant pain. She has had 2 visits to emergency department both in [facility] [place] and [place] where she has had Dilaudid shots which improved her pain symptoms. She had laboratory studies in [place] which were completely unremarkable. She had laboratory studies which were unremarkable and [place]. She had a CT scan of the abdomen and pelvis and [place] which was unremarkable. ? PAST MEDICAL HISTORY PAST MEDICAL HISTORY Diagnosis Date - Altered bowel habits 12/22/2016 ? Added automatically from request for surgery [id number] - Attention deficit disorder without mention of hyperactivity ? - Chest pain of pericarditis 10/19/2013 - Controlled substance agreement signed 03/08/2014 - Depression ? ? and anxiety - Drug-seeking behavior ? - Elevated amylase and lipase 06/03/2016 - Fibromyalgia ? - Intractable chronic migraine without aura and without status migrainosus 08/10/2015 - Kidney stones ? ? 16 renal stones - monitoring, Dr. Stoner - Migraines ? ? Dr. Zamorano Neurologist - Nephrolithiasis 06/03/2016 - Nephrolithiasis 06/03/2016 - Pericarditis ? ? Dr. Norris Central Office Supervisor - Right sided abdominal pain 06/01/2016 - Right sided abdominal pain 06/01/2016 - Right upper quadrant pain 01/20/2017 ? Added automatically from request for surgery [id number] - Vaginal spotting 06/04/2016 - Vaginal spotting 06/04/2016 - Viral pericarditis 10/19/2013 ? ? PAST SURGICAL HISTORY PAST SURGICAL HISTORY Procedure Laterality Date - BOTOX ? 07/08/2013 - COLONOSCOP W/ OR W/O BRSH SPEC ? 01/14/2017 ? Colonoscopy - LAPAROSCOPIC CHOLEYCYSTECTOMY ? 01/26/2017 ? Cholecystectomy, lap - ORAL SURGERY PROCEDURE ? 01/25/2010 ? [place] Teeth Extraction - PAST SURGICAL HISTORY OF ? 2012 ? piercings removed from abdomen - REMOVAL OF TONSILS,<12 Y/O ? 6yo ? Tonsillectomy ? ? ? CURRENT MEDICATIONS ? Current Outpatient Prescriptions: acetaminophen (TYLENOL) 500 mg tablet Take 500 mg by mouth every 8 hours as needed. DULoxetine (CYMBALTA) 60 mg capsule Take 1 capsule by mouth once daily. medroxyPROGESTERone (DEPO-PROVERA) 150 mg/mL syrg Inject 1 mL intramuscularly every 12 weeks. famotidine (PEPCID) 20 mg tablet Take 1 tablet by mouth twice daily. promethazine (PHENERGAN) 25 mg tablet Take 1 tablet by mouth every 6 hours as needed. dicyclomine (BENTYL) 20 mg tablet Take 1 tablet by mouth every 6 hours. ondansetron orally disintegrating (ZOFRAN ODT) 4 mg disintegrating tablet Take 1 tablet by mouth every 6 hours as needed for Nausea/Vomiting. ONABOTULINUMTOXINA (BOTOX INJECTION) by INJECTION(UNSPECIFIED PARENTERAL ROUTES) route. acidophilus-pectin, citrus (ACIDOPHILUS PROBIOTIC) 100 million- 10 cell-mg cap Take by mouth. oxyCODONE-acetaminophen (PERCOCET) 5-325 mg tablet Take 1 tablet by mouth every 6 hours as needed for up to 7 days. ibuprofen (MOTRIN) 600 mg tablet Take 1 tablet by mouth every 6 hours as needed for Pain or Fever. ? No current facility-administered medications for this visit. ? ALLERGIES: Benadryl [Diphenhydramine Hcl]; Kiwi; Methocarbamol; [place] [Hydrocodone-Acetaminophen]; Nsaids (Non-Steroidal Anti-Inflammatory Drug); Rat [Other]; Reglan [Metoclopramide Hcl] ? PERSONAL HISTORY: SOCIAL HISTORY Social History Marital status: Single Spouse name: Years of education: Number of children: 0 ? Occupational History Occupation Employer Comment [employer]* ? Social History Main Topics Smoking status: Never Smoker ? Smokeless tobacco: Never Used Alcohol use: No Comment: 2 drinks per week Drug use: No Sexual activity: Yes Partners with: Male control/protection: Injection Comment: Depo Provera ? ? FAMILY HISTORY: FAMILY HISTORY FAMILY HISTORY Problem Relation Age of Onset - Hypertension Father ? - migraine [Other] [OTHER] Father ? - kidney stones [Other] [OTHER] Father ? - COPD Maternal Grandmother ? - kidney cancer [Other] [OTHER] Paternal Grandfather ? ? ? REVIEW OF SYMPTOMS: The review of systems data was entered by the nurse and reviewed by me ? Nursing Notes: Shanell Abdi Ma 09/24/2017 4:34 PM Signed REVIEW OF SYSTEMS: General: The patient NOTES fatigue, denies weight loss, denies weight gain, denies feeling hot, and denies feelings of cold. Eyes: The patient denies glaucoma, denies eye injury/surgery, does not wear glasses or contacts. Ear/Nose/Throat: The patient denies allergies, denies hayfever, denies ear infections, and denies bloody noses. Cardiovascular: The patient NOTES chest pain, denies heart disease, denies high blood pressure,denies cardiac stent, denies prior heart attack, denies irregular heart beat, denies high cholesterol, denies poor circulation, denies heart failure, NOTES other cardiac issues, denies claudication, denies cold feet, denies peripheral arterial stent. Respiratory: The patient denies tuberculosis, denies pneumonia, denies frequent cough, denies pulmonary embolism, denies shortness of breath, and denies coughing up blood, NOTES other lung problems Gastrointestinal: The patient denies difficulty swallowing, NOTES acid reflux, denies ulcers, denies vomiting, denies jaundice/hepatitis, NOTES gallbladder problems, NOTES black or tarry stools, denies hemorrhoids, denies bleeding from rectum, denies diverticulitis, denies constipation, NOTES diarrhea, denies loss of stool control, and denies hernias. Kidney/Bladder: The patient NOTES kidney stones, NOTES urine infections, and NOTES bloody urine. Skin: The patient denies a history of skin cancer, denies bleeding/changing moles, and denies a history of skin rash. Neurologic: The patient denies a history of epilepsy/convulsions, NOTES headaches, denies head/spinal injuries, and denies stroke/TIA. Psychiatric: The patient denies psychiatric medications, denies depression, and denies voices, denies substance abuse. Endocrine: The patient denies thyroid disorders, denies diabetes, and denies hormonal problems. Hematologic: The patient denies a history of bruising, denies bleeding, and denies anemia, denies blood clots. Infections: The patient denies a history of measles and mumps, denies rheumatic fever, and denies sexually transmitted diseases. Musculoskeletal: The patient denies back pain/injury, denies back problems, denies sciatica, denies knee/foot trouble, NOTES arthritis, or denies gout. ? ? When was patient's last Mammogram screening? 2 years ago approximately ? Last Colonoscopy: 01/14/2017 ? Shanell Abdi Ma PHYSICAL EXAMINATION: ? General: The patient is 27 year old female, well nourished, well hydrated in no acute distress. The patient is oriented to time, place, and person. ? VITALS: Blood pressure 124/68, pulse 84, weight 62.1 kg (137 lb). Body mass index is 25.89 kg/m?. ? HEENT: Normal cephalic, ataumatic, pupils are equally round, sclera are anicteric, mucous membranes are moist, oropharynx is clear. Neck has no masses, asymmetry or lymphadenopathy. Thyroid is unremarkable. ? Respiratory: Clear to auscultation and percussion. Normal respiratory excursion and pattern. ? Cardiac: Examination is regular rate and rhythm. ? Abdominal exam: Soft, nontender, with no palpable masses. No hepatosplenomegaly. No palpable hernias. ? Rectal exam: exam deferred ? Extremities: no clubbing, cyanosis or edema. No adenopathy. ? Other: ? LABORATORY VALUES: As Noted ? RADIOLOGIC STUDIES: As Noted ? Assessment IMPRESSION: Epigastric pain, nausea and vomiting ? PLAN: I plan to perform upper endoscopy. We discussed the risks and benefits of the planned endoscopy. I have informed the patient that complications can occur including failure to complete the endoscopy and perforation. The patient had the opportunity to ask questions concerning the planned endoscopy. My staff has also explained the procedure to the patient in understandable terms and has given the patient printed material concerning the procedure. The patient freely consents to surgery. ? OARRS website checked and validated. All prescriptions have been APPROPRIATELY filled. No suspicious activity was identified.- 09/24/2017 by Yemi Cross MD ? ? Diagnoses: (R10.13) Epigastric pain (primary encounter diagnosis) ? My findings have been communicated to Dr. Jaydon Decker DO via shared medical record. This note will be forwarded to Dr. Jaydon Decker DO. Return to Clinic: The patient is instructed to follow-up with me after the testing has been completed. ? Yemi Cross MD PT ED Observed: 09/25/2017 Status: COMPLETED Source: [place] 12:50 PM [facility] REPOSITORY HNO ID: [id number] Author: Melony Díaz) JORY Lopez Service: (none) Author Type: Registered Nurse Type: Patient Education Filed: 09/25/2017 12:51 PM Note Text: Discharge Instructions were reviewed pre-operatively with the patient. All questions and concerns were addressed. Melony Lopez RN PRE OP LEARNING ASSESSMENT PROCEDURE/SURGERY: GI PROCEDURES: EGD READINESS TO LEARN COGNITIVE ABILITY: Alert and oriented MOTIVATION TO LEARN: Interested FAMILY SUPPORT: Unable to assess - Family not present PATIENT LEARNS BEST BY: Multiple Methods FACTORS AFFECTING LEARNING: None PHYSICAL LIMITATIONS AFFECTING LEARNING: None Electronically Signed By: Melony Lopez RN In Department: AMBULATORY SURGERY SURGICAL PATHOLOGY Observed: 09/25/2017 Status: C Source: [place] 12:00 AM [facility] REPOSITORY ADDENDUM PRESENT Specimen originated from [facility] Specimen #: [id number] Submitting Physician: YEMI CROSS ([id number]) FINAL DIAGNOSIS 1. Jejunum, biopsy (A) - No diagnostic alteration. 2. Stomach, antrum, biopsy (B) - Reactive gastropathy and slight chronic gastritis. 3. Esophagogastric junction, biopsy (C) - Gastric-type mucosa with chronic inflammation and squamous mucosa with regenerative epithelial changes. - Negative for intestinal metaplasia or dysplasia. 4. Mid esophagus, biopsy (D) - Squamous mucosa with slight regenerative epithelial changes. - Negative for intestinal metaplasia or dysplasia. [facility] 09/[facility]2017 COMMENT Immunohistochemical stain for Helicobacter pylori organisms will be performed and reported as an addendum. Gerry Brennan M.D. (Electronic Signature) SPECIMEN SUBMITTED A: JEJUNUM, BIOPSY B: ANTRUM, BIOPSY C: ESOPHAGOGASTRIC JUNCTION, BIOPSY D: MID ESOPHAGUS, BIOPSY ADDENDUM Date Ordered: 09/30/2017 Date Reported: 09/30/2017 Given the background of chronic gastritis, a Helicobacter pylori immunostain was performed on block B and is negative for Helicobacter pylori organisms. Laboratory Developed Test (LDT) Disclaimer: Positive and negative controls stain appropriately. Performance characteristics of immunohistochemical, immunofluorescent and chromogenic in-situ hybridization tests have been determined by [facility]'s [facility] Pathology and Laboratory Medicine [place] ([facility]) in a manner consistent with CLIA requirements. One or more of these tests have not been cleared or approved by the FDA. [facility] is regulated under CLIA as qualified to perform high-complexity testing. These tests are used for clinical purposes. They should not be regarded as investigational or for research. [facility] 09/30/2017 Addendum Pathologist: Gerry Brennan M.D. Electronic Signature CLINICAL DATA R10.3 B) H/H GROSS DESCRIPTION A. Received in formalin is one piece of godinez, soft tissue measuring 0.7 x 0.2 x 0.1 cm. Totally submitted in one cassette. B. Received in formalin is one piece of godinez, soft tissue measuring 0.2 x 0.2 x 0.2 cm. Totally submitted in one cassette. C. Received in formalin is one piece of godinez, soft tissue measuring 0.3 x 0.2 x 0.2 cm. Totally submitted in one cassette. D. Received in formalin is one piece of godinez, soft tissue measuring 0.2 x 0.2 x 0.1 cm. Totally submitted in one cassette. Gross examination performed at [facility], [address] [place] [address] MM 09/29/2017 2:07:14 AM Date of Report: 09/29/2017 Date of Procedure: 09/25/2017 Date of Receipt: 09/28/2017 Submitted by: YEMI CROSS ([id number]) Location: W01 Diagnostic interpretation performed at [facility], [address] [place] [address]. PROGRESS Observed: 09/24/2017 Status: COMPLETED Source: [place] 7:02 PM [facility] REPOSITORY O ID: [id number] Author: Yemi Cross Service: (none) Author Type: Physician Type: Progress Notes Filed: 09/24/2017 7:08 PM Note Text: HISTORY AND PHYSICAL Lakesha Clau 1990 REFERRING PHYSICIAN: Jaydon Decker DO CHIEF COMPLAINT: Established Patient (Epigastric/abd pain) HPI: The patient is a 27 year old female referred for endoscopy. Lakesha notes relatively severe abdominal pain in the epigastrium for the past few days. She also notes nausea and vomiting. The pain was more constant than her biliary symptoms. She was concerned however that she was diagnosed with pancreatitis earlier in the year and wondered if this was a recurring problem. She presented to [facility] emergency department on September 22. Laboratory studies were relatively unremarkable. Her lipase level was normal. She was given a GI cocktail, but this did not improve her symptoms. He was recommended she contact me as I had seen her in the past for GI complaints.. Lakesha is a patient I had been following for a complaint of right upper quadrant pain. The patient has noted recurrent episodes of right-sided abdominal pain over the last year. Pain location varies from mid abdomen to lower abdomen. She notes the pain occurs after eating and is associated with urgency to have a bowel movement and will have diarrhea. Denies changes to diet or recent travel prior to onset of symptoms. She states she is having loose stools with everything she eats at this time, and notes no alleviating factors. Has had multiple ED visits due to pain. She underwent upper endoscopy on 06/04/16 in [facility] which was unremarkable. She had an ultrasound of the right upper quadrant at that time which showed no acute pathology. She has had multiple abdominal CT scans over the last year. CT scan on 11/29/16 showed submucosal fat attenuation involving the hepatic flexure of the colon, and soft tissue attenuation in the extra hepatic duct which was favored to be artifactual. She has had two HIDA scans. The first on 06/11/16 showed normal HIDA scan with normal gallbladder ejection fraction, evidence of duodenal gastric reflux. The second HIDA scan on 12/09/16 showed normal gallbladder response to CCK, no evidence of duodenogastric biliary reflux, and gallbladder ejection fraction. The patient states that she did however note an exact reproduction of her right-sided abdominal pain with CCK administration during these tests. I performed colonoscopy for the patient on 01/14/17. The entire colon as well as the examined portion of the ileum appeared normal. Multiple biopsies were taken for evaluation for microscopic colitis. Pathology demonstrated: FINAL DIAGNOSIS 1. Terminal ileum, biopsy (A) - Ileal mucosa with no diagnostic alteration. 2. Random colon, biopsy (B) - Colonic mucosa with no diagnostic alteration. CAROLYN/dipti 01/15/2017 I performed a laparoscopic cholecystectomy with intraoperative choleangiogram on January 26, 2017. The patient currently notes significant pain which she describes more as incisional pain but also her right upper quadrant pain. She has had 2 visits to emergency department both in [facility] [place] and [place] where she has had Dilaudid shots which improved her pain symptoms. She had laboratory studies in [facility] [place] which were completely unremarkable. She had laboratory studies which were unremarkable and [place]. She had a CT scan of the abdomen and pelvis and [place] which was unremarkable. PAST MEDICAL HISTORY Diagnosis Date - Altered bowel habits 12/22/2016 Added automatically from request for surgery [id number] - Attention deficit disorder without mention of hyperactivity - Chest pain of pericarditis 10/19/2013 - Controlled substance agreement signed 03/08/2014 - Depression and anxiety - Drug-seeking behavior - Elevated amylase and lipase 06/03/2016 - Fibromyalgia - Intractable chronic migraine without aura and without status migrainosus 08/10/2015 - Kidney stones 16 renal stones - monitoring, Dr. Stoner - Migraines Dr. 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 - Right sided abdominal pain 06/01/2016 - Right sided abdominal pain 06/01/2016 - Right upper quadrant pain 01/20/2017 Added automatically from request for surgery [id number] - Vaginal spotting 06/04/2016 - Vaginal spotting 06/04/2016 - Viral pericarditis 10/19/2013 PAST SURGICAL HISTORY Procedure Laterality Date - BOTOX 07/08/2013 - COLONOSCOP W/ OR W/O [facility] SPEC 01/14/2017 Colonoscopy - LAPAROSCOPIC CHOLEYCYSTECTOMY 01/26/2017 Cholecystectomy, lap - ORAL SURGERY PROCEDURE 01/25/2010 [place] Teeth Extraction - PAST SURGICAL HISTORY OF 2012 piercings removed from abdomen - REMOVAL OF TONSILS,<12 Y/O 6yo Tonsillectomy Current Outpatient Prescriptions: acetaminophen (TYLENOL) 500 mg tablet Take 500 mg by mouth every 8 hours as needed. DULoxetine (CYMBALTA) 60 mg capsule Take 1 capsule by mouth once daily. medroxyPROGESTERone (DEPO-PROVERA) 150 mg/mL syrg Inject 1 mL intramuscularly every 12 weeks. famotidine (PEPCID) 20 mg tablet Take 1 tablet by mouth twice daily. promethazine (PHENERGAN) 25 mg tablet Take 1 tablet by mouth every 6 hours as needed. dicyclomine (BENTYL) 20 mg tablet Take 1 tablet by mouth every 6 hours. ondansetron orally disintegrating (ZOFRAN ODT) 4 mg disintegrating tablet Take 1 tablet by mouth every 6 hours as needed for Nausea/Vomiting. ONABOTULINUMTOXINA (BOTOX INJECTION) by INJECTION(UNSPECIFIED PARENTERAL ROUTES) route. acidophilus-pectin, citrus (ACIDOPHILUS PROBIOTIC) 100 million- 10 cell-mg cap Take by mouth. oxyCODONE-acetaminophen (PERCOCET) 5-325 mg tablet Take 1 tablet by mouth every 6 hours as needed for up to 7 days. ibuprofen (MOTRIN) 600 mg tablet Take 1 tablet by mouth every 6 hours as needed for Pain or Fever. No current facility-administered medications for this visit. ALLERGIES: Benadryl [Diphenhydramine Hcl]; Kiwi; Methocarbamol; [place] [Hydrocodone-Acetaminophen]; Nsaids (Non-Steroidal Anti-Inflammatory Drug); Rat [Other]; Reglan [Metoclopramide Hcl] PERSONAL HISTORY: Social History Marital status: Single Spouse name: Years of education: Number of children: 0 Occupational History Occupation Employer Comment [employer] Social History Main Topics Smoking status: Never Smoker Smokeless tobacco: Never Used Alcohol use: No Comment: 2 drinks per week Drug use: No Sexual activity: Yes Partners with: Male control/protection: Injection Comment: Depo Provera FAMILY HISTORY: FAMILY HISTORY Problem Relation Age of Onset - Hypertension Father - migraine [Other] [OTHER] Father - kidney stones [Other] [OTHER] Father - COPD Maternal Grandmother - kidney cancer [Other] [OTHER] Paternal Grandfather REVIEW OF SYMPTOMS: The review of systems data was entered by the nurse and reviewed by va Nursing Notes: Shanell Abdi Ma 09/24/2017 4:34 PM Signed REVIEW OF SYSTEMS: General: The patient NOTES fatigue, denies weight loss, denies weight gain, denies feeling hot, and denies feelings of cold. Eyes: The patient denies glaucoma, denies eye injury/surgery, does not wear glasses or contacts. Ear/Nose/Throat: The patient denies allergies, denies hayfever, denies ear infections, and denies bloody noses. Cardiovascular: The patient NOTES chest pain, denies heart disease, denies high blood pressure,denies cardiac stent, denies prior heart attack, denies irregular heart beat, denies high cholesterol, denies poor circulation, denies heart failure, NOTES other cardiac issues, denies claudication, denies cold feet, denies peripheral arterial stent. Respiratory: The patient denies tuberculosis, denies pneumonia, denies frequent cough, denies pulmonary embolism, denies shortness of breath, and denies coughing up blood, NOTES other lung problems Gastrointestinal: The patient denies difficulty swallowing, NOTES acid reflux, denies ulcers, denies vomiting, denies jaundice/hepatitis, NOTES gallbladder problems, NOTES black or tarry stools, denies hemorrhoids, denies bleeding from rectum, denies diverticulitis, denies constipation, NOTES diarrhea, denies loss of stool control, and denies hernias. Kidney/Bladder: The patient NOTES kidney stones, NOTES urine infections, and NOTES bloody urine. Skin: The patient denies a history of skin cancer, denies bleeding/changing moles, and denies a history of skin rash. Neurologic: The patient denies a history of epilepsy/convulsions, NOTES headaches, denies head/spinal injuries, and denies stroke/TIA. Psychiatric: The patient denies psychiatric medications, denies depression, and denies voices, denies substance abuse. Endocrine: The patient denies thyroid disorders, denies diabetes, and denies hormonal problems. Hematologic: The patient denies a history of bruising, denies bleeding, and denies anemia, denies blood clots. Infections: The patient denies a history of measles and mumps, denies rheumatic fever, and denies sexually transmitted diseases. Musculoskeletal: The patient denies back pain/injury, denies back problems, denies sciatica, denies knee/foot trouble, NOTES arthritis, or denies gout. When was patient's last Mammogram screening? 2 years ago approximately Last Colonoscopy: 01/14/2017 Shanell Abdi Ma PHYSICAL EXAMINATION: General: The patient is 27 year old female, well nourished, well hydrated in no acute distress. The patient is oriented to time, place, and person. VITALS: Blood pressure 124/68, pulse 84, weight 62.1 kg (137 lb). Body mass index is 25.89 kg/m?. HEENT: Normal cephalic, ataumatic, pupils are equally round, sclera are anicteric, mucous membranes are moist, oropharynx is clear. Neck has no masses, asymmetry or lymphadenopathy. Thyroid is unremarkable. Respiratory: Clear to auscultation and percussion. Normal respiratory excursion and pattern. Cardiac: Examination is regular rate and rhythm. Abdominal exam: Soft, nontender, with no palpable masses. No hepatosplenomegaly. No palpable hernias. Rectal exam: exam deferred Extremities: no clubbing, cyanosis or edema. No adenopathy. Other: LABORATORY VALUES: As Noted RADIOLOGIC STUDIES: As Noted Assessment IMPRESSION: Epigastric pain, nausea and vomiting PLAN: I plan to perform upper endoscopy. We discussed the risks and benefits of the planned endoscopy. I have informed the patient that complications can occur including failure to complete the endoscopy and perforation. The patient had the opportunity to ask questions concerning the planned endoscopy. My staff has also explained the procedure to the patient in understandable terms and has given the patient printed material concerning the procedure. The patient freely consents to surgery. OARRS website checked and validated. All prescriptions have been APPROPRIATELY filled. No suspicious activity was identified.- 09/24/2017 by Yemi Cross MD Diagnoses: (R10.13) Epigastric pain (primary encounter diagnosis) My findings have been communicated to Dr. Jaydon Decker DO via shared medical record. This note will be forwarded to Dr. Jaydon Decker DO. Return to Clinic: The patient is instructed to follow-up with me after the testing has been completed. Yemi Cross MD CNOV Observed: 09/24/2017 Status: COMPLETED Source: [place] 3:30 PM [facility] REPOSITORY Office Visit (GENSWS) LAKESHA DEL CID ([id number]) 1990 [facility] Date Time Provider Department 09/24/17 3:30 PM YEMI CROSS GENSWS During your visit today, we recorded the following information about you: Pulse Blood pressure Weight 84/minute 124/68 62.1 kg Shanell Jin Griffin 09/24/2017 4:34 PM Signed REVIEW OF SYSTEMS: General: The patient NOTES fatigue, denies weight loss, denies weight gain, denies feeling hot, and denies feelings of cold. Eyes: The patient denies glaucoma, denies eye injury/surgery, does not wear glasses or contacts. Ear/Nose/Throat: The patient denies allergies, denies hayfever, denies ear infections, and denies bloody noses. Cardiovascular: The patient NOTES chest pain, denies heart disease, denies high blood pressure,denies cardiac stent, denies prior heart attack, denies irregular heart beat, denies high cholesterol, denies poor circulation, denies heart failure, NOTES other cardiac issues, denies claudication, denies cold feet, denies peripheral arterial stent. Respiratory: The patient denies tuberculosis, denies pneumonia, denies frequent cough, denies pulmonary embolism, denies shortness of breath, and denies coughing up blood, NOTES other lung problems Gastrointestinal: The patient denies difficulty swallowing, NOTES acid reflux, denies ulcers, denies vomiting, denies jaundice/hepatitis, NOTES gallbladder problems, NOTES black or tarry stools, denies hemorrhoids, denies bleeding from rectum, denies diverticulitis, denies constipation, NOTES diarrhea, denies loss of stool control, and denies hernias. Kidney/Bladder: The patient NOTES kidney stones, NOTES urine infections, and NOTES bloody urine. Skin: The patient denies a history of skin cancer, denies bleeding/changing moles, and denies a history of skin rash. Neurologic: The patient denies a history of epilepsy/convulsions, NOTES headaches, denies head/spinal injuries, and denies stroke/TIA. Psychiatric: The patient denies psychiatric medications, denies depression, and denies voices, denies substance abuse. Endocrine: The patient denies thyroid disorders, denies diabetes, and denies hormonal problems. Hematologic: The patient denies a history of bruising, denies bleeding, and denies anemia, denies blood clots. Infections: The patient denies a history of measles and mumps, denies rheumatic fever, and denies sexually transmitted diseases. Musculoskeletal: The patient denies back pain/injury, denies back problems, denies sciatica, denies knee/foot trouble, NOTES arthritis, or denies gout. When was patient's last Mammogram screening? 2 years ago approximately Last Colonoscopy: 01/14/2017 Shanell Cross MD 09/24/2017 7:08 PM Signed HISTORY AND PHYSICAL Lakesha Del Cid 1990 REFERRING PHYSICIAN: Jaydon Decker DO CHIEF COMPLAINT: Established Patient (Epigastric/abd pain) HPI: The patient is a 27 year old female referred for endoscopy. Lakesha notes relatively severe abdominal pain in the epigastrium for the past few days. She also notes nausea and vomiting. The pain was more constant than her biliary symptoms. She was concerned however that she was diagnosed with pancreatitis earlier in the year and wondered if this was a recurring problem. She presented to [facility] emergency department on September 22. Laboratory studies were relatively unremarkable. Her lipase level was normal. She was given a GI cocktail, but this did not improve her symptoms. He was recommended she contact me as I had seen her in the past for GI complaints.. Lakesha is a patient I had been following for a complaint of right upper quadrant pain. The patient has noted recurrent episodes of right-sided abdominal pain over the last year. Pain location varies from mid abdomen to lower abdomen. She notes the pain occurs after eating and is associated with urgency to have a bowel movement and will have diarrhea. Denies changes to diet or recent travel prior to onset of symptoms. She states she is having loose stools with everything she eats at this time, and notes no alleviating factors. Has had multiple ED visits due to pain. She underwent upper endoscopy on 06/04/16 in [facility] which was unremarkable. She had an ultrasound of the right upper quadrant at that time which showed no acute pathology. She has had multiple abdominal CT scans over the last year. CT scan on 11/29/16 showed submucosal fat attenuation involving the hepatic flexure of the colon, and soft tissue attenuation in the extra hepatic duct which was favored to be artifactual. She has had two HIDA scans. The first on 06/11/16 showed normal HIDA scan with normal gallbladder ejection fraction, evidence of duodenal gastric reflux. The second HIDA scan on 12/09/16 showed normal gallbladder response to CCK, no evidence of duodenogastric biliary reflux, and gallbladder ejection fraction. The patient states that she did however note an exact reproduction of her right-sided abdominal pain with CCK administration during these tests. I performed colonoscopy for the patient on 01/14/17. The entire colon as well as the examined portion of the ileum appeared normal. Multiple biopsies were taken for evaluation for microscopic colitis. Pathology demonstrated: FINAL DIAGNOSIS 1. Terminal ileum, biopsy (A) - Ileal mucosa with no diagnostic alteration. 2. Random colon, biopsy (B) - Colonic mucosa with no diagnostic alteration. TP/rw 01/15/2017 I performed a laparoscopic cholecystectomy with intraoperative choleangiogram on January 26, 2017. The patient currently notes significant pain which she describes more as incisional pain but also her right upper quadrant pain. She has had 2 visits to emergency department both in [place] and [place] where she has had Dilaudid shots which improved her pain symptoms. She had laboratory studies in [place] which were completely unremarkable. She had laboratory studies which were unremarkable and [place]. She had a CT scan of the abdomen and pelvis and [place] which was unremarkable. PAST MEDICAL HISTORY Diagnosis Date - Altered bowel habits 12/22/2016 Added automatically from request for surgery [id number] - Attention deficit disorder without mention of hyperactivity - Chest pain of pericarditis 10/19/2013 - Controlled substance agreement signed 03/08/2014 - Depression and anxiety - Drug-seeking behavior - Elevated amylase and lipase 06/03/2016 - Fibromyalgia - Intractable chronic migraine without aura and without status migrainosus 08/10/2015 - Kidney stones 16 renal stones - monitoring, Dr. Stoner - Migraines Dr. 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 - Right sided abdominal pain 06/01/2016 - Right sided abdominal pain 06/01/2016 - Right upper quadrant pain 01/20/2017 Added automatically from request for surgery [id number] - Vaginal spotting 06/04/2016 - Vaginal spotting 06/04/2016 - Viral pericarditis 10/19/2013 PAST SURGICAL HISTORY Procedure Laterality Date - BOTOX 07/08/2013 [facility] Colonoscopy - LAPAROSCOPIC CHOLEYCYSTECTOMY 01/26/2017 Cholecystectomy, lap - ORAL SURGERY PROCEDURE 01/25/2010 [place] Teeth Extraction - PAST SURGICAL HISTORY OF 2012 piercings removed from abdomen - REMOVAL OF TONSILS,<12 Y/O 6yo Tonsillectomy Current Outpatient Prescriptions: acetaminophen (TYLENOL) 500 mg tablet Take 500 mg by mouth every 8 hours as needed. DULoxetine (CYMBALTA) 60 mg capsule Take 1 capsule by mouth once daily. medroxyPROGESTERone (DEPO-PROVERA) 150 mg/mL syrg Inject 1 mL intramuscularly every 12 weeks. famotidine (PEPCID) 20 mg tablet Take 1 tablet by mouth twice daily. promethazine (PHENERGAN) 25 mg tablet Take 1 tablet by mouth every 6 hours as needed. dicyclomine (BENTYL) 20 mg tablet Take 1 tablet by mouth every 6 hours. ondansetron orally disintegrating (ZOFRAN ODT) 4 mg disintegrating tablet Take 1 tablet by mouth every 6 hours as needed for Nausea/Vomiting. ONABOTULINUMTOXINA (BOTOX INJECTION) by INJECTION(UNSPECIFIED PARENTERAL ROUTES) route. acidophilus-pectin, citrus (ACIDOPHILUS PROBIOTIC) 100 million- 10 cell-mg cap Take by mouth. oxyCODONE-acetaminophen (PERCOCET) 5-325 mg tablet Take 1 tablet by mouth every 6 hours as needed for up to 7 days. ibuprofen (MOTRIN) 600 mg tablet Take 1 tablet by mouth every 6 hours as needed for Pain or Fever. No current facility-administered medications for this visit. ALLERGIES: Benadryl [Diphenhydramine Hcl]; Kiwi; Methocarbamol; [place] [Hydrocodone-Acetaminophen]; Nsaids (Non-Steroidal Anti-Inflammatory Drug); Rat [Other]; Reglan [Metoclopramide Hcl] PERSONAL HISTORY: Social History Marital status: Single Spouse name: Years of education: Number of children: 0 Occupational History Occupation Employer Comment [employer]* Social History Main Topics Smoking status: Never Smoker Smokeless tobacco: Never Used Alcohol use: No Comment: 2 drinks per week Drug use: No Sexual activity: Yes Partners with: Male control/protection: Injection Comment: Depo Provera FAMILY HISTORY: FAMILY HISTORY Problem Relation Age of Onset - Hypertension Father - migraine [Other] [OTHER] Father - kidney stones [Other] [OTHER] Father - COPD Maternal Grandmother - kidney cancer [Other] [OTHER] Paternal Grandfather REVIEW OF SYMPTOMS: The review of systems data was entered by the nurse and reviewed by me Nursing Notes: Shanell Abdi Ma 09/24/2017 4:34 PM Signed REVIEW OF SYSTEMS: General: The patient NOTES fatigue, denies weight loss, denies weight gain, denies feeling hot, and denies feelings of cold. Eyes: The patient denies glaucoma, denies eye injury/surgery, does not wear glasses or contacts. Ear/Nose/Throat: The patient denies allergies, denies hayfever, denies ear infections, and denies bloody noses. Cardiovascular: The patient NOTES chest pain, denies heart disease, denies high blood pressure,denies cardiac stent, denies prior heart attack, denies irregular heart beat, denies high cholesterol, denies poor circulation, denies heart failure, NOTES other cardiac issues, denies claudication, denies cold feet, denies peripheral arterial stent. Respiratory: The patient denies tuberculosis, denies pneumonia, denies frequent cough, denies pulmonary embolism, denies shortness of breath, and denies coughing up blood, NOTES other lung problems Gastrointestinal: The patient denies difficulty swallowing, NOTES acid reflux, denies ulcers, denies vomiting, denies jaundice/hepatitis, NOTES gallbladder problems, NOTES black or tarry stools, denies hemorrhoids, denies bleeding from rectum, denies diverticulitis, denies constipation, NOTES diarrhea, denies loss of stool control, and denies hernias. Kidney/Bladder: The patient NOTES kidney stones, NOTES urine infections, and NOTES bloody urine. Skin: The patient denies a history of skin cancer, denies bleeding/changing moles, and denies a history of skin rash. Neurologic: The patient denies a history of epilepsy/convulsions, NOTES headaches, denies head/spinal injuries, and denies stroke/TIA. Psychiatric: The patient denies psychiatric medications, denies depression, and denies voices, denies substance abuse. Endocrine: The patient denies thyroid disorders, denies diabetes, and denies hormonal problems. Hematologic: The patient denies a history of bruising, denies bleeding, and denies anemia, denies blood clots. Infections: The patient denies a history of measles and mumps, denies rheumatic fever, and denies sexually transmitted diseases. Musculoskeletal: The patient denies back pain/injury, denies back problems, denies sciatica, denies knee/foot trouble, NOTES arthritis, or denies gout. When was patient's last Mammogram screening? 2 years ago approximately Last Colonoscopy: 01/14/2017 Shanell Abdi Ma PHYSICAL EXAMINATION: General: The patient is 27 year old female, well nourished, well hydrated in no acute distress. The patient is oriented to time, place, and person. VITALS: Blood pressure 124/68, pulse 84, weight 62.1 kg (137 lb). Body mass index is 25.89 kg/m?. HEENT: Normal cephalic, ataumatic, pupils are equally round, sclera are anicteric, mucous membranes are moist, oropharynx is clear. Neck has no masses, asymmetry or lymphadenopathy. Thyroid is unremarkable. Respiratory: Clear to auscultation and percussion. Normal respiratory excursion and pattern. Cardiac: Examination is regular rate and rhythm. Abdominal exam: Soft, nontender, with no palpable masses. No hepatosplenomegaly. No palpable hernias. Rectal exam: exam deferred Extremities: no clubbing, cyanosis or edema. No adenopathy. Other: LABORATORY VALUES: As Noted RADIOLOGIC STUDIES: As Noted Assessment IMPRESSION: Epigastric pain, nausea and vomiting PLAN: I plan to perform upper endoscopy. We discussed the risks and benefits of the planned endoscopy. I have informed the patient that complications can occur including failure to complete the endoscopy and perforation. The patient had the opportunity to ask questions concerning the planned endoscopy. My staff has also explained the procedure to the patient in understandable terms and has given the patient printed material concerning the procedure. The patient freely consents to surgery. OARRS website checked and validated. All prescriptions have been APPROPRIATELY filled. No suspicious activity was identified.- 09/24/2017 by Yemi Cross MD Diagnoses: (R10.13) Epigastric pain (primary encounter diagnosis) My findings have been communicated to Dr. Jaydon Decker DO via shared medical record. This note will be forwarded to Dr. Jaydon Decker DO. Return to Clinic: The patient is instructed to follow-up with me after the testing has been completed. Yemi Cross MD Referring Provider: JAYDON DECKER [[id number]] Allergies As of Date: 09/24/2017 Noted Allergy Reaction BENADRYL (DIPHENHYDRAMINE HCL) 01/15/2015 14 - Other: See Comments KIWI 11/30/2006 METHOCARBAMOL 09/05/2016 14 - Other: See Comments Comments: Causes blisters in the mouth NORCO (HYDROCODONE-ACETAMINOPHEN) 01/20/2017 5 - Intolerance Comments: Worsens migraines NSAIDS (NON-STEROIDAL ANTI-INFLAM*09/24/2017 14 - Other: See Comments Comments: GI bleed/ stomach pain rat [Other] 08/20/2009 REGLAN (METOCLOPRAMIDE HCL) 01/09/2017 1 - Mental Status Change Comments: climbing the morocho Date Reviewed: 09/24/2017 Reviewed by: Yemi Cross - Fully Assessed Reason for Visit: Established Patient [175] Cmt: Epigastric/abd pain Primary Visit Diagnosis:Epigastric pain [R10.13] Order(s):oxyCODONE-acetaminophen (PERCOCET) 5-325 mg tabletTake 1 tablet by mouth every 6 hours as needed for up to 7 days.Disp: 10 tabletRfl: 0 Prescriptions as of 09/24/2017 Sig: ACETAMINOPHEN 500 MG TABLET Take 500 mg by mouth every 8 * DULOXETINE 60 MG CAPSULE,MATEO* Take 1 capsule by mouth once * MEDROXYPROGESTERONE 150 MG/ML* Inject 1 mL intramuscularly e* FAMOTIDINE 20 MG TABLET Take 1 tablet by mouth twice * PROMETHAZINE 25 MG TABLET Take 1 tablet by mouth every * DICYCLOMINE 20 MG TABLET Take 1 tablet by mouth every * ONDANSETRON 4 MG DISINTEGRATI* Take 1 tablet by mouth every * BOTOX INJECTION by INJECTION(UNSPECIFIED PARE* ACIDOPHILUS 100 MILLION CELL-* Take by mouth. OXYCODONE-ACETAMINOPHEN 5 MG-* Take 1 tablet by mouth every * IBUPROFEN 600 MG TABLET Take 1 tablet by mouth every * Medication notes this encounter IBUPROFEN 600 MG TABLET >> Julio Martel LPN 09/24/2017 3:55 PM >> JULIO MARTEL LPN [facility] September 24, 2017 3:55 PM please d/c Problem List As Of Date 09/24/2017 Noted Resolved Attention deficit disorder [F98.8] INVALID FOR* Foreign body (FB) in soft tissue [M79.5] INVALID FOR*01/09/2017 Viral pericarditis [B33.23] INVALID FOR*01/09/2017 Chest pain of pericarditis [I31.9] INVALID FOR*06/17/2016 Controlled substance agreement signed [Z79.899] INVALID FOR* Fibromyalgia [M79.7] Priority: E Intractable chronic migraine without aura and w*INVALID FOR* Anxiety [F41.9] INVALID FOR* Priority: D Right sided abdominal pain [R10.9] INVALID FOR*08/21/2017 Priority: A Elevated amylase and lipase [R74.8] INVALID FOR* Priority: B Nephrolithiasis [N20.0] INVALID FOR*08/21/2017 Priority: C Vaginal spotting [N92.0] INVALID FOR*08/21/2017 Altered bowel habits [R19.4] INVALID FOR*08/21/2017 More... Right upper quadrant pain [R10.11] INVALID FOR*08/21/2017 More... Drug-seeking behavior [Z76.5] INVALID FOR* Visit Notes: >> Shanell Abdi Ma Marialuisa September 24, 2017 4:29 PM Status: Signed REVIEW OF SYSTEMS: General: The patient NOTES fatigue, denies weight loss, denies weight gain, denies feeling hot, and denies feelings of cold. Eyes: The patient denies glaucoma, denies eye injury/surgery, does not wear glasses or contacts. Ear/Nose/Throat: The patient denies allergies, denies hayfever, denies ear infections, and denies bloody noses. Cardiovascular: The patient NOTES chest pain, denies heart disease, denies high blood pressure,denies cardiac stent, denies prior heart attack, denies irregular heart beat, denies high cholesterol, denies poor circulation, denies heart failure, NOTES other cardiac issues, denies claudication, denies cold feet, denies peripheral arterial stent. Respiratory: The patient denies tuberculosis, denies pneumonia, denies frequent cough, denies pulmonary embolism, denies shortness of breath, and denies coughing up blood, NOTES other lung problems Gastrointestinal: The patient denies difficulty swallowing, NOTES acid reflux, denies ulcers, denies vomiting, denies jaundice/hepatitis, NOTES gallbladder problems, NOTES black or tarry stools, denies hemorrhoids, denies bleeding from rectum, denies diverticulitis, denies constipation, NOTES diarrhea, denies loss of stool control, and denies hernias. Kidney/Bladder: The patient NOTES kidney stones, NOTES urine infections, and NOTES bloody urine. Skin: The patient denies a history of skin cancer, denies bleeding/changing moles, and denies a history of skin rash. Neurologic: The patient denies a history of epilepsy/convulsions, NOTES headaches, denies head/spinal injuries, and denies stroke/TIA. Psychiatric: The patient denies psychiatric medications, denies depression, and denies voices, denies substance abuse. Endocrine: The patient denies thyroid disorders, denies diabetes, and denies hormonal problems. Hematologic: The patient denies a history of bruising, denies bleeding, and denies anemia, denies blood clots. Infections: The patient denies a history of measles and mumps, denies rheumatic fever, and denies sexually transmitted diseases. Musculoskeletal: The patient denies back pain/injury, denies back problems, denies sciatica, denies knee/foot trouble, NOTES arthritis, or denies gout. When was patient's last Mammogram screening? 2 years ago approximately Last Colonoscopy: 01/14/2017 Shanell Abdi Ma Prescriptions ordered this encounter Disp Refills Start End OXYCODONE-ACETAMINOPHEN 5 MG-325 MG * 10 t* 0 09/24/2017 10/01/2017 Class: Print RX Route: ORAL Sig: Take 1 tablet by mouth every 6 hours as needed for up to 7 days. Encounter Status:Closed by YEMI CROSS MD on 09/24/17 HOSP Observed: 09/24/2017 Status: COMPLETED Source: [place] 12:00 AM [facility] REPOSITORY Patient:Lakesha Del Cid MRN: <[id number]> Height:5' 1(1.549 m) Weight:136 lb 14.5 oz (62.1 kg) Outpatient Medications as of 09/25/17: promethazine (PHENERGAN) 25 mg tablet acetaminophen (TYLENOL) 500 mg tablet oxyCODONE-acetaminophen (PERCOCET) 5-325 mg tablet DULoxetine (CYMBALTA) 60 mg capsule medroxyPROGESTERone (DEPO-PROVERA) 150 mg/mL syrg famotidine (PEPCID) 20 mg tablet promethazine (PHENERGAN) 25 mg tablet dicyclomine (BENTYL) 20 mg tablet ibuprofen (MOTRIN) 600 mg tablet ondansetron orally disintegrating (ZOFRAN ODT) 4 mg disintegrating tablet ONABOTULINUMTOXINA (BOTOX INJECTION) acidophilus-pectin, citrus (ACIDOPHILUS PROBIOTIC) 100 million- 10 cell-mg cap Admission/Clinic Administered Medications as of 09/25/17: lactated ringers infusion Problem List: Attention deficit disorder [F98.8] Controlled substance agreement signed [Z79.899] Fibromyalgia [M79.7] Intractable chronic migraine without aura and without status migrainosus [G43.719] Anxiety [F41.9] Elevated amylase and lipase [R74.8] Drug-seeking behavior [Z76.5] Allergies: Benadryl [Diphenhydramine Hcl] Kiwi Methocarbamol [place] [Hydrocodone-Acetaminophen] Nsaids (Non-Steroidal Anti-Inflammatory Drug) rat [Other] Reglan [Metoclopramide Hcl] Date Verified: 09/25/17 Lab Values Lab Value Units Date High Low POTA* 3.5 mmol/L 2017 5.1 3.7 LUIS MIGUEL* 40.8 % 2017 46.0 36.0 Progress Notes ([facility]): Yaz García MA 09/25/2017 7:50 AM Signed Please see patient's my chart message. Thank You Yaz García MA Progress Notes ([facility]): Yaz García MA 09/25/2017 7:55 AM Signed Patient has been identified by name and date of : Yes RX INSTRUCTIONS: Patient aware RX will be sent to pharmacy. No need to notify patient. Patient phones requesting refills as follows: Please verify quantity and correct dosage instructions before approval. Pending Prescriptions Disp Refills PROMETHAZINE 25 MG TABLET 30 tablet 11 Sig: take 1 tablet by mouth every 6 hours if needed OPAL: Yes Please review and advise. TRACI Lala MD 09/25/2017 12:12 PM Signed The following approved medication requests have been transmitted electronically. Signed Prescriptions Disp Refills promethazine (PHENERGAN) 25 mg tablet 30 tablet 11 Sig: take 1 tablet by mouth every 6 hours if needed OPAL: No Authorizing Provider: LULU ZAMORANO MD ED NOTE Observed: 2017 Status: COMPLETED Source: [place] 6:03 PM CLINIC OTHER CAMPUS REPOSITORY O ID: [id number] Author: Marcelle (Rn) JORY Norris Service: Nursing Author Type: Registered Nurse Type: ED Notes Filed: 2017 6:03 PM Note Text: Zelda RN at bedside to talk with pt. Remained uncooperative with ED staff. Security had to escort pt out of ED. ED NOTE Observed: 2017 Status: COMPLETED Source: [place] 5:33 PM [facility] OTHER CAMPUS REPOSITORY HNO ID: [id number] Author: Marcelle CabaRn) JORY Norris Service: Nursing Author Type: Registered Nurse Type: ED Notes Filed: 2017 5:37 PM Note Text: Pt keeps calling this RN to bedside. Requesting something more for pain, Rupert conner has been back in to talk with pt and made aware of active MD plan of care. Pt upset, asking about LIP's credentials and wanting to talk with the MD of the ED. She was updated as to the testing that can be ordered in the ER only, and will need to follow up outpt for further testing and possible endoscopy to check for ulcer. Pt states I dont want to go home like this. I know that if I call my surgeon that they will just keep sending me back in here. Again requesting more pain meds and states Im not leaving the ER again Im out of pain. Rupert conner was made aware again as well and is unable to come to bedside at this time. ED NOTE Observed: 2017 Status: COMPLETED Source: [place] 5:02 PM [facility] [place] REPOSITORY HNO ID: [id number] Author: Marcelle CabaRn) JORY Norris Service: Nursing Author Type: Registered Nurse Type: ED Notes Filed: 2017 5:02 PM Note Text: Rupert Conner allowing pt to be d/c and drive self home after 1730 ED NOTE Observed: 2017 Status: COMPLETED Source: [place] 4:44 PM [facility] [place] REPOSITORY HNO ID: [id number] Author: Madai CabaRn) JORY Palacios Service: Nursing Author Type: Registered Nurse Type: ED Notes Filed: 2017 4:45 PM Note Text: Pt just informed RN that her ride can't pick her up. She's requesting to leave by self but told that someone must come pick her up d/t narcotics given. ED NOTE Observed: 2017 Status: COMPLETED Source: [place] 4:19 PM [facility] REPOSITORY HNO ID: [id number] Author: Madai CabaRn) Suzanne RN Service: Nursing Author Type: Registered Nurse Type: ED Notes Filed: 2017 4:21 PM Note Text: Pt ready for discharge. Awaiting ride home d/t narcotics given. Pt states her friend who's a state highway patrolman is picking her up. ED NOTE Observed: 2017 Status: COMPLETED Source: [place] 3:14 PM CLINIC OTHER CAMPUS REPOSITORY HNO ID: [id number] Author: Madai (Rn) JORY Palacios Service: Nursing Author Type: Registered Nurse Type: ED Notes Filed: 2017 3:14 PM Note Text: Urine obtained and sent CBC AND DIFFERENTIAL Collected: 2017 Status: F Source: [place] 3:00 PM CLINIC OTHER CAMPUS REPOSITORY TYPE CODE TESTS RESULT OUT OF REFERENCE UNITS RANGE LAB WBC 3.70-11.00 k/uL WBC 10.06 LAB RBC 3.90-5.20 m/uL RBC 4.21 LAB HGB 11.5-15.5 g/dL Hemoglobin 13.3 LAB HCT 36.0-46.0 % Hematocrit 40.8 LAB MCV 80.0-100.0 fL MCV 96.9 LAB MCH 26.0-34.0 pG MCH 31.6 LAB MCHC 30.5-36.0 g/dL MCHC 32.6 LAB RDWCV 11.5-15.0 % RDW-CV 12.6 LAB PLTCT 150-400 k/uL Platelet Count 365 LAB MPV 9.0-12.7 fL MPV 9.5 LAB ANEUT % Neut% 68.1 LAB AANEUT 1.45-7.50 k/uL Abs Neut 6.86 LAB ALYMP % Lymph% 24.2 LAB AALYMP 1.00-4.00 k/uL Abs Lymph 2.43 LAB AMONO % Hardy% 6.8 LAB AAMONO <0.87 k/uL Abs Hardy 0.68 LAB AEOS % Eosin% 0.7 LAB AAEOS <0.46 k/uL Abs Eosin 0.07 LAB ABASO % Baso% 0.2 LAB AABASO <0.11 k/uL Abs Baso <0.03 Performed By: #### CBCDIF, BETAMM, CMP, LIPA #### [facility] [address] [place] [address] SERUM BETA HCG Collected: Status: F Source: [facility]/MED/SL/LO 2017 3:00 PM CLINIC OTHER CAMPUS REPOSITORY TYPE CODE TESTS RESULT OUT OF REFERENCE UNITS RANGE LAB BETAMM Negative Serum Negative Beta HCG [facility] /MED/SL/LO Result Comment: False positives and false negatives are rare but have been described. Clinical correlation of the findings is recommended. Performed By: #### CBCDIF, BETAMM, CMP, LIPA #### [facility] [address] [place] [address] COMP METABOLIC PANEL Collected: 2017 Status: F Source: [place] 3:00 PM CLINIC OTHER CAMPUS REPOSITORY TYPE CODE TESTS RESULT OUT OF REFERENCE UNITS RANGE LAB TP 6.3-8.0 g/dL Protein, High Total 8.3 LAB ALB 3.9-4.9 g/dL Albumin 4.8 LAB CA 8.5-10.2 mg/dL Calcium, Total 10.1 LAB TBIL 0.2-1.3 mg/dL Bilirubin, Total 0.2 LAB ALKP 32-117 U/L Alkaline Phosphatase 69 LAB AST 13-35 U/L AST 19 LAB GLU 74-99 mg/dL Glucose 89 Result Comment: The [place] [employer] (ADA) provides guidance for cutoff values for fasting glucose and random glucose. The ADA defines fasting as no caloric intake for at least 8 hours. Fas ting plasma glucose results between 100 to 125 mg/dL indicate increased risk for diabetes (prediabetes). Fasting plasma glucose results greater than or equal to 126 mg/dL meet the criteria for diagnosis of diabetes. In the absence of unequivocal hyperglycemia, results should be confirmed by repeat testing. In a patient with classic symptoms of hyperglycemia or hyperglycemic crisis, random plasma glucose results greater than or equal to 200 mg/dL meet the criteria for diagnosis of diabetes. Reference: Standards of Medical Care in Diabetes 2016, [place] [employer]. Diabetes Care. 2016.39(Suppl 1). LAB BUN 7-21 mg/dL BUN 13 LAB CRET 0.58-0.96 mg/dL Creatinine 0.79 LAB NA 136-144 mmol/L Sodium 138 LAB K 3.7-5.1 mmol/L Potassium Low 3.5 LAB CL 97-105 mmol/L Chloride 104 LAB CO2 22-30 mmol/L CO2 Low 20 LAB AGAP 9-18 mmol/L Anion Gap 14 LAB ALT 7-38 U/L ALT 17 LAB GFRAA eGFR- Amer. >60 LAB GFRNAA . eGFR-All Other Races >60 Result Comment: eGFR (Estimated GFR) Units of measure: mL/min/1.73 meters squared eGFR is derived from the reexpressed MDRD Study equation using the following parameters: serum creatinine, age, gender and race. The creatinine assay has been calibrated to be traceable to IDMS. An eGFR <60 mL/min/1.73m2 for >3 months is consistent with chronic kidney disease. Refer to KDOQI guidelines for clinical interpretation. In patients with unstable renal function, e.g. those with acute kidney injury, the eGFR may not accurately reflect actual GFR. Performed By: #### CBCDIF, BETAMM, CMP, LIPA #### [facility] [address] [place] [address] LIPASE Collected: 2017 Status: F Source: [place] 3:00 PM CLINIC OTHER [place] REPOSITORY TYPE CODE TESTS RESULT OUT OF REFERENCE UNITS RANGE LAB LIPA 16-61 U/L Lipase 49 Performed By: #### CBCDIF, BETAMM, CMP, LIPA #### [facility] [address] [place] [address] URINALYSIS Collected: 2017 Status: F Source: [place] 3:00 PM [facility] REPOSITORY TYPE CODE TESTS RESULT OUT OF RANGE REFERENCE UNITS LAB UCOL Yellow Color Yellow LAB [facility] Clear Clarity Clear LAB UGLUC Negative mg/dL Glucose, Urine Negative LAB UBIL Negative Bilirubin, Urine Negative LAB UKET Negative Ketones, Urine Negative LAB USPG 1.001-1.029 High Specific [place], Ur >1.029 LAB UHGB Negative Abnormal Hemoglobin/Blood, Small Alert Ur LAB UPH 5.0-8.0 pH 6.0 LAB UPROT Negative mg/dL Protein, Urine Negative LAB UUROB 0.2-1.0 Urobilinogen 0.2 LAB UNITR Negative Nitrites Negative LAB ULKEST Negative Leukest Negative Performed By: #### UA, UAMIC, UTOX2 #### [facility] [address] [place] [address] URINE MICROSCOPIC Collected: 2017 Status: F Source: [place] (FOR LAB USE ONLY) 3:00 PM CLINIC OTHER CAMPUS REPOSITORY TYPE CODE TESTS RESULT OUT OF REFERENCE UNITS RANGE LAB UWBC 0-5 /HPF WBC 0-5 LAB URBC 0-3 /HPF RBC 0-3 LAB UCAST 0 /LPF Cast SEE COMMENT Result Comment: 0 LAB UBACT 0 /HPF Abnormal Bacteria Alert Moderate LAB UEPI /HPF Epithelial SEE Cells COMMENT Result Comment: 0-5 Squamous Epithelial Cells Performed By: #### UA, UAMIC, UTOX2 #### [facility] [address] [facility] [phone] TOXICOLOGY SCREEN,UR Collected: 2017 Status: F Source: [place] 3:00 PM CLINIC OTHER CAMPUS REPOSITORY TYPE CODE TESTS RESULT OUT OF REFERENCE UNITS RANGE LAB UPCP2 Negative Negative Phencyclidin e, Urine Result Comment: Cutoff threshold at 25 ng/mL. LAB UBENZ2 Negative Benzodiazepines, Ur Abnormal Preliminary Alert positive. Result Comment: Cutoff threshold at 200 ng/mL. LAB UCOC2 Negative Cocaine, Negative Urine Result Comment: Cutoff threshold at 300 ng/mL. LAB UAMPH2 Negative Amphetamines, Urine Negative Result Comment: Cutoff threshold at 1000 ng/mL. LAB UTHC2 Negative Cannabinoids, Urine Negative Result Comment: Cutoff threshold at 50 ng/mL. LAB UOPI2 Negative Opiates, Negative Urine Result Comment: Cutoff threshold at 300 ng/mL. LAB UBARB2 Negative Barbiturates, Urine Negative Result Comment: Cutoff threshold at 200 ng/mL. LAB UOXYC Negative Oxycodone, Urine Negative Result Comment: Cutoff threshold at 100 ng/mL. Comment: Immunoassay screen only. Cross reactivity with other substances can occur with immunoassay screening. Detection of any drug(s) in this urine toxicology panel is presumptive only. These tests are for med ical purposes only and should not be used for compliance monitoring, legal, or forensic use. In clinical settings, confirmatory testing is at the practitioner's discretion [1]. If clinically indicated, confirmation by high specificity, quantitative methodology may be requested on the same speci men through Client Services ([phone]) if contacted within 48 hours of initial testing. [1]Substance Abuse and Mental Health Services Administration (2012). Clinical Drug Testing in Primary Care Technical Assistance Publication Series 32. Department of Health and Human Services, [place], p.10. Performed By: #### UA, UAMIC, UTOX2 #### [facility] [address] [facility] [phone] ED PROV NOTE Observed: 2017 Status: COMPLETED Source: [place] 2:51 PM CLINIC OTHER CAMPUS REPOSITORY O ID: [id number] Author: Rupert Lazo) Cheryl Service: (none) Author Type: Physician Sports Physiologist Type: ED Provider Notes Filed: 2017 6:01 PM Note Text: ED Provider Note Patient Name: Lakesha Del Cid SERVICE DATE: 09/22/17 History Patient presents with: Abdominal Pain: dx w pancreatitis last year. sts since then rarely drinks any etoh.. sts thursday had 2 bottles of wine and half bottle whiskey celebrating her . pain sudden onset today, feels similar to gb/pancrease pain Diarrhea Nausea AND Vomiting: more dry heaves 27 year old female with a past medical history of chronic abdominal pain, with a multidisciplinary care plan, anxiety, depression, history of elevated lipase and amylase, presents to the emergency Department chief complaint of epigastric abdominal pain times one day. Patient stated that she's had a history of pancreatitis. She had her gallbladder removed about a year ago. 2 days ago she drank alcohol to celebrate her birthday. She states she is experiencing seen sharp 6 out of 10 abdominal pain along with nausea and diarrhea. She also complains of dry heaving. She has been taking Tylenol without any relief. Patient is on a Depo and her lLMP Was 2 years ago. Denies any vaginal bleeding or discharge. Denies any urinary symptoms. PAST MEDICAL HISTORY Diagnosis Date - Altered bowel habits 12/22/2016 Added automatically from request for surgery [id number] - Attention deficit disorder without mention of hyperactivity - Chest pain of pericarditis 10/19/2013 - Controlled substance agreement signed 03/08/2014 - Depression and anxiety - Drug-seeking behavior - Elevated amylase and lipase 06/03/2016 - Fibromyalgia - Intractable chronic migraine without aura and without status migrainosus 08/10/2015 - Kidney stones 16 renal stones - monitoring, Dr. Stoner - Migraines Dr. 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 - Right sided abdominal pain 06/01/2016 - Right sided abdominal pain 06/01/2016 - Right upper quadrant pain 01/20/2017 Added automatically from request for surgery [id number] - Vaginal spotting 06/04/2016 - Vaginal spotting 06/04/2016 - Viral pericarditis 10/19/2013 PAST SURGICAL HISTORY Procedure Laterality Date - BOTOX 07/08/2013 - COLONOSCOP W/ OR W/O BRSH SPEC 01/14/2017 Colonoscopy - LAPAROSCOPIC CHOLEYCYSTECTOMY 01/26/2017 Cholecystectomy, lap - ORAL SURGERY PROCEDURE 01/25/2010 [place] Teeth Extraction - PAST SURGICAL HISTORY OF 2012 piercings removed from abdomen - REMOVAL OF TONSILS,<12 Y/O 6yo Tonsillectomy FAMILY HISTORY Problem Relation Age of Onset - Hypertension Father - migraine [Other] [OTHER] Father - kidney stones [Other] [OTHER] Father - COPD Maternal Grandmother - kidney cancer [Other] [OTHER] Paternal Grandfather Social History Social History Main Topics - Smoking status: Never Smoker - Smokeless tobacco: Never Used - Alcohol use No Comment: 2 drinks per week - Drug use: No - Sexual activity: Yes Partners: Male control/ protection: Injection Comment: Depo Provera ALLERGIES Allergen Reactions - Benadryl [Diphenhyd* Other: See Comments - Kiwi - Methocarbamol Other: See Comments Causes blisters in the mouth - [place] [Hydrocodone-* Intolerance Worsens migraines - Rat [Other] - Reglan [Metoclopram* Mental Status Change climbing the morocho Review of Systems Constitutional: Negative for chills and fever. HENT: Negative for congestion and sore throat. Eyes: Negative for photophobia and visual disturbance. Respiratory: Negative for chest tightness, shortness of breath and wheezing. Cardiovascular: Negative for chest pain and palpitations. Gastrointestinal: Positive for abdominal pain, diarrhea and nausea. Negative for blood in stool and vomiting. Genitourinary: Negative for dysuria and hematuria. Musculoskeletal: Negative for neck pain and neck stiffness. Skin: Negative for color change. Neurological: Negative for dizziness and headaches. Psychiatric/Behavioral: Negative for agitation and confusion. Physical Exam BP 131/72 Pulse 114 Temp (Src) 98.1 (Oral) Resp 16 Wt 134 lb (60.8kg) SpO2 100% Physical Exam Constitutional: She is oriented to person, place, and time. She appears well-developed and well-nourished. HENT: Head: Normocephalic and atraumatic. Eyes: Conjunctivae and EOM are normal. Neck: Normal range of motion. Neck supple. Cardiovascular: Normal rate and regular rhythm. Pulmonary/Chest: Effort normal and breath sounds normal. No respiratory distress. She has no wheezes. Abdominal: Soft. Bowel sounds are normal. She exhibits no distension and no mass. There is tenderness in the epigastric area. There is no rebound, no guarding, no tenderness at McBurney's point and negative Rodriguez's sign. No hernia. Abdomen soft. Bowel sounds active in all 4 quadrants. Tender to palpation over the epigastric region. There is no guarding or rebound tenderness. No Rodriguez's or McBurney's point. No mass or hernia. No CVA tenderness. Musculoskeletal: Normal range of motion. Neurological: She is alert and oriented to person, place, and time. Skin: Skin is warm and dry. Psychiatric: She has a normal mood and affect. Her behavior is normal. Diagnostic Testing ED Labs Ordered and Reviewed - No data to display Procedures Medical Decision Making MDM The medical record is reviewed.Triage note is reviewed and incorporated. The nursing note is reviewed and consistent with patient's history and physical exam findings. The vital signs were reviewed the the vital signs are : BP 131/72 Pulse (!) 114 Temp 36.7 ?C (98.1 ?F) (Oral) Resp 16 Wt 60.8 kg (134 lb) SpO2 100% BMI 25.32 kg/m? MDM: This is a well-appearing female with a pmh of chronic abdominal pain who presents to the ED with a chief complaint of abdominal pain who is, afebrile , hemodynamically stable, in no acute distress patient whose symptoms are controlled in the ED with ivf, morphine and zofran, . Based on patient's pmh, chief complaint and physical exam findings, differential diagnoses include acute abdomen vs pancreatitis, vs uti, vs vs pud vs electrolyte imbalance vs cholangitis vs ACS vs PE. Labs and imaging studies reveal cbc within normal limits , cmp with k of 3.5, co 2 of 20, negative hcg, ua with blood, tox with benzo, She has a multidisciplinary care plan, recommends avoiding CTs unless clinically indiciated, at this time we will hold off, she does not appear any distress , playing on her phone . She keeps asking for more pain meds. She says her morphine did not help her with the pain and is requesting more pain meds. Told her since the morphine does not work , if I give her more morphine, it wont help her symptoms and she states that's what they have done in the past and that if they do more dosing it helps her pain. Again emphasized that I will not give her more morphine, I can do one dose of gi cocktail. Gave her cocktail and she says it did not help her pain. She appears in no distress. She is asking for PO pain meds. Educated her that her multidisciplinary plan says no home going narcotics, told her she needs to follow up with [facility] abdominal pain clinic. Patient again refusing to leave stating that she is still in pain. Again I told her she has chronic abdominal pain and I cannot offer her anything else at this time. She needs to see her surgeon, GI or PCP for further eval. Based on patient's physical exam findings, clinical picture, lab results and imaging studies that were performed here today in the ED, at this time, the following differential diagnoses such as ACS/PE is less likely due to no sob, no chest pain, no tachypnea or clinical signs of a dvt. The following differential diagnosis such as is less likely due to unremarkable hcg.The following differential diagnosis such as acute abdomen is less likely due to unremarkable exam and history.The following differential diagnosis such as pancreatitis is less likely due to unremarkable lipase.) The patient has remained hemodynamically stable throughout the entire ED visit and is without objective evidence for acute process requiring urgent intervention or hospitalization. The patient and/or family had all the tests and diagnosis explained to them and were given both verbal and written discharge instructions. I answered the patient's question as well as family to the best of my ability. The patient is stable for discharge, and pt is instructed to follow up with pcp and educated to return to ed if sx worsen or any new symptoms. Pt agreeable with plan. At this time, based on the patient's history, physical exam findings, lab results and clinical picture , the most likely diagnosis is epigastric abdominal pain Pt educated on the most common causes of Epigastric abdominal pain Pt instructed to follow up with PCP in 1-2 days Discharge care instructions, medications, follow up instructions, and reasons to return to the ED immediately, such as worsening of symptoms or any new symptoms, were provided verbally and in writing to patient (patient guardian / product support sales representative), who verbalized understanding. This note was partially generated using Dragon voice recognition system, and there may be some incorrect words, spellings, and punctuation that were not noted in checking the note before saving ED Course / Clinical Impression Clinical Impressions as of 1550 Epigastric abdominal pain (R10.13) Epigastric abdominal pain (primary encounter diagnosis) Comment: acute Plan: dc see pcp rest see gi, home pain meds, return to ed if sx worsen Plan The patient was DISCHARGED: Counseled patient and family regarding lab results AND suspected diagnosis AND need for follow-up. Discharged home with verbal and written instructions. They were instructed to return as needed for persistent or worsening symptoms or any new concerns. Condition at time of disposition: stable SIGNATURE: JOE Overton (Pa) 09/22/17 1801 ED NOTE Observed: 2017 Status: COMPLETED Source: [place] 2:42 PM [facility] REPOSITORY HNO ID: [id number] Author: Marcelle Díaz) JORY Norris Service: Nursing Author Type: Registered Nurse Type: ED Notes Filed: 2017 2:42 PM Note Text: Pt up to bathroom to obtain urine sample. ED NOTE Observed: 2017 Status: COMPLETED Source: [place] 2:42 PM [facility] REPOSITORY HNO ID: [id number] Author: Marcelle Díaz) JORY Norris Service: Nursing Author Type: Registered Nurse Type: ED Notes Filed: 2017 2:42 PM Note Text: Rupert conner rounds on pt at bedside to assess. CT ABD/PELVIS W/ IV Observed: 09/05/2017 Status: F Source: [facility] CONTRAST ONLY 5:20 PM [facility] REPOSITORY ORIGINAL CT ABD/PELVIS W/ IV CONTRAST ONLY: Multiplanar coronal, sagittal, and axial reconstructions were reviewed on a separate workstation CLINICAL STATEMENT: pain, nausea and vomiting COMPARISON: CT abdomen and pelvis 08/05/2016 TECHNIQUE: This exam was performed according to our departmental dose optimization program, including but not limited to: automated exposure control, adjustment of the mAs and/or kVp according to patien t size and/or exam, and use of an iterative reconstruction algorithm where applicable. FINDINGS: Included images of the lower thorax are unremarkable. The liver, pancreas, spleen, and adrenal glands are unremarkable. Gallbladder is reportedly absent. The kidneys enhance symmetrically without hydronephrosis or focal mass. Tiny nonobstructing left upper pole to midportion renal calculus is identified. The ureters are normal in course and caliber. The stomach is underdistended. The small bowel exhibits no disproportionate luminal dilatation or wall thickening. The colon is unremarkable in caliber. The appendix is not definitely identified. No inf lammatory stranding in the right lower quadrant or pericecal region. Normal to moderate stool load. There is no free intraperitoneal air. The abdominal aorta and IVC are of normal course and caliber. No abdominal or pelvic lymphadenopathy. The bladder is well distended without focal mass or wall thickening. The uterus and adnexa are unremarkable. There is no ascites. There are no acute osseous abnormalities. IMPRESSION: No acute process. I have personally reviewed the images of this examination and agree with the resident's findings and interpretation. Interpreted By: Courtney Patel MD Preliminary Report By: Mitchell Lofton DO Electronically Signed By: Courtney Patel MD Dictated Date: 09/05/2017 5:34:12 PM Prelim Date: 09/05/2017 5:44:19 PM Sign Date: 09/05/2017 6:28:43 PM CBC Collected: 09/05/2017 Status: F Source: [facility] 4:29 PM [facility] REPOSITORY TYPE CODE TESTS RESULT OUT OF REFERENCE UNITS RANGE LAB WBC(LOINC) 4.60-10.80 10 3/mcL WBC 8.70 LAB RBCCT(LOINC 4.20-5.40 10 6/mcL ) RBC 4.27 LAB HGB(LOINC) 12.0-16.0 G/dL Hgb 13.8 LAB HCT(LOINC) 37.0-47.0 % Hct 40.3 LAB MCV(LOINC) 80.0-94.0 fL High MCV 94.2 LAB MCH(LOINC) 27.0-31.2 pg High MCH 32.2 LAB MCHC(LOINC) 33.0-37.0 G/dL MCHC 34.2 LAB RDW(LOINC) 11.5-14.5 % RDW 12.8 LAB PLT(LOINC) 130-400 10 3/mcL Platelet 314 LAB MPV(LOINC) 7.4-10.4 fL MPV 8.0 Performed By: #### CBC, ROSITA, ANEU #### [address] [address] .AUTO DIFF Collected: 09/05/2017 Status: F Source: [facility] 4:29 PM [facility] REPOSITORY TYPE CODE TESTS RESULT OUT OF REFERENCE UNITS RANGE LAB ERASMO(LOINC) 37.0-80.0 % Neutrophil % 57.7 LAB LYM(LOINC) 10.0-50.0 % Lymphocyte % 32.1 LAB MON(LOINC) 1.7-13.0 % Monocyte % 8.5 LAB EO(LOINC) 0.0-7.0 % Eosinophil % 1.0 LAB BAS(LOINC) 0.0-2.5 % Basophil % 0.7 LAB ABLYM(LOIN 0.77-3.85 10 3/mcL C) Lymphocyte, 2.80 Absolute LAB ARNULFO(LOINC 0.15-1.00 10 3/mcL ) Monocyte, 0.70 Absolute LAB AEOS(LOINC 0.00-0.40 10 3/mcL ) Eosinophil, 0.10 Absolute LAB ABAS(LOINC 0.00-0.19 10 3/mcL ) Basophil, 0.10 Absolute Performed By: #### CBCROSITA ANEU #### [address] [address] .NEUABS Collected: 09/05/2017 Status: F Source: [facility] 4:29 PM [facility] REPOSITORY TYPE CODE TESTS RESULT OUT OF REFERENCE UNITS RANGE LAB ANEU(LOINC) 2.85-6.16 10 3/mcL Neutrophil, 5.00 Absolute Performed By: #### CBCROSITA, ANEU #### [address] [address] CBC Collected: 09/04/2017 Status: F Source: [facility] 9:24 PM [facility] REPOSITORY TYPE CODE TESTS RESULT OUT OF REFERENCE UNITS RANGE LAB WBC(LOINC) 4.60-10.80 10 3/mcL High WBC 11.90 LAB RBCCT(LOINC 4.20-5.40 10 6/mcL ) Low RBC 4.12 LAB HGB(LOINC) 12.0-16.0 G/dL Hgb 13.1 LAB HCT(LOINC) 37.0-47.0 % Hct 38.7 LAB MCV(LOINC) 80.0-94.0 fL MCV 93.9 LAB MCH(LOINC) 27.0-31.2 pg High MCH 31.7 LAB MCHC(LOINC) 33.0-37.0 G/dL MCHC 33.8 LAB RDW(LOINC) 11.5-14.5 % RDW 12.4 LAB PLT(LOINC) 130-400 10 3/mcL Platelet 313 LAB MPV(LOINC) 7.4-10.4 fL MPV 7.7 Performed By: #### CBC, ADIFF, ANEU #### [id number] [place], [place] [address] .AUTO DIFF Collected: 09/04/2017 Status: F Source: [facility] 9:24 PM [facility] REPOSITORY TYPE CODE TESTS RESULT OUT OF REFERENCE UNITS RANGE LAB ERASMO(LOINC) 37.0-80.0 % Neutrophil % 76.3 LAB LYM(LOINC) 10.0-50.0 % Lymphocyte % 15.2 LAB MON(LOINC) 1.7-13.0 % Monocyte % 7.7 LAB EO(LOINC) 0.0-7.0 % Eosinophil % 0.2 LAB BAS(LOINC) 0.0-2.5 % Basophil % 0.6 LAB ABLYM(LOIN 0.77-3.85 10 3/mcL C) Lymphocyte, 1.80 Absolute LAB ARNULFO(LOINC 0.15-1.00 10 3/mcL ) Monocyte, 0.90 Absolute LAB AEOS(LOINC 0.00-0.40 10 3/mcL ) Eosinophil, 0.00 Absolute LAB ABAS(LOINC 0.00-0.19 10 3/mcL ) Basophil, 0.10 Absolute Performed By: #### CBC, ADIFF, ANEU #### [id number] [place], [place] [address] .NEUABS Collected: 09/04/2017 Status: F Source: [facility] 9:24 PM [facility] REPOSITORY TYPE CODE TESTS RESULT OUT OF REFERENCE UNITS RANGE LAB ANEU(LOINC) 2.85-6.16 10 3/mcL High Neutrophil, 9.10 Absolute Performed By: #### CBC, ADIFF, ANEU #### [id number] [place], [place] [address] BMP Collected: 09/02/2017 Status: F Source: [facility] 2:00 [facility] REPOSITORY TYPE CODE TESTS RESULT OUT OF REFERENCE UNITS RANGE LAB GLU(LOINC) 70-105 mg/dL Glucose High Level 140 LAB NA(LOINC) 136-146 mEq/L Sodium Level 141 LAB K(LOINC) 3.5-5.1 mEq/L Potassium Level 4.2 LAB CL(LOINC) 98-107 mEq/L Chloride High 108 LAB CO2(LOINC) 22-29 mEq/L CO2 24 LAB EBAL(LOINC mEq/L ) Electrolyte Balance 9.0 LAB BUN(LOINC) 7.0-18.0 mg/dL BUN 11.0 LAB CRE(LOINC) 0.6-1.2 mg/dL Creatinine Lvl (s) 0.9 LAB BC(LOINC) 7-27 ratio BUN/Creatinine 12 Ratio LAB CA(LOINC) 8.4-10.2 mg/dL Calcium Lvl 9.2 Performed By: #### BMP, GFR #### [address] [address] .GFR Collected: 09/02/2017 Status: F Source: [facility] 2:00 [facility] REPOSITORY TYPE CODE TESTS RESULT OUT OF REFERENCE UNITS RANGE LAB GFRAA(LOINC ml/min/1.73 ) sqm GFR 92 [place] Result Comment: GFR Population mean for , Non- Americans Ages 20-29 = 116 mL/min/1.73 sq.m. Ages 30-39 = 107 mL/min/1.73 sq.m. Ages 40-49 = 99 mL/min/1.73 sq.m. Ages 50-59 = 93 mL/min/1.73 sq.m. Ages 60-69 = 85 mL/min/1.73 sq.m. Ages 70+ = 75 mL/min/1.73 sq.m. Chronic Kidney Disease: Less than 60 mL/min/1.73 square meters End Stage Renal Disease: Less than 15 mL/min/1.73 square meters LAB GFRNO(LOINC) ml/min/1.73sqm GFR Non- >60 Result Comment: GFR Population mean for , Non- Americans Ages 20-29 = 116 mL/min/1.73 sq.m. Ages 30-39 = 107 mL/min/1.73 sq.m. Ages 40-49 = 99 mL/min/1.73 sq.m. Ages 50-59 = 93 mL/min/1.73 sq.m. Ages 60-69 = 85 mL/min/1.73 sq.m. Ages 70+ = 75 mL/min/1.73 sq.m. Chronic Kidney Disease: Less than 60 mL/min/1.73 square meters End Stage Renal Disease: Less than 15 mL/min/1.73 square meters Performed By: #### BMP, GFR #### [address] [address] UA Collected: 09/02/2017 Status: F Source: [facility] 1:52 PM [facility] REPOSITORY TYPE CODE TESTS RESULT OUT OF REFERENCE UNITS RANGE LAB SPCUA(LOIN C) UA Specimen Type Clean Catch LAB CLRUA(LOIN C) UA Color YELLOW LAB APPUA(LOIN C) UA Appear CLEAR LAB SGUA(LOINC ) UA Spec Grav 1.020 LAB GLUA(LOINC mg/dL ) UA Glucose NEGATIVE LAB BILUA(LOIN C) UA Bili NEGATIVE LAB KETUA(LOIN mg/dL C) UA Ketones NEGATIVE LAB BLDUA(LOIN C) UA Blood LARGE LAB PHUA(LOINC ) UA pH 6.5 LAB PROUA(LOIN mg/dL C) UA Protein NEGATIVE LAB UROUA(LOIN E.U./dL C) UA Urobilinogen 0.2 LAB NITUA(LOIN C) UA Nitrite NEGATIVE LAB LEUUA(LOIN C) UA Leuk Est NEGATIVE Performed By: #### UA, PREGU, UAMICAO #### [address] [address] PREGU Collected: 09/02/2017 Status: F Source: [facility] 1:52 [facility] REPOSITORY TYPE CODE TESTS RESULT OUT OF RANGE REFERENCE UNITS LAB PREGU(LOIN C) Test Negative Urine LAB PRUG1(LOIN C) Unknown test HCG not (u) int detected. Performed By: #### UA, PREGU, UAMICAO #### [address] [address] .URINALYSIS MICROSCOPIC Collected: 09/02/2017 Status: F Source: [place] [facility] 1:52 PM [facility] REPOSITORY TYPE CODE TESTS RESULT OUT OF RANGE REFERENCE UNITS LAB WBCUA(LOIN None Seen /hpf C) UA WBC None Seen LAB RBCUA(LOIN None Seen /hpf C) Unknown UA RBC LOADED LAB EPIUA(LOIN None Seen /hpf C) Unknown UA Squam Epithelial 0-5 LAB BACUA(LOIN /hpf C) Unknown UA Bacteria 1+ Performed By: #### UA, PREGU, UAMICAO #### [address] [place], [place] [address] EMERGENCY DEPARTMENT Observed: 08/31/2017 Status: F Source: [place] SUMMARY 11:14 PM [facility] REPOSITORY [facility] Medical Records Department [address] [place] [address] Emergency Department Summary 08/31/17 1512 MR#: [id number] Acct: [id number] Name: LAKESHA DEL CID Rep #: [id number] : 1990 26 From: Augustine Leyva DO PCP: Jaydon Bates DO Status: DEP ER - ER Visit Summary Date of Service: 08/31/17 Chief Complaint: Left flank pain History of Present Illness: The patient is a 26 F who states that last night in the evening she developed pain in the flank. She states that she is seeing some pink tinge in the urine. States she has a history of kidney stones. Today at work she had to leave because the pain was so intense. She states that she has painful urination meaning that it hurts her kidney to urinate. Patient states she wants a CAT scan this time in the emergency department. She has had evaluation several times for this complaint. Physical Examination: Afebrile vital signs are stable Gen: Well-nourished well-developed Head: Normocephalic atraumatic Eyes: Perrl EOMI ENT: TMs clear no rhinorrhea moist mucous membranes Neck: Supple no lymphadenopathy no JVD nontender CVS: Heart rate is 93 on my examination regular rate rhythm no murmurs normal S1-S2 Respiratory: No distress clear to auscultation bilaterally chest nontender Abdomen: Soft nontender nondistended normal bowel sounds no masses Back: Nontender Extremity: Left CVA tenderness no rash Skin: Normal color no rash Neuro: alert orientated 3 CN II-XII normal gait Test Results: Analysis negative nitrates. 0-5 white cells 0-5 red cells 10-25 epithelial cells 3+ bacteria. Exit test was negative. CT of the abdomen pelvis demonstrated nephrolithiasis but no obvious ureterolithiasis or inflammatory changes around the kidneys or the ureter. Emergency Department Course and Treatment: She received a [place] and Zofran. Urinalysis is contaminated. I do not see evidence of overt infection. Patient will be discharged home to follow-up with her doctors. Impression: 1. Left flank pain 2. Nephrolithiasis This note was generated with Vida[employer] dictation software. It may contain incorrect words, spelling, and punctuation that were not noted in review of the chart prior to signing ED Disposition - Plan for ED Patient: Disposition: Home or Assisted Living Chief Complaint: Flank Pain Instructions: ED Flank Pain Uncertain Cause Referrals: Jaydon Decker DO [Primary Care Provider] - 3-5 Days if not improving What to do if you have Problems For any increased pain, shortness of breath, bleeding, nausea or vomiting, chest pain, or any unexpected problems, contact your Primary Care Provider. Call [facility] ([phone]) or report to the closest Emergency Room. Call 911 if necessary. 08/31/17 6652 <Electronically signed by Augustine Leyva DO> Date Augustine Leyva DO Cosigner Signature (If Indicated): Date CC: Jaydon Bates DO URINALYSIS, COMPLETE Collected: 08/31/2017 Status: F Source: [place] 3:30 PM [facility] REPOSITORY Order Comment: Order Date: 08/31/17 Has pt arrived? Y Order Date: 08/31/17 Has pt arrived? Y How was Urine Obtained? CLEAN CATCH TYPE CODE TESTS RESULT OUT OF REFERENCE UNITS RANGE LAB L400.3000 Yellow COLOR Normal Yellow LAB L400.3050 Clear CLARITY Normal Sl. Cloudy LAB L400.3200 Normal mg/dl GLUCOSE, UR Normal Normal LAB L400.3300 Negative mg/dL BILIRUBIN Normal URINE Negative LAB L400.3400 Negative mg/dl KETONE UR Normal Negative LAB L400.3465 1.002-1.030 SP.GR. Normal DIPSTX 1.020 LAB L400.3550 5.0 - 8.0 pH UR Normal 6.5 LAB L400.3600 Negative mg/dl PROT DIPSTX Normal Negative LAB L400.3700 Normal mg/dl UROBILI Normal Normal LAB L400.3750 Negative NITRITE UR Normal Negative LAB L400.3780 Negative /ul OCCULT High BLOOD-UR 25 LAB L400.3800 Negative /ul LEUK High ESTERASE 25 LAB L400.4050 0-5 /hpf WBC Normal 0-5 SEEN LAB L400.4100 0-5 /hpf RBC-UA Normal 0-5 SEEN LAB L400.4150 5-10 /hpf SQUAM EPI Normal 10-25 SEEN LAB L400.4300 None Seen /hpf BACTERIA Normal 3+ LAB L400.4350 <or=2+ /hpf MUCUS, Normal URINE 0 SEEN LAB L400.4200 0-5 /hpf Normal TRANSITIONAL EP 0-5 SEEN Performed By: #### L400.0001, L400.7600 #### [facility] [address]. [place], [place], [address] ,URINE Collected: 08/31/2017 Status: F Source: [place] 3:30 PM [facility] REPOSITORY Order Comment: Order Date: 08/31/17 Has pt arrived? Y Order Date: 08/31/17 Has pt arrived? Y How was Urine Obtained? CLEAN CATCH TYPE CODE TESTS RESULT OUT OF REFERENCE UNITS RANGE LAB L400.8000 Negative Normal HCGUQUAL Negative Result Comment: Very dilute urine specimens, as indicated by a low specific gravity, may not contain product support sales representative levels of hCG. If is still suspected, a first morning urine specimen should be collected 48 hours later and tested. Performed By: #### L400.0001, L400.7600 #### [facility] [address]. [place], [place], [address] ABDOMEN/PELVIS WITHOUT Observed: 08/31/2017 Status: F Source: [facility] 3:12 PM [facility] REPOSITORY [facility] Imaging Services [address] [place] [address] Abdomen/Pelvis without Cont MR#: [id number] Acct: [id number] Name: LAKESHA DEL CID Rep #: [id number] : 1990 F 26 From: Todd Olmstead MD PCP: Jaydon Bates DO Status: REG ER Study: Abdomen/Pelvis without Cont Date of Exam: 08/31/17 Exam# [id number] Ordering Dr: Augustine Leyva DO STUDY: CT ABDOMEN AND PELVIS WITHOUT CONTRAST REASON FOR EXAM: Female, 26 years old. Bilateral flank pain RADIATION DOSAGE (If Supplied By Facility): CTDIvol = ( 7.11 ) mGy, DLP = ( 328.52 ) mGycm TECHNIQUE: Transaxial images were obtained from the dome of the diaphragm to the symphysis pubis without oral contrast, and without intravenous contrast. Sagittal and coronal images were reconstructed. Individualized dose optimization techniques were used for this CT. COMPARISON: May 20, 2017 FINDINGS: The visualized lung bases are unremarkable. The visualized portions of the heart are within normal limits. Normal liver. Gallbladder not visualized consistent with cholecystectomy. Normal spleen. Normal pancreas. Normal bilateral adrenal glands. There are 2 tiny nonobstructing calculi in the right kidney.. There is no evidence for hydronephrosis or hydroureter. There are 2 tiny nonobstructing calculi in left kidney. No evidence for renal obstruction or ureteral calculus. No renal mass given limited unenhanced nature of the study. Normal visualized stomach. Normal small intestine. Normal colon. There is a tiny calcification in the right lower quadrant which appears to be within the appendiceal lumen however there is no evidence for acute appendicitis. Normal abdominal aorta. Normal inferior vena cava. Normal retroperitoneum. Incompletely distended diffusely thick-walled bladder likely of no significance. Normal abdominal wall. Normal osseous structures. CT/Abdomen/Pelvis without Cont IMPRESSION: Bilateral nephrolithiasis. No evidence for hydronephrosis or ureteral calculus at this time Status post cholecystectomy. Electronically Signed: Todd Olmstead MD at 17:14 EDT , Service support , CC: Augustine Leyva DO; Jaydon Bates DO Auger Supervisor: Signed 12 LEAD ELECTROCARDIOGRAM Observed: 08/21/2017 Status: F Source: [place] 12:53 PM [facility] REPOSITORY [facility] Cardiovascular Services [address] [place] [address] 12 Lead EKG 08/18/17 1946 MR#: [id number] Acct: [id number] Name: LAKESHA DEL CID Rep #: [id number] : 1990 From: Kevin Ramírez MD Attending Dr: Status: DEP ER Ordering Dr: Shanita Baez MD Date: 08/18/17 Location: ED Sex: F C Admitted: Test Reason : Blood Pressure : / mmHG Vent. Rate : 090 BPM Atrial Rate : 090 BPM P-R Int : 118 ms QRS Dur : 074 ms QT Int : 340 ms P-R-T Axes : 005 023 021 degrees QTc Int : 415 ms Normal sinus rhythm Normal ECG Confirmed by IMELDA TERRELL, KEVIN ([id number]), desk editor CHINA HYDE ([id number]) on 08/21/2017 12:52:35 PM Referred By: ARACELI Confirmed By:KEVIN RAMÍREZ MD 08/21/17 1252 Date Kevin Ramírez MD CC: Shanita Baez MD; Jaydon Bates DO Signed DISCHARGE INSTRUCTION Observed: 08/21/2017 Status: F Source: [place] 11:58 AM [facility] REPOSITORY [facility] Medical Records Department [address] [place] [address] Discharge Instruction 08/21/17 1157 MR#: [id number] Acct: [id number] Name: LAKESHA DEL CID Jayy Rep #: [id number] : 1990 26 From: Cass Mcclure DO PCP: Jaydon Bates DO Status: PRE ER ED Disposition - Plan for ED Patient: Chief Complaint: Chest Other Instructions: ED Chest Pain Atypical Unkn Cause Referrals: Jaydon Decker DO [Primary Care Provider] - 3-5 Days What to do if you have Problems For any increased pain, shortness of breath, bleeding, nausea or vomiting, chest pain, or any unexpected problems, contact your Primary Care Provider. Call [facility] ([phone]) or report to the closest Emergency Room. Call 911 if necessary. 08/21/17 1158 <Electronically signed by Cass Mcclure DO> Date Cass Mcclure DO Cosigner Signature (If Indicated): Date CC: Jaydon Bates DO EMERGENCY DEPARTMENT Observed: 08/21/2017 Status: F Source: [place] SUMMARY 11:57 AM [facility] REPOSITORY [facility] Medical Records Department [address] [place] [address] Emergency Department Summary 08/21/17 1154 MR#: [id number] Acct: [id number] Name: LAKESHA DEL CID Rep #: [id number] : 1990 26 From: Cass Mcclure DO PCP: Jaydon Bates DO Status: PRE ER - ER Visit Summary Date of Service: 08/21/17 Chief Complaint: [Chest pain] History of Present Illness: The patient is a 26 F [presents to the emergency department with chest pain that started 3 days ago. Patient apparently was taken to [facility] 3 days ago where she had a significant workup at that time which did not yield anything significant and patient was diagnosed with pleurisy. Patient apparently developed more pain the following day and was seen in our emergency department 2 days ago where she had repeat workup once again including EKG as well as labs including d-dimer and troponin all of which were unremarkable. Patient currently taking tramadol for pain. Patient continues to have pain today. Patient states that she took tramadol which she has at home for headaches, that did not help her pain.] Patient has history of prior pericarditis, myocarditis, migraines, kidney stones, and cholecystectomy. Physical Examination: [HEENT-PERRLA, EOMI. Cranial nerves II through XII grossly intact. TMs clear. Mucous membranes moist. No adenopathy. Cardiovascular-regular rate and rhythm without murmur or ectopy Lungs-clear to auscultation, chest wall stable without crepitus or subcu emphysema Abdomen-normoactive bowel sounds, soft, nontender, no rebound or rigidity, no peritoneal signs. Extremities-intact 4, normal range of motion, normal pulses, atraumatic] Test Results: [None indicated] Emergency Department Course and Treatment: [I did perform an oars report on the patient which did show a concerning amount of narcotic prescriptions over the last year. Patient has had prescriptions from multiple physicians. Patient states that these are typically for her kidney stones. At this point she has had significant workups 2 this week to evaluate her chest pain. I do not feel any further workup is indicated. Patient understands I will not be prescribing any narcotic pain medication for unverifiable pain. I did give patient 1 dose of Dilaudid and Zofran in the emergency department and advised that she follow- up with her primary care physician within next 3-5 days.] Treatment Plan: [Patient to follow-up with her primary care physician to continue with her tramadol.] Disposition: [Discharged home in stable condition] Impression: [Chest pain-etiology uncertain] This note was generated with Vidaao dictation software. It may contain incorrect words, spelling, and punctuation that were not noted in review of the chart prior to signing ED Disposition - Plan for ED Patient: Chief Complaint: Chest Other Referrals: Jaydon Decker, [Primary Care Provider] - What to do if you have Problems For any increased pain, shortness of breath, bleeding, nausea or vomiting, chest pain, or any unexpected problems, contact your Primary Care Provider. Call [facility] ([phone]) or report to the closest Emergency Room. Call 911 if necessary. 08/21/17 115 <Electronically signed by Cass Mcclure DO> Date Remus Ungur DO Cosigner Signature (If Indicated): Date CC: Jaydon Bates, DO ED PROV NOTE Observed: 08/20/2017 Status: COMPLETED Source: [place] 10:50 AM CLINIC OTHER CAMPUS REPOSITORY O ID: [id number] Author: Raissa Naranjo MD Service: Emergency Medicine Author Type: Physician Type: ED Provider Notes Filed: 08/20/2017 11:58 AM Note Text: ED Provider Note Patient Name: Lakesha Del Cid SERVICE DATE: 08/20/17 History Patient presents with: Abdominal Pain: Seen at [facility] on Thursday. States her lipase is elevated. Here today for complaints of epigastric pain. HPI The patient went to [facility] emergency department complaining of chest discomfort 2 days ago. They did an extensive workup, including a CAT scan of her chest, and she was discharged home with pleuritis. She felt worse and subsequent day and [facility]. At that time, her lipase was noted to be 212. She also had chest discomfort and was discharged home. She reports the emergency department today complaining of epigastric pain similar to previous episodes of pancreatitis as well as not feeling good. She is a nonsmoker. She denies any alcohol use. 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 PAST MEDICAL HISTORY Diagnosis Date - Attention deficit disorder without mention of hyperactivity - Chest pain of pericarditis 10/19/2013 - Controlled substance agreement signed 03/08/2014 - Depression and anxiety - Elevated amylase and lipase 06/03/2016 - Fibromyalgia - Intractable chronic migraine without aura and without status migrainosus 08/10/2015 - Kidney stones 16 renal stones - monitoring, Dr. Stoner - Migraines Dr. 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 - Right sided abdominal pain 06/01/2016 - Vaginal spotting 06/04/2016 - Viral pericarditis 10/19/2013 PAST SURGICAL HISTORY Procedure Laterality Date - BOTOX 07/08/2013 - COLONOSCOP W/ OR W/O BRSH SPEC 01/14/2017 Colonoscopy - LAPAROSCOPIC CHOLEYCYSTECTOMY 01/26/2017 Cholecystectomy, lap - ORAL SURGERY PROCEDURE 01/25/2010 [place] Teeth Extraction - PAST SURGICAL HISTORY OF 2012 piercings removed from abdomen - REMOVAL OF TONSILS,<12 Y/O 6yo Tonsillectomy FAMILY HISTORY Problem Relation Age of Onset - Hypertension Father - migraine [Other] [OTHER] Father - kidney stones [Other] [OTHER] Father - COPD Maternal Grandmother - kidney cancer [Other] [OTHER] Paternal Grandfather Social History Social History Main Topics - Smoking status: Never Smoker - Smokeless tobacco: Never Used - Alcohol use No Comment: 2 drinks per week - Drug use: No - Sexual activity: Yes Partners: Male control/ protection: Injection Comment: Depo Provera ALLERGIES Allergen Reactions - Benadryl [Diphenhyd* Other: See Comments - Kiwi - Methocarbamol Other: See Comments Causes blisters in the mouth - [place] [Hydrocodone-* Intolerance Worsens migraines - Reglan [Metoclopram* Mental Status Change climbing the morocho - Rat [Other] Review of Systems Patient Denies Any Fever or Headaches. She States That Her Chest Discomfort She Nearly Had 2 Days Ago His Improvement so Persistent. She Describes As Being Sharp in Nature. She Reports an Aching Epigastric Discomfort with Mild Anorexia Similar to What She Has Had with Pancreatitis. She Denies Any Dysuria or Hematuria. She Denies Any Vaginal Bleeding or Discharge. She Denies Any Melena, Hematochezia, or Diarrhea. She Points Generalized Weakness, but Denies Any Focal Weakness. The Remainder of Systems Were Reviewed and Were Negative. Physical Exam BP 123/54 Pulse 100 Temp (Src) 98.2 (Oral) Resp 16 Ht 5' 1 (1.55m) Wt 135 lb (61.2kg) SpO2 100% BMI 25.52 kg/(m2). Physical Exam The patient's skin is pink, warm, dry. Pupils are equally reactive to light and accommodation. There is an S1 and S2 with a regular rate and rhythm. No murmurs or bruits. Lungs melo are clear and respirations are unlabored. The abdomen is nondistended, bowel sounds. There is epigastric tenderness with no palpable masses. There is guarding, but no rebound. She states that palpation over this area reproduces her symptoms. There is no CVA tenderness. She is otherwise alert and appropriate with a nonfocal exam, and she has a nontoxic appearance. Neurovascular status is intact. Diagnostic Testing ED Labs Ordered and Reviewed - No data to display Procedures Medical Decision Making / ED Course ED Course Laboratory results including her normal lipase and positive urinalysis. She continually asked for narcotics which I do not feel clinically indicated. In addition, she has a treatment plan prescribed by her primary care physician where she is not to receive any narcotics upon leaving the emergency department. She has been advised to use Advil for her chest discomfort and to follow-up with her primary care physician in one week. She'll be given a prescription for a 3 day course of Cipro as well as 1 dose of potassium chloride here in the emergency department. When I went into the patient's room, she was eating a sandwich without difficulty. No diagnosis found. UTI Hypokalemia Plan The patient be discharged in stable and improved condition. SIGNATURE: MD Raissa Pang MD 08/20/17 1158 URINALYSIS ROUTINE Collected: 08/20/2017 Status: F Source: [facility] 10:50 AM HEALTH SYSTEM REPOSITORY TYPE CODE TESTS RESULT OUT OF RANGE REFERENCE UNITS LAB COLOR(LOIN C) Urine Color YELLOW LAB APPUR(LOIN C) Urine Appearance CLOUDY LAB GLUUR(LOIN Negative mg/dL C) Glucose Urine NEGATIVE LAB KETON(LOIN Negative mg/dL C) Ketone Urine NEGATIVE LAB HGBUR(LOIN Negative C) Hemoglobin,Urin NEGATIVE e LAB PROTU(LOIN Negative mg/dL C) Protein Urine NEGATIVE LAB NITRI(LOIN Negative C) Nitrites Urine NEGATIVE LAB BILIU(LOIN Negative C) Bilirubin Urine NEGATIVE LAB SPG(LOINC) 1.005-1.030 Specific 1.017 [place], Ur LAB PHUR(LOINC 5.0-8.0 ) pH,Urine 6.5 LAB UROBI(LOIN 0.0-1.0 EU/dL C) Urobilinogen,Ur 0.2 LAB LEUKO(LOIN Negative C) Abnormal Leukocytes LARGE Esterase LAB RBCU1(LOIN 0.0-5.0 /hpf C) High RBC,Urine 5.7 LAB WBCU1(LOIN 0.0-5.0 /hpf C) High WBC, Urine 52.2 LAB EPIT1(LOIN 0.0-5.0 /hpf C) High Ep Cells Urine 9.5 LAB BACT1(LOIN None C) Abnormal Bacteria Urine 2+ LAB HYCA1(LOIN 0.0-1.0 /lpf C) Hyaline Cast 0.8 Performed By: #### URIN2 #### [facility] [address] [place], [place] [address] URINE HCG, QUAL. Collected: 08/20/2017 Status: F Source: [facility] 10:50 AM HEALTH SYSTEM REPOSITORY TYPE CODE TESTS RESULT OUT OF REFERENCE UNITS RANGE LAB URHCG(LOIN Negative C) HCG, Qual. Negative Urine LAB SPGR(LOINC 1.005-1.030 ) Specific 1.017 [place], Ur Performed By: #### HCGUR #### [facility] [address] [place], [place] [address] HEMOGRAM/DIFF Collected: 08/20/2017 Status: F Source: [facility] 10:50 AM [facility] SYSTEM REPOSITORY TYPE CODE TESTS RESULT OUT OF REFERENCE UNITS RANGE LAB WBC(LOINC) 3.98-10.04 thou/cmm WBC High 14.15 LAB RBC(LOINC) 3.93-5.22 mil/cmm RBC 3.96 LAB HGB(LOINC) 11.2-15.7 g/dL Hgb 12.5 LAB HCT(LOINC) 34.1-44.9 % Hct 37.5 LAB MCV(LOINC) 79.4-94.8 fl MCV 94.7 LAB MCH(LOINC) 25.6-32.2 pg MCH 31.6 LAB MCHC(LOINC 31.6-34.8 % ) MCHC 33.3 LAB RDW(LOINC) 11.7-14.4 % RDW 11.9 LAB RDWSD(LOIN 36.4-46.3 fl C) RDW SD 41.1 LAB PLT(LOINC) 182-369 thou/cmm Platelet 316 LAB MPV(LOINC) 9.4-12.3 fl MPV 9.9 LAB SEG(LOINC) % Seg Neutrophil 75.4 LAB IGRE(LOINC % ) Immature Grans 0.50 LAB LYMPH(LOIN % C) Lymphocyte 17.7 LAB MNO(LOINC) % Monocyte 6.2 LAB EOSIN(LOIN % C) Eosinophil 0.1 LAB BASO(LOINC % ) Basophil 0.1 LAB SEGN(LOINC 1.56-6.13 thou/cmm ) Abs. High Neut 10.67 LAB IGAB(LOINC 0.00-0.05 thou/cmm ) Abs High Immature Grans 0.07 LAB LYMN(LOINC 1.18-3.74 thou/cmm ) Abs. Lymph 2.50 LAB MONON(LOIN 0.27-0.70 thou/cmm C) Abs. High Hardy 0.88 LAB EOSN(LOINC 0.00-0.31 thou/cmm ) Abs. Eosin 0.01 LAB BASON(LOIN 0.01-0.08 thou/cmm C) Abs. Baso 0.01 Result Comment: Smear scanned; tech agrees with automated differential Performed By: #### CBCD1 #### [place] [address] COMPREHENSIVE PANEL Collected: 08/20/2017 Status: F Source: [facility] 10:50 AM HEALTH SYSTEM REPOSITORY TYPE CODE TESTS RESULT OUT OF REFERENCE UNITS RANGE LAB NA(LOINC) 136-145 mEq/L Sodium Blood 140 LAB K(LOINC) 3.5-5.1 mEq/L Low Potassium Blood 3.0 LAB CL(LOINC) 98-107 mEq/L Chloride Blood 106 LAB CO2(LOINC) 21-32 mEq/L CO2 Blood 24 LAB GLU(LOINC) 70-99 mg/dL Glucose Blood 91 LAB BUN(LOINC) 7-18 mg/dL BUN Blood 11 LAB CREA(LOINC 0.51-0.95 mg/dL ) Creatinine Blood 0.73 LAB CA(LOINC) 8.5-10.1 mg/dL Calcium Blood 8.8 LAB ALB(LOINC) 3.4-5.0 g/dL Albumin Blood 4.1 LAB TP(LOINC) 6.4-8.2 g/dL Total Protein 8.2 LAB AST(LOINC) 9-37 U/L AST-SGOT Blood 15 LAB ALT(LOINC) 12-78 U/L ALT-SGPT Blood 32 LAB ALKP(LOINC 46-116 U/L ) Alk Phosphatase 74 LAB BILIT(LOIN 0.2-1.0 mg/dL C) Total Bilirubin 0.2 LAB ANGAP(LOIN 8-16 C) Anion Gap 13 Performed By: #### P14 #### [facility] [address] [place] [address] LIPASE BLOOD Collected: 08/20/2017 Status: F Source: [facility] 10:50 AM HEALTH SYSTEM REPOSITORY TYPE CODE TESTS RESULT OUT OF REFERENCE UNITS RANGE LAB LIP(LOINC) 73-393 U/L Lipase Blood 121 Performed By: #### LIP #### [place] [address] AMYLASE BLOOD Collected: 08/20/2017 Status: F Source: [facility] 10:50 AM HEALTH SYSTEM REPOSITORY TYPE CODE TESTS RESULT OUT OF REFERENCE UNITS RANGE LAB RONY(LOINC) 25-115 U/L Amylase Blood 70 Performed By: #### RONY #### [place] [address] MDRD GFR Collected: 08/20/2017 Status: F Source: [facility] 10:50 AM HEALTH SYSTEM REPOSITORY TYPE CODE TESTS RESULT OUT OF RANGE REFERENCE UNITS LAB GFRFN(LOINC >60mL/min/1.73m ) 2 eGFR >60 Result Comment: If the patient is , multiply the result by 1.210. Performed By: #### GFR #### [place] [address] EMERGENCY DEPARTMENT Observed: 08/19/2017 Status: F Source: [place] SUMMARY 12:19 AM [facility] REPOSITORY [facility] Medical Records Department [address] [place] [address] Emergency Department Summary 08/18/17 2120 MR#: [id number] Acct: [id number] Name: LAKESHA DEL CID Jayy Rep #: [id number] : 1990 26 From: Shanita Baez MD PCP: Jaydon Bates DO Status: DEP ER - ER Visit Summary Date of Service: 08/18/17 Chief Complaint: Pleurisy History of Present Illness: The patient is a 26 F with sudden onset of left upper chest pain at work this morning. Patient was seen at [facility] ER and workup was reportedly negative. She was told she had pleurisy and discharged with Ultram. Patient reports her pain is not controlled. She denies recent URI or cough. She denies DVT risk factors. Past history significant for ADHD and anxiety. She has had pancreatitis, kidney stones, fibromyalgia, pericarditis, myocarditis, chronic migraines. Patient does have an allergy to NSAIDs stating it causes GI bleeding. Physical Examination: Vital signs are significant for heart rate of 110, otherwise unremarkable. Head neck examination is normal. Heart is slightly tachycardic and regular. Lung sounds are clear. She does have left anterior upper chest wall tenderness. There is no crepitus. Abdomen is soft nontender. Lower extremity examination was no calf tenderness or edema. Test Results: EKG is sinus at 90 with no sign of acute ischemia. Portable chest x-ray is unremarkable. CBC and chemistry studies are unremarkable. Troponin is less than 0.02. D-dimer is 0.28. CRP is less than 2.9. Sed rate is 14. Emergency Department Course and Treatment: Patient received a small dose of Dilaudid, Zofran, and Solu-Medrol. On repeat evaluation she is resting more comfortably. Heart rate remains elevated at 109. Oxygen saturations have maintained at 100% throughout her stay. She received 1 additional dose of pain medication and then discharged with a course of prednisone. She will continue her Ultram at home. Treatment Plan: [] Disposition: Discharge Impression: Atypical chest pain This note was generated with Vidaao dictation software. It may contain incorrect words, spelling, and punctuation that were not noted in review of the chart prior to signing ED Disposition - Plan for ED Patient: Chief Complaint: Chest Other Referrals: Jaydon Decker, DO [Primary Care Provider] - What to do if you have Problems For any increased pain, shortness of breath, bleeding, nausea or vomiting, chest pain, or any unexpected problems, contact your Primary Care Provider. Call [facility] ([phone]) or report to the closest Emergency Room. Call 911 if necessary. 08/19/17 0019 <Electronically signed by Shanita Baez MD> Date Shanita Baez MD Cosigner Signature (If Indicated): Date CC: Jaydon Bates DO DISCHARGE INSTRUCTION Observed: 08/18/2017 Status: F Source: [place] 9:23 PM [facility] REPOSITORY [facility] Medical Records Department [address] [place] [address] Discharge Instruction 08/18/172121 MR#: [id number] Acct: [id number] Name: LAKESHA DEL CID Rep #: [id number] : 1990 From: Shanita Baez MD PCP: Jaydon Bates DO Status: REG ER ED Disposition - Plan for ED Patient: Disposition: Home or Assisted Living Chief Complaint: Chest Other Instructions: ED Chest Pain Atypical Unkn Cause Prescriptions: Prednisone 10 mg PO UD #33 tablet Referrals: Jaydon Decker DO [Primary Care Provider] - 1 Week What to do if you have Problems For any increased pain, shortness of breath, bleeding, nausea or vomiting, chest pain, or any unexpected problems, contact your Primary Care Provider. Call [facility] ([phone]) or report to the closest Emergency Room. Call 911 if necessary. 08/18/172122 <Electronically signed by Shanita Baez MD> Date Shanita Baez MD Cosigner Signature (If Indicated): Date CC: Jaydon Bates DO CBC W/DIFF, AUTOMATED Collected: 08/18/2017 Status: F Source: [place] 7:35 PM [facility] REPOSITORY TYPE CODE TESTS RESULT OUT OF RANGE REFERENCE UNITS LAB L100.1000 4.4-11.0 K/mm3 Normal WBC 6.7 LAB L100.1200 4.2-5.4 M/mm3 Low RBC 4.05 LAB L100.1300 12.0-15.0 g/dl Normal HGB 12.6 LAB L100.1400 37-47 % Normal HCT 38.9 LAB L100.1500 81-99 fL Normal MCV 96.0 LAB L100.1600 27.0-32.0 pg Normal MCH 31.1 LAB L100.1700 32-36 g/gl Normal MCHC 32.4 LAB L100.1810 11.6-14.6 % Normal RDW CV 11.8 LAB L100.1820 35.1-43.9 fl Normal RDW SD 41.4 LAB L100.1900 150-450 K/mm3 Normal PLT 295 LAB L100.2000 6.2-12.0 fl Normal MPV 9.2 LAB L100.2100 47-70 % Normal NEUT% 51.1 LAB L100.2200 19-41 % Normal LY% 41.0 LAB L100.2300 0-10 % Normal MONO% 6.4 LAB L100.2400 0-5 % Normal EO% 1.0 LAB L100.2500 0-1 % Normal BASO% 0.4 LAB L100.2550 0.0-0.9 % Normal IM GRAN % 0.100 Result Comment: IG% - Immature Granulocytes (promyelocytes, myelocytes and metamyelocytes) > 1% indicates that a LEFT SHIFT is Present. LAB L100.2620 2.0-7.7 X10 3/uL Normal Absolute Neut 3.4 LAB L100.2720 0.83-4.51 X10 3/ul Normal Absolute Lymph 2.76 Performed By: #### L100.0100, L101.9900 #### [facility] [address] [facility] [address]. [place], [place], [id number] ERYTHROCYTE SED RATE Collected: 08/18/2017 Status: F Source: [place] 7:35 PM [facility] REPOSITORY TYPE CODE TESTS RESULT OUT OF RANGE REFERENCE UNITS LAB L102.0000 0-20 mm/hr Normal SED RATE 14 Performed By: #### L100.0100, L101.9900 #### [facility] [address] [place], [address] D-DIMER QUANTITATIVE Collected: 08/18/2017 Status: F Source: [place] (DVT/PE) 7:35 PM [facility] REPOSITORY TYPE CODE TESTS RESULT OUT OF RANGE REFERENCE UNITS LAB L300.8000 0.27-0.49 FEU/ug/m Normal D-DIMER 0.28 QUANT Result Comment: NORMAL D-Dimer level (<0.50) indicates no DVT or PE. Performed By: #### L300.8000 #### [facility] [address] [facility] [place], [address] ,SERUM,HCG QUALI. Collected: Status: F Source: [place] 08/18/2017 7:35 PM [facility] REPOSITORY TYPE CODE TESTS RESULT OUT OF REFERENCE UNITS RANGE LAB L700.7000 0-9 Nonpreg Negative Normal HCGSQUAL NEGATIVE LAB L700.6700 =>Qualitative mIU/mL Normal HCG Qual < 1 triggr Performed By: #### L700.6800 #### [facility] [address] [facility] [place], [address] BASIC METABOLIC Collected: 08/18/2017 Status: F Source: [place] PROFILE (BMP) 7:35 PM [facility] REPOSITORY Order Comment: 'TROP' Serial specimen #1, #2, #3, or #4: 1 TYPE CODE TESTS RESULT OUT OF RANGE REFERENCE UNITS LAB L501.0100 74-106 mg/dL Normal GLU 81 Result Comment: Please note revised GLUCOSE reference range effective 2017. LAB L501.1000 7-18 mg/dL Normal BUN 10 LAB L501.1100 0.55-1.02 mg/dL Normal CREAT,SERUM 0.78 Result Comment: The validity of the calculated GFR AND GFRAA in patients over 70 years has not been determined. Clinical correlation is essential. LAB L501.1110 >60 mL/min Normal EST GFR 95 Result Comment: Non- GFR Calc LAB L501.1115 >60 mL/min Normal EST GFR - AA 115 Result Comment: GFR Calc LAB L501.1255 ml/min Normal Estimated CRCL 82.48 LAB L501.1300 10-20 RATIO Normal BUN/CRE 12.9 LAB L501.2200 8.5-10 mg/dL Normal .1 CA 8.9 LAB L501.5300 136-14 mmol/L Normal 5 NA 140 LAB L501.5600 3.5-5. mmol/L Normal 1 K 3.6 LAB L501.5900 98-107 mmol/L High CL 108 LAB L501.6100 21.0-3 mmol/L Normal 2.0 CO2 24.0 LAB L501.6200 5-15 Normal GAP 8 Performed By: #### L500.2500, L501.4010, L501.6710 #### [facility] [address] [place], [address] TROPONIN-I Collected: 08/18/2017 Status: F Source: [place] 7:35 PM [facility] REPOSITORY Order Comment: 'TROP' Serial specimen #1, #2, #3, or #4: 1 TYPE CODE TESTS RESULT OUT OF RANGE REFERENCE UNITS LAB L501.4010 <0.06 ng/mL Normal < 0.02 TROPONIN-I Result Comment: TROPONIN-I EXPECTED VALUES <0.05 NEGATIVE 0.06 - 0.59 AT RISK OF WI > OR = 0.60 SUGGEST WI Performed By: #### L500.2500, L501.4010, L501.6710 #### [facility] [address] [place], [place], [address] CRP Collected: 08/18/2017 Status: F Source: [place] 7:35 PM [facility] REPOSITORY Order Comment: 'TROP' Serial specimen #1, #2, #3, or #4: 1 TYPE CODE TESTS RESULT OUT OF RANGE REFERENCE UNITS LAB L501.6710 0.0-3.0 mg/L Normal < 2.90 C-REACTIVE PROT Result Comment: C-Reactive Protein (CRP) provides useful information for the diagnosis, therapy and monitoring of inflammatory processes and associated diseases. For the evaluation of Relative Risk for Cardiovascular Disease, a High Sensitivity CRP (HSCRP) should be ordered. Performed By: #### L500.2500, L501.4010, L501.6710 #### [facility] [address] [place], [address] CHEST 1 VIEW Observed: 08/18/2017 Status: F Source: [place] (PORTABLE) 7:25 PM [facility] REPOSITORY [facility] Imaging Services [address] [place] [address] Chest 1 View (Portable) MR#: [id number] Acct: [id number] Name: LAKESHA DEL CID Rep #: [id number] : 1990 F 26 From: Skyler Sidhu DO PCP: Jaydon Bates DO Status: REG ER Study: Chest 1 View (Portable) Date of Exam: 08/18/17 Exam# [id number] Ordering Dr: Shanita Baez MD STUDY: X-RAY CHEST REASON FOR EXAM: Female, 26 years old. Pleurisy TECHNIQUE: Single frontal view COMPARISON: March 27, 2016 FINDINGS: The lungs are clear and expanded. There is no demonstrated pleural abnormality. Normal size heart. Normal mediastinum and zuleima. Normal visualized pulmonary arteries. Normal visualized aortic arch and descending thoracic aorta. Normal visualized thoracic spine. Normal visualized ribs, clavicles, and shoulders. There is no demonstrated abnormality of the visualized soft tissue structures of the upper abdomen. RAD/Chest 1 View (Portable) IMPRESSION: Normal x-ray examination of the chest. Electronically Signed: Skyler Sidhu DO at 19:53 EDT Tel [phone], Service support , CC: Shanita Beaz MD; Jaydon Bates DO Auger Supervisor: Signed CR CHEST PA/LAT Observed: 08/18/2017 Status: F Source: [employer] 11:39 AM SYSTEM REPOSITORY Patient Name: LAKESHA DEL CID Diagnostic Radiology Exam Date/Time 08/18/2017 10:48:43 EDT Exam CR Chest PA/LAT Ordering Physician MD TUAN, KEVIN Mallory Accession Number [id number] CPT4 Codes 56676 () Reason For Exam chest pain Report CHEST, PA and LATERAL: INDICATION: Chest pain COMPARISON: No previous studies are available for comparison. PA and lateral views of the chest were obtained. The heart is normal in size. The mediastinal silhouette is normal. The lungs are clear. There are no effusions or infiltrates. There is no pleural thickening. The osseous structures are unremarkable. IMPRESSION: Negative chest. Report Dictated on Final Dictated: 08/18/2017 11:39 am Dictating Physician: DO CALVERT ALFRED Signed Date and Time: 08/18/2017 11:39 am Signed by: DO CALVERT ALFRED Transcribed Date and Time: 08/18/2017 11:39 D-DIMER, INNOVANCE Collected: 08/18/2017 Status: F Source: [employer] 11:13 AM SYSTEM REPOSITORY TYPE CODE TESTS RESULT OUT OF REFERENCE UNITS RANGE LAB 2DDI 0.00-0.50 mg/L D-Dimer, 0.24 [employer] Result Comment: [employer] D-Dimer values of <0.50 mg/L FEU can be used in combination with a pre-test probability model (e.g. Well's) to exclude pulmonary embolism (PE) disease, as well as an aid in the diagnosis of deep vein thrombosis (DVT). Performed By: #### DDI2 #### The performing lab is in the report. HCG,URINE QUAL Collected: 08/18/2017 Status: F Source: [employer] 10:21 AM SYSTEM REPOSITORY TYPE CODE TESTS RESULT OUT OF REFERENCE UNITS RANGE LAB HCGUR Negative Negative HCG,Urine Qual Result Comment: is the most common reason for HCG in urine, although choriocarcinoma, hydatidiform mole, and certain nontropho- blastic malignancies also result in detectable urinary HCG levels. Sensitivity = 20mIU/mL. Performed By: #### HCGUR #### The performing lab is in the report. HEMOGRAM W/ AUTODIFF Collected: 08/18/2017 Status: F Source: [employer] 10:21 AM SYSTEM REPOSITORY TYPE CODE TESTS RESULT OUT OF REFERENCE UNITS RANGE LAB IWBC 3.6-10.7 10*3/uL WBC 6.4 LAB RBC 3.80-5.20 10*6/uL RBC 3.88 LAB HGB 11.7-16.0 g/dL Hemoglobin 12.7 LAB HCT 35.0-47.0 % Hematocrit 36.6 LAB MCV 79.0-98.0 fL MCV 94.4 LAB MCH 26.0-34.0 pg MCH 32.7 LAB MCHC 32.0-36.0 % MCHC 34.6 LAB RDW 11.5-14.5 % RDW 11.9 LAB PLT 140-440 10*3/uL Platelet 280 LAB MPV 7.4-10.4 fL MPV 8.5 LAB GRAN% 40.0-80.0 % Granulocytes 55.5 LAB LYMP% 20.0-40.0 % Lymphocytes 33.5 LAB MONO% 2.0-10.0 % Monocytes 9.4 LAB EOS% 1.0-6.0 % Eosinophils 1.2 LAB BAS% 0.0-2.0 % Basophils 0.4 LAB ANC 1.8-7.0 10*3/uL Abs Neutrophile Cnt 3.5 LAB ALC 1.0-4.3 10*3/uL Abs Lymph Cnt 2.1 LAB AMC 0.0-0.8 10*3/uL Abs Monocyte Cnt 0.6 LAB AEC 0.0-0.5 10*3/uL Abs Eosin Cnt 0.1 LAB ABC 0.0-0.2 10*3/uL Abs Baso Cnt 0.0 Performed By: #### HEMDF, BNP3, BMP3, TROPN, LIPA3, TSH4 #### The performing lab is in the report. NT PRO BNP Collected: 08/18/2017 Status: F Source: [employer] 10:21 AM SYSTEM REPOSITORY TYPE CODE TESTS RESULT OUT OF RANGE REFERENCE UNITS LAB BNP3 0-125 pg/mL NT pro 24 BNP Performed By: #### HEMDF, BNP3, BMP3, TROPN, LIPA3, TSH4 #### The performing lab is in the report. BASIC METABOLIC PANEL Collected: 08/18/2017 Status: F Source: [employer] 10:21 AM SYSTEM REPOSITORY TYPE CODE TESTS RESULT OUT OF REFERENCE UNITS RANGE LAB NA3 135-145 mmol/L Sodium 137 LAB K3 3.5-5.1 mmol/L Low Potassium 3.3 LAB CL3 98-109 mmol/L Chloride 103 LAB CO23 21-32 mmol/L Carbon Dioxide 24 LAB ANIN3 Anion Gap 10 LAB GLUC3 70-100 mg/dL Glucose 80 LAB BUN3 7-25 mg/dL Urea Nitrogen 10 LAB CRET3 0.55-1.40 mg/dL Creatinine 0.77 LAB GF3BR >60 mL/min eGFR >60.0 LAB GF3WR >60 mL/min eGFR OTHER >60.0 Result Comment: Source- MDRD equation with creatinine calibration to IDMS(NKDEP) eGFR not recommended for drug dose adjustment LAB CA3 8.2-10.1 mg/dL Calcium 9.0 Performed By: #### HEMDF, BNP3, BMP3, TROPN, LIPA3, TSH4 #### The performing lab is in the report. TROPONIN I Collected: 08/18/2017 Status: F Source: [employer] 10:21 AM SYSTEM REPOSITORY TYPE CODE TESTS RESULT OUT OF REFERENCE UNITS RANGE LAB TROP4 0.000-0.045 ng/mL Troponin I <0.017 Result Comment: 0.046 - 0.400 = Indeterminate > 0.400 = Consider Myocardial Injury Performed By: #### HEMDF, BNP3, BMP3, TROPN, LIPA3, TSH4 #### The performing lab is in the report. LIPASE Collected: 08/18/2017 Status: F Source: [employer] 10:21 AM SYSTEM REPOSITORY TYPE CODE TESTS RESULT OUT OF REFERENCE UNITS RANGE LAB LIPA3 73-393 [IU]/L Lipase 212 Performed By: #### HEMDF, BNP3, BMP3, TROPN, LIPA3, TSH4 #### The performing lab is in the report. THYROID STIM. Collected: 08/18/2017 Status: F Source: [employer] 10:21 AM SYSTEM REPOSITORY TYPE CODE TESTS RESULT OUT OF REFERENCE UNITS RANGE LAB TSH4 0.358-3.740 uU/mL Thyroid Stim. 1.891 Hormone Performed By: #### HEMDF, BNP3, BMP3, TROPN, LIPA3, TSH4 #### The performing lab is in the report. 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 She reports she has right flank pain began yesterday. The stabbing pain Zeta 10 worst and 6 out of 10 currently. Is worsened by nothing. It is unrelieved by Celebrex and Norflex. She reports she has had nausea without vomiting. Her last bowel was today. She has had no diarrhea, melena, or hematochezia. Reports she has hematuria that began yesterday and frequent urination today. States this is similar to when she has had kidney stones in the past. Physical Examination: Vitals: Stable. Afebrile. General: Well-nourished and well-developed. Head: Normocephalic atraumatic. Neck: Supple, no lymphadenopathy. No JVD. Nontender. Cardiovascular: Regular rate and rhythm. No murmurs. Respiratory: No respiratory distress. Clear to auscultation bilaterally. Abdominal: Soft, nontender, nondistended, normal bowel sounds. No guarding, rebound, or peritoneal signs. Back: Mild right CVA tenderness. Extremities: Nontender, no edema. Skin: Normal color, no rash. Neurologic: Alert and oriented 3. Cranial nerves II through XII are intact. Normal strength and sensation. Psych: Normal affect. Test Results: UA has greater than 100 red blood cells and no white cells. Emergency Department Course and Treatment: Reviewed the patient's recent visits the emergency department. She had a CT flank in April that showed a 2 mm stone in her right kidney. I do not think it is in her best interest to repeat this scan. Is given dose of Dilaudid and Zofran IV here. Treatment Plan: Patient will be discharged prescription for Zofran, Percocet, and Flomax. Instructed to follow-up with urologist in 1 week if not improving. Return to the emergency department for any worsening symptoms. Disposition: To home in improved and stable condition. Impression: 1. Right flank pain, acute. 2. Hematuria. 3. History of kidney stones. This note was generated with [employer] dictation software. It may contain incorrect words, spelling, and punctuation that were not noted in review of the chart prior to signing ED Disposition - Plan for ED Patient: Disposition: Home or Assisted Living Chief Complaint: Flank Pain Instructions: ED Stone Renal W Colic Prescriptions: Oxycodone HCl/Acetaminophen [Percocet 5/325] 1 tablet PO Q6H PRN PRN 3 Days #12 tablet PRN Reason: Pain Ondansetron [Zofran Odt] 4 mg PO Q8H PRN PRN #10 tablet PRN Reason: Nausea Tamsulosin HCl [Flomax] 0.4 mg PO DAILY 14 Days capsule Additional Instructions: Follow-up with your urologist in 1 week if not improving. What to do if you have Problems For any increased pain, shortness of breath, bleeding, nausea or vomiting, chest pain, or any unexpected problems, contact your Primary Care Provider. Call [facility] ([phone]) or report to the closest Emergency Room. Call 911 if necessary. 08/06/17 0141 <Electronically signed by Justice Gonzalez MD> Date Justice Gonzalez MD Cosigner Signature (If Indicated): Date CC: Jaydon Bates, URINALYSIS, COMPLETE Collected: 08/05/2017 Status: F Source: [place] 8:04 PM [facility] REPOSITORY Order Comment: Order Date: 08/05/17 How was Urine Obtained? CLEAN CATCH TYPE CODE TESTS RESULT OUT OF RANGE REFERENCE UNITS LAB L400.3000 Yellow COLOR Normal Yellow LAB L400.3050 Clear Normal CLARITY Sl. Cloudy LAB L400.3200 Normal mg/dl Normal GLUCOSE, UR Normal LAB L400.3300 Negative mg/dL Normal BILIRUBIN URINE Negative LAB L400.3400 Negative mg/dl Normal KETONE UR Negative LAB L400.3465 1.002-1.030 Normal SP.GR. DIPSTX 1.015 LAB L400.3550 5.0 - 8.0 pH UR Normal 6.0 LAB L400.3600 Negative mg/dl High PROT 30 DIPSTX LAB L400.3700 Normal mg/dl Normal UROBILI Normal LAB L400.3750 Negative Normal NITRITE UR Negative LAB L400.3780 Negative /ul High OCCULT BLOOD-UR 250 LAB L400.3800 Negative /ul High LEUK ESTERASE 100 LAB L400.4050 0-5 /hpf WBC Normal 0-5 SEEN LAB L400.4100 0-5 /hpf > Normal RBC-UA 100 SEEN LAB L400.4150 5-10 /hpf SQUAM Normal EPI 5-10 SEEN LAB L400.4300 None Seen /hpf 1+ Normal BACTERIA LAB L400.4350 <or=2+ /hpf 0 Normal MUCUS, URINE SEEN Performed By: #### L400.0001 #### [facility] [address] [place], [address] EMERGENCY DEPARTMENT Observed: 07/16/2017 Status: F Source: [place] SUMMARY 11:13 PM [facility] REPOSITORY [facility] Medical Records Department [address] [place] [address] Emergency Department Summary 07/16/17 1848 MR#: [id number] Acct: [id number] Name: LAKESHA DEL CID Rep #: [id number] : 1990 26 From: Boris Akins MD PCP: Jaydon Bates DO Status: DEP ER - ER Visit Summary Date of Service: 07/16/17 Chief Complaint: Left flank pain History of Present Illness: The patient is a 26 F history of kidney stone presents with 2 days of intermittent left flank pain. She states it feels similar to stones she has had in the past. It waxes and wanes. She has noted some hematuria. She is also had some urinary frequency. She has been mildly nauseated without vomiting. She has never required lithotripsy or stenting. She denies any fevers or chills. She denies any other systemic symptoms. The patient has had multiple CTs this year demonstrating stones, and is hoping to avoid them. Physical Examination: Vital signs reviewed General: Well-nourished, well-developed Head: Normocephalic, atraumatic Eyes: Pupils equal and reactive, extraocular muscles intact Neck, supple, no lymphadenopathy Heart: Regular rate and rhythm Respiratory: No distress, clear bilaterally Abdomen: Soft, nontender, nondistended, no peritoneal signs Back: Mild left CVA tenderness Extremities: Nontender, no edema, no cords Skin: Normal color no rash Neuro: Alert and oriented, no focal or lateralizing deficits Test Results: Urine does show hematuria, but no infection. Screening labs are unremarkable. Emergency Department Course and Treatment: The patient has signs and symptoms consistent with kidney stone. I did review her most recent CT. She did have a few small stones, but nothing larger than 2 mm. Her pain was addressed with mild improvement. She was redosed with analgesics and was more comfortable. Her urine does not show evidence of infection. She has a benign abdomen. At this time, I do feel that she is safe for outpatient therapy. I will prescribe the patient short course of analgesics and antiemetics. She will be discharged home and will follow up with her urologist in [place]. Treatment Plan: [] Disposition: Discharge Impression:. Urolithiasis This note was generated with Vidaao dictation software. It may contain incorrect words, spelling, and punctuation that were not noted in review of the chart prior to signing ED Disposition - Plan for ED Patient: Chief Complaint: Flank Pain Instructions: ED Stone Renal W Colic Prescriptions: Oxycodone HCl/Acetaminophen [Percocet 5/325] 1 tab PO Q6H PRN PRN 3 Days #12 tab PRN Reason: Pain Ondansetron [Zofran Odt] 4 mg PO Q8H PRN PRN #10 tab PRN Reason: Nausea Referrals: Jaydon Decker, DO [Primary Care Provider] - What to do if you have Problems For any increased pain, shortness of breath, bleeding, nausea or vomiting, chest pain, or any unexpected problems, contact your Primary Care Provider. Call [facility] ([phone]) or report to the closest Emergency Room. Call 911 if necessary. 07/16/17 1865 <Electronically signed by Boris Akins MD> Date Boris Hughesigner Signature (If Indicated): Date CC: Jaydon Bates, URINALYSIS, COMPLETE Collected: 07/16/2017 Status: F Source: [place] 6:45 PM [facility] REPOSITORY Order Comment: How was Urine Obtained? CLEAN CATCH TYPE CODE TESTS RESULT OUT OF RANGE REFERENCE UNITS LAB L400.3000 Yellow COLOR Normal Yellow LAB L400.3050 Clear Normal CLARITY Sl. Cloudy LAB L400.3200 Normal mg/dl Normal GLUCOSE, UR Normal LAB L400.3300 Negative mg/dL Normal BILIRUBIN URINE Negative LAB L400.3400 Negative mg/dl Normal KETONE UR Negative LAB L400.3465 1.002-1.030 Normal SP.GR. DIPSTX 1.010 LAB L400.3550 5.0 - 8.0 pH UR Normal 7.0 LAB L400.3600 Negative mg/dl PROT Normal DIPSTX Negative LAB L400.3700 Normal mg/dl Normal UROBILI Normal LAB L400.3750 Negative Normal NITRITE UR Negative LAB L400.3780 Negative /ul High OCCULT BLOOD-UR 250 LAB L400.3800 Negative /ul High LEUK ESTERASE 100 LAB L400.4050 0-5 /hpf WBC Normal 5-10 SEEN LAB L400.4100 0-5 /hpf Normal RBC-UA 50-100 SEEN LAB L400.4150 5-10 /hpf SQUAM Normal EPI 0-5 SEEN LAB L400.4300 None Seen /hpf 0 Normal BACTERIA SEEN LAB L400.4350 <or=2+ /hpf 0 Normal MUCUS, URINE SEEN LAB L400.4900 1+ Normal AMORPHOUS PHOS Performed By: #### L400.0001 #### [facility] [address] [place], [place], [id number] CBC W/DIFF, AUTOMATED Collected: 07/16/2017 Status: F Source: [place] 6:35 PM [facility] REPOSITORY TYPE CODE TESTS RESULT OUT OF RANGE REFERENCE UNITS LAB L100.1000 4.4-11.0 K/mm3 Normal WBC 5.6 LAB L100.1200 4.2-5.4 M/mm3 Low RBC 3.91 LAB L100.1300 12.0-15.0 g/dl Normal HGB 12.5 LAB L100.1400 37-47 % Normal HCT 38.0 LAB L100.1500 81-99 fL Normal MCV 97.2 LAB L100.1600 27.0-32.0 pg Normal MCH 32.0 LAB L100.1700 32-36 g/gl Normal MCHC 32.9 LAB L100.1810 11.6-14.6 % Normal RDW CV 12.0 LAB L100.1820 35.1-43.9 fl Normal RDW SD 41.9 LAB L100.1900 150-450 K/mm3 Normal PLT 295 LAB L100.2000 6.2-12.0 fl Normal MPV 9.4 LAB L100.2100 47-70 % Low NEUT% 45.8 LAB L100.2200 19-41 % High LY% 44.8 LAB L100.2300 0-10 % Normal MONO% 7.9 LAB L100.2400 0-5 % Normal EO% 1.1 LAB L100.2500 0-1 % Normal BASO% 0.4 LAB L100.2550 0.0-0.9 % Normal IM GRAN % 0.000 Result Comment: IG% - Immature Granulocytes (promyelocytes, myelocytes and metamyelocytes) > 1% indicates that a LEFT SHIFT is Present. LAB L100.2620 2.0-7.7 X10 3/uL Normal Absolute Neut 2.6 LAB L100.2720 0.83-4.51 X10 3/ul Normal Absolute Lymph 2.50 Performed By: #### L100.0100 #### [facility] [address] [place], [address] BASIC METABOLIC Collected: 07/16/2017 Status: F Source: [place] PROFILE ([facility]) 6:35 PM [facility] REPOSITORY TYPE CODE TESTS RESULT OUT OF RANGE REFERENCE UNITS LAB L501.0100 74-106 mg/dL Normal GLU 86 Result Comment: Please note revised GLUCOSE reference range effective 2017. LAB L501.1000 7-18 mg/dL Normal BUN 15 LAB L501.1100 0.55-1.02 mg/dL Normal CREAT,SERUM 0.79 Result Comment: The validity of the calculated GFR AND GFRAA in patients over 70 years has not been determined. Clinical correlation is essential. LAB L501.1110 >60 mL/min Normal EST GFR 93 Result Comment: Non- GFR Calc LAB L501.1115 >60 mL/min Normal EST GFR - AA 113 Result Comment: GFR Calc LAB L501.1255 ml/min Normal Estimated CRCL 81.43 LAB L501.1300 10-20 RATIO Normal BUN/CRE 19.0 LAB L501.2200 8.5-10 mg/dL Normal .1 CA 8.7 LAB L501.5300 136-14 mmol/L Normal 5 NA 143 LAB L501.5600 3.5-5. mmol/L Low 1 K 3.3 LAB L501.5900 98-107 mmol/L High CL 109 LAB L501.6100 21.0-3 mmol/L Normal 2.0 CO2 25.0 LAB L501.6200 5-15 Normal GAP 9 Performed By: #### L500.2500 #### [facility] [address] [place], [address] ,SERUM,HCG QUALI. Collected: Status: F Source: [place] 07/16/2017 6:35 PM [facility] REPOSITORY TYPE CODE TESTS RESULT OUT OF REFERENCE UNITS RANGE LAB L700.6700 =>Qualitative mIU/mL Normal HCG Qual < 1 triggr LAB L700.7000 0-9 Nonpreg Negative Normal HCGSQUAL NEGATIVE Performed By: #### L700.6800 #### [facility] [address] [place], [address] XR CHEST 2 VIEWS Observed: 07/13/2017 Status: F Source: [facility] 9:16 PM [facility] REPOSITORY ORIGINAL XR CHEST 2 VIEWS CLINICAL STATEMENT: Chest Pain COMPARISON: None FINDINGS: The cardiomediastinal silhouette is within normal limits. No pleural effusion, focal consolidation, vascular congestion or pneumothorax. The visualized bony thorax is intact. IMPRESSION: No acute process. I have personally reviewed the images of this examination and agree with the resident's findings and interpretation. Interpreted By: Rizwana Palafox MD Preliminary Report By: Cyrus Giordano DO Electronically Signed By: Rizwana Palafox MD Dictated Date: 07/13/2017 9:23:32 PM Prelim Date: 07/13/2017 9:24:15 PM Sign Date: 07/13/2017 9:40:49 PM CBC Collected: 07/13/2017 Status: F Source: [facility] 8:58 PM [facility] REPOSITORY TYPE CODE TESTS RESULT OUT OF REFERENCE UNITS RANGE LAB WBC(LOINC) 4.60-10.80 10 3/mcL WBC 5.80 LAB RBCCT(LOINC 4.20-5.40 10 6/mcL ) Low RBC 4.00 LAB HGB(LOINC) 12.0-16.0 G/dL Hgb 12.7 LAB HCT(LOINC) 37.0-47.0 % Hct 38.1 LAB MCV(LOINC) 80.0-94.0 fL High MCV 95.2 LAB MCH(LOINC) 27.0-31.2 pg High MCH 31.7 LAB MCHC(LOINC) 33.0-37.0 G/dL MCHC 33.3 LAB RDW(LOINC) 11.5-14.5 % RDW 12.9 LAB PLT(LOINC) 130-400 10 3/mcL Platelet 274 LAB MPV(LOINC) 7.4-10.4 fL MPV 7.6 Performed By: #### CBC, ADIFF, ANEU, TROP, DIMER, GFR, BMP #### [place] [address] [address] .AUTO DIFF Collected: 07/13/2017 Status: F Source: [facility] 8:58 PM [facility] REPOSITORY TYPE CODE TESTS RESULT OUT OF REFERENCE UNITS RANGE LAB ERASMO(LOINC) 37.0-80.0 % Neutrophil % 54.2 LAB LYM(LOINC) 10.0-50.0 % Lymphocyte % 29.4 LAB MON(LOINC) 1.7-13.0 % Monocyte High % 14.5 LAB EO(LOINC) 0.0-7.0 % Eosinophil % 1.3 LAB BAS(LOINC) 0.0-2.5 % Basophil % 0.6 LAB ABLYM(LOIN 0.77-3.85 10 3/mcL C) Lymphocyte, 1.70 Absolute LAB ARNULFO(LOINC 0.15-1.00 10 3/mcL ) Monocyte, 0.80 Absolute LAB AEOS(LOINC 0.00-0.40 10 3/mcL ) Eosinophil, 0.10 Absolute LAB ABAS(LOINC 0.00-0.19 10 3/mcL ) Basophil, 0.00 Absolute Performed By: #### CBC, ADIFF, ANEU, TROP, DIMER, GFR, BMP #### [address] [address] .NEUABS Collected: 07/13/2017 Status: F Source: [facility] 8:58 PM [facility] REPOSITORY TYPE CODE TESTS RESULT OUT OF REFERENCE UNITS RANGE LAB ANEU(LOINC) 2.85-6.16 10 3/mcL Neutrophil, 3.10 Absolute Performed By: #### CBC, ADIFF, ANEU, TROP, DIMER, GFR, BMP #### [address] [address] TROP Collected: 07/13/2017 Status: F Source: [facility] 8:58 [facility] REPOSITORY TYPE CODE TESTS RESULT OUT OF REFERENCE UNITS RANGE LAB TROP(LOINC) 0.00-0.30 ng/mL Troponin <0.30 Result Comment: Below measuring range >=0.30 Consistent with cardiac damage, increased clinical risk and possibility of myocardial infarction. Serial measurements, clinical history, appropriate symptoms and/or ECG changes may help assess possibility of WI. *Other non-acute coronary syndrome conditions such as CHF, myocarditis, pulmonary emboli, sepsis and cardiac surgery could result in myocardial damage and increased troponin levels. Performed By: #### CBC, ADIFF, ANEU, TROP, DIMER, GFR, BMP #### [address] [address] DIMER Collected: 07/13/2017 Status: F Source: [facility] 8:58 [facility] REPOSITORY TYPE CODE TESTS RESULT OUT OF RANGE REFERENCE UNITS LAB DIMER(LOINC <=0.49 mcg/mL FEU ) D-Dimer 0.20 Result Comment: The result of the D-Dimer test should be evaluated in the context of all the clinical and laboratory data available. In those instances where the laboratory result does not agree with the clinical evaluation, additional tests should be performed accordingly. Performed By: #### CBC, ADIFF, ANEU, TROP, DIMER, GFR, BMP #### [place] [address] .GFR Collected: 07/13/2017 Status: F Source: [facility] 8:58 PM [facility] REPOSITORY TYPE CODE TESTS RESULT OUT OF REFERENCE UNITS RANGE LAB GFRAA(LOINC ml/min/1.73 ) sqm GFR 84 [place] Result Comment: GFR Population mean for , Non- Americans Ages 20-29 = 116 mL/min/1.73 sq.m. Ages 30-39 = 107 mL/min/1.73 sq.m. Ages 40-49 = 99 mL/min/1.73 sq.m. Ages 50-59 = 93 mL/min/1.73 sq.m. Ages 60-69 = 85 mL/min/1.73 sq.m. Ages 70+ = 75 mL/min/1.73 sq.m. Chronic Kidney Disease: Less than 60 mL/min/1.73 square meters End Stage Renal Disease: Less than 15 mL/min/1.73 square meters LAB GFRNO(LOINC) ml/min/1.73sqm GFR Non- >60 Result Comment: GFR Population mean for , Non- Americans Ages 20-29 = 116 mL/min/1.73 sq.m. Ages 30-39 = 107 mL/min/1.73 sq.m. Ages 40-49 = 99 mL/min/1.73 sq.m. Ages 50-59 = 93 mL/min/1.73 sq.m. Ages 60-69 = 85 mL/min/1.73 sq.m. Ages 70+ = 75 mL/min/1.73 sq.m. Chronic Kidney Disease: Less than 60 mL/min/1.73 square meters End Stage Renal Disease: Less than 15 mL/min/1.73 square meters Performed By: #### CBC, ADIFF, ANEU, TROP, DIMER, GFR, BMP #### [id number] [place], [place] [address] BMP Collected: 07/13/2017 Status: F Source: [facility] 8:58 PM [facility] REPOSITORY TYPE CODE TESTS RESULT OUT OF REFERENCE UNITS RANGE LAB 1547-9 70-105 mg/dL GLUCOSE 83 LAB NA(LOINC) 136-146 mEq/L Sodium Level 140 LAB K(LOINC) 3.5-5.1 mEq/L Potassium Level 3.9 LAB CL(LOINC) 98-107 mEq/L Chloride 107 LAB CO2(LOINC) 22-29 mEq/L CO2 23 LAB EBAL(LOINC mEq/L ) Electrolyte Balance 10.0 LAB BUN(LOINC) 7.0-18.0 mg/dL BUN 16.0 LAB CRE(LOINC) 0.6-1.2 mg/dL Creatinine Lvl (s) 1.0 LAB BC(LOINC) 7-27 ratio BUN/Creatinine 16 Ratio LAB CA(LOINC) 8.4-10.2 mg/dL Calcium Lvl 9.1 Performed By: #### CBC, ADIFF, ANEU, TROP, DIMER, GFR, BMP #### [id number] [place], [place] [address] PROGRESS Observed: 05/25/2017 Status: COMPLETED Source: [place] 1:50 PM [facility] REPOSITORY HNO ID: [id number] Author: Lulu Zamorano Service: (none) Author Type: Physician Type: Progress Notes Filed: 05/27/2017 8:25 AM Note Text: Neurology Follow-up Visit ASSESSMENT: 26 year old female with history significant for depression, anxiety, with chronic intractable migraine. Migraines are under great control. Prior to starting Botox she was having daily migraines with daily Excedrin use. This has all essentially resolved since starting Botox and is still effective with minimal to no migraines. Repeat Botox today. Continue Cymbalta for anxiety and migraines. Anxiety is improved and needing less Xanax. Discussed is not a long-term solution and have recommended she see psychiatry in the past. ?? Acute therapy for her migraines has been problematic. She has not tolerated multiple triptans including Amerge. Oral Toradol is not effective but IM is. Nasal Toradol (Sprix) expensive. Diclofenac helps some. ?? ? ---> Follow-up: 3 months Interval Hx: Past week UTI. Went through several antibiotics. Treated with Percocet. Stopped it Thursday and got a migraine. Took ibuprofen, Tylenol, Phenergan, Benadryl. Fell asleep and was gone. This was her only migraine since last visit. Still anxiety and taking occasional Xanax. Abdominal pain has been gone since shara. Current Outpatient Prescriptions: ALPRAZolam (XANAX) 0.5 mg tablet take 1/2 to 1 tablet by mouth three times a day if needed anxiety medroxyPROGESTERone (DEPO-PROVERA) 150 mg/mL syrg Inject 1 mL intramuscularly every 12 weeks. famotidine (PEPCID) 20 mg tablet Take 1 tablet by mouth twice daily. promethazine (PHENERGAN) 25 mg tablet Take 1 tablet by mouth every 6 hours as needed. dicyclomine (BENTYL) 20 mg tablet Take 1 tablet by mouth every 6 hours. ibuprofen (MOTRIN) 600 mg tablet Take 1 tablet by mouth every 6 hours as needed for Pain or Fever. DULoxetine (CYMBALTA) 60 mg capsule Take 1 capsule by mouth once daily. ondansetron orally disintegrating (ZOFRAN ODT) 4 mg disintegrating tablet Take 1 tablet by mouth every 6 hours as needed for Nausea/Vomiting. ONABOTULINUMTOXINA (BOTOX INJECTION) by INJECTION(UNSPECIFIED PARENTERAL ROUTES) route. acidophilus-pectin, citrus (ACIDOPHILUS PROBIOTIC) 100 million- 10 cell-mg cap Take by mouth. No current facility-administered medications for this visit. Exam: BP 102/62 (BP Site: Left Arm, BP Position: Sitting, BP Cuff Size: Regular Adult) Pulse 107 Ht 154.9 cm (5' 1) Wt 60.3 kg (133 lb) SpO2 98% BMI 25.13 kg/m2 GEN: Alert. NAD. Normal affect. Cooperative. HEENT: No rhinorrhea, lacrimation or conjunctival injection. Normal mucosa. NECK/BACK: Supple EXT: No cyanosis. No edema. No erythema. ?? NEUROLOGICAL: MENTAL STATUS: A+O x 3. Attentive. Thought process and content unremarkable. Follows commands appropriately. Speech fluent. ?? CN: II: PERRLA. III, IV, : EOMI. No ptosis present. VII: Face symmetric. VIII: No nystagmus. XI: Symmetric shoulder shrug. ? CEREBELLAR: No ataxia or nystagmus. ?? GAIT: Stable primary gait. [facility] Movement Disorders Neurotoxin Visit Date: May 25, 2017 Name: Lakesha Del Cid Historical/ Initial Dose Diagnosis: chronic intractable migraine Date of Diagnosis:09/29/2011 Date of 1st Treatment: 01/05/2013 Type of Neurotoxin: Botox: J0585 Total amount injected: 155 units What other treatments have been tried and failed: Medications Effexor, Neurontin, amitriptyline. Currently taking Cymbalta. Cannot take Topamax due to nephrolithiasis. Estimated Duration of treatment: Will reassess after 1year Frequency of treatment: 90days Last Injection Notes Date of last Injection:01/13/2017 Type of Neurotoxin: Botox: J0585 Total amount injected: 155 units Dilution: NS 2:1 Administered with EMG guidance: No Assessment Special features: previous chronic migraine with 15 or more KRUEGER days per month Functional limitations (current): 1(mild) Pain (current): No Effectiveness of last injection:99% Latency: Wearing off since last treatment: no Side effects related to last injection: None Time Out: INFORMED CONSENT Lakesha Del Cid Medical Record: [id number] Procedure: Botulinum toxin injection The risks, benefits and anticipated outcomes of the procedure, the risks and benefits of the alternatives to the procedure and the roles and tasks of the personnel to be involved were discussed with the patient and the patient consents to the procedure and agrees to proceed. I verify that I personally obtained Lakesha Del Cid's consent. Lulu Zamorano MD May 25, 2017 1:51 PM Dept of NEUROLOGY UNIVERSAL PROTOCOL / SAFETY CHECKLIST Sign in Communication: Completed Time Out: Team Confirms the Correct Patient, Correct Procedure, Correct Site and Site Marking, Correct Position (if applicable), Prep and Dry Time (if applicable). Time: 1400 Affirmation of Time Out: YES Sign Out Discussion: Completed Lulu Zamorano MD Current Injection Note Type of Neurotoxin: Botox: J0585 Total Amount drawn up: 200 units Total amount injected: 155 units Total amount wasted: 45 units Dilution: NS 2:1 Administered with EMG guidance: No Injection Site: Muscle Right Left # of Injection Sites Per Side Total Units Chief Accountant 5 5 1 10 Procerus ? 1 midline (5u) 5 Frontalis 10 10 2 20 Temporalis 20 20 4 40 Occipitalis/Sub 15 15 3 30 Cervical PSPs 10 10 2 20 Trapezius 15 15 3 30 Lot#: [id number] Exp Date11/2019 Future plan of care: Follow up: 3 months Neurotoxin Change: No Dose Change: No Lulu Zamorano M.D. [facility] [place] Department of [facility] cc: SELF Jaydon Decker DO [address] [place] [address] CNOV Observed: 05/25/2017 Status: COMPLETED Source: [place] 1:20 PM [facility] REPOSITORY Office Visit (NEURMM) LAKESHA DEL CID ([id number]) 1990 F DAVE Date Time Provider Department 05/25/17 1:20 PM LULU ZAMORANO During your visit today, we recorded the following information about you: Pulse Blood pressure Weight Height 107/minute 102/62 60.3 kg 1.549 m Lulu Zamorano MD 05/27/2017 8:25 AM Signed Neurology Follow-up Visit ASSESSMENT: 26 year old female with history significant for depression, anxiety, with chronic intractable migraine. Migraines are under great control. Prior to starting Botox she was having daily migraines with daily Excedrin use. This has all essentially resolved since starting Botox and is still effective with minimal to no migraines. Repeat Botox today. Continue Cymbalta for anxiety and migraines. Anxiety is improved and needing less Xanax. Discussed is not a long-term solution and have recommended she see psychiatry in the past. ?? Acute therapy for her migraines has been problematic. She has not tolerated multiple triptans including Amerge. Oral Toradol is not effective but IM is. Nasal Toradol (Sprix) expensive. Diclofenac helps some. ?? ? ---ANDgt; Follow-up: 3 months Interval Hx: Past week UTI. Went through several antibiotics. Treated with Percocet. Stopped it Thursday and got a migraine. Took ibuprofen, Tylenol, Phenergan, Benadryl. Fell asleep and was gone. This was her only migraine since last visit. Still anxiety and taking occasional Xanax. Abdominal pain has been gone since shara. Current Outpatient Prescriptions: ALPRAZolam (XANAX) 0.5 mg tablet take 1/2 to 1 tablet by mouth three times a day if needed anxiety medroxyPROGESTERone (DEPO-PROVERA) 150 mg/mL syrg Inject 1 mL intramuscularly every 12 weeks. famotidine (PEPCID) 20 mg tablet Take 1 tablet by mouth twice daily. promethazine (PHENERGAN) 25 mg tablet Take 1 tablet by mouth every 6 hours as needed. dicyclomine (BENTYL) 20 mg tablet Take 1 tablet by mouth every 6 hours. ibuprofen (MOTRIN) 600 mg tablet Take 1 tablet by mouth every 6 hours as needed for Pain or Fever. DULoxetine (CYMBALTA) 60 mg capsule Take 1 capsule by mouth once daily. ondansetron orally disintegrating (ZOFRAN ODT) 4 mg disintegrating tablet Take 1 tablet by mouth every 6 hours as needed for Nausea/Vomiting. ONABOTULINUMTOXINA (BOTOX INJECTION) by INJECTION(UNSPECIFIED PARENTERAL ROUTES) route. acidophilus-pectin, citrus (ACIDOPHILUS PROBIOTIC) 100 million- 10 cell-mg cap Take by mouth. No current facility-administered medications for this visit. Exam: BP 102/62 (BP Site: Left Arm, BP Position: Sitting, BP Cuff Size: Regular Adult) Pulse 107 Ht 154.9 cm (5' 1ANDquot;) Wt 60.3 kg (133 lb) SpO2 98% BMI 25.13 kg/m2 GEN: Alert. NAD. Normal affect. Cooperative. HEENT: No rhinorrhea, lacrimation or conjunctival injection. Normal mucosa. NECK/BACK: Supple EXT: No cyanosis. No edema. No erythema. ?? NEUROLOGICAL: MENTAL STATUS: A+O x 3. Attentive. Thought process and content unremarkable. Follows commands appropriately. Speech fluent. ?? CN: II: PERRLA. III, IV, : EOMI. No ptosis present. VII: Face symmetric. VIII: No nystagmus. XI: Symmetric shoulder shrug. ? CEREBELLAR: No ataxia or nystagmus. ?? GAIT: Stable primary gait. [facility] Disorders Neurotoxin Visit Date: May 25, 2017 Name: Lakesha Del Cid Historical/ Initial Dose Diagnosis: chronic intractable migraine Date of Diagnosis:09/29/2011 Date of 1st Treatment: 01/05/2013 Type of Neurotoxin: Botox: J0585 Total amount injected: 155 units What other treatments have been tried and failed: Medications Effexor, Neurontin, amitriptyline. Currently taking Cymbalta. Cannot take Topamax due to nephrolithiasis. Estimated Duration of treatment: Will reassess after 1year Frequency of treatment: 90days Last Injection Notes Date of last Injection:01/13/2017 Type of Neurotoxin: Botox: J0585 Total amount injected: 155 units Dilution: NS 2:1 Administered with EMG guidance: No Assessment Special features: previous chronic migraine with 15 or more KRUEGER days per month Functional limitations (current): 1(mild) Pain (current): No Effectiveness of last injection:99% Latency: Wearing off since last treatment: no Side effects related to last injection: None Time Out: INFORMED CONSENT Lakesha Del Cid Medical Record: [id number] Procedure: Botulinum toxin injection The risks, benefits and anticipated outcomes of the procedure, the risks and benefits of the alternatives to the procedure and the roles and tasks of the personnel to be involved were discussed with the patient and the patient consents to the procedure and agrees to proceed. I verify that I personally obtained Lakesha Del Cid's consent. Lulu Zamorano MD May 25, 2017 1:51 PM Dept of NEUROLOGY UNIVERSAL PROTOCOL / SAFETY CHECKLIST Sign in Communication: Completed Time Out: Team Confirms the Correct Patient, Correct Procedure, Correct Site and Site Marking, Correct Position (if applicable), Prep and Dry Time (if applicable). Time: 1400 Affirmation of Time Out: YES Sign Out Discussion: Completed Lulu Zamorano MD Current Injection Note Type of Neurotoxin: Botox: J0585 Total Amount drawn up: 200 units Total amount injected: 155 units Total amount wasted: 45 units Dilution: NS 2:1 Administered with EMG guidance: No Injection Site: Muscle Right Left # of Injection Sites Per Side Total Units Chief Accountant 5 5 1 10 Procerus ? 1 midline (5u) 5 Frontalis 10 10 2 20 Temporalis 20 20 4 40 Occipitalis/Sub 15 15 3 30 Cervical PSPs 10 10 2 20 Trapezius 15 15 3 30 Lot#: [id number] Exp Date11/2019 Future plan of care: Follow up: 3 months Neurotoxin Change: No Dose Change: No Lulu Zamorano M.D. [facility] [place] Department of [facility] cc: SELF Jaydon Mann Decker, [address] [place] [address] Referring Provider: SELF [200] Allergies As of Date: 05/25/2017 Noted Allergy Reaction BENADRYL (DIPHENHYDRAMINE HCL) 01/15/2015 14 - Other: See Comments KIWI 11/30/2006 METHOCARBAMOL 09/05/2016 14 - Other: See Comments Comments: Causes blisters in the mouth NORCO (HYDROCODONE-ACETAMINOPHEN) 01/20/2017 5 - Intolerance Comments: Worsens migraines REGLAN (METOCLOPRAMIDE HCL) 01/09/2017 1 - Mental Status Change Comments: climbing the morocho rat [Other] 08/20/2009 Date Reviewed: 05/25/2017 Reviewed by: Yaz García - Fully Assessed Reason for Visit: Botox Injection [373] Primary Visit Diagnosis:Intractable chronic migraine without aura and without status migrainosus [G43.719] Other Visit Diagnosis:Anxiety [F41.9] Prescriptions as of 05/25/2017 Sig: ALPRAZOLAM 0.5 MG TABLET take 1/2 to 1 tablet by mouth* MEDROXYPROGESTERONE 150 MG/ML* Inject 1 mL intramuscularly e* FAMOTIDINE 20 MG TABLET Take 1 tablet by mouth twice * PROMETHAZINE 25 MG TABLET Take 1 tablet by mouth every * DICYCLOMINE 20 MG TABLET Take 1 tablet by mouth every * IBUPROFEN 600 MG TABLET Take 1 tablet by mouth every * DULOXETINE 60 MG CAPSULE,MATEO* Take 1 capsule by mouth once * ONDANSETRON 4 MG DISINTEGRATI* Take 1 tablet by mouth every * BOTOX INJECTION by INJECTION(UNSPECIFIED PARE* ACIDOPHILUS 100 MILLION CELL-* Take by mouth. Problem List As Of Date 05/25/2017 Noted Resolved Attention deficit disorder [F98.8] INVALID FOR* Migraine [G43.909] INVALID FOR* Foreign body (FB) in soft tissue [M79.5] INVALID FOR*01/09/2017 Viral pericarditis [B33.23] INVALID FOR*01/09/2017 Chest pain of pericarditis [I31.9] INVALID FOR*06/17/2016 Controlled substance agreement signed [Z79.899] INVALID FOR* Fibromyalgia [M79.7] Priority: E Intractable chronic migraine without aura and w*INVALID FOR* Anxiety [F41.9] INVALID FOR* Priority: D Right sided abdominal pain [R10.9] INVALID FOR* Priority: A Elevated amylase and lipase [R74.8] INVALID FOR* Priority: B Nephrolithiasis [N20.0] INVALID FOR* Priority: C Vaginal spotting [N92.0] INVALID FOR* Altered bowel habits [R19.4] INVALID FOR* More... Right upper quadrant pain [R10.11] INVALID FOR* More... Medications Discontinued During This Encounter GI COCKTAIL 200 * 0 01/31/2017 05/25/2017 Class: Print RX Cmt: Maalox 150 cc + 25 cc +Viscous Xylocaine 25 cc Route: ORAL Sig: Take 1-2 teaspoonsful by mouth every 6 hours as needed (Pain). Patient not taking: Reported on 05/25/2017 Disc: Reason for discontinue is not on file. HYDROcodone-acetaminophen (NORCO) 5-* 20 t* 0 01/14/2017 05/25/2017 Class: Print RX Route: ORAL Sig: Take 1 tablet by mouth every 6 hours as needed. Disc: Reason for discontinue is not on file. oxyCODONE-acetaminophen (PERCOCET) 5* 30 t* 0 01/26/2017 05/25/2017 Class: Print RX Route: ORAL Sig: Take 1 tablet by mouth every 4 hours as needed for Pain. Disc: Reason for discontinue is not on file. oxyCODONE-acetaminophen (PERCOCET) 5* 20 t* 0 02/02/2017 05/25/2017 Class: Print RX Route: ORAL Sig: Take 1 tablet by mouth every 4 hours as needed. Disc: Reason for discontinue is not on file. Disposition: Return in about 3 months (around 08/23/2017). 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 She reports that she has dysuria that began approximately 1 week ago. She states that she has suprapubic pain senna 10 she is urinating 8 out of 10 per currently. It is minimally relieved by Percocet and Pyridium. She denies any vaginal bleeding or discharge. Patient reports that she was at an outlying ER approximately 1 week ago and was placed on Bactrim. She was seen in the emergency department yesterday and changed to Cipro. States that she continues to have dysuria and frequency. She has had a fever to 99.4 . Patient is sexually active with more than 1 partner. She denies any known exposure to an STD. Physical Examination: Vitals: Stable. Afebrile. General: Well-nourished and well-developed. Head: Normocephalic atraumatic. Neck: Supple, no lymphadenopathy. No JVD. Nontender. Cardiovascular: Regular rate and rhythm. No murmurs. Respiratory: No respiratory distress. Clear to auscultation bilaterally. Abdominal: Soft, mild suprapubic tenderness to palpation, nondistended, normal bowel sounds. No guarding, rebound, or peritoneal signs. Back: Nontender. Extremities: Nontender, no edema. Skin: Normal color, no rash. Neurologic: Alert and oriented 3. Cranial nerves II through XII are intact. Normal strength and sensation. Psych: Normal affect. Test Results: CBC is marked for an H AND H 11.4 and 35.6, segmented neutrophils of 45, lymphocytes of 43. Chem-7 was normal yesterday and was not repeated. Lactic acid is normal. Macro UA is unreliable as the patient is taking Pyridium. Micro UA shows 5-10 white blood cells, 25-50 epithelial cells, and 2+ bacteria. Emergency Department Course and Treatment: Patient has the results of the urine culture 1 week ago at [facility] and this showed normal urogenital justo. A urine culture was sent yesterday. The results are not back. I had a prolonged discussion with the patient about potential causes of dysuria and frequency without an obvious bladder infection. We did discuss the possibility of trichomonas. She is concerned about this and was given a dose of Flagyl here. Treatment Plan: Patient will be discharged with instructions to continue her Percocet. Follow-up with her urologist tomorrow as previously scheduled. Follow-up with her electro mechanical solar technician as soon as possible. Disposition: To home in improved and stable condition. Impression: 1. Dysuria. This note was generated with FAMOCOation software. It may contain incorrect words, spelling, and punctuation that were not noted in review of the chart prior to signing ED Disposition - Plan for ED Patient: Chief Complaint: Complaint Instructions: ED Urethritis Infec Vs Inflam Fem Additional Instructions: Follow up with your urologist tomorrow as scheduled. Follow- up with your electro mechanical solar technician as soon as possible. What to do if you have Problems For any increased pain, shortness of breath, bleeding, nausea or vomiting, chest pain, or any unexpected problems, contact your Primary Care Provider. Call [facility] ([phone]) or report to the closest Emergency Room. Call 911 if necessary. 05/21/17 1650 <Electronically signed by Justice Gonzalez MD> Date Justice Gonzalez MD Cosigner Signature (If Indicated): Date CC: Jaydon Decker DO URINALYSIS, COMPLETE Collected: 05/21/2017 Status: F Source: [place] 7:50 AM [facility] REPOSITORY Order Comment: How was Urine Obtained? CLEAN CATCH TYPE CODE TESTS RESULT OUT OF RANGE REFERENCE UNITS LAB L400.3000 Yellow Normal COLOR SEE COMMENT BELOW Result Comment: Visual Urine Color: DARK ORANGE LAB L400.3050 Clear Normal CLARITY Cloudy LAB L400.3200 Normal mg/dl Normal GLUCOSE, UR Normal LAB L400.3300 Negative mg/dL High BILIRUBIN URINE 6 Result Comment: COLOR OF URINE MAY AFFECT DIPSTICK RESULTS. LAB L400.3400 Negative mg/dl Normal KETONE UR Negative LAB L400.3465 1.002-1.030 Normal SP.GR. DIPSTX 1.020 LAB L400.3550 5.0 - 8.0 pH Normal UR 6.5 LAB L400.3600 Negative mg/dl High PROT DIPSTX 30 LAB L400.3700 Normal mg/dl High UROBILI 4 LAB L400.3750 Negative High NITRITE UR Positive LAB L400.3780 Negative /ul High OCCULT 25 BLOOD-UR LAB L400.3800 Negative /ul Normal LEUK ESTERASE Negative LAB L400.4050 0-5 /hpf Normal WBC 5-10 SEEN LAB L400.4100 0-5 /hpf Normal RBC-UA 0-5 SEEN LAB L400.4150 5-10 /hpf Normal SQUAM EPI 25-50 SEEN LAB L400.4300 None Seen /hpf Normal BACTERIA 2+ LAB L400.4350 <or=2+ /hpf Normal MUCUS, URINE 0 SEEN Performed By: #### L400.0001 #### [facility] [address] [place], [address] CBC W/DIFF, AUTOMATED Collected: 05/21/2017 Status: F Source: [place] 7:50 AM [facility] REPOSITORY TYPE CODE TESTS RESULT OUT OF RANGE REFERENCE UNITS LAB L100.1000 4.4-11.0 K/mm3 Normal WBC 5.0 LAB L100.1200 4.2-5.4 M/mm3 Low RBC 3.62 LAB L100.1300 12.0-15.0 g/dl Low HGB 11.4 LAB L100.1400 37-47 % Low HCT 35.6 LAB L100.1500 81-99 fL Normal MCV 98.3 LAB L100.1600 27.0-32.0 pg Normal MCH 31.5 LAB L100.1700 32-36 g/gl Normal MCHC 32.0 LAB L100.1810 11.6-14.6 % Normal RDW CV 12.5 LAB L100.1820 35.1-43.9 fl Normal RDW SD 43.3 LAB L100.1900 150-450 K/mm3 Normal PLT 294 LAB L100.2000 6.2-12.0 fl Normal MPV 9.7 LAB L100.2100 47-70 % Low NEUT% 45.0 LAB L100.2200 19-41 % High LY% 43.3 LAB L100.2300 0-10 % Normal MONO% 9.1 LAB L100.2400 0-5 % Normal EO% 2.2 LAB L100.2500 0-1 % Normal BASO% 0.4 LAB L100.2550 0.0-0.9 % Normal IM GRAN % 0.000 Result Comment: IG% - Immature Granulocytes (promyelocytes, myelocytes and metamyelocytes) > 1% indicates that a LEFT SHIFT is Present. LAB L100.2620 2.0-7.7 X10 3/uL Normal Absolute Neut 2.2 LAB L100.2720 0.83-4.51 X10 3/ul Normal Absolute Lymph 2.15 Performed By: #### L100.0100 #### [facility] [address] [place], [address] LACTIC ACID Collected: 05/21/2017 Status: F Source: [place] 7:50 AM [facility] REPOSITORY Order Comment: Yes/No query for Sepsis Lactate Rule Y TYPE CODE TESTS RESULT OUT OF RANGE REFERENCE UNITS LAB L503.6005 0.4-2.0 mmol/L Normal LACTIC ACID 1.6 Performed By: #### L503.6005 #### [facility] [address] [place], [address] DISCHARGE INSTRUCTION Observed: 05/20/2017 Status: F Source: [place] 1:03 PM [facility] REPOSITORY [facility] Medical Records Department [address] [place] [id number] Discharge Instruction 05/20/17 1301 MR#: [id number] Acct: [id number] Name: LAKESHA DEL CID Rep #: [id number] : 1990 26 From: Cass Mcclure DO PCP: Jaydon Decker DO Status: REG ER ED Disposition - Plan for ED Patient: Chief Complaint: Flank Pain Instructions: ED Kidney Infec Female Prescriptions: Oxycodone HCl/Acetaminophen [Percocet 5/325] 1 tab PO Q6H PRN PRN #12 tab PRN Reason: Pain Ciprofloxacin [Cipro] 500 mg PO BID #14 tab Referrals: Jaydon Decker DO [Primary Care Provider] - Additional Instructions: see your urologist in 2 days What to do if you have Problems For any increased pain, shortness of breath, bleeding, nausea or vomiting, chest pain, or any unexpected problems, contact your Primary Care Provider. Call [facility] ([phone]) or report to the closest Emergency Room. Call 911 if necessary. 05/20/17 1303 <Electronically signed by Cass Mcclure DO> Date Cass Mcclure DO Cosigner Signature (If Indicated): Date CC: Jaydon Decker DO EMERGENCY DEPARTMENT Observed: 05/20/2017 Status: F Source: [place] SUMMARY 1:00 PM [facility] REPOSITORY [facility] Medical Records Department [address] [place] [id number] Emergency Department Summary 05/20/17 1256 MR#: [id number] Acct: [id number] Name: LAKESHA DEL CID Rep #: [id number] : 1990 26 From: Cass Mcclure DO PCP: Jadyon Decker DO Status: REG ER - ER Visit Summary Date of Service: 05/20/17 Chief Complaint: [Flank pain] History of Present Illness: The patient is a 26 F [presents to the emergency department with flank pain that she has had for the last 5 days. Patient started initially with urinary symptoms 5 days ago of hematuria, frequency, and dysuria. Patient was seen at [facility] and started on Bactrim and Pyridium. Patient continues to have symptoms and continues to have pain into her back. Patient has a urology appointment in 2 days. Patient has a history of kidney stones, ovarian cyst, and migraines. Patient denies any fevers at home. She denies any vomiting.] Physical Examination: [HEENT-PERRLA, EOMI. Cranial nerves II through XII grossly intact. TMs clear. Mucous membranes moist. No adenopathy. Cardiovascular-regular rate and rhythm without murmur or ectopy Lungs-clear to auscultation, chest wall stable without crepitus or subcu emphysema Abdomen-normoactive bowel sounds, soft. Mild suprapubic tenderness on palpation. There is no rebound, rigidity, or perineal signs. Patient has some mild CVA tenderness bilaterally. Extremities-intact 4, normal range of motion, normal pulses, atraumatic] Test Results: [CBC with differential obtained showed a white blood cell count of 4.5, hemoglobin 12, hematocrit 37, platelets 240. Chemistries were normal. Lactate was normal at 1.7. Urinalysis was positive for 100 leukocyte esterase, positive for nitrites, positive for 0-5 WBCs and, positive for +[address] flank showed stable renal stones otherwise nothing acute.] Emergency Department Course and Treatment: Patient initially was medicated with Toradol, Dilaudid, Zofran, and Pyridium. Patient was given Rocephin 1 g IV. Urine culture was sent. [] Treatment Plan: [I discussed possible treatment options with patient such as admission for failed outpatient therapy of UTI and early pyelonephritis given that she still has flank pain. Patient would prefer to go home with some pain medicine and see her urologist in 2 days. Given that she is afebrile, has a normal white blood cell count, is not vomiting, and nontoxic-appearing I feel this is reasonable.] Patient will be switched to Cipro and will be given Percocet for pain. Disposition: [Discharged to home in stable condition.] Impression: [Urinary tract infection-early pyelonephritis] This note was generated with Vidaao dictation software. It may contain incorrect words, spelling, and punctuation that were not noted in review of the chart prior to signing ED Disposition - Plan for ED Patient: Chief Complaint: Flank Pain Referrals: Decker,Jaydon, DO [Primary Care Provider] - What to do if you have Problems For any increased pain, shortness of breath, bleeding, nausea or vomiting, chest pain, or any unexpected problems, contact your Primary Care Provider. Call [facility] ([phone]) or report to the closest Emergency Room. Call 911 if necessary. 05/20/17 1300 <Electronically signed by Cass Mcclure DO> Date Lashayus Odomemiliano HENDRICKS Cosigner Signature (If Indicated): Date CC: Jaydon Decker DO URINALYSIS, COMPLETE Collected: 05/20/2017 Status: F Source: [place] 11:45 AM [facility] REPOSITORY Order Comment: Order Date: 05/20/17 COLOR OF URINE MAY AFFECT DIPSTICK RESULTS. How was Urine Obtained? CLEAN CATCH TYPE CODE TESTS RESULT OUT OF RANGE REFERENCE UNITS LAB L400.3000 Yellow COLOR Normal Ivelisse LAB L400.3050 Clear Normal CLARITY Cloudy LAB L400.3200 Normal mg/dl Normal GLUCOSE, UR Normal LAB L400.3300 Negative mg/dL High BILIRUBIN URINE 6 Result Comment: COLOR OF URINE MAY AFFECT DIPSTICK RESULTS. LAB L400.3400 Negative mg/dl Normal KETONE UR Negative LAB L400.3465 1.002-1.030 Normal SP.GR. DIPSTX 1.020 LAB L400.3550 5.0 - 8.0 pH Normal UR 6.0 LAB L400.3600 Negative mg/dl High PROT DIPSTX 30 LAB L400.3700 Normal mg/dl High UROBILI 8 LAB L400.3750 Negative High NITRITE UR Positive LAB L400.3780 Negative /ul High OCCULT 250 BLOOD-UR LAB L400.3800 Negative /ul High LEUK ESTERASE 100 LAB L400.4050 0-5 /hpf Normal WBC 0-5 SEEN LAB L400.4100 0-5 /hpf Normal RBC-UA 5-10 SEEN LAB L400.4150 5-10 /hpf Normal SQUAM EPI 0-5 SEEN LAB L400.4300 None Seen /hpf Normal BACTERIA 4+ LAB L400.4350 <or=2+ /hpf Normal MUCUS, URINE RARE Performed By: #### L400.0001 #### [facility] [address] [place], [address] CBC W/DIFF, AUTOMATED Collected: 05/20/2017 Status: F Source: [place] 11:45 AM [facility] REPOSITORY TYPE CODE TESTS RESULT OUT OF RANGE REFERENCE UNITS LAB L100.1000 4.4-11.0 K/mm3 Normal WBC 4.5 LAB L100.1200 4.2-5.4 M/mm3 Low RBC 3.84 LAB L100.1300 12.0-15.0 g/dl Normal HGB 12.0 LAB L100.1400 37-47 % Normal HCT 37.0 LAB L100.1500 81-99 fL Normal MCV 96.4 LAB L100.1600 27.0-32.0 pg Normal MCH 31.3 LAB L100.1700 32-36 g/gl Normal MCHC 32.4 LAB L100.1810 11.6-14.6 % Normal RDW CV 12.6 LAB L100.1820 35.1-43.9 fl Normal RDW SD 43.9 LAB L100.1900 150-450 K/mm3 Normal PLT 290 LAB L100.2000 6.2-12.0 fl Normal MPV 9.5 LAB L100.2100 47-70 % Normal NEUT% 50.0 LAB L100.2200 19-41 % Normal LY% 39.6 LAB L100.2300 0-10 % Normal MONO% 8.9 LAB L100.2400 0-5 % Normal EO% 1.3 LAB L100.2500 0-1 % Normal BASO% 0.2 LAB L100.2550 0.0-0.9 % Normal IM GRAN % 0.000 Result Comment: IG% - Immature Granulocytes (promyelocytes, myelocytes and metamyelocytes) > 1% indicates that a LEFT SHIFT is Present. LAB L100.2620 2.0-7.7 X10 3/uL Normal Absolute Neut 2.2 LAB L100.2720 0.83-4.51 X10 3/ul Normal Absolute Lymph 1.78 Performed By: #### L100.0100 #### [facility] [address]. [place], [place], [address] BASIC METABOLIC Collected: 05/20/2017 Status: F Source: SELVIN PROFILE (BMP) 11:45 AM [facility] REPOSITORY TYPE CODE TESTS RESULT OUT OF RANGE REFERENCE UNITS LAB L501.0100 70-110 mg/dL Normal GLU 79 LAB L501.1000 7-18 mg/dL Normal BUN 8 LAB L501.1100 0.55-1.02 mg/dL Normal 0.94 CREAT,SERUM Result Comment: The validity of the calculated GFR AND GFRAA in patients over 70 years has not been determined. Clinical correlation is essential. LAB L501.1110 >60 mL/min Normal EST GFR 76 Result Comment: Non- GFR Calc LAB L501.1115 >60 mL/min Normal EST GFR - AA 92 Result Comment: GFR Calc LAB L501.1255 ml/min Normal Estimated CRCL 68.44 LAB L501.1300 10-20 RATIO Low BUN/CRE 8.5 LAB L501.2200 8.5-10 mg/dL Normal .1 CA 9.1 LAB L501.5300 136-14 mmol/L Normal 5 NA 141 LAB L501.5600 3.5-5. mmol/L Normal 1 K 3.8 LAB L501.5900 98-107 mmol/L Normal CL 106 LAB L501.6100 21.0-3 mmol/L Normal 2.0 CO2 25.0 LAB L501.6200 5-15 Normal GAP 10 Performed By: #### L500.2500 #### [facility] [address] [place], [address] LACTIC ACID Collected: 05/20/2017 Status: F Source: SELVIN 11:45 AM [facility] REPOSITORY Order Comment: Yes/No query for Sepsis Lactate Rule Y TYPE CODE TESTS RESULT OUT OF RANGE REFERENCE UNITS LAB L503.6005 0.4-2.0 mmol/L Normal LACTIC ACID 1.7 Performed By: #### L503.6005 #### [facility] [address] [place], [address] Observed: 05/20/2017 Status: F Source: SELVIN CULTURE, URINE 11:45 AM [facility] REPOSITORY Order Date: 05/20/17 Urine Culture Probable skin contaminantants. ORGANISM 1: Mixed Gram Positive Organisms [place] Count >100,000 MIX CULTURE Mixed contaminants. Submit a new specimen if indicated. Performed By: #### M100.0650 #### [facility] [address] [place], [address] ABDOMEN/PELVIS WITHOUT Observed: 05/20/2017 Status: F Source: SELVIN CONT 11:24 AM [facility] REPOSITORY [facility] Imaging Services [address] [place] [address] Abdomen/Pelvis without Cont MR#: [id number] Acct: [id number] Name: LAKESHA DEL CID Rep #: [id number] : 1990 F 26 From: Ap Vogel MD PCP: Jaydon Decker DO Status: REG ER Study: Abdomen/Pelvis without Cont Date of Exam: 05/20/17 Exam# [id number] Ordering Dr: Cass Mcclure DO STUDY: CT ABDOMEN AND PELVIS WITHOUT CONTRAST REASON FOR EXAM: Female, 26 years old. Flank pain. Difficulty with urination. RADIATION DOSAGE (If Supplied By Facility): CTDIvol = ( 7.04 ) mGy, DLP = ( 316.73 ) mGycm TECHNIQUE: Transaxial images were obtained from the dome of the diaphragm to the symphysis pubis without oral contrast, and without intravenous contrast. Sagittal and coronal images were reconstructed. Individualized dose optimization techniques were used for this CT. COMPARISON: Comparison is made with prior study dated May 06, 2017. FINDINGS: The visualized lung bases are unremarkable. The visualized portions of the heart are within normal limits. Normal liver. There are surgical clips in the gallbladder fossa consistent with a prior cholecystectomy. Normal spleen. Normal pancreas. Normal bilateral adrenal glands. There is a 2 mm nonobstructive calculus in the upper pole of the right kidney. A punctate calcification is seen in the lower pole. There is a 1.5 mm calculus in the upper pole OF the left kidney. There is a small hiatal hernia. Normal small intestine. Normal colon. The appendix is visualized and appears normal. Normal abdominal aorta. Normal inferior vena cava. Normal retroperitoneum. Normal urinary bladder. Normal abdominal wall. Normal osseous structures. CT/Abdomen/Pelvis without Cont IMPRESSION: Stable bilateral nonobstructive intrarenal calculi. Electronically Signed: Ap Vogel MD at 12:34 EST Tel [phone], Service support , CC: Jaydon Decker DO; Cass Mcclure DO Auger Supervisor: Signed ALLERGIES ALLERGIES DATE TYPE / CODE NAME / CODE REACTION SEVERITY SOURCE 04/30/19 DRUG/[id number](SN SULFAMETHOXAZOLE-TR UNKNOWN [place] [address]) IMETHOPRIM [facility] Repository 04/08/20 Drug methocarbamol/F0060 Rash Unknown [place] 18 Allergy/699293648 46229(RXNORM) [facility] (SNOMED CT) Hospital Repository 04/08/20 Drug metoclopramide/F006 Other Unknown [place] 18 Allergy/664512978 365846(RXNORM) [facility] (SNOMED CT) Hospital Repository 04/08/20 Drug kiwi/[id number](RXN Angioedema SV [place] 18 Allergy/679446918 ORM) [facility] (SNOMED CT) Hospital Repository 04/08/20 Drug NSAIDS Other Unknown [place] 18 Allergy/226357488 (Non-Steroidal [facility] (SNOMED CT) Anti-Inflamma/F0010 Hospital [address]180(RXNORM) Repository 09/25/19 Drug NSAIDS OTHER: SEE Jayy [place] 18 Class/250673641(S (NON-STEROIDAL [facility] NOMED CT) ANTI-INFLAMMATORY [place] [facility]) Repository 01/21/20 DRUG/656043543(SN HYDROCODONE-ACETAMI INTOLERANCE [place] [address]) NOPHEN [facility] Repository 01/10/20 DRUG METOCLOPRAMIDE HCL Mental Chg [place] 17 INGREDI/342745799 [facility] (SNOMED CT) [place] Repository 09/06/19 DRUG METHOCARBAMOL OTHER: SEE C [place] 17 INGREDI/797140217 [facility] (SNOMED CT) [place] Repository 01/16/20 DRUG DIPHENHYDRAMINE HCL OTHER: SEE C [place] 15 INGREDI/573064683 [facility] (SNOMED CT) [place] Repository 08/21/19 Miscellaneous OTHER [place] 10 Allergy/060752881 [facility] (SNOMED CT) [place] Repository 12/01/19 DRUG KIWI [place] 07 INGREDI/560493327 [facility] (SNOMED CT) [place] Repository NG/081038629(SNOM NSAIDS [facility] [place] [facility] CT) (NON-STEROIDAL [facility] ANTI-INFLAMMATORY Repository DRUG) NG/797628460(SNOM DIPHENHYDRAMINE HCL [facility] [place] [facility]) [facility] System Repository NG/031971925(SNOM KIWI [facility] [place] [facility] CT) [facility] Repository NG/545678072(SNOM METHOCARBAMOL [facility] [place] [facility] CT) Health System Repository NG/823950016(SNOM HYDROCODONE-ACETAMI [facility] [place] [facility] CT) [facility] Health System Repository NG/238492185(SNOM METOCLOPRAMIDE HCL [facility] [place] [facility]) [facility] System Repository NG/985557954(SNOM OTHER [facility] [place] [facility]) [facility] System Repository ENCOUNTERS ENCOUNTERS ADMIT/DISCHARGE ACCOUNT NUMBER ADMITTING ENCOUNTER LOCATION SOURCE CLASS 05/12/2018/05/13/19 [id number] Ambulatory [address] [place] Repository 04/30/2018/05/03/19 [id number] Ambulatory [address] Repository 04/22/2018/04/23/20 [id number] Ambulatory [address] [place] Repository 04/08/2018/04/08/20 [id number] Emergency [place] [address] ding:ED Repository 04/07/2018/05/04/19 [id number] Ambulatory [address] [place] Repository 03/17/2018/03/22/20 [id number] Ambulatory [address] [place] Repository 02/04/2018/02/05/20 [id number] Ambulatory [address] [place] Repository 01/11/2018 [id number] Emergency [address] [place] [address] ERRoom: System [id number]: Repository [id number] 01/11/2018/01/12/20 [id number] Emergency [address] [place] Repository 01/11/2018/01/12/20 [id number] Emergency [address] MEDICAL Repository CENTERBuildi ng:AKEDRoom: OTFBed: 01/05/2018 [id number] Inpatient BuildinA [facility] Encounter 3WRoom: System [id number]: Repository [id number] 01/05/2018 [id number] Emergency BuildinB [facility] EDRoom: System 5V538Eba: Repository [id number] 12/12/2017/12/13/19 [id number] Emergency [address] ding:ED Repository 12/12/2017 [id number] Emergency BuildinB [facility] EDRoom: System 6A276Pfu: Repository [id number] 11/11/2017 [id number] Emergency BuildinB [facility] EDRoom: System [id number]: Repository [id number] 11/11/2017/11/12/19 [id number] Emergency [address] ding:ED Repository 11/05/2017/11/08/19 [id number] Ambulatory [address] Main [place] Repository 11/01/2017/11/02/19 [id number] Emergency [address] Other [place] Repository 10/29/2017/10/30/19 [id number] Emergency [address] ding:ED Repository 10/14/2017/10/15/19 [id number] Emergency [address] ding:ED Repository 10/11/2017/10/12/19 [id number] Emergency [address] ding:ED Repository 10/08/2017/10/09/19 [id number] Emergency [address] Other [place] Repository 10/08/2017/10/09/19 [id number] Emergency [address] MEDICAL Repository CENTERBuildi ng:AKEDRoom: EDBed: 10/07/2017/10/08/19 [id number] Emergency BBuilding:ER [address] Repository 10/05/2017 [id number] Emergency BuildinA [facility] EDRoom: 2A System 444Bed: Repository [id number] 10/03/2017/10/04/19 [id number] Emergency [place] ding:ED Repository 09/25/2017/09/26/19 [id number] DESTINY, Ambulatory [address] Repository 09/24/2017/09/30/19 [id number] Ambulatory [address] Repository 09/22/2017/09/23/19 [id number] Emergency [address] Other [place] Repository 09/05/2017/09/06/19 [id number] Emergency BBuilding:ER [address] Repository 09/04/2017/09/05/19 [id number] Emergency BBuilding:ER [address] Repository 09/02/2017/09/03/19 [id number] Emergency BBuilding:ER [address] Repository 08/31/2017/09/01/19 [id number] Emergency [address] ding:ED Repository 08/21/2017/08/22/19 [id number] Emergency [address] ding:ED Repository 08/20/2017/08/21/19 [id number] Emergency [address] Repository 08/20/2017/08/21/19 [id number] Emergency [address] MEDICAL Repository CENTERBuildi ng:AKEDRoom: EDBed: 08/18/2017/08/19/19 [id number] Emergency [address] ding:ED Repository 08/18/2017 [id number] Emergency BuildinC [facility] EGRoom: System [id number]: Repository [id number] 08/05/2017/08/06/19 [id number] Emergency [address] ding:ED Repository 08/01/2017 [id number] Emergency BuildinA [facility] EDRoom: 2A System 444Bed: Repository [id number] 07/16/2017/07/17/19 [id number] Emergency [address] ding:ED Repository 07/13/2017/07/14/19 [id number] Emergency BBuilding:ER Kyle [address] [place] [address] Repository 05/25/2017/05/27/19 [id number] Ambulatory [address] Repository 05/21/2017/05/21/19 [id number] Emergency [place] 18 [facility] ding:ED Repository 05/20/2017/05/20/19 [id number] Emergency [place] [address] [place] [address] ding:ED Repository 05/19/2017 [id number] Emergency [address] [place] [address] EDRoom: System 6H290Awd: Repository [id number] PAYERS PAYERS ENCOUNTER GUARANTOR PAYER SUBSCRIBER SOURCE 04/08/2018 LAKESHA oHpe Primary LAKESHA Hope [place] [id number] E Insurance:MOLINAPolicy NUTTERDOB: Community [place] Number: [id number] il[facility] MAO [id number] Repository [address]Gsc: (330) Date:6027-23-71OL [phone] (HP) [address] [place] [address]2283AY: 04/08/2018 Secondary NOT GIVENUNK [place] Insurance:SELF PAY [facility] Number: Effective Repository Date:2018-04-08 01/11/2018 Lakesha Hope Primary Lakesha Hope [facility] NutterDOB: Insurance:[place] NutterDOB: System E HealthcarePolicy [id number] Repository [place] Number: Effective ILA Mao Date: [address]Ekb: (HP) 01/11/2018 LAKESHA Primary [facility] NUTTERDOB: Insurance:BOLAND NUTTERDOB: Health System E HEALTHCARE MEDICAID [id number] Repository [place] Number: ILA MAO [id number] 26[address]Iuh: (330) Date: 304[address]5000 (HP) 01/05/2018 Lakesha Jayy Primary Lakesha Hope [facility] NutterDOB: Insurance:[place] NutterDOB: System E HealthcarePolicy [id number] Repository [place] Number: Effective [place] Date: [address]Sqf: (HP) 01/05/2018 Lakesha Hope Primary Lakesha Hope [facility] NutterDOB: Insurance:[place] NutterDOB: System E HealthcarePolicy [id number] Repository [place] Number: Effective [place] Date: [address]Mfe: (HP) 12/12/2017 LAKESHA Hope Primary LAKESHA Hope [place] [id number] E Insurance:MOLINAPolicy NUTTERDOB: Community [place] Number: [id number] [place], [place] [id number] Repository 106[address]Rqe: (330) Date:0267-83-10TU [phone] (HP) [address] [place] [address] 88959CP: 12/12/2017 Secondary NOT GIVENUNK [place] Insurance:SELF PAY [facility] Number: Effective Repository Date:2017-12-12 12/12/2017 Lakesha Hope Primary Lakesha Hope [facility] NutterDOB: Insurance:[place] NutterDOB: System E HealthcarePolicy [id number] Repository [place] Number: Effective [place] Date: [address]Wep: (HP) 11/11/2017 Lakesha Hope Primary Lakesha Hope [facility] NutterDOB: Insurance:[place] NutterDOB: System E HealthcarePolicy [id number] Repository [place] Number: Effective [place] Date: [address]Frm: (HP) 11/11/2017 LAKESHA Hope Primary LAKESHA Hope [place] [id number] E Insurance:MOLINAPolicy NUTTERDOB: Community [place] Number: [id number] Hill, [place] [id number] Repository 8[address]Bhq: (330) Date:0117-96-75ZF [phone] (HP) [address] [place] [address] 54025UA: 11/11/2017 Secondary NOT GIVENUNK [place] Insurance:SELF PAY [facility]: Effective Repository Date:2017-11-11 10/29/2017 LAKESHA Hope Primary LAKESHA Hope [place] [id number] E Insurance:MOLINAPolicy NUTTERDOB: Community [place] Number: [id number] Hill, [place] [id number] Repository [address]Ett: 330) Date:5192-05-69BB [address] () [address] [place] [address] 36319YB: 10/29/2017 Secondary NOT GIVENUNK [place] Insurance:SELF PAY [facility] Number: Effective Repository Date:2017-10-29 10/14/2017 LAKESHA Hope Primary LAKESHA Hope [place] [id number] E Insurance:MOLINAPolicy NUTTERDOB: Community [place] Number: [id number] Hill, [place] [id number] Repository [address]Fhc: (330) Date:8308-39-73ZF [address] () [address] [place] [address] 42207XS: 10/14/2017 Secondary NOT GIVENUNK [place] Insurance:SELF PAY [facility] Number: Effective Repository Date:2017-10-14 10/11/2017 LAKESHA Hope Primary LAKESHA Hope [place] [id number] E Insurance:MOLINAPolicy NUTTERDOB: Community [place] Number: [id number] Hill, [place] [id number] Repository [address]Hgv: (330) Date:1719-70-45LJ [phone] () [address] [place] [address] 70088IX: 10/11/2017 Secondary NOT GIVENUNK [place] Insurance:SELF PAY [facility] Number: Effective Repository Date:2017-10-11 10/08/2017 [facility]ESHA [facility] NUTTERDOB: Insurance:BOLAND NUTTERDOB: Health System E HEALTHCARE MEDICAID [id number] Repository [place] [facility] Number: [place] [id number] [address]Cuk: (330) Date: [address] (HP) 10/07/2017 LAKESHA Hope Primary [facility] NUTTERDOB: Foundation E MEDICAIDPolicy Number: [id number] Repository [place] [id number] E [place] Date:2017-10-07 - [place] [address]Kan: (330) [id number] 628[address]Tsx: (HP) Name:[address] [address] [place], [place] (HP)Tel: [phone]: () [phone] 10/05/2017 Lakesha Hope Primary Lakesha Hope [facility] Insurance:[place] NutterDOB: System E HealthcarePolicy [id number] Repository [place] Number: Effective [place] Date: [address]Hjh: (HP) 10/03/2017 LAKESHA Hope Primary LAKESHA Hope [place] [id number] E [facility] [place] Number: [id number] [place], [place] [id number] Repository [address]Byb: (330) Date:6370-97-43HM [address] (HP) [address] [place] [address] 28199AW: 10/03/2017 Secondary NOT GIVENUNK [place] Insurance:SELF PAY [facility] Number: Effective Repository Date:2017-10-03 09/05/2017 LAKESHA Hope Primary L[facility]HA Hope [facility]: Insurance:[place]OLAND NUTTERDOB: [facility] E MEDICAIDPolicy Number: [id number] Repository [place] [id number] E [place]:2017[place]09-05 [place] [address]Qwt: (330 [id number] 414[address]Rtz: (HP) Name:[address] [address] [place], [place] (HP)Tel: [phone]: (WP) [phone] 09/04/2017 LAKESHA Hope Primary LAKESHA Hope [facility] NUTTERDOB: Insurance:[place] NUTTERDOB: [facility] E MEDICAIDPolicy Number: [id number] Repository [place] [id number] E [place] Date:2017-09-04 - [place] [address]Haj: (330) [id number] 779[address]Qec: (HP) Name:[address] [address] [place], [place] (HP)Tel: [phone]: (WP) [phone] 09/02/2017 LAKESHA Hope Primary LAKESHA Hope [facility] NUTTERDOB: Insurance:BOLAND NUTTERDOB: [facility] E MEDICAIDPolicy Number: [id number] Repository [place] [id number] E [place], [place] Date:2017-09-02 - [place] [address]Eeu: (330) [id number] 08[address]Kgs: (HP) Name:[address] [address] [place], [place] (HP)Tel: [phone]: (WP) [phone] 08/31/2017 MARIELADEBORAH Jayy Primary LAKESHA Hope [place] [id number] E Insurance:MOLINAPolicy NUTTERDOB: Community [place] Number: [id number] [place], [place] [id number] Repository [address]Oqq: (330) Date:7392-54-62BV [address] (HP) [address] [place] [address] 58010TW: 08/31/2017 Secondary NOT GIVENUNK [place] Insurance:SELF PAY [facility] Number: Effective Repository Date:2017-08-31 08/21/2017 LAKESHA Hope Primary LAKESHA Hope [place] [id number] E Insurance:MOLINAPolicy NUTTERDOB: Community [place] Number: [id number] [place], [place] [id number] Repository [address]Uaf: (330) Date:2938-76-54QH [phone] (HP) [address] [place] [address] 054[address]BT: 08/21/2017 Secondary NOT GIVENUNK [place] Insurance:SELF PAY [facility] Number: Effective Repository Date:2017-08-21 08/20/2017 [facility] NUTTERDOB: Insurance:[place]OLAND NUTTERDOB: Health System E HEALTHCARE MEDICAID [id number] Repository [place] [facility] Number: ILA MAO [id number] [address]Bhn: (330) Date: [address] (HP) 08/18/2017 LAKESHA Hope Primary LAKESHA Hope [place] [id number] E Insurance:MOLINAPolicy NUTTERDOB: Community [place] Number: [id number] [place], [place] [id number] Repository [address]Wri: (330) Date:3125-69-37VT [address] (HP) [address] [place] [address] 58989VS: 08/18/2017 Secondary NOT GIVENUNK [place] Insurance:SELF PAY [facility] Number: Effective Repository Date:2017-08-18 08/18/2017 Lakseha Hope Primary Lakesha Hope [facility] NutterDOB: Insurance:[place] NutterDOB: System E HealthcarePolicy [id number] Repository [place] Number: Effective [place] Date: [address]Vje: (HP) 08/05/2017 LAKESHA Hope Primary LAKESHA Hope [place] [id number] E Insurance:MOLINAPolicy NUTTERDOB: Community [place] Number: [id number] Hill, [place] [id number] Repository [address]Yvj: (330) Date:7111-15-23ZJ [phone] (HP) [address] [place] [address] 65973YT: 08/05/2017 Secondary NOT GIVENUNK [place] Insurance:SELF PAY [facility] Number: Effective Repository Date:2017-08-05 08/01/2017 Lakesha Hope Primary Lakesha Hope [facility]:[place] NutterDOB: System E HealthcarePolicy [id number] Repository [place] Number: Effective [place] Date: [address]Van: (HP) 07/16/2017 LAKESHA Hope Primary LAKESHA Hope [place] [id number] E Insurance:MOLINAPolicy NUTTERDOB: Community [place] Number: [id number] Hill, [place] [id number] Repository [address]Rny: (330) Date:6671-89-51DK [address] (HP) [address] [place] [address] 84379OF: 07/16/2017 Secondary NOT GIVENUNK [place] Insurance:SELF PAY [facility] Number: Effective Repository Date:2017-07-16 07/13/2017 LAKESHA Hope Primary LAKESHA Hope [facility]: Insurance:[place] NUTTERDOB: Foundation E MEDICAIDPolicy Number: [id number] Repository [place] [id number] E [place] [facility] [place] Date:2017-07-13 - [place], [place] [address]Crl: (879) [id number] 100[address]Pcy: () Name:[address] [address]Qq[address] [place], [place] ()Tel: [phone]: (wp) [phone] 05/21/2017 MATTHEWBLAIR Jayy Primary LAKESHA [facility] [place] [id number] E Insurance:MOLINAPolicy NUTTERDOB: Community [place] Number: [id number] [place], [place] [id number] Repository [address]Nwv: (330) Date:0672-33-09WB [phone] (HP) [address] [place] [address] 31241JP: 05/21/2017 Secondary NOT GIVENUNK [place] Insurance:SELF PAY [facility] Number: Effective Repository Date:2017-05-21 05/20/2017 LAKESHA Hope Primary LAK[facility]HA [facility] [place] [id number] E Insurance:MOLINAPolicy NUTTERDOB: Community [place] Number: [id number] [place], [place] [id number] Repository [address]Bvk: (330) Date:5767-42-24FA [phone] (HP) [id number] [place] [address] 15068QM: 05/20/2017 Secondary NOT GIVENUNK [place] Insurance:SELF PAY [facility] Number: Effective Repository Date:2017-05-20 05/19/2017 Lakesha Hope Primary Lakesha Hope [facility] NutterDOB: Insurance:[place] NutterDOB: System E HealthcarePolicy [id number] Repository [place] Number: Effective [place], [place] Date: [address]Jyk: (HP)
== END 2018-04-08 23:41 | disposition home or self-care (01) ==
PROVIDERS: Emergency Provider Emergency Medicine
DX: N39.0 Urinary tract infection, site not specified (principal); R31.9 Hematuria, unspecified; N20.0 Calculus of kidney; Z79.899 Other long term (current) drug therapy; Z87.442 Personal history of urinary calculi
CPT/HCPCS: 74176; 80048; 81001; 85025; 96361; 96374; 96375; 99284; J7030; A4216; J2405

== ENCOUNTER 2018-09-29 12:45 | Emergency (ER) | payer MEDICAID, SELFPAY ==
[2018-09-29 12:46] VITALS: BP 106/63; PULSE 94; RESP 16; TEMP 37.2; O2SAT 100; BMI 27.6
--- NOTE | 2018-09-29 13:12 | ED.DCSUM_ITS ---
History of Present Illness Chief Complaint: Abd Pain Informant: Patient Onset: Days - Onset Thursday Context: Gradual Onset Quality: Pain Location: right lower quadrant Current Severity: Severe Maximum Severity: Severe Worsened by: Sitting up, walking and palpation Relieved by: Nothing Associated Symptoms: nausea, anorexia Narrative: Patient is a 28-year-old woman who presents with numerous symptoms and complaints. The main reason she presents is because of right lower quadrant pain with nausea and anorexia. Pain has gotten worse. She is status post cholecystectomy by Dr. Gerhard Burger. She denies headache, visual, ocular auditory symptoms. She denies respiratory symptoms or cardiac symptoms. She does report hematuria without dysuria, frequency or urgency. She reports abnormal vaginal bleeding that started yesterday. She was recently changed from control pills to Depo shot. She does report breast fullness and tenderness. Prior similar symptoms: No Recent Illness/Hospitalization: No Past Medical History - Allergies and Home Meds Allergies/Adverse Reactions: Allergies kiwi Allergy (Severe, Verified 09/29/18 12:46) Angioedema methocarbamol Allergy (Verified 09/29/18 12:46) Rash metoclopramide [From Reglan] Adverse Reaction (Verified 09/29/18 12:46) Other NSAIDS (Non-Steroidal Anti-Inflamma Adverse Reaction (Verified 09/29/18 12:46) Other HISTORY OF BLEEDING ULCER Primary Care Physician: Noah Doctor,Out of [Primary Care Provider] - Prior records reviewed: Yes - Cholecystectomy Past Medical History: - - No significant past medical history Surgical History: cholecystectomy Lives: Spouse/ Significant Other Smoking Status: Never smoker Drugs: None Review of Systems General: Reports: Fever, Subjective. Denies: Chills, Malaise, Sweats, Weight loss Eyes: Denies: Visual changes - bilaterally, Blurred Vision - bilaterally, Diplopia ENT: Denies: Bilateral ear pain, Rhinorrhea, Sore throat Cardiovascular: Denies: Chest pain, Palpitations Respiratory: Denies: Dyspnea, Cough, Dyspnea on exertion Gastrointestinal: Reports: Abdominal pain, Nausea. Denies: Vomiting, Diarrhea, Constipation, Melena, Hematochezia Genitourinary: Reports: Hematuria. Denies: Dysuria, Frequency Musculoskeletal: Reports: Back pain - Right flank region. Denies: Myalgias, Arthralgias, Neck pain, Swelling, Extremity Pain Skin: Denies: Rash, Wounds Neurological: Reports: Weakness. Denies: Headache, Parasthesia, Numbness Endocrine: Denies: Polyuria, Polydipsia Hematologic: Denies: Easy bruising, Easy bleeding Physical Exam Vital Signs/Narrative: Vital Signs Temp Pulse Resp BP Pulse Ox 09/29/18 12:46 98.9 F 94 16 106/63 100 Inital Vital Signs reviewed: Yes General: Well nourished, Well developed, No Acute Distress Head: Normocephalic, Atraumatic ENT: No rhinorrhea, TM's clear, Dry mucous membranes Neck: Supple, Nontender, No lymphadenopathy, No JVD, - Cardiovascular: Regular rate, Regular rhythm, No murmurs, Normal S1, Normal S2 Respiratory: No distress, CTA bilaterally, Chest nontender Abdomen: Soft, Nondistended, No masses, Tender - Right lower quadrant., Guarding - Involuntary, Hypoactive bowel sounds. Negative for: Nontender, Normal bowel sounds, Rebound tenderness, Hyperactive bowel sounds, Hepatomegaly Rectal: Deferred Back: Nontender, Normal Inspection, CVA tenderness - Right side Extremities: Nontender, No edema Skin: Normal color, No rash Neurological: Alert, Oriented x3, Cranial nerves II-XII grossly intact, Normal Strength, Normal Sensation Psychological: Normal Mood Diagnostic/Tx/Re-eval 09/29/18 13:07 Abdomen/Pelvis WITH Contrast [CT] Stat Laboratory Results 09/29/18 09/29/18 09/29/18 13:41 13:41 13:41 WBC 6.4 RBC 4.13 L Hgb 12.1 Hct 36.6 L MCV 88.6 MCH 29.3 MCHC 33.1 RDW 12.9 RDW Differential 41.7 Plt Count 268 MPV 8.9 Immature Gran % (Auto) 0.200 Neut % (Auto) 41.2 L Lymph % (Auto) 48.[address] [place] % (Auto) 7.5 Eos % (Auto) 2.3 Baso % (Auto) 0.3 Absolute Neuts (auto) 2.6 Absolute Lymphs (auto) 3.11 Total Counted Not Reportable Sodium 140 Potassium 3.8 Chloride 108 H Carbon Dioxide 26.0 Anion Gap 6 BUN 8 Creatinine 0.73 Estim Creat Clear Calc 86.58 Est GFR (MDRD) Af Amer 122 Est GFR (MDRD) Non-Af 101 BUN/Creatinine Ratio 11.0 Glucose 107 H Calcium 8.6 Serum , Qual NEGATIVE Urine Color Urine Clarity Urine pH Ur Specific [place] Urine Protein Urine Glucose (UA) Urine Ketones Urine Occult Blood Urine Nitrite Urine Bilirubin Urine Urobilinogen Ur Leukocyte Esterase Urine RBC Urine WBC Ur Squamous Epith Cells Urine Bacteria Urine Mucus 09/29/18 14:14 WBC RBC Hgb Hct MCV MCH MCHC RDW RDW Differential Plt Count MPV Immature Gran % (Auto) Neut % (Auto) Lymph % (Auto) [place] % (Auto) Eos % (Auto) Baso % (Auto) Absolute Neuts (auto) Absolute Lymphs (auto) Total Counted Sodium Potassium Chloride Carbon Dioxide Anion Gap BUN Creatinine Estim Creat Clear Calc Est GFR (MDRD) Af Amer Est GFR (MDRD) Non-Af BUN/Creatinine Ratio Glucose Calcium Serum , Qual Urine Color Yellow Urine Clarity Sl. Cloudy Urine pH 6.5 Ur Specific [place] 1.020 Urine Protein 15 H Urine Glucose (UA) Normal Urine Ketones Negative Urine Occult Blood Negative Urine Nitrite Negative Urine Bilirubin Negative Urine Urobilinogen 1 H Ur Leukocyte Esterase 100 H Urine RBC 0 SEEN Urine WBC 10-25 SEEN Ur Squamous Epith Cells 0-5 SEEN Urine Bacteria 1+ Urine Mucus 2+ - Medical Decision Making Right lower quadrant abdominal pain with nausea anorexia need to evaluate for appendicitis. With complaint of hematuria will evaluate for renal/ureteral calculi since she has flank pain as well as pyelonephritis. This could represent ovarian cyst as well. Because she changed form of control test was obtained. At 1435 I was informed by patient's nurse, Alejandro, that she asked if she should feel something as he was pushing the IV meds. 5 minutes after the administration of 4 mill grams of morphine and 4 mill grams Zofran she was pushing call light stating there is no improvement. She again is reporting no improvement. Since test is negative and she has no contraindication to NSAIDs 50 mg of IV Toradol was ordered. Alejandro, Patient's nurse, that she would not allow him to administer Toradol. She informed him that she had blood in her stool after Naprosyn. When I went in to reevaluate her she informed me that she did not take the Toradol because it caused abdominal pain. She was administered Toradol for obstructing ureteral stone. She was informed that abdominal pain is not an allergy. What she reports as allergy to Naprosyn is not a true allergy. She denies history of peptic ulcer disease. She then informed me that she does not understand why I would not help her . I informed her I did order more pain medicine. And that she declined the pain medicine. She informed me I did not declined pain medicine . She specifically asked for morphine. She was informed she was ordered Toradol which is the appropriate medicine at this time. And until her CAT scan returns no additional morphine would be ordered. She was informed that her urine is suggestive of a urinary tract infection. She informed me I do not have a urinary tract infection . She then accused me of raising my voice. She also accused me of not being professional. I informed the patient she was offered pain medicine which she declined. She was informed that she would not receive morphine until I was able to review the CAT scan. She made comment again I do not understand why you will not help me I informed her she was offered pain medicine and it is her option whether she wishes to receive that medication or not. I was informed at 0763 that patient pulled her IV and through the bottle of contrast against the wall. She is demanding discharge papers. She will be given AMA paperwork and antibiotic for presumed urinary tract infection. Patient was informed that she understands by leaving the etiology of her pain is unknown since work-up was incomplete. I was informed at 1093 that patient left prior to me speaking with her regarding risk benefits of leaving AGAINST MEDICAL ADVICE and prior to receiving home- going instructions. Her prescription was electronically transmitted to designated pharmacy of choice ED Disposition - Plan for ED Patient: Disposition: Against Medical Advice Diagnosis: Acute abdominal pain in left lower quadrant, History of fever, Urinary tract infection Instructions: ED Abdominal Pain Unkn Cause, ED UTI Cystitis Female Prescriptions: Nitrofurantoin Macrocrystals [Macrobid] 100 mg PO Q12 #10 capsule Referrals: [facility] Doctor,Out of [Primary Care Provider] -
[2018-09-29 13:50] LABS: Absolute Lymphocyte Count 3.11 X10^3/ul (0.83-4.51); Absolute Neutrophil Count 2.6 X10^3/uL (2.0-7.7); Basophil# 0.02 X10^3/uL; Basophil% 0.3 % (0-1); Eosinophil# 0.15 X10^3/uL; Eosinophils% 2.3 % (0-5); Hematocrit 36.6 % (37-47); Hemoglobin 12.1 g/dl (12.0-15.0); Lymphocyte # 3.11 X10^3/ul (4.0); Lymphocyte % 48.5 % (19-41); Mean Corp Hgb Conc 33.1 g/gl (32-36); Mean Corpuscular Hgb 29.3 pg (27.0-32.0); Mean Corpuscular Volume 88.6 fL (81-99); Mean Platelet Vol. 8.9 fl (6.2-12.0); Monocyte# 0.48 X10^3/uL; Monocyte% 7.5 % (0-10); Neutrophil # 2.64 X10^3/uL (2.7-7.7); Neutrophil % 41.2 % (47-70); POSITIVE COUNT NO; POSITIVE DIFFERENTIAL NO; POSITIVE MORPHOLOGY NO; Platelet Count 268 K/mm3 (150-450); RBC Distribution Width CV 12.9 % (11.6-14.6); RBC Distribution Width SD 41.7 fl (35.1-43.9); Red Blood Count 4.13 M/mm3 (4.2-5.4); White Blood Count 6.4 K/mm3 (4.4-11.0)
[2018-09-29] MEDS: Ondansetron 4 MG/2 ML Vial IV (14:03)
[2018-09-29] MEDS: Morphine 4 MG/ML Syringe IV (14:03)
[2018-09-29] MEDS: 0.9% Normal Saline 1,000 ML 1000 ML IV (14:03)
[2018-09-29 14:05] VITALS: RESP 18
[2018-09-29 14:05] LABS: Internal QC Validated? YES +Cl - CLEAR BKGD; Pregnancy, Serum, hCG Quali. NEGATIVE Negative
[2018-09-29 14:09] LABS: Anion Gap 6 (5-15); BUN 8 mg/dL (7-18); Calcium,Total 8.6 mg/dL (8.5-10.1); Chloride 108 mmol/L (98-107); Creatinine, Serum 0.73 mg/dL (0.55-1.02); EST Glomerular Filtration Rate 101 mL/min (>60); Est Glom Filt Rate - Afr Amer 122 mL/min (>60); Estimated Creatinine Clearance 86.58 ml/min; Glucose 107 mg/dL (74-106); Potassium 3.8 mmol/L (3.5-5.1); Sodium Level 140 mmol/L (136-145)
[2018-09-29 14:18] LABS: Red Blood Cells-Urine 0 SEEN /hpf (0-5)
[2018-09-29 14:20] LABS: Color, Urine Yellow (Yellow); Glucose, Dipstick Normal (Normal); Ketone-Dipstick Negative (Negative); Leukocyte Esterase-Dipstick 100 /ul (Negative); Nitrite-Dipstick Negative (Negative); Occult Blood-Urine Negative /ul (Negative); Protein-Dipstick 15 mg/dl (Negative); Urine Bilirubin Dipstick Negative (Negative); Urine Clarity Sl. Cloudy (Clear); Urine Urobilinogen 1 mg/dl (Normal); Urine pH 6.5 (5.0 - 8.0)
[2018-09-29 14:37] LABS: Bacteria 1+ /hpf (None Seen); Mucous, Urine 2+ /hpf (<or=2+); Squamous Epithelial Cells - UA 0-5 SEEN /hpf (5-10); White Blood Cells 10-25 SEEN /hpf (0-5)
--- NOTE | 2018-09-29 14:56 | ED.RN ---
PT RING CALL LIGHT AND REQUESTED A NURSE. THIS NURSE ENTERED ROOM TO ANSWER PT REQUEST. UPON ENTERING THE ROOM PT STATES THAT SHE IS VERY UPSET WITH PHYSICIAN AND REFUSED TO TAKE ORDERED MEDICATION FOR PAIN CONTROL. PT ALSO STATES THAT PHYSICIAN YELLED AT ME AND WAS UNPROFESSIONAL. AFTER PHYSICIAN LEFT ROOM PT THREW FULL BOTTLE IF ORAL CONTRAST AT DOOR STRIKING WALL. PT ALSO DISCONNECTED IV FLUIDS AND DEMANDED THAT IV BE DISCONTINUED. PT STATES SHE WANTS TO LEAVE AND DEMANDED TO BE DC FROM ALL MONITORS AND IV. THIS NURSE DC IV FROM RIGHT AC AND PHYSICIAN INFORMED THAT PT DEMANDED TO LEAVE. PHYSICIAN STATES PT TO SIGN AMA PRIOR TO LEAVING, HOWEVER, PT LEFT HOSPITAL PRIOR TO SPEAKING TO PHYSICIAN OR SIGNING AMA.
== END 2018-09-29 15:28 | disposition left against medical advice (07) ==
PROVIDERS: Emergency Provider Emergency Medicine
DX: R10.31 Right lower quadrant pain (principal); R10.32 Left lower quadrant pain; N39.0 Urinary tract infection, site not specified; R31.9 Hematuria, unspecified; Z79.899 Other long term (current) drug therapy; Z88.8 Allergy status to other drugs, medicaments and biological substances; Z88.6 Allergy status to analgesic agent; Z90.49 Acquired absence of other specified parts of digestive tract
CPT/HCPCS: 80048; 81001; 84703; 85025; 87077; 87086; 87088; 87186; 96361; 96374; 96375; 99283; J7030; A4216; J2405

== ENCOUNTER 2022-08-01 13:31 | Inpatient (IN) | payer MEDICAID, SELFPAY ==
[2022-08-01 13:33] VITALS: BP 129/88; PULSE 95; RESP 18; TEMP 36.4; O2SAT 100; BMI 29.0
--- NOTE | 2022-08-01 14:13 | EX.ED.SAOD ---
HPI History of Present Illness Chief Complaint: Substance Abuse Informant: patient Narrative Narrative: Patient is a 31-year-old female with history of fentanyl abuse presenting for detox. Patient states she snorts fentanyl regular. Denies any current or history of IV drug abuse. States she tried detox through [facility] about a month ago but did not do any type of residential treatment, was not prescribed any Suboxone and then started having cravings and using again. She has the past 2 days she has been feeling funky and describes almost a jittery feeling. She took a home drug test and she states it popped up positive for fentanyl, cocaine, amphetamines and benzodiazepines. As far she was aware she was only using fentanyl. She also notes that she has been more itchy and has a rash that has developed over the past week. Patient does report that she was put on Augmentin a week ago for dental infection and that has been improving. Denies any known history of HIV or hepatitis. No other complaints at this time. PFSH PFSH Home Medications duloxetine 60 mg capsule,delayed release (Cymbalta) 60 mg PO DAILY [facility] 02/22/13 [History Last Taken 11/11/17] Allergy/AdvReac Type Severity Reaction Status Date / Time kiwi Allergy Severe Angioedema Verified 08/01/22 13:48 amoxicillin [From Augmentin] Allergy Rash Verified 08/01/22 13:48 clavulanic acid Allergy Rash Verified 08/01/22 13:48 [From Augmentin] methocarbamol Allergy Rash Verified 08/01/22 13:48 metoclopramide [From Reglan] AdvReac Other Verified 08/01/22 13:48 NSAIDS (Non-Steroidal AdvReac Other Verified 08/01/22 13:48 Anti-Inflamma Social History Smoking Status: Never smoker ROS [facility] ED Constitutional Constitutional ED: Denies chills, fever(s) or sweats Eyes Eyes: Denies change in vision ENT ENT ED: Denies rhinorrhea or sore throat Cardiovascular Cardiovascular: Denies chest pain or palpitations Respiratory/Chest Respiratory/Chest: Denies cough Gastrointestinal Gastrointestinal: Denies nausea or vomiting Musculoskeletal Musculoskeletal: Denies arthralgias or myalgias Integumentary Reports rash Neurologic Neurologic: Denies headache(s) or weakness Psychiatric Psychiatric: Denies anxiety Hematologic/Lymphatic Hematologic/Lymphatic: Denies easy bleeding or easy bruising EXAM Physical Exam Const Vital Signs: 08/01/22 13:33 Temperature 97.5 F L Temperature Source Temporal Pulse Rate 95 Respiratory Rate 18 Blood Pressure 129/88 H Blood Pressure Mean 101 Pulse Ox 100 Oxygen Delivery Method Room Air Positive well nourished and well developed General Appearance ED: well developed and NAD HEENT Reports moist mucous membranes HEENT Narrative: poor dentition, no facial swelling Eyes PERRL and EOMs intact bilaterally Neck supple Chest Wall inspection of chest normal and palpation of chest normal Resp normal respiratory effort and clear to auscultation bilaterally Cardio regular rate and regular rhythm GI non-distended Neuro oriented x3 Motor Exam: Negative for general weakness Psych mental status grossly normal and thought process normal Skin Skin Narrative: Scattered erythematous rash most pronounced on the chest with overlying abrasions consistent with skin picking MDM MDM MDM Narrative Medical decision making narrative: Patient is evaluated for request for inpatient detox. Patient is acting appropriately emergency room. She clinically does not appear intoxicated. She currently does not have a toxidrome consistent with acute withdrawal. Will obtain medical screening labs per addiction medicine protocol and contact hospitalist for admission. Lab Data Attestation: I reviewed the patient's lab results. Labs: Laboratory Results - last 24 hr 08/01/22 08/01/22 08/01/22 14:12 14:12 14:12 WBC 8.5 RBC 4.20 Hgb 12.7 Hct 39.6 MCV 94.3 MCH 30.2 MCHC 32.1 RDW Std Deviation 46.8 H RDW Coeff of Mely 13.5 Plt Count 417 MPV 9.4 Immature Gran % (Auto) 0.400 Neut % (Auto) 77.7 H Lymph % (Auto) 17.2 L [place] % (Auto) 3.9 Eos % (Auto) 0.4 Baso % (Auto) 0.4 Absolute Neuts (auto) 6.7 Absolute Lymphs (auto) 1.47 Nucleated RBC % 0 Sodium 136 Potassium 3.3 L Chloride 102 Carbon Dioxide 26.0 Anion Gap 8 BUN 10 Creatinine 0.75 Estim Creat Clear Calc 82.01 Est GFR (MDRD) Af Amer 116 Est GFR (MDRD) Non-Af 96 BUN/Creatinine Ratio 13.4 Glucose 98 Calcium 9.1 Total Bilirubin 0.20 AST 55 H ALT 52 Alkaline Phosphatase 103 Total Protein 8.0 Albumin 3.9 Globulin 4.1 Albumin/Globulin Ratio 1.0 Urine Test Urine Opiates Screen Urine Methadone Screen Ur Barbiturates Screen Ur Phencyclidine Scrn Ur Amphetamines Screen MDMA (Ecstasy) Screen U Benzodiazepines Scrn Urine Cocaine Screen U Cannabinoids Screen Ur Drug Screen Comment Ethyl Alcohol < 3.0 08/01/22 08/01/22 14:12 14:12 WBC RBC Hgb Hct MCV MCH MCHC RDW Std Deviation RDW Coeff of Mely Plt Count MPV Immature Gran % (Auto) Neut % (Auto) Lymph % (Auto) [place] % (Auto) Eos % (Auto) Baso % (Auto) Absolute Neuts (auto) Absolute Lymphs (auto) Nucleated RBC % Sodium Potassium Chloride Carbon Dioxide Anion Gap BUN Creatinine Estim Creat Clear Calc Est GFR (MDRD) Af Amer Est GFR (MDRD) Non-Af BUN/Creatinine Ratio Glucose Calcium Total Bilirubin AST ALT Alkaline Phosphatase Total Protein Albumin Globulin Albumin/Globulin Ratio Urine Test Negative Urine Opiates Screen NEGATIVE Urine Methadone Screen NEGATIVE Ur Barbiturates Screen NEGATIVE Ur Phencyclidine Scrn NEGATIVE Ur Amphetamines Screen POSITIVE H MDMA (Ecstasy) Screen POSITIVE H U Benzodiazepines Scrn POSITIVE H Urine Cocaine Screen POSITIVE H U Cannabinoids Screen NEGATIVE Ur Drug Screen Comment Ethyl Alcohol Discharge Plan Dx/Rx/DC Orders Clinical Impression: Polysubstance abuse Disposition Disposition: Acute Care [facility] Discharge Date/Time: 08/01/22 15:50
[2022-08-01 14:28] LABS: Absolute Lymphocyte Count 1.47 X10^3/uL (0.83-4.51); Absolute Neutrophil Count 6.7 X10^3/uL (2.0-7.7); Basophil# 0.03 X10^3/uL; Basophil% 0.4 % (0-1); Eosinophil# 0.03 X10^3/uL; Eosinophils% 0.4 % (0-5); Hematocrit 39.6 % (37-47); Hemoglobin 12.7 g/dL (12.0-15.0); Lymphocyte # 1.47 X10^3/ul (0.83-4.51); Lymphocyte % 17.2 % (19-41); Mean Corp Hgb Conc 32.1 g/dL (32-36); Mean Corpuscular Hgb 30.2 pg (27.0-32.0); Mean Corpuscular Volume 94.3 fL (81-99); Mean Platelet Vol. 9.4 fl (6.2-12.0); Monocyte# 0.33 X10^3/uL; Monocyte% 3.9 % (0-10); NRBC Flagged by Analyzer 0 % (0-5); Neutrophil # 6.65 X10^3/uL (2.7-7.7); Neutrophil % 77.7 % (47-70); Platelet Count 417 K/mm3 (150-450); RBC Distribution Width CV 13.5 % (11.6-14.6); RBC Distribution Width SD 46.8 fl (35.1-43.9); White Blood Count 8.5 K/mm3 (4.4-11.0)
--- NOTE | 2022-08-01 14:36 | PCM.HP.STD ---
HPI - General General Date of Admission: 08/01/22 Date of Service: 08/01/22 Chief Complaint: Acute Opiate Withdrawal HPI Narrative The patient is a 31 y/o F w/ PMHx: Anxiety and Depression, Polysubstance abuse (Fentanyl snorted, notes IVDA remotely), Chronic migraines, Hx remote myocarditis who presents to the [facility] [place] ED on 08/01/22 w/ noted acute opiate withdrawal onset starting afternoon on day of presentation following last dose snorted fentanyl in the morning with abdominal pain/cramping, generalized body aches and pains, rhinorrhea, fatigue, restless leg, extreme jittery sensation. She notes feeling far different than normal and prior to ED presentation even obtained UDS herself as she was concerned she had taken something other than fentanyl. She notes usage of narcotic pills from an early age secondary to migraine headaches. She starting abusing drugs she reports in 2018 and continued. Patient interested in attaining clean status and has attempted programs prior as well. She notes that she had recent dental infection and was prescribed Augmentin initially however because of her reaction she was transition to amoxicillin and has continued to take this but from discussion with her she is unfortunately only been taking 1 pill a day instead of the prescribed twice daily regimen. Work-up in the ED included T97.5, heart 95, BP 129/88, respiratory rate 18, 100% on room air, CBC with WC 8.5, hemoglobin 12.7, platelet 417 without marked shift, CMP with potassium 3.3, AST 55 otherwise not marked appearing, negative urine test, UDS with positive amphetamine, MDMA, benzodiazepine, cocaine, ethyl alcohol less than 3. [facility] Medical History (Updated 08/01/22 @ 19:[address] Delma Reveles MD) Anxiety and depression Chronic migraine History of myocarditis Polysubstance abuse Home Medications duloxetine 60 mg capsule,delayed release (Cymbalta) 60 mg PO DAILY [facility] 02/22/13 [History Last Taken 11/11/17] Allergy/AdvReac Type Severity Reaction Status Date / Time kiwi Allergy Severe Angioedema Verified 08/01/22 13:48 amoxicillin [From Augmentin] Allergy Rash Verified 08/01/22 13:48 clavulanic acid Allergy Rash Verified 08/01/22 13:48 [From Augmentin] methocarbamol Allergy Rash Verified 08/01/22 13:48 metoclopramide [From Reglan] AdvReac Other Verified 08/01/22 13:48 NSAIDS (Non-Steroidal AdvReac Other Verified 08/01/22 13:48 Anti-Inflamma Family History no significant family his no significant family history (Patient denies any marked maternal/paternal family history including HD, DM, CA, Substance abuse.) Surgical History (Updated 08/01/22 @ 19:[address] Delma Reveles MD) History of cholecystectomy History of tonsillectomy and adenoidectomy Social History (Updated 08/01/22 @ 19:[address] Delma Reveles MD) household members: none Smoking Status: Never smoker alcohol intake: never substance use type: other details: 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 ROS ROS Narrative Admission Review of Systems: CONSTITUTIONAL: No weight loss, fever, chills, + weakness or fatigue. HEENT: + Congestion, rhinorrhea. Eyes: No visual loss, blurred vision, double vision or yellow sclerae. Ears, Nose, Throat: No hearing loss, sneezing, sore throat. SKIN: + Various picked lesions, recent rash with augmentin, improving. CARDIOVASCULAR: + Palpitations. No chest pain, chest pressure or chest discomfort, edema, orthopnea, syncopal events. RESPIRATORY: No shortness of breath, cough or sputum, wheezing, hemoptysis. GASTROINTESTINAL: + anorexia, abdominal cramping, nausea without vomiting, No diarrhea, melena, BRBPR. GENITOURINARY: No dysuria, frequency, urgency or retention. NEUROLOGICAL:+ headache, No dizziness, syncope, paralysis, ataxia, numbness or tingling in the extremities, focal weakness, change in bowel or bladder control, seizure. MUSCULOSKELETAL: +muscle, back pain, joint pain or stiffness. HEMATOLOGIC: No anemia, bleeding or bruising. LYMPHATICS: No enlarged nodes. No history of splenectomy. PSYCHIATRIC: + history of depression or anxiety. ENDOCRINOLOGIC: + reports of sweating. No cold or heat intolerance. No polyuria or polydipsia. ALLERGIES: + History angioedema. Vital Signs Vital Signs Vital Signs: 08/01/22 13:33 Temperature 97.5 F L Temperature Source Temporal Pulse Rate 95 Respiratory Rate 18 Blood Pressure 129/88 H Blood Pressure Mean 101 Pulse Ox 100 Oxygen Delivery Method Room Air Weight Weight: 154 lb Body Mass Index (BMI) 29.0 Physical Exam Narrative Physical Examination: General: Awake, alert, oriented x 3 and cooperative, seated upright in ED bed, anxious, restless. Skin: Normal color, normal turgor, no icterus, no cyanosis except for significant upper extremity abrasions, picked regions, history of recent rash to Augmentin, improving. HEENT: AT/NC, EOMI, PERRLA, dry MM, mild rhinorrhea noted, no carotid bruits or JVD noted. Lungs: Mildly diminished, greater bases, proper effort, no rales, ronchi or wheezing. Heart: Mildly tachycardic with regular rhythm; no gallop, rub audible. Abdomen: Soft, mild generalized discomfort with palpation, nondistended, hyperactive bowel sounds, no obvious HSM. Extremities: No cyanosis, no clubbing, see skin. Neurological: Patient awake, alert, oriented as noted, cognitive function intact; pupils equally reactive to light and accommodation, cranial nerves II-XII grossly normal, moving all 4 extremities, no focal deficits, very anxious, restless, strength appears preserved but difficult assessment given withdrawal symptoms. Psychiatric: Affect appears restless, mildly agitated, does have underlying anxiety and depression. Results Lab / Micro Data Result Diagrams: 08/01/22 14:12 08/01/22 14:12 Labs: Laboratory Results - last 24 hr 08/01/22 14:12: WBC 8.5, RBC 4.20, Hgb 12.7, Hct 39.6, MCV 94.3, MCH 30.2, MCHC 32.1, RDW Std Deviation 46.8 H, RDW Coeff of Mley 13.5, Plt Count 417, MPV 9.4, Immature Gran % (Auto) 0.400, Neut % (Auto) 77.7 H, Lymph % (Auto) 17.2 L, [place] % (Auto) 3.9, Eos % (Auto) 0.4, Baso % (Auto) 0.4, Absolute Neuts (auto) 6.7, Absolute Lymphs (auto) 1.47, Nucleated RBC % 0 08/01/22 14:12: Ur Drug Screen Comment Assessment & Plan Assessment/Plan (1) Polysubstance abuse: PLAN: Plan The patient is a 31 y/o F w/ PMHx: Polysubstance abuse (Fentanyl) w/ IVDA remotely also, Anxiety and Depression, Chronic migraines, Hx remote myocarditis who presents to the [facility] [place] ED on 08/01/22 w/ noted acute opiate withdrawal onset. #1. Acute Opiate Withdrawal: Will admit to [facility], routine labs including CBC, CMP, urine for drug screen obtained in the ED with only mild hypokalemia noted and mild AST elevation, will initiate and continue on protocol with tapering course of Subutex, as needed tylenol, bowel regimen, gabapentin, Bentyl, Vistaril, clonidine, PRN nightly trazodone for insomnia, IV fluids, IV antiemetics. Once patient clinically improved and completion of taper nearing will plan consultation with case management for transition to next level of rehabilitation care. #2. Hypokalemia: Admission K+ 3.3, supplementation given, repeat level in AM. #3. Recent Dental infection: Patient reports recent dental infection, initiated on augmentin but she reports having a reaction and was switched to amoxicillin instead, will continue. #4. Chronic migraines: Generally this is in great part part of the reason patient has a substance addiction as she was routinely prescribed narcotics for her migraine history, currently notes that she is on Cymbalta for anxiety depression as well as her migraines. Encourage aggressive outpatient follow-up with neurology as there are several interventions that she could be doing if she has uncontrolled migraines. #5. Polysubstance Abuse w/ Hx remote reported IVDA: Will obtain HIV and hepatitis panel given history. #6. Anxiety and Depression: Will continue patient home cymbalta regimen. #7. DVT prophylaxis: Low risk, encourage ambulation. Admission Evaluation Time spent evaluating chart, patient history, patient evaluation, care planning and discussion with specialists: 60 minutes. Charges/Coding Visit Charges Inpatient E&M: 39547 Init Hosp L2
[2022-08-01 14:39] LABS: Amphetamine Urine VISTA POSITIVE (<1000 ng/mL); Barbiturate Urine VISTA NEGATIVE (< 200 ng/mL); Benzodiazepine Urine VISTA POSITIVE (< 200 ng/mL); Cocaine Urine VISTA POSITIVE (< 300 ng/mL); Ecstacy Urine VISTA POSITIVE (< 500 ng/mL); Methadone Urine VISTA NEGATIVE (< 300 ng/mL); PCP Urine VISTA NEGATIVE (< 25 ng/mL); THC Urine VISTA NEGATIVE (< 50 ng/mL); Vista UDS pH Range 5
[2022-08-01 14:48] LABS: AST(SGOT) 55 U/L (15-37); Alanine Aminotransfer ALT/SGPT 52 U/L (13-56); Albumin, Serum 3.9 g/dL (3.2-5.0); Alkaline Phosphatase 103 U/L (45-117); Anion Gap 8 (5-15); BUN 10 mg/dL (7-18); BUN/Creat Ratio 13.4 RATIO (10-20); Calcium,Total 9.1 mg/dL (8.5-10.1); Chloride 102 mmol/L (98-107); Creatinine, Serum 0.75 mg/dL (0.55-1.02); EST Glomerular Filtration Rate 96 mL/min (>60); Est Glom Filt Rate - Afr Amer 116 mL/min (>60); Estimated Creatinine Clearance 82.01 ml/min; Globulin 4.1 g/dL (2.2-4.2); Glucose 98 mg/dL (74-106); Potassium 3.3 mmol/L (3.5-5.1); Sodium Level 136 mmol/L (136-145)
[2022-08-01 14:57] VITALS: BP 130/94; PULSE 90; RESP 18; TEMP 36.8; O2SAT 98
[2022-08-01 15:24] LABS: Alcohol, Blood (Medical)-Serum < 3.0 mg/dL
[2022-08-01 15:33] VITALS: RESP 19
[2022-08-01 15:43] LABS: Internal QC Validated? YES +Cl - CLEAR BKGD; Pregnancy, Urine Negative Negative
[2022-08-01 15:54] VITALS: BMI 29.2
[2022-08-01 16:07] VITALS: BP 123/74; PULSE 90; RESP 18; TEMP 36.8; O2SAT 100
[2022-08-01 16:56] LABS: HIV - WCH Non-Reactive (Nonreactive)
[2022-08-01] MEDS: Gabapentin 300 MG Capsule PO (17:30)
[2022-08-01] MEDS: cloNIDine HCl 0.1 MG Tablet PO (17:30)
[2022-08-01] MEDS: Acetaminophen 325 MG Tablet 650 MG PO (17:30)
[2022-08-01 17:34] VITALS: O2SAT 98
[2022-08-01] MEDS: Buprenorphine HCl 2 MG TAB.SUBL SL (17:41)
[2022-08-01 17:42] LABS: Hepatitis B Surface Antibody Non-Reactive; Hepatitis B Surface Antigen Non-Reactive (Nonreactive); Hepatitis C Antibody Non-Reactive (Nonreactive)
[2022-08-01] MEDS: Loperamide 2 MG Capsule PO (18:53)
[2022-08-01] MEDS: Ondansetron 8 MG Tablet PO (18:54)
[2022-08-01] MEDS: hydrOXYzine PAM 25 MG Capsule 50 MG PO (18:54)
[2022-08-01] MEDS: Dicyclomine 10 MG Capsule 20 MG PO (18:54)
[2022-08-01 19:34] LABS: Magnesium 1.9 mg/dL (1.6-2.6)
[2022-08-01 20:37] VITALS: BP 117/67; PULSE 99; RESP 18; TEMP 36.7; O2SAT 100
[2022-08-01] MEDS: Potassium Chloride Oral Tablet 20 MEQ 40 MEQ PO (20:40)
[2022-08-01] MEDS: AMOXICILLIN 500 MG CAPSULE PO (20:40)
[2022-08-01] MEDS: traZODone 100 MG Tablet PO (20:40)
[2022-08-02] MEDS: Buprenorphine HCl 2 MG TAB.SUBL SL ×3 (01:41→18:05)
[2022-08-02] MEDS: Gabapentin 300 MG Capsule PO ×2 (01:41→11:30)
[2022-08-02] MEDS: Acetaminophen 325 MG Tablet 650 MG PO ×3 (01:41→21:39)
[2022-08-02 02:24] VITALS: BP 96/56; PULSE 89; RESP 14; TEMP 36.7; O2SAT 99
[2022-08-02] MEDS: hydrOXYzine PAM 25 MG Capsule 50 MG PO ×3 (06:28→21:38)
[2022-08-02] MEDS: AMOXICILLIN 500 MG CAPSULE PO ×3 (06:28→21:39)
[2022-08-02 07:29] VITALS: O2SAT 97
--- NOTE | 2022-08-02 08:40 | PN.HOSP_ITS ---
Reason for Visit Reason for Visit: Diagnoses Other psychoactive substance abuse, uncomplicated (08/01/22) Subjective Subjective Patient is a 31-year-old lady with history of dependence presenting with acute opioid withdrawal Objective Data Objective Data Vital Signs: Vital Signs Temp Pulse Resp BP Pulse Ox O2 Del Method 98.0 F 89 14 96/56 L 97 Room Air 08/02/22 02:24 08/02/22 02:24 08/02/22 02:24 08/02/22 02:24 08/02/22 07:29 08/02/22 07:29 Oxygen Delivery Method Room Air Weight: 70.307 kg Body Mass Index (BMI) 29.2 Intake & Output: Intake and Output for Last 24 Hours 07/31/22 08/01/22 08/02/22 23:59 23:59 23:59 Intake Total 140 / 140 Balance 140 / 140 Lab / Micro Data Result Diagrams: 08/01/22 14:12 08/01/22 14:12 Labs: Laboratory Results - last 24 hr 08/01/22 14:12: WBC 8.5, RBC 4.20, Hgb 12.7, Hct 39.6, MCV 94.3, MCH 30.2, MCHC 32.1, RDW Std Deviation 46.8 H, RDW Coeff of Mely 13.5, Plt Count 417, MPV 9.4, Immature Gran % (Auto) 0.400, Neut % (Auto) 77.7 H, Lymph % (Auto) 17.2 L, [place] % (Auto) 3.9, Eos % (Auto) 0.4, Baso % (Auto) 0.4, Absolute Neuts (auto) 6.7, Absolute Lymphs (auto) 1.47, Nucleated RBC % 0 08/01/22 14:12: Sodium 136, Potassium 3.3 L, Chloride 102, Carbon Dioxide 26.0, Anion Gap 8, BUN 10, Creatinine 0.75, Estim Creat Clear Calc 82.01, Est GFR (MDRD) Af Amer 116, Est GFR (MDRD) Non-Af 96, BUN/Creatinine Ratio 13.4, Glucose 98, Calcium 9.1, Total Bilirubin 0.20, AST 55 H, ALT 52, Alkaline Phosphatase 103, Total Protein 8.0, Albumin 3.9, Globulin 4.1, Albumin/Globulin Ratio 1.0 08/01/22 14:12: Ethyl Alcohol < 3.0 08/01/22 14:12: Urine Opiates Screen NEGATIVE, Urine Methadone Screen NEGATIVE, Ur Barbiturates Screen NEGATIVE, Ur Phencyclidine Scrn NEGATIVE, Ur Amphetamines Screen POSITIVE H, MDMA (Ecstasy) Screen POSITIVE H, U Benzodiazepines Scrn POSITIVE H, Urine Cocaine Screen POSITIVE H, U Cannabinoids Screen NEGATIVE, Ur Drug Screen Comment 08/01/22 14:12: Urine Test Negative 08/01/22 14:12: Hep Bs Antigen Non-Reactive, Hep Bs Antibody Non-Reactive, Hep atitis C Antibody Non-Reactive 08/01/22 14:12: Magnesium 1.9 08/01/22 15:19: HIV 1&2 Antibody Non-Reactive Physical Exam Narrative GENERAL: cooperative HEENT: Atraumatic; normocephalic EYES; Anicteric, Normal Conjunctiva NECK; supple, normal thyroid, RESPIRATORY: Diminished to auscultation CARDIOVASCULAR: Regular S1 S2, GI: soft, normoactive bowel sounds, : No Renal angle tenderness; EXTREMITIES: No edema, no clubbing, MUSCULOSKELETAL: no muscle wasting NEURO: Awake; no lateralizing signs. SKIN: No Rash PSYCH; Flat affect Assessment & Plan Assessment/Plan (1) Polysubstance abuse: PLAN: Plan Patient is a 31-year-old lady with history of dependence presenting with acute opioid withdrawal 1. Acute opiate withdrawal ? Patient admitted to regular nursing floor managed with Subutex taper in addition to adjuvant treatment for her symptoms 2. Hypokalemia ? Corrected per protocol repeat labs ordered for monitoring 3. Recent dental infection ? Patient is on amoxicillin continue 4. Patient with anxiety ? Patient is on Cymbalta 5. Chronic migraine ? Currently stable 6. DVT prophylaxis ? Fluids: Currently ambulation Time spent in the patient's overall evaluation,decision-making process, review of diagnostic data, adjustment of management, discussion with other providers, nursing nursing and ancillary staff involved in patient's care documentation, 35 minutes minutes Charges/Coding Visit Charges Inpatient E&M: 66798 Subs Hosp L2
[2022-08-02] MEDS: Dicyclomine 10 MG Capsule 20 MG PO (10:37)
[2022-08-02] MEDS: DULoxetine Hcl 60 MG Capsule PO (10:38)
[2022-08-02 10:44] VITALS: BP 102/62; PULSE 95; RESP 18; TEMP 36.6; O2SAT 98
[2022-08-02] MEDS: cloNIDine HCl 0.1 MG Tablet PO (11:30)
--- NOTE | 2022-08-02 12:38 | ADDICTION ---
TW met with pt to complete ASAM, AUDIT, DUDIT, MSE, and begin D/C planning. Pt asked TW to come back and did not want to meet with her. TW asked if she was brief if they could meet and pt was amenable if it was brief. Pt stated she wanted to go to [facility] residential treatment but did not state if she had already set it up. TW stated someone would be back in to help her arrange admittance into their program.
[2022-08-02 14:27] VITALS: BP 102/56; PULSE 92; RESP 18; TEMP 37.3; O2SAT 97
[2022-08-02 18:07] VITALS: BP 103/57; PULSE 100; RESP 16; TEMP 36.5; O2SAT 97
[2022-08-02] MEDS: traZODone 100 MG Tablet PO (21:39)
[2022-08-03] VITALS: BP 101/57; PULSE 97; RESP 16; TEMP 36.9; O2SAT 98
[2022-08-03] MEDS: Buprenorphine HCl 2 MG TAB.SUBL SL ×3 (02:11→17:43)
[2022-08-03 06:00] VITALS: BP 113/62; PULSE 87; RESP 16; TEMP 37.2; O2SAT 98
[2022-08-03] MEDS: AMOXICILLIN 500 MG CAPSULE PO ×3 (06:01→20:34)
[2022-08-03] MEDS: hydrOXYzine PAM 25 MG Capsule 50 MG PO ×3 (06:01→20:31)
[2022-08-03 07:14] VITALS: O2SAT 96
--- NOTE | 2022-08-03 07:16 | PN.HOSP_ITS ---
Reason for Visit Reason for Visit: Diagnoses Other psychoactive substance abuse, uncomplicated (08/01/22) Subjective Subjective Patient rescinded her decision to sign out AGAINST MEDICAL ADVICE the day prior. Seen this a.m. still complains of tremors. Objective Data Objective Data Vital Signs: Vital Signs Temp Pulse Resp BP Pulse Ox O2 Del Method 98.9 F 87 16 113/62 96 Room Air 08/03/22 06:00 08/03/22 06:00 08/03/22 06:00 08/03/22 06:00 08/03/22 07:14 08/03/22 07:14 Oxygen Delivery Method Room Air Weight: 70.307 kg Body Mass Index (BMI) 29.2 Intake & Output: Intake and Output for Last 24 Hours 08/01/22 08/02/22 08/03/22 23:59 23:59 23:59 Intake Total 1090 / 1090 Balance 1090 / 1090 Lab / Micro Data Result Diagrams: 08/01/22 14:12 08/01/22 14:12 Physical Exam Narrative GENERAL: cooperative HEENT: Atraumatic; normocephalic EYES; Anicteric, Normal Conjunctiva NECK; supple, normal thyroid, RESPIRATORY: Diminished to auscultation CARDIOVASCULAR: Regular S1 S2, GI: soft, normoactive bowel sounds, : No Renal angle tenderness; EXTREMITIES: No edema, no clubbing, MUSCULOSKELETAL: no muscle wasting NEURO: Awake; no lateralizing signs. SKIN: No Rash PSYCH; Flat affect Assessment & Plan Assessment/Plan (1) Polysubstance abuse: PLAN: Plan Patient is a 31-year-old lady with history of dependence presenting with acute opioid withdrawal 1. Acute opiate withdrawal ? Patient admitted to regular nursing floor managed with Subutex taper in addition to adjuvant treatment for her symptoms 2. Hypokalemia ? Corrected per protocol repeat labs ordered for monitoring 3. Recent dental infection ? Patient is on amoxicillin continue 4. Patient with anxiety ? Patient is on Cymbalta 5. Chronic migraine ? Currently stable 6. DVT prophylaxis ? Fluids: Currently ambulation Time spent in the patient's overall evaluation,decision-making process, review of diagnostic data, adjustment of management, discussion with other providers, nursing nursing and ancillary staff involved in patient's care documentation, 25 minutes minutes Charges/Coding Visit Charges Inpatient E&M: 41299 [facility] L1
[2022-08-03 07:43] VITALS: BP 110/64; PULSE 92; RESP 18; TEMP 36.6; O2SAT 98
[2022-08-03] MEDS: cloNIDine HCl 0.1 MG Tablet PO (07:48)
[2022-08-03] MEDS: Gabapentin 300 MG Capsule PO ×2 (07:48→17:43)
[2022-08-03] MEDS: Dicyclomine 10 MG Capsule 20 MG PO ×2 (07:48→20:31)
[2022-08-03] MEDS: DULoxetine Hcl 60 MG Capsule PO (09:47)
[2022-08-03] MEDS: Acetaminophen 325 MG Tablet 650 MG PO (09:52)
[2022-08-03] MEDS: Ondansetron 8 MG Tablet PO ×2 (09:52→17:43)
[2022-08-03 17:40] VITALS: BP 106/64; PULSE 94; RESP 18; TEMP 36.9; O2SAT 98
[2022-08-03] MEDS: traZODone 100 MG Tablet PO (20:31)
[2022-08-03] MEDS: Loperamide 2 MG Capsule PO (20:31)
[2022-08-03 20:42] VITALS: BP 103/62; PULSE 92; RESP 18; TEMP 36.6; O2SAT 98
[2022-08-04 05:00] VITALS: BP 110/66; PULSE 99; RESP 16; TEMP 36.6; O2SAT 96
[2022-08-04] MEDS: AMOXICILLIN 500 MG CAPSULE PO ×2 (05:18→15:19)
[2022-08-04] MEDS: Buprenorphine HCl 2 MG TAB.SUBL SL (05:18)
[2022-08-04] MEDS: Gabapentin 300 MG Capsule PO ×2 (06:32→15:21)
[2022-08-04] MEDS: Dicyclomine 10 MG Capsule 20 MG PO ×2 (06:32→12:21)
[2022-08-04] MEDS: hydrOXYzine PAM 25 MG Capsule 50 MG PO ×2 (06:32→12:20)
--- NOTE | 2022-08-04 10:24 | PCM.PN.HOSP ---
Reason for Visit Reason for Visit: Diagnoses Other psychoactive substance abuse, uncomplicated (08/01/22) Subjective Subjective Reports still feeling tired and shaky. Is agreeable to inpatient placement Objective Data Objective Data Vital Signs: Vital Signs Temp Pulse Resp BP Pulse Ox O2 Del Method 97.9 F 99 16 110/66 96 Room Air 08/04/22 05:00 08/04/22 05:00 08/04/22 05:00 08/04/22 05:00 08/04/22 05:00 08/04/22 05:00 Oxygen Delivery Method Room Air Weight: 70.307 kg Body Mass Index (BMI) 29.2 Intake & Output: Intake and Output for Last 24 Hours 08/02/22 08/03/22 08/04/22 23:59 23:59 23:59 Intake Total 1090 / 1090 1000 / 1320 640 / 640 Balance 1090 / 1090 1000 / 1320 640 / 640 Lab / Micro Data Result Diagrams: 08/01/22 14:12 08/01/22 14:12 Physical Exam Narrative General: Alert, oriented, no apparent distress HEENT: Atraumatic, normocephalic Eyes: extraocular movements grossly intact Neck: Supple Respiratory: normal respiratory effort Cardiovascular: no edema appreciated GI: nondistended Extremities: Moving all extremities Neuro: No overt focal neurological deficits Psych: Cooperative Assessment & Plan Assessment/Plan (1) Polysubstance abuse: PLAN: Plan Patient is a 31-year-old lady with history of dependence presenting with acute opioid withdrawal 1. Acute opiate withdrawal ? Presently here under ramp-up program, completed Subutex taper today, will go to inpatient rehab tomorrow -Given her complaints of continued malaise despite end of taper will obtain labs to r/o any underlying medical pathology 2. Hypokalemia ? Corrected per protocol repeat labs ordered for monitoring 3. Recent dental infection ? Patient is on amoxicillin continue 4. Patient with anxiety ? Patient is on Cymbalta 5. Chronic migraine ? Currently stable 6. DVT prophylaxis ? Fluids: Currently ambulation Time spent in the patient's overall evaluation,decision-making process, review of diagnostic data, adjustment of management, discussion with other providers, nursing nursing and ancillary staff involved in patient's care documentation, 25 minutes minutes Charges/Coding Visit Charges Inpatient E&M: 13732 Subs Hosp L2
[2022-08-04 11:00] VITALS: BP 104/58; PULSE 84; RESP 16; TEMP 36.6; O2SAT 97
[2022-08-04] MEDS: cloNIDine HCl 0.1 MG Tablet PO (11:24)
[2022-08-04] MEDS: DULoxetine Hcl 60 MG Capsule PO (11:24)
[2022-08-04] MEDS: Acetaminophen 325 MG Tablet 650 MG PO (11:24)
--- NOTE | 2022-08-04 16:49 | CHAPLAIN ---
Type of Pastoral Visit _x__ Initial Visit ___ Follow-up Visit ___ On-call Visit ___ General Patient Visit ___ Spiritual Assessment ___ Family Conference ___ Bereavement ___ Rapid Response ___ Code Blue ___ Other (describe below) Pastoral Care Referral From _x__ Patient ___ Family ___ Nurse ___ Physician ___ Architect Internship ___ [employer] ___ Other (describe below) Sacrament/Intervention ___ Active listening ___ Anointing ___ Hinduism ___ Bereavement ___ Communion ___ [place] exploration ___ ___ Life review _x__ Prayer ___ Reconciliation ___ Sacrament of Sick _x__ Supportive presence ___ Wedding ___ Other (describe below) Pastoral Comments patient is napping but awakens easily to her name; pt states that she appreciates the concern and visit of this product technology scientist but is probably too tired to talk right now; pt is asked if she would like a prayer before product technology scientist leaves; pt agrees and becomes quite tearful; prayer given along with affirmation of her decision for help; offer to return another time; pt states she would appreciate a visit tomorrow but that she is scheduled to be discharged tomorrow
--- NOTE | 2022-08-04 17:57 | NURSING ---
Pt asked to see this RN. This RN went back to room and pt had cell phone sitting in her bed. Pt stated she wanted to go home to be with my mom before I go to inpatient. This RN explained that she could not go home and then go to inpatient then this RN asked why pts cell phone was out, pt stated that she just got it out of her bin. two out of the four zip ties were taken off the bin that held her belongings. This RN encouraged pt to stay but pt continued to refuse. Pt is calling mom now.
[2022-08-04 18:25] LABS: Absolute Lymphocyte Count 2.11 X10^3/uL (0.83-4.51); Absolute Neutrophil Count 6.6 X10^3/uL (2.0-7.7); Basophil# 0.05 X10^3/uL; Basophil% 0.5 % (0-1); Hematocrit 42.4 % (37-47); Hemoglobin 13.8 g/dL (12.0-15.0); Lymphocyte # 2.11 X10^3/ul (0.83-4.51); Lymphocyte % 23.1 % (19-41); Mean Corp Hgb Conc 32.5 g/dL (32-36); Mean Corpuscular Hgb 30.7 pg (27.0-32.0); Mean Corpuscular Volume 94.2 fL (81-99); Mean Platelet Vol. 9.4 fl (6.2-12.0); Monocyte# 0.38 X10^3/uL; Monocyte% 4.2 % (0-10); NRBC Flagged by Analyzer 0 % (0-5); Neutrophil # 6.55 X10^3/uL (2.7-7.7); Neutrophil % 71.8 % (47-70); Platelet Count 443 K/mm3 (150-450); RBC Distribution Width CV 13.4 % (11.6-14.6); RBC Distribution Width SD 46.6 fl (35.1-43.9); White Blood Count 9.1 K/mm3 (4.4-11.0)
--- NOTE | 2022-08-04 18:42 | PCM.DC.SUM ---
Providers Date of Admission: 08/01/22 Date of Discharge: 08/04/22 Primary Care Physician: Hanane Primary Care Phys Reason For Visit: ACUTE OPIATE WITHDRAWAL Diagnosis Discharge Diagnosis (1) Polysubstance abuse: Status: Acute Code(s): F19.10 - Other psychoactive substance abuse, uncomplicated Plan 1. Acute opiate withdrawal 2. Hypokalemia- resolved 3. Recent dental infection 4. Patient with anxiety 5. Chronic migraine Medications at Discharge Home Medications duloxetine 60 mg capsule,delayed release (Cymbalta) 60 mg PO DAILY [facility] 02/22/13 Hospital Course Summary of Care Provided Minutes Spent on Discharge: 20 Hospital Course: Patient is a 31-year-old lady with history of dependence presenting with acute opioid withdrawal, she was here for [facility] program and underwent subutex taper, she completed these and was set to go to inpt rehab in the AM but left AMA. Physical Exam Narrative General: Alert, oriented, no apparent distress HEENT: Atraumatic, normocephalic Eyes: extraocular movements grossly intact Neck: Supple Respiratory: normal respiratory effort Cardiovascular: no edema appreciated GI: nondistended Extremities: Moving all extremities Neuro: No overt focal neurological deficits Psych: Cooperative Weight / BMI Weight Weight: 70.307 kg Body Mass Index (BMI) 29.2 ABG / Lab / Microbiology Data Result Diagrams: 08/04/22 18:00 08/01/22 14:12 Laboratory: Laboratory Results - last 24 hr 08/04/22 18:00: WBC 9.1, RBC 4.50, Hgb 13.8, Hct 42.4, MCV 94.2, MCH 30.7, MCHC 32.5, RDW Std Deviation 46.6 H, RDW Coeff of Mely 13.4, Plt Count 443, MPV 9.4, Immature Gran % (Auto) 0.400, Neut % (Auto) 71.8 H, Lymph % (Auto) 23.1, [place] % (Auto) 4.2, Eos % (Auto) 0.0, Baso % (Auto) 0.5, Absolute Neuts (auto) 6.6, Absolute Lymphs (auto) 2.11, Nucleated RBC % 0 D/C Instructions Discharge Diet: No restrictions Discharge Activity: Return to Normal Activity Meaningful Use Info Meaningful Use Diagnoses (Choose all that apply): None applicable Discharge Plan Admission Admit Date/Time: 08/01/22 14:49 Primary Reason for Your Visit: detox Attending Provider: Yolanda Whitten Primary Care Provider: Care Physician,No Primary Consulting Providers: Delma Reveles David Discharge Orders/Prescriptions Prescriptions: No Action duloxetine [Cymbalta] 60 MG capsule,delayed release(DR/EC) 60 mg PO DAILY Referrals / Follow Up: Care Physician,No Primary [Primary Care Provider] - Disposition Disposition (needs filled in before D/C Order can be placed): Against Medical Advice Charges/Coding Visit Charges Inpatient E&M: [id number] Disch Hosp
[2022-08-04 18:48] LABS: ALB/GLOB Ratio 0.8 RATIO (0.9-2.4); AST(SGOT) 19 U/L (15-37); Alanine Aminotransfer ALT/SGPT 31 U/L (13-56); Albumin, Serum 3.8 g/dL (3.2-5.0); Alkaline Phosphatase 96 U/L (45-117); Anion Gap 4 (5-15); BUN 13 mg/dL (7-18); BUN/Creat Ratio 13.9 RATIO (10-20); Calcium,Total 9.5 mg/dL (8.5-10.1); Chloride 106 mmol/L (98-107); Creatinine, Serum 0.93 mg/dL (0.55-1.02); EST Glomerular Filtration Rate 74 mL/min (>60); Est Glom Filt Rate - Afr Amer 90 mL/min (>60); Estimated Creatinine Clearance 66.14 ml/min; Globulin 4.6 g/dL (2.2-4.2); Glucose 149 mg/dL (74-106); Potassium 3.4 mmol/L (3.5-5.1); Protein, Total 8.4 g/dL (6.4-8.2); Sodium Level 136 mmol/L (136-145)
== END 2022-08-04 18:15 | disposition left against medical advice (07) | DRG 770 ==
LOC: ED 14:13 → MS3 15:39
PROVIDERS: Admitting Provider Family Medicine; Emergency Provider Emergency Medicine; Visit Provider Internal Medicine
DX: F11.23 Opioid dependence with withdrawal (principal); E87.6 Hypokalemia; F41.9 Anxiety disorder, unspecified; K04.7 Periapical abscess without sinus; G43.709 Chronic migraine without aura, not intractable, without status migrainosus; F32.A Depression, unspecified; Z79.899 Other long term (current) drug therapy; Z53.29 Procedure and treatment not carried out because of patient's decision for other reasons
CPT/HCPCS: 36415; 80053; 80307; 81025; 82077; 83735; 85025; 86703; 86706; 86803; 87340; 93005; 99283

== ENCOUNTER 2022-11-19 14:23 | Inpatient (IN) | payer MEDICAID, SELFPAY ==
[2022-11-19 14:25] VITALS: BP 126/84; PULSE 114; RESP 20; TEMP 36.8; O2SAT 99; BMI 18.5
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
--- NOTE | 2022-11-19 15:11 | EKG12_ITS ---
Test Reason : GENERAL Blood Pressure : / mmHG Vent. Rate : 102 BPM Atrial Rate : 102 BPM P-R Int : 128 ms QRS Dur : 082 ms QT Int : 314 ms P-R-T Axes : 051 036 037 degrees QTc Int : 409 ms Sinus tachycardia Otherwise normal ECG Confirmed by IMELDA TERRELL, ЕЛЕНА ([id number]), manuscript editor BERHANE TRAVIS ([id number]) on 11/20/2022 1:25:36 PM Referred By: Confirmed By:ЕЛЕНА SEGURA MD
[2022-11-19 15:34] LABS: Absolute Neutrophil Count 7.6 X10^3/uL (2.0-7.7); Basophil# 0.05 X10^3/uL; Basophil% 0.4 % (0-1); Eosinophil# 0.01 X10^3/uL; Eosinophils% 0.1 % (0-5); Hematocrit 50.1 % (37-47); Hemoglobin 16.1 g/dL (12.0-15.0); Lymphocyte % 26.5 % (19-41); Mean Corp Hgb Conc 32.1 g/dL (32-36); Mean Corpuscular Hgb 30.4 pg (27.0-32.0); Mean Corpuscular Volume 94.7 fL (81-99); Mean Platelet Vol. 9.6 fl (6.2-12.0); Monocyte# 0.62 X10^3/uL; Monocyte% 5.5 % (0-10); NRBC Flagged by Analyzer 0 % (0-5); Neutrophil # 7.58 X10^3/uL (2.7-7.7); Neutrophil % 67.1 % (47-70); Platelet Count 438 K/mm3 (150-450); RBC Distribution Width CV 12.4 % (11.6-14.6); RBC Distribution Width SD 42.6 fl (35.1-43.9); Red Blood Count 5.29 M/mm3 (4.2-5.4); White Blood Count 11.3 K/mm3 (4.4-11.0)
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
--- NOTE | 2022-11-19 15:45 | RAD_ITS ---
INDICATION: Right knee pain EXAMINATION/TECHNIQUE: X-RAY - RIGHT XR Knee 1 or 2 Views 2 VIEWS COMPARISON: None FINDINGS: SOFT TISSUES: No soft tissue swelling or gas. No radiopaque foreign body. BONES/JOINTS: No acute fracture or subluxation. Medial, lateral, and patellofemoral joint spaces are maintained. No sclerotic or destructive changes observed. RAD/Knee 1 or 2 Views IMPRESSION: Negative. Electronically Signed: Haresh Love MD at 16:25 EDT ,
--- NOTE | 2022-11-19 15:45 | RAD_ITS ---
INDICATION: Left elbow pain EXAMINATION/TECHNIQUE: X-RAY - LEFT XR Elbow Min 3 Views COMPARISON: None FINDINGS: SOFT TISSUES: No soft tissue swelling or gas. No radiopaque foreign body. BONES/JOINTS: There is no displacement of the anterior or posterior fat pads. No acute fracture or subluxation. Normal alignment. Preservation of the joint space. No sclerotic or destructive changes observed. RAD/Elbow min 3 Views IMPRESSION: Negative. Electronically Signed: Haresh Love MD at 16:26 EDT ,
[2022-11-19 15:48] LABS: Internal QC Validated? YES +Cl - CLEAR BKGD; Pregnancy, Serum, hCG Quali. NEGATIVE Negative
[2022-11-19 15:56] LABS: Anion Gap 6 (5-15); BUN 14 mg/dL (7-18); BUN/Creat Ratio 12.4 RATIO (10-20); Calcium,Total 9.7 mg/dL (8.5-10.1); Chloride 110 mmol/L (98-107); Creatinine, Serum 1.13 mg/dL (0.55-1.02); EST Glomerular Filtration Rate 59 mL/min (>60); Est Glom Filt Rate - Afr Amer 72 mL/min (>60); Estimated Creatinine Clearance 50.26 ml/min; Glucose 120 mg/dL (74-106); Potassium 4.5 mmol/L (3.5-5.1); Sodium Level 139 mmol/L (136-145)
[2022-11-19] MEDS: Ondansetron ODT 4 MG Tablet PO (16:07)
[2022-11-19] MEDS: cloNIDine HCl 0.1 MG Tablet PO (16:07)
[2022-11-19 16:15] LABS: Alcohol, Blood (Medical)-Serum < 3.0 mg/dL
[2022-11-19 16:38] LABS: Amphetamine Urine VISTA NEGATIVE (<1000 ng/mL); Barbiturate Urine VISTA NEGATIVE (< 200 ng/mL); Benzodiazepine Urine VISTA NEGATIVE (< 200 ng/mL); Cocaine Urine VISTA NEGATIVE (< 300 ng/mL); Ecstacy Urine VISTA NEGATIVE (< 500 ng/mL); Methadone Urine VISTA NEGATIVE (< 300 ng/mL); PCP Urine VISTA NEGATIVE (< 25 ng/mL); THC Urine VISTA NEGATIVE (< 50 ng/mL); Vista UDS pH Range 5
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
--- NOTE | 2022-11-19 17:54 | CM.ED ---
Social Work SW introduced self and role to patient. Pt desires detox from fentanyl. Pt reports she has detoxed with [facility] once before. Pt reports she has a bed available and reserved with [facility] after detox. Pt indicated last use was 6 days ago and believes it was laced. Pt does not use intravenously, reports snorting. SW to notify treatment navigator. Alexandra Oropeza CERTIFIED EXECUTIVE CHEF, SUPERVISOR [employer]SEM[employer]
[2022-11-19 18:16] VITALS: BP 104/83; PULSE 74; RESP 15; RESP 16; TEMP 36.6
[2022-11-19 18:58] LABS: CPK Total, Creatine Kinase 82 U/L (26-192)
[2022-11-19 19:49] VITALS: BMI 27.1
[2022-11-19 20:03] VITALS: BP 124/83; PULSE 93; RESP 18; TEMP 36.7; O2SAT 94
[2022-11-19] MEDS: traZODone 100 MG Tablet PO (21:08)
[2022-11-19] MEDS: Dicyclomine 10 MG Capsule 20 MG PO (21:08)
[2022-11-19] MEDS: Loperamide 2 MG Capsule PO (21:08)
[2022-11-19] MEDS: Gabapentin 300 MG Capsule PO (21:08)
[2022-11-19] MEDS: Ondansetron 8 MG Tablet PO (21:08)
[2022-11-20 06:45] VITALS: BP 101/75; PULSE 64; RESP 16; TEMP 37.1; O2SAT 97
[2022-11-20 08:55] VITALS: BP 109/72; PULSE 83; RESP 18; TEMP 36.3; O2SAT 99
[2022-11-20] MEDS: hydrOXYzine PAM 25 MG Capsule 50 MG PO ×2 (08:57→16:57)
[2022-11-20] MEDS: DULoxetine Hcl 60 MG Capsule PO (08:57)
[2022-11-20] MEDS: Buprenorphine HCl 2 MG TAB.SUBL 4 MG SL (08:57)
[2022-11-20] MEDS: Dicyclomine 10 MG Capsule 20 MG PO ×2 (08:57→16:57)
--- NOTE | 2022-11-20 12:00 | ADDICTION ---
This keno writer met with PT to conduct ASAM, MSE, AUDIT, DUDIT assessments and to plan for d/c. PT A+Ox4 and participated actively. All assessments completed and placed in PT's chart. PT plans to f/u with [facility] for inpatient treatment services. [facility] will provide transportation post d/c from [facility].
--- NOTE | 2022-11-20 12:30 | PN_ITS ---
Subjective Subjective Patient seen and examined. She has been refusing her subutex because she is scared of it. She is unable to articulate exactly why she is scared. She is having withdrawal symptoms including tremors, shakes and abdominal cramps. Review of systems is otherwise negative. Objective Data Objective Data Vital Signs: Vital Signs Temp Pulse Resp BP Pulse Ox O2 Del Method 97.4 F L 83 18 109/72 99 Room Air 11/20/22 08:55 11/20/22 08:55 11/20/22 08:55 11/20/22 08:55 11/20/22 08:55 11/20/22 08:55 Oxygen Delivery Method Room Air Weight: 143 lb 8 oz Body Mass Index (BMI) 27.1 Intake & Output: Intake and Output for Last 24 Hours 11/18/22 11/19/22 11/20/22 23:59 23:59 23:59 Intake Total 700 / 700 Balance 700 / 700 Lab / Micro Data 11/19/22 15:25 11/19/22 15:25 Labs: Laboratory Results - last 24 hr 11/19/22 15:25: WBC 11.3 H, RBC 5.29, Hgb 16.1 H, Hct 50.1 H, MCV 94.7, MCH 30.4, MCHC 32.1, RDW Std Deviation 42.6, RDW Coeff of Mely 12.4, Plt Count 438, MPV 9.6, Immature Gran % (Auto) 0.400, Neut % (Auto) 67.1, Lymph % (Auto) 26.5, [place] % (Auto) 5.5, Eos % (Auto) 0.1, Baso % (Auto) 0.4, Absolute Neuts (auto) 7.6, Absolute Lymphs (auto) 3.00, Nucleated RBC % 0, Sodium 139, Potassium 4.5, Chloride 110 H, Carbon Dioxide 23.0, Anion Gap 6, BUN 14, Creatinine 1.13 H, Estim Creat Clear Calc 50.26, Est GFR (MDRD) Af Amer 72, Est GFR (MDRD) Non-Af 59 L, BUN/Creatinine Ratio 12.4, Glucose 120 H, Calcium 9.7, Total Creatine Kinase 82, Serum , Qual NEGATIVE, Ethyl Alcohol < 3.0 11/19/22 15:33: Urine Opiates Screen NEGATIVE, Urine Methadone Screen NEGATIVE, Ur Barbiturates Screen NEGATIVE, Ur Phencyclidine Scrn NEGATIVE, Ur Amphetamines Screen NEGATIVE, MDMA (Ecstasy) Screen NEGATIVE, U Benzodiazepines Scrn NEGATIVE, Urine Cocaine Screen NEGATIVE, U Cannabinoids Screen NEGATIVE, Ur Drug Screen Comment Micro: Microbiology 11/19/22 15:27 Nasal Secretion SARS-CoV-2 Antigen (Rapid) - Final Radiography Diagnostic Testing: Radiology Impression Brain CT 11/19/22 15:44 IMPRESSION: Negative Brain CT without contrast. Electronically Signed: Haresh Love MD at 16:31 EDT , Cervical Spine CT 11/19/22 15:44 IMPRESSION: No evidence of acute cervical spinal fracture or spondylolisthesis. Electronically Signed: Haresh Love MD at 16:36 EDT Reading Location ID and State: [facility] / [place] Tel , Service support , Elbow X-Ray 11/19/22 15:45 IMPRESSION: Negative. Electronically Signed: Haresh Love MD at 16:26 EDT , Knee X-Ray 11/19/22 15:45 IMPRESSION: Negative. Electronically Signed: Haresh Love MD at 16:25 EDT , Physical Exam Const alert, oriented x3 and no apparent distress General Appearance: cooperative HEENT normocephalic, head/scalp atraumatic and moist oral mucous membranes Eyes PERRL and EOMs intact bilaterally Neck supple and no JVD Lymph Lymphatic: no lymphadenopathy noted and no lymphedema noted Resp normal respiratory effort, normal air movement and clear to auscultation bilaterally Cardio S1 normal heart sound, S2 normal heart sound and no murmurs Cardio Narrative: tachycardic Rate: tachycardic GI normal to inspection, nondistended, normoactive bowel sounds, soft to palpation, non-tender and non-distended Extremity normal capillary refill, no clubbing, cyanosis or edema and no calf tenderness Skin General Skin Exam: no breakdown Neuro CN's II-XII intact bilaterally, no focal motor deficits, no sensory deficits noted and deep tendon reflexes 2+ bilaterally Neuro Narrative: tremors of her upper extremities due to withdrawal Motor Exam: strength 5/5 throughout and general weakness Psych thought process normal, cooperative and affect normal Appearance: appropriate Assessment & Plan Assessment/Plan (1) Opioid withdrawal: PLAN: Plan #Acute opioid withdrawal * on opioid withdrawal protocol with buprenorphine. Counseled to be compliant with her buprenorphine schedule as she is * opioid withdrawal protocol with buprenorphine * adjunctive meds for symptomatic relief * * #Depression; on duloxetine DVT prophylaxis: low risk, encourage to ambulate Charges/Coding Visit Charges Inpatient E&M: 21450 Subs Hosp L2
[2022-11-20 13:05] VITALS: BP 110/82; PULSE 90; RESP 18; TEMP 36.3; O2SAT 99
[2022-11-20] MEDS: Gabapentin 300 MG Capsule PO ×2 (13:07→21:09)
[2022-11-20] MEDS: cloNIDine HCl 0.1 MG Tablet PO (13:07)
[2022-11-20] MEDS: Buprenorphine HCl 2 MG TAB.SUBL SL (16:57)
[2022-11-20 16:59] VITALS: BP 102/80; PULSE 80; RESP 18; TEMP 36.6; O2SAT 100
[2022-11-20 20:58] VITALS: BP 107/73; PULSE 69; RESP 18; TEMP 36.8; O2SAT 99
[2022-11-20] MEDS: traZODone 100 MG Tablet PO (21:09)
[2022-11-21 01:49] VITALS: BP 92/68; PULSE 72; RESP 18; TEMP 36.4; O2SAT 97
[2022-11-21] MEDS: Buprenorphine HCl 2 MG TAB.SUBL SL ×3 (01:53→16:48)
[2022-11-21 06:43] VITALS: BP 114/77; PULSE 74; RESP 18; TEMP 36.6; O2SAT 99
[2022-11-21] MEDS: Ondansetron 8 MG Tablet PO (08:42)
[2022-11-21] MEDS: Dicyclomine 10 MG Capsule 20 MG PO ×2 (08:42→21:23)
[2022-11-21] MEDS: Gabapentin 300 MG Capsule PO ×2 (08:42→16:48)
[2022-11-21] MEDS: DULoxetine Hcl 60 MG Capsule PO (08:43)
[2022-11-21 08:44] VITALS: BP 106/78; PULSE 66; RESP 17; TEMP 36.7; O2SAT 100
--- NOTE | 2022-11-21 10:52 | PN_ITS ---
Subjective Subjective Patient seen and examined. He took the buprenorphine yesterday and says she feels much better. She had no complaints and feels much better. Review of systems is otherwise negative. Objective Data Objective Data Vital Signs: Vital Signs Temp Pulse Resp BP Pulse Ox O2 Del Method 98.1 F 66 17 106/78 100 Room Air 11/21/22 08:44 11/21/22 08:44 11/21/22 08:44 11/21/22 08:44 11/21/22 08:44 11/21/22 08:44 Oxygen Delivery Method Room Air Weight: 143 lb 8 oz Body Mass Index (BMI) 27.1 Intake & Output: Intake and Output for Last 24 Hours 11/19/22 11/20/22 11/21/22 23:59 23:59 23:59 Intake Total 700 / 700 Balance 700 / 700 Lab / Micro Data 11/19/22 15:25 11/19/22 15:25 Micro: Microbiology 11/19/22 15:27 Nasal Secretion SARS-CoV-2 Antigen (Rapid) - Final Physical Exam Const alert, oriented x3 and no apparent distress General Appearance: cooperative HEENT normocephalic, head/scalp atraumatic and moist oral mucous membranes Eyes PERRL and EOMs intact bilaterally Neck no lymphadenopathy, supple and no JVD Lymph Lymphatic: no lymphadenopathy noted and no lymphedema noted Resp normal respiratory effort, normal air movement and clear to auscultation bilaterally Cardio regular rate, regular rhythm, S1 normal heart sound, S2 normal heart sound and no murmurs GI normal to inspection, nondistended, normoactive bowel sounds, soft to palpation, non-tender and non-distended Extremity normal capillary refill, no clubbing, cyanosis or edema and no calf tenderness Skin General Skin Exam: no breakdown Neuro CN's II-XII intact bilaterally, no focal motor deficits, no sensory deficits noted and deep tendon reflexes 2+ bilaterally Motor Exam: strength 5/5 throughout and general weakness Psych thought process normal, cooperative and affect normal Appearance: appropriate Assessment & Plan Assessment/Plan (1) Opioid withdrawal: PLAN: Plan #Acute opioid withdrawal * on opioid withdrawal protocol with buprenorphine. * opioid withdrawal protocol with buprenorphine * adjunctive meds for symptomatic relief * * #Depression; on duloxetine DVT prophylaxis: low risk, encourage to ambulate DIsposition: anticipate dc tomorrow Charges/Coding Visit Charges Inpatient E&M: 64575 Subs Hosp L2
[2022-11-21] MEDS: hydrOXYzine PAM 25 MG Capsule 50 MG PO ×2 (13:41→21:23)
[2022-11-21 14:00] VITALS: BP 107/57; PULSE 70; RESP 17; TEMP 37; O2SAT 95
--- NOTE | 2022-11-21 16:38 | CHAPLAIN ---
Type of Pastoral Visit _x__ Initial Visit ___ Follow-up Visit ___ On-call Visit ___ General Patient Visit ___ Spiritual Assessment ___ Family Conference ___ Bereavement ___ Rapid Response ___ Code Blue ___ Other (describe below) Pastoral Care Referral From _x__ Patient ___ Family ___ Nurse ___ Physician ___ Speeder Frame Tender ___ Attendant Lodging Facilities ___ Other (describe below) Sacrament/Intervention ___ Active listening ___ Anointing ___ Restorationism ___ Bereavement ___ Communion ___ [place] exploration ___ ___ Life review _x__ Prayer ___ Reconciliation ___ Sacrament of Sick _x__ Supportive presence ___ Wedding ___ Other (describe below) Pastoral Comments patient is quietly resting and responds easily when her name is called by this tensile tester; pt states that she is doing fine; offer of supportive presence and prayer is given; pt states that she would accept a prayer at this time
[2022-11-21 21:14] VITALS: BP 109/73; PULSE 88; RESP 18; TEMP 36.1; O2SAT 94
[2022-11-21] MEDS: traZODone 100 MG Tablet PO (21:23)
[2022-11-22] MEDS: Buprenorphine HCl 2 MG TAB.SUBL SL ×2 (02:29→10:16)
[2022-11-22 02:31] VITALS: BP 98/62; PULSE 92; RESP 18; TEMP 36.4; O2SAT 99
[2022-11-22] MEDS: Gabapentin 300 MG Capsule PO ×3 (02:31→18:02)
[2022-11-22] MEDS: Dicyclomine 10 MG Capsule 20 MG PO ×2 (08:11→14:55)
[2022-11-22] MEDS: hydrOXYzine PAM 25 MG Capsule 50 MG PO ×2 (08:11→14:55)
[2022-11-22] MEDS: cloNIDine HCl 0.1 MG Tablet PO (08:11)
[2022-11-22 08:20] VITALS: BP 104/72; PULSE 88; RESP 18; TEMP 36.6; O2SAT 96
[2022-11-22] MEDS: DULoxetine Hcl 60 MG Capsule PO (10:16)
--- NOTE | 2022-11-22 11:27 | PN_ITS ---
Subjective Subjective Patient seen and examined. She was comfortable, but said she felt like she was going through withdrawal and wanted another day. Review of systems is otherwise negative. She has remained hemodynamically stable. Objective Data Objective Data Vital Signs: Vital Signs Temp Pulse Resp BP Pulse Ox O2 Del Method 97.9 F 88 18 104/72 96 Room Air 11/22/22 08:20 11/22/22 08:20 11/22/22 08:20 11/22/22 08:20 11/22/22 08:20 11/22/22 08:20 Oxygen Delivery Method Room Air Weight: 143 lb 8 oz Body Mass Index (BMI) 27.1 Intake & Output: Intake and Output for Last 24 Hours 11/20/22 11/21/22 11/22/22 23:59 23:59 23:59 Intake Total 700 / 700 780 / 780 Balance 700 / 700 780 / 780 Lab / Micro Data 11/19/22 15:25 11/19/22 15:25 Micro: Microbiology 11/19/22 15:27 Nasal Secretion SARS-CoV-2 Antigen (Rapid) - Final Physical Exam Const alert, oriented x3 and no apparent distress General Appearance: cooperative HEENT normocephalic, head/scalp atraumatic and moist oral mucous membranes Eyes PERRL and EOMs intact bilaterally Neck no lymphadenopathy, supple and no JVD Lymph Lymphatic: no lymphadenopathy noted and no lymphedema noted Resp normal respiratory effort, normal air movement and clear to auscultation bilaterally Cardio regular rate, regular rhythm, S1 normal heart sound, S2 normal heart sound and no murmurs GI normal to inspection, nondistended, normoactive bowel sounds, soft to palpation, non-tender and non-distended Extremity normal capillary refill, no clubbing, cyanosis or edema and no calf tenderness Skin General Skin Exam: no breakdown Neuro CN's II-XII intact bilaterally, no focal motor deficits, no sensory deficits noted and deep tendon reflexes 2+ bilaterally Motor Exam: strength 5/5 throughout and general weakness Psych thought process normal, cooperative and affect normal Appearance: appropriate Assessment & Plan Assessment/Plan (1) Opioid withdrawal: PLAN: Plan #Acute opioid withdrawal * on opioid withdrawal protocol with buprenorphine. * opioid withdrawal protocol with buprenorphine * adjunctive meds for symptomatic relief * * #Depression; on duloxetine DVT prophylaxis: low risk, encourage to ambulate DIsposition: anticipate dc tomorrow; she wants to stay one more day today Charges/Coding Visit Charges Inpatient E&M: 71846 Subs Hosp L2
[2022-11-22 14:20] VITALS: BP 98/55; PULSE 64; RESP 16; TEMP 37.1; O2SAT 99
[2022-11-22] MEDS: Acetaminophen 325 MG Tablet 650 MG PO (18:17)
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
== END 2022-11-22 19:35 | disposition left against medical advice (07) | DRG 770 ==
LOC: ED 16:14 → MS3 17:48
PROVIDERS: Admitting Provider Student in an Organized Health Care Education/Training Program; Emergency Provider Emergency Medicine; Visit Provider Student in an Organized Health Care Education/Training Program
DX: F11.13 Opioid abuse with withdrawal (principal); F32.A Depression, unspecified; Z79.899 Other long term (current) drug therapy; Z53.29 Procedure and treatment not carried out because of patient's decision for other reasons
CPT/HCPCS: 70450; 72125; 73080; 73560; 80048; 80307; 82077; 82550; 84703; 85025; 87811; 93005; 97802; 99284